=== PATIENT | female | born 1930 | race Caucasian/White ===

== ENCOUNTER 2017-01-22 18:45 | Inpatient (IN) | payer OTHER, MEDICARE ==
[~2017-01-22] VITALS: Ht 160 cm; Wt 54.2 kg
[~2017-01-22 18:45] MED LIST: ACET325T96 PO; ADVIN10/60 INH; ALBU18002 INH; ASPI81TA28 PO; ATOR-22 PO; CLOP1TAB15 PO; COEN50CA2 PO; LISI2.5T5 PO; METO25TA3 PO; NTRGSL/4 UT
--- NOTE | 2017-01-22 19:21 | EMERGENCY ROOM VISIT NOTE ---
History Report prepared by Jasper: Taty Interiano Under the Supervision of: Dr. Loki Roberson M.D. First contact with patient: 19:02 Chief Complaint: CARDIAC ASSESSMENT Stated Complaint: RETAINING FLUID,NOT EATING,SOB,ABNORMAL LABS Nursing Triage Summary: pt was seen at pcp on monday had testing completed . dr stated he was going out of town if pt got worse come to ed . was called and told lab work was abnormal at 1999 last night and cxr had fluid. had not been read by radiologist but that is what he seen . pt c/o sob has bilat lower ext swelling History of Present Illness The patient is an 86 year old female who presents to the Emergency Room with complaints of abnormal labs that were drawn on Monday. Per the patient's son, the patient had an appointment with her PCP on Monday morning. He states that two weeks ago the patient was started on Prednis[place] The patient's son states that since then the patient has gone down hill. He states that the patient has had a decrease in appetite, decrease in fluid intake, increased fatigue, and increased confusion. The patient's son states that the patient had outpatient labs drawn, urinalysis, and a chest x- ray. He states that they received a call last night from the patient's PCP stating that there were abnormalities in her lab work and fluid build up on her chest x-ray. The patient's son states that the patient worsened today, noting that she has had increased swelling to her lower extremities, increased labored breathing, and weakness. He denies the patient having a fever. The patient notes that she feels short of breath today. He states that the patient was going to outpatient therapy at [facility], but states that she has been going downhill. 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 Source of History: patient, family (son) Onset: Monday Position: other (global) Quality: other (abnormal labs) Associated Symptoms: + SOB, + weakness, No fevers Note: Associated Symptoms: increased confusion, increased fatigue, decrease in appetite, decrease in fluid intake, increased labored breathing, increased swelling to lower extremities Review of Systems See HPI for pertinent positives & negatives. A total of 10 systems reviewed and were otherwise negative. Past Medical & Surgical Medical Problems: (1) Ankle fracture, left (2) CAD (coronary artery disease) (3) Carotid stenosis, non-symptomatic (4) Chronic systolic CHF (congestive heart failure) (5) CKD (chronic kidney disease), stage III (6) COPD (chronic obstructive pulmonary disease) (7) CVA (cerebral vascular accident) (8) Dyslipidemia (9) Ischemic cardiomyopathy (10) Left Hip Fracture (11) Osteoporosis Surgical Problems: (1) H/O dilation and curettage (2) History of hip replacement (3) S/P tonsillectomy and adenoidectomy Family History Cancer Diabetes mellitus Heart disease Hypertension Social History Smoking Status: Never Smoker Marital Status: Occupation Status: retired Current/Historical Medications Scheduled Acetaminophen (Tylenol), 500 MG PO QPM Aspirin (Aspirin Ec), 81 MG PO DAILY Atorvastatin (Lipitor), 20 MG PO QPM Clopidogrel (Plavix), 75 MG PO QAM Coenzyme Q10 (Ubidecarenone) (Co Q-10), 50 MG PO DAILY Fluticasone Prop/Salmeterol (Advair Diskus 100/50 60 Dose), 1 PUFF INH QAM Furosemide (Furosemide), 20 MG PO WK Lisinopril (Lisinopril), 2.5 MG PO DAILY Metoprolol Succ (Toprol Xl) (Toprol-Xl), 75 MG PO BID Nitroglycerin (Nitrostat), 0.4 MG UT PRN Sennosides-Docusate Sodium (Senna S), 2 TAB PO DAILY Spironolactone (Spironolactone), 12.5 MG PO WK Scheduled PRN Albuterol Sulfate (Proair Respiclick), 2 PUFF INH QID PRN for SOB/Wheezing Allergies Coded Allergies: No Known Allergies (Unverified , 11/12/16) Physical Exam Vital Signs Date Time Temp Pulse Resp B/P Pulse Ox O2 Delivery O2 Flow Rate FiO2 01/22/17 20:59 91 20 157/67 95 Nasal Cannula 2.0 01/22/17 19:52 94 20 155/72 94 Nasal Cannula 1.0 01/22/17 19:50 93 Nasal Cannula 1.0 01/22/17 19:44 95 01/22/17 18:50 36.9 83 20 150/68 94 Room Air Physical Exam GENERAL: Patient is in no acute distress. HEENT: No acute trauma, normocephalic atraumatic, mucous membranes moist, no nasal congestion, no scleral icterus. NECK: No stridor, no adenopathy, no meningismus, trachea is midline. LUNGS: Decreased breath sounds on right, left lung appears clear. HEART: Without murmurs gallops or rubs, regular rate and rhythm. ABDOMEN: Soft, nontender, bowel sounds positive, no hernias, no peritonitis. EXTREMITIES: Moderate bilateral pedal edema, no cellulitis. No cyanosis, full range of motion of all the joints without pain or difficulty, no signs for acute trauma. NEUROLOGIC: No acute motor or sensory deficits, no focal weakness. Somnolent. SKIN: Pale. No rash, no jaundice, no diaphoresis. Medical Decision & Procedures ER Provider Diagnostic Interpretation: X ray results and stated below per my interpretation and radiologist interpretation. Other radiology results and stated below per my review and radiologist interpretation: HEAD CT NONCONTRAST CT DOSE: 1257.71 mGy.cm HISTORY: Mental status change EVALUATE ALTERED MENTAL STATUS/WEAKNESS TECHNIQUE: Multiaxial CT images of the head were performed without the use of intravenous contrast. Comparison: 09/16/2016 Findings: The paranasal sinuses and mastoid air cells are clear. Old right frontal infarct. Several old periventricular infarct. No evidence for acute intracranial hemorrhage. Slightly progressive atrophy compared to the prior exam. Impression: 1. No acute intracranial abnormality. 2. Mildly progressive atrophy compared to the prior study. 3. Multiple old infarcts primarily in the right cerebral hemisphere Electronically signed by: William Lua M.D. 01/22/2017 8:24 PM Dictated Date/Time: 01/22/2017 8:21 PM CHEST ONE VIEW PORTABLE CLINICAL HISTORY: EVALUATE ALTERED MENTAL STATUS/WEAKNESS dyspnea COMPARISON STUDY: 11/16/2016 FINDINGS: Congestive heart failure. Increase in cardiac size compared to the prior study. Bibasilar pleural effusions. Prominent pulmonary vasculature. IMPRESSION: Congestive heart failure Electronically signed by: William Lua M.D. 01/22/2017 7:42 PM Dictated Date/Time: 01/22/2017 7:41 PM Laboratory Results 01/22/17 19:32 Red Blood Count 3.68, Mean Corpuscular Volume 85.3, Mean Corpuscular Hemoglobin 26.6, Mean Corpuscular Hemoglobin Concent 31.2, Mean Platelet Volume 9.1, Neutrophils (%) (Auto) 81.1, Lymphocytes (%) (Auto) 8.7, Monocytes (%) (Auto) 9.5, Eosinophils (%) (Auto) 0.1, Basophils (%) (Auto) 0.3, Neutrophils # (Auto) 10.37, Lymphocytes # (Auto) 1.11, Monocytes # (Auto) 1.21, Eosinophils # (Auto) 0.01, Basophils # (Auto) 0.04 01/22/17 19:32 Test 01/22/17 19:32 01/22/17 20:44 White Blood Count 12.78 K/uL (4.8-10.8) Red Blood Count 3.68 M/uL (4.2-5.4) Hemoglobin 9.8 g/dL (12.0-16.0) Hematocrit 31.4 % (37-47) Mean Corpuscular Volume 85.3 fL (80-100) Mean Corpuscular Hemoglobin 26.6 pg (25-34) Mean Corpuscular Hemoglobin Concent 31.2 g/dl (32-36) Platelet Count 484 K/uL (130-400) Mean Platelet Volume 9.1 fL (7.4-10.4) Neutrophils (%) (Auto) 81.1 % Lymphocytes (%) (Auto) 8.7 % Monocytes (%) (Auto) 9.5 % Eosinophils (%) (Auto) 0.1 % Basophils (%) (Auto) 0.3 % Neutrophils # (Auto) 10.37 K/uL (1.4-6.5) Lymphocytes # (Auto) 1.11 K/uL (1.2-3.4) Monocytes # (Auto) 1.21 K/uL (0.11-0.59) Eosinophils # (Auto) 0.01 K/uL (0-0.5) Basophils # (Auto) 0.04 K/uL (0-0.2) RDW Standard Deviation 47.8 fL (36.4-46.3) RDW Coefficient of Variation 15.4 % (11.5-14.5) Immature Granulocyte % (Auto) 0.3 % Immature Granulocyte # (Auto) 0.04 K/uL (0.00-0.02) Nucleated RBC Absolute Count (auto) 0.04 K/uL (0-0) Nucleated Red Blood Cells % 0.3 % Prothrombin Time 12.6 SECONDS (9.0-12.0) Prothromb Time International Ratio 1.2 (0.9-1.1) Activated Partial Thromboplast Time 26.0 SECONDS (21.0-31.0) Partial Thromboplastin Ratio 1.0 Anion Gap 13.0 mmol/L (3-11) Est Creatinine Clear Calc Drug Dose 39.0 ml/min Estimated GFR () 72.4 Estimated GFR (Non- 62.5 BUN/Creatinine Ratio 21.8 (10-20) Calcium Level 8.3 mg/dl (8.5-10.1) Magnesium Level 2.2 mg/dl (1.8-2.4) Total Bilirubin 0.9 mg/dl (0.2-1) Aspartate Amino Transf (AST/SGOT) 35 U/L (15-37) Alanine Aminotransferase (ALT/SGPT) 67 U/L (12-78) Alkaline Phosphatase 99 U/L (45-117) Troponin I 0.030 ng/ml (0-0.045) Pro-B-Type Natriuretic Peptide 07959 pg/ml (0-1800) Total Protein 6.2 gm/dl (6.4-8.2) Albumin 3.0 gm/dl (3.4-5.0) Globulin 3.2 gm/dl (2.5-4.0) Albumin/Globulin Ratio 0.9 (0.9-2) Thyroid Stimulating Hormone (TSH) 2.720 uIu/ml (0.300-4.500) Lab results from 01/20/17: White blood count: 12.05 Hemoglobin: 9.6 Platelet Count: 516 TSH: 4.83 Free T4 Reflexive: 1.43 Troponin T: < 0.010 Urine culture: 10,000 to 100,000 colonies/ML possible aerococcus species 10,000 to 100,000 colonies/ML Diphtheroids Less than 10,000 colonies/ML mixed gaudencio Laboratory results reviewed by me. Medications Administered Medications (Trade) Dose Ordered Sig/Gino Route Start Time Stop Time Status Last Admin Dose Admin Nitroglycerin (Nitroglycerin 2% Oint) 1 inch NOW STAT EXT 01/22/17 20:35 01/22/17 20:36 DC 01/22/17 20:57 1 INCH Ceftriaxone Sodium (Rocephin Inj) 1 gm NOW STAT IV 01/22/17 20:36 01/22/17 20:37 DC 01/22/17 20:57 1 GM ECG Indication: SOB/dyspnea Rate (beats per minute): 94 Rhythm: normal sinus Findings: ST depression (Lateral), no ectopy Comparison ECG Date: 11/13/16 Change: no significant change ED Course 1903: The patient was evaluated in room C3. A complete history and physical exam was performed. 2034: Ordered Lasix Inj 40 mg IV, Nitroglycerin 1 inch ext, Rocephin Inj 1 gm IV. 2037: I reevaluated the patient and she is resting comfortably. I discussed the exam findings with her family and I discussed the treatment plan. They verbalized complete understanding and agreement. The patient will be evaluated for further treatment. 2052: I discussed the patients case with Emile Worthy. He is going to evaluate the patient for further treatment. Medical Decision The patient is an 86 year old female who presents to the ED with complaints of abnormal labs. Differential diagnoses considered include infection, UTI, stroke , intracranial bleeding, anemia, renal failure, electrolyte imbalance, CHF, cardiac ischemia. There is a mild leukocytosis which could be consistent with infection. She is somewhat anemic but the number is not critical. No significant electrolyte abnormality, kidney failure or hepatitis. The patient appears to be in a euthyroid state. Chest x-ray does show CHF with bilateral pleural effusions, the effusion is worse on the right. No pneumothorax. BNP is elevated consistent with fluid overload. Brain CT shows old infarcts, no acute bleed or mass effect. No concerning coagulopathy. ABG results are pending. Urinalysis results are pending. EKG shows a sinus rhythm with some ST depression laterally , no change when compared to previous EKGs. Cardiac enzyme testing 1 is not consistent with acute cardiac injury. I reviewed the blood work from a few days ago, the patient's urine culture did grow bacteria consistent with infection. The patient received IV ceftriaxone for the UTI, she was given nitro paste, IV Lasix. Given her change in mental status, given the somnolence, the CHF and the UTI, admission/observation is warranted. I spoke with case management, I talked to the family and the patient. The on-call hospitalist was consulted. Consults Time Called: 2036 Consulting Physician: Emile Worthy Returned Call: 2052 I discussed the patients case with Emile Worthy. He is going to evaluate the patient for further treatment. Impression Primary Impression: Change in mental status Additional Impressions: CHF (congestive heart failure) UTI (urinary tract infection) Scribe Attestation The scribe's documentation has been prepared under my direction and personally reviewed by me in its entirety. I confirm that the note above accurately reflects all work, treatment, procedures, and medical decision making performed by me. Departure Information Dispostion Being Evaluated By Hospitalist Adrian Siddiqi M.D. (PCP) Problem Qualifiers
--- NOTE | 2017-01-22 19:43 | DIAGNOSTIC IMAGING REPORT ---
CHEST ONE VIEW PORTABLE CLINICAL HISTORY: EVALUATE ALTERED MENTAL STATUS/WEAKNESS dyspnea COMPARISON STUDY: 11/16/2016 FINDINGS: Congestive heart failure. Increase in cardiac size compared to the prior study. Bibasilar pleural effusions. Prominent pulmonary vasculature. IMPRESSION: Congestive heart failure Electronically signed by: William Lua M.D. 01/22/2017 7:42 PM Dictated Date/Time: 01/22/2017 7:41 PM
[2017-01-22 19:54] LABS: BASO % 0.3 %; BASO ABS # 0.04 K/uL (0-0.2); COMPLETE YES; EOS % 0.1 %; HEMATOCRIT 31.4 % (37-47); IG% 0.3 %; LYMPH % 8.7 %; LYMPH ABS # 1.11 K/uL (1.2-3.4); MEAN CELL VOLUME 85.3 fL (80-100); MEAN CORPUSCULAR HEMOGLOBIN 26.6 pg (25-34); MEAN CORPUSCULAR HGB CONC 31.2 g/dl (32-36); MEAN PLATELET VOLUME 9.1 fL (7.4-10.4); MONO % 9.5 %; NEUT % 81.1 %; PLATELET COUNT 484 K/uL (130-400); RED BLOOD COUNT 3.68 M/uL (4.2-5.4); WHITE BLOOD COUNT 12.78 K/uL (4.8-10.8)
[2017-01-22 19:58] LABS: INR 1.2 (0.9-1.1); PROTHROMBIN TIME (PATIENT) 12.6 SECONDS (9.0-12.0)
[2017-01-22] MEDS ORDERED: LSX20 PO (20:04)
[2017-01-22] MEDS ORDERED: SENN-91 PO (20:04)
[2017-01-22] MEDS ORDERED: SPR25 PO (20:04)
[2017-01-22] MEDS ORDERED: ACET-1256 PO (20:05)
[2017-01-22 20:14] LABS: BUN/CREATININE RATIO 21.8 (10-20); CALCIUM 8.3 mg/dl (8.5-10.1); CREATININE 0.84 mg/dl (0.60-1.20); MAGNESIUM 2.2 mg/dl (1.8-2.4); POTASSIUM 3.9 mmol/L (3.5-5.1)
[2017-01-22 20:25] LABS: ALB/GLOB RATIO 0.9 (0.9-2); THYROID STIMULATING HORMONE 2.72 uIu/ml (0.300-4.500)
--- NOTE | 2017-01-22 20:26 | DIAGNOSTIC IMAGING REPORT ---
HEAD CT NONCONTRAST CT DOSE: 1257.71 mGy.cm HISTORY: Mental status change EVALUATE ALTERED MENTAL STATUS/WEAKNESS TECHNIQUE: Multiaxial CT images of the head were performed without the use of intravenous contrast. Comparison: 09/16/2016 Findings: The paranasal sinuses and mastoid air cells are clear. Old right frontal infarct. Several old periventricular infarct. No evidence for acute intracranial hemorrhage. Slightly progressive atrophy compared to the prior exam. Impression: 1. No acute intracranial abnormality. 2. Mildly progressive atrophy compared to the prior study. 3. Multiple old infarcts primarily in the right cerebral hemisphere Electronically signed by: William Lua M.D. 01/22/2017 8:24 PM Dictated Date/Time: 01/22/2017 8:21 PM
[2017-01-22] MEDS ORDERED: FUROSEMIDE 40 MG/4 ML VIAL IV STA (20:35)
[2017-01-22] MEDS ORDERED: NITROGLYCERIN OINT 2% 1GM PACKET EXT STA (20:35)
[2017-01-22] MEDS ORDERED: CEFTRIAXONE SOD INJ 1 GM ADDVIAL IV STA (20:36)
[2017-01-22 21:59] LABS: URINE APPEARANCE CLEAR (CLEAR); URINE COLOR DK YELLOW; URINE EPITHELIAL CELL AUTO >30 /lpf (0-5); URINE NITRITE NEG (NEG); URINE PH 5.5 (4.5-7.5); URINE SPECIFIC GRAVITY 1.024 (1.000-1.030); UROBILINOGEN NEG (NEG); ZZURINE CULT IF INDIC CATH YES
[2017-01-22 22:14] LABS: MANUAL MICROSCOPIC REQUIRED? NO; REVIEW REQ? YES; URINE BILIRUBIN NEG (NEG)
[2017-01-22 22:22] LABS: ARTERIAL BLOOD GAS BASE EXCESS -1.2 mEq/L (-9-1.8); ARTERIAL BLOOD GAS HCO3 21 mmol/L (19-24); ARTERIAL BLOOD GAS PO2 109 mm/Hg (80-95)
[2017-01-22 22:28] LABS: ALLEN TEST POS (POS); ARTERIAL BLOOD GAS pH 7.51 (7.35-7.45); O2 ADMINISTRATION 2 L
[2017-01-22] MEDS ORDERED: PIPERACILL/TAZOBAC CONSULT ACTIVE PRN (23:15)
[2017-01-22] MEDS ORDERED: ALBUT/IPRATROP 3MG/0.5MG NEB 3 ML VIAL INH PRN (23:15)
[2017-01-22] MEDS ORDERED: NITROGLYCERIN 0.4 MG SL PER TAB CHARGE SL PRN (23:15)
[2017-01-22] MEDS ORDERED: POTASSIUM CHLORIDE 10 MEQ TABCR PO STA (23:30)
[2017-01-22] MEDS ORDERED: PIPERACILLIN/TAZOBACTAM 4.5 GM/100ML D5W IV STA (23:31)
[2017-01-22 23:40] VITALS: BP 152/63; PULSE 96; TEMP 36.4; O2SAT 98; Ht 160 cm; Wt 54.2 kg
[2017-01-23] VITALS (9 sets, daily range): BP systolic 127–162; BP diastolic 57–75; PULSE 90–101; TEMP 36.4–36.9; O2SAT 90–97
[2017-01-23] MEDS ORDERED: LEVALBUTEROL/IPRATROPIUM NEB INH STA (04:06)
[2017-01-23] MEDS ORDERED: LEVALBUTEROL/IPRATROPIUM NEB INH PRN (04:15)
[2017-01-23] MEDS ORDERED: IPRATROPIUM BROMIDE NEB SOLN 0.02% 2.5 ML VIAL INH STA (05:14)
[2017-01-23] MEDS ORDERED: LEVALBUTEROL 1.25MG/0.5ML NEB INH STA (05:14)
[2017-01-23] MEDS ORDERED: DOXYCYCLINE IV 100 MG in DEXTROSE 5% 100ML 100 ML IV ONE (05:30)
[2017-01-23 05:45] LABS: BASO % 0.2 %; BASO ABS # 0.03 K/uL (0-0.2); COMPLETE YES; EOS % 0.1 %; HEMATOCRIT 29.8 % (37-47); IG% 0.3 %; LYMPH % 11.6 %; LYMPH ABS # 1.67 K/uL (1.2-3.4); MEAN CELL VOLUME 84.7 fL (80-100); MEAN CORPUSCULAR HEMOGLOBIN 26.4 pg (25-34); MEAN CORPUSCULAR HGB CONC 31.2 g/dl (32-36); MEAN PLATELET VOLUME 8.9 fL (7.4-10.4); MONO % 11.2 %; NEUT % 76.6 %; PLATELET COUNT 425 K/uL (130-400); RED BLOOD COUNT 3.52 M/uL (4.2-5.4); WHITE BLOOD COUNT 14.45 K/uL (4.8-10.8)
[2017-01-23] MEDS: ENOXAPARIN 30 MG/0.3 ML SYR SC SCH (05:51)
[2017-01-23] MEDS ORDERED: PIPERACILL/TAZOBAC IV 3.375 GM in DEXTROSE 5% 100ML IV SCH (06:00)
[2017-01-23 06:15] LABS: BUN/CREATININE RATIO 18.8 (10-20); CALCIUM 7.7 mg/dl (8.5-10.1); CREATININE 0.88 mg/dl (0.60-1.20); POTASSIUM 3.6 mmol/L (3.5-5.1)
[2017-01-23] MEDS: IPRATROPIUM BROMIDE NEB SOLN 0.02% 2.5 ML VIAL INH PRN (07:35)
[2017-01-23] MEDS: LEVALBUTEROL 1.25MG/0.5ML NEB INH PRN (07:35)
[2017-01-23] MEDS: FLUTICASONE/SALMETEROL 100/50 (ADVAIR) 14 PUFF/1 INHALER INH SCH (07:59)
[2017-01-23] MEDS: METOPROLOL SUCC 25MG EXT REL TAB PO SCH ×2 (08:03→19:36)
[2017-01-23] MEDS: LISINOPRIL 2.5 MG TAB PO SCH (08:03)
[2017-01-23] MEDS: ASPIRIN 81 MG ECTAB PO SCH (08:04)
[2017-01-23] MEDS: CLOPIDOGREL BISULFATE 75 MG TAB PO SCH (08:04)
[2017-01-23] MEDS: DOCUSATE SODIUM/SENNA 50/8.6MG TAB PO SCH (08:04)
--- NOTE | 2017-01-23 08:14 | HISTORY & PHYSICAL EXAMINATION ---
DATE OF ADMISSION: 01/22/2017 PRIMARY CARE PHYSICIAN: Dr. Feliciano. History obtained from the patient's family and records. Patient is not a reliable historian secondary to weakness and disorientation. CHIEF COMPLAINT: "Filling up with fluid" as per the patient. HISTORY OF PRESENT ILLNESS: Medical history significant for chronic systolic heart failure secondary to ischemic cardiomyopathy (35-40%) from a 2D echo from 08/2016, CAD status post stenting, valvular heart disease (moderate MR), HTN, chronic anemia (baseline hemoglobin of 9-10), aspiration risk, history of recurrent CVA, COPD as per records. Recent confinement 08/2016 for left hip fracture sp surgery. Px subsequently discharged to [facility] then home. Patient residing with son and [id number]. As per son, in the last few weeks, the patient slowly declining, appetite fair. She was seen at PCP's office last about 2 weeks ago for urticaria, possibly from Bactrim started for possible UTI. Patient started on prednisone. Hives improved; however, the patient had some agitation at night following steroids. Patient will be tired and sleeping all the time in the morning. Patient was seen at PCP's office about 2 days ago for delirium. Lab work drawn. Family given option of going to ER or going home. Family opted to go home. Patient later on noted to be coughing, cough productive of yellow sputum. Px also noted to be coughing w/ meals if not careful, especially cold food. Some chewing issues as per son. Increased leg swelling noted by family, increased respiratory distress. Px felt she was filling up w/ fluid. Family received a call from PCP. Cloudy UA, initial cultures showing more of mixed gaudencio, less than 100,000 colonies. Chest x-ray, possible congestion as per PCP. Patient's family decided to bring the patient to the Emergency Room. Received Lasix for CHF, ceftriaxone for possible UTI. Compliant with home meds. MEDICAL HISTORY: As above. SURGERIES: Gynecologic procedures, hip replacement, tonsillectomy, adenoidectomy. HOME MEDICATIONS: Include aspirin, Tylenol, ProAir, Lipitor, coenzyme Q, Plavix, Advair Diskus, furosemide, lisinopril, Toprol-XL, Nitrostat, Senokot-S, spironolactone. ALLERGIES: No known drug allergies. FAMILY HISTORY: Heart disease. PERSONAL AND SOCIAL HISTORY: Nonsmoker, no chronic intake of alcoholic beverages. Lives with son and [id number]. REVIEW OF SYSTEMS: Could not be reliably obtained. PHYSICAL EXAMINATION: VITAL SIGNS: Blood pressure noted to be 150/68, pulse rate 95, RR 20, temp 36.9, sats 93 on nasal cannula. GENERAL: Noted to be somewhat disoriented, lethargic, but coherent No respiratory distress. SKIN: Pallor. HEENT: Pale palpebral conjunctivae. Dry mucosa. NECK: JVD. supple CHEST: Decreased effort. HEART: Systolic murmur. ABDOMEN: Some distention. EXTREMITIES: Bilateral lower extremity edema. no tenderness NEUROLOGIC: Lethargic. LABORATORIES: Hemoglobin was noted to be 9.8, hematocrit 31.4, white cell count 12.7, platelets are 144. Sodium 140, potassium 3.9, chloride 108, CO2 21, BUN 18, creatinine 0.8, glucose 112. trop 0.03 UA, trace ketones, trace WBCs, epith cells positive. Chest x-ray showed congestive heart failure, cardiomegaly, bibasilar pleural effusions, prominent pulmonary vasculature. EKG NSR, ST dep lat leads ASSESSMENT: 1. Shortness of breath multifactorial : Decompensated heart failure, possibly from fluid retention from recent prednisone course for recent urticarial illness complicated bronchitis, possible sepsis. 2. hx ischemic cardiomyopathy, EF 35%. 3. Coronary artery disease, status post stenting. 4. Chronic obstructive pulmonary disease as per records. 5. Encephalopathy 2 to illness, delirium, deconditioning possible beginning dementia as per family 6. Chronic anemia, hemoglobin baseline. 7. abn outpx UA (multiple gaudencio on initial outpatient urine CS) PLAN: PCU. Diuretic therapy. CHF education. Strict IOS, daily weights. Cardiology consult for decompensated CHF. Doxycycline for complicated bronchitis. PT, OT eval. DVT prophylaxis, Lovenox subcu. Full code as per son, Mr. Nahun Shen. He is requesting updates from providers at [phone]. [facility]
[2017-01-23] MEDS ORDERED: FUROSEMIDE INJ 40 MG in SYRINGE 0 ML IV SCH (09:00)
--- NOTE | 2017-01-23 10:23 | Cardiology Consultation ---
Cardiology Consultation Date of Consultation: Jan 23, 2017 Requesting Physician: Blayne Attending Spiritual Advisor: Damian (William Maradiaga PA-C) History of Present Illness Ms. Pappas is a very pleasant 86 year old female who is being seen at the request of Dr. Cisneros. Reason for consultation is acute heart failure. The present hospitalization represents Ms. Pappas's fifth hospitalization over the past year, last in October 2016 secondary to a left hip fracture requiring open reduction and internal fixation. Over the past month the patient has become progressively fatigued, generalized weak. She was seen at her PCP's office ~3 weeks ago with confusion (previously associated with a UTI), sore throat, congestion, cough, difficulty sleeping. She was felt to have a UTI, treated with Bactrim DS BID x 7 days however the culture was negative and the antibiotic was discontinued after a couple of pills that resulted in nausea. Shortly thereafter she was seen with a pruritic rash, possible lip swelling; it was unclear, per documentation, if the rash was secondary to Bactrim or a contact dermatitis. She was given a Prednisone taper. The patient notes difficulty tolerating the Prednisone, feeling funny inside, increased difficulty at night, decreased appetite. She notes a cough, chest congestion, increased dyspnea, abdominal bloating, orthopnea without PND, and lower extremity peripheral edema. She states "my family can't understand why I am so tired." The patient was seen in the ER by Dr. Roberson. EKG showed sinus at [address] depression laterally. CXR revealed congestive heart failure as per Dr. Lua. Laboratory work revealed mild leukocytosis. H&H were 9.8 and 31.4%. Platelet count was 484,000. Pro-B-VE TEACHER was 29,558 pg/ml. CT of the head, as per Dr. Lua , showed no acute intracranial abnormality, mildly progressive atrophy, and multiple old infarcts primarily in the right cerebral hemisphere. The patient was given 40 mg IV furosemide, nitroglycerin paste, and a gram of IV Rocephin for a possible UTI in the ER with improvement. (William Maradiaga PA-C) History Past Medical and Surgical History: ASCVD Acute anteroapical myocardial infarction in setting of right hip replacement ( June 2015) February 2016 [id number] elevation myocardial infarction requiring complex coronary interventions including stenting the left main, left anterior descending, left circumflex, with Impella LV augmentation device in place. Class II angina pectoris CVA in March 2015 Hypertension Hyperlipidemia Anemia Stage III chronic kidney disease COPD Status post mechanical fall and subsequent hip fracture 11/04 Mild carotid artery disease History of melanoma and basal cell carcinoma Osteoporosis D&Cx3. Family History: Mother with an NJ at 54. Father at 78. Son with an NJ in his 30's. Another Son and daughter with CAD. Social History: Nonsmoker. No alcohol. No illegal drug use. . 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 Lives with her son Nahun and daughter in law. (William Maradiaga PA-C) Review Of Systems General: Generalized weakness. Fatigue. Insomnia. Taking Benadryl via Tylenol PM and more recently melatonin. No fever. Head: No headache. Cardiovascular: + [place]BETT. + Cough. + Orthopnea. No chest pain. PND. No palpitations. Pulmonary: No hemoptysis. Gastrointestinal: + Nausea. + Vomiting. + Bloating. No melena or hematochezia. Skin: + Rash. Musculoskeletal: + Hip pain. + Back pain. Neurological: + TIA. + CVA. No history of seizures. Complete review of systems is as stated above, negative, or noncontributory. (William Maradiaga PA-C) Allergies Coded Allergies: No Known Allergies (Unverified , 11/12/16) Medications Reported Home Medications Medications Dose Route/Sig Max Daily Dose Days Date Category Tylenol (Acetaminophen) 500 Mg Tab 500 Mg PO QPM 01/22/17 Reported Senna S (Sennosides-Docusate Sodium) 1 Tab Tab 2 Tab PO DAILY 01/22/17 Reported Spironolactone 25 Mg Tab 12.5 Mg PO WK 01/22/17 Reported Furosemide 20 Mg Tab 20 Mg PO WK 01/22/17 Reported Proair Respiclick (Albuterol Sulfate) 108 Mcg/Act Aer 2 Puff INH QID PRN 11/12/16 Reported Toprol-Xl (Metoprolol Succinate) 25 Mg Tabcr 75 Mg PO BID 09/15/16 Reported Co Q-10 (Coenzyme Q10 (Ubidecarenone)) 50 Mg Cap 50 Mg PO DAILY 09/10/16 Reported Nitrostat (Nitroglycerin) 0.4 Mg Tab 0.4 Mg UT PRN 04/14/16 Reported Lisinopril 2.5 Mg Tab 2.5 Mg PO DAILY 02/20/16 Reported Aspirin Ec (Aspirin) 81 Mg Tab 81 Mg PO DAILY 02/20/16 Reported Plavix (Clopidogrel Bisulfate) 75 Mg Tab 75 Mg PO QAM 06/09/15 Reported Lipitor (Atorvastatin Calcium) 20 Mg Tab 20 Mg PO QPM 06/09/15 Reported Advair Diskus 100/50 60 Dose (Fluticasone Prop/Salmeterol) 1 Ea Aerp 1 Puff INH QAM 03/30/13 Reported (William Maradiaga PA-C) Physical Exam Vital Signs (Last 8hrs): Last 8 Hrs Date Time Temp Pulse Resp B/P Pulse Ox O2 Delivery O2 Flow Rate FiO2 01/23/17 08:02 36.4 92 20 162/68 93 Nasal Cannula 2.0 01/23/17 07:35 93 20 93 Nasal Cannula 2.0 01/23/17 05:41 91 24 94 Nasal Cannula 2.0 01/23/17 04:00 97 Nasal Cannula 2.0 01/23/17 03:33 36.9 92 22 160/75 97 Nasal Cannula 2.0 General Appearance: Alert and Oriented to person and place, not to time. Acutely ill. Chronically ill. Fatigued. Head: Normocephalic Atraumatic. Eyes: PER, EOMI, Conjunctiva and sclera pale. Neck: + Elevated JVP. + HJR. No carotid bruits. Respiratory: Absent breath sounds, right greater than left. Bibasilar rales. No wheeze. Cardiovascular: Regular ~100 bpm. Soft systolic ejection murmur. No diastolic murmur. No rub. Abdomen: +BS. Soft. Nontender. Extremities: 1+ right greater than left lower extremity edema. No clubbing. No cyanosis. Neuro: No focal deficits. Psychiatric: Fat affect. (William Maradiaga PA-C) Data Last 24 Hours Test 01/22/17 19:32 01/22/17 21:25 01/22/17 21:40 01/22/17 22:05 White Blood Count 12.78 K/uL Red Blood Count 3.68 M/uL Hemoglobin 9.8 g/dL Hematocrit 31.4 % Mean Corpuscular Volume 85.3 fL Mean Corpuscular Hemoglobin 26.6 pg Mean Corpuscular Hemoglobin Concent 31.2 g/dl Platelet Count 484 K/uL Mean Platelet Volume 9.1 fL Neutrophils (%) (Auto) 81.1 % Lymphocytes (%) (Auto) 8.7 % Monocytes (%) (Auto) 9.5 % Eosinophils (%) (Auto) 0.1 % Basophils (%) (Auto) 0.3 % Neutrophils # (Auto) 10.37 K/uL Lymphocytes # (Auto) 1.11 K/uL Monocytes # (Auto) 1.21 K/uL Eosinophils # (Auto) 0.01 K/uL Basophils # (Auto) 0.04 K/uL RDW Standard Deviation 47.8 fL RDW Coefficient of Variation 15.4 % Immature Granulocyte % (Auto) 0.3 % Immature Granulocyte # (Auto) 0.04 K/uL Nucleated RBC Absolute Count (auto) 0.04 K/uL Nucleated Red Blood Cells % 0.3 % Prothrombin Time 12.6 SECONDS Prothromb Time International Ratio 1.2 Activated Partial Thromboplast Time 26.0 SECONDS Partial Thromboplastin Ratio 1.0 Sodium Level 142 mmol/L Potassium Level 3.9 mmol/L Chloride Level 108 mmol/L Carbon Dioxide Level 21 mmol/L Anion Gap 13.0 mmol/L Blood Urea Nitrogen 18 mg/dl Creatinine 0.84 mg/dl Est Creatinine Clear Calc Drug Dose 39.0 ml/min Estimated GFR () 72.4 Estimated GFR (Non- 62.5 BUN/Creatinine Ratio 21.8 Random Glucose 112 mg/dl Calcium Level 8.3 mg/dl Magnesium Level 2.2 mg/dl Total Bilirubin 0.9 mg/dl Aspartate Amino Transf (AST/SGOT) 35 U/L Alanine Aminotransferase (ALT/SGPT) 67 U/L Alkaline Phosphatase 99 U/L Troponin I 0.030 ng/ml Pro-B-Type Natriuretic Peptide 64306 pg/ml Total Protein 6.2 gm/dl Albumin 3.0 gm/dl Globulin 3.2 gm/dl Albumin/Globulin Ratio 0.9 Thyroid Stimulating Hormone (TSH) 2.720 uIu/ml Ammonia 43.0 umol/L Urine Color DK YELLOW Urine Appearance CLEAR Urine pH 5.5 Urine Specific [place] 1.024 Urine Protein 1+ Urine Glucose (UA) NEG Urine Ketones TRACE Urine Occult Blood 1+ Urine Nitrite NEG Urine Bilirubin NEG Urine Urobilinogen NEG Urine Leukocyte Esterase TRACE Urine WBC (Auto) 1-5 /hpf Urine RBC (Auto) 0-4 /hpf Urine Hyaline Casts (Auto) 5-10 /lpf Urine Epithelial Cells (Auto) >30 /lpf Urine Bacteria (Auto) 4+ Urine Renal Epithelial Cells 0-5 /lpf Arterial Blood pH 7.51 Arterial Blood Partial Pressure CO2 28 mmHg Arterial Blood Partial Pressure O2 109 mm/Hg Arterial Blood HCO3 21 mmol/L Arterial Blood Oxygen Saturation 98.0 % Arterial Blood Base Excess -1.2 mEq/L Arterial Blood Gas Delivery 2 L Kevin Test POS Test 01/23/17 05:05 01/23/17 05:25 Ammonia 27.0 umol/L White Blood Count 14.45 K/uL Red Blood Count 3.52 M/uL Hemoglobin 9.3 g/dL Hematocrit 29.8 % Mean Corpuscular Volume 84.7 fL Mean Corpuscular Hemoglobin 26.4 pg Mean Corpuscular Hemoglobin Concent 31.2 g/dl Platelet Count 425 K/uL Mean Platelet Volume 8.9 fL Neutrophils (%) (Auto) 76.6 % Lymphocytes (%) (Auto) 11.6 % Monocytes (%) (Auto) 11.2 % Eosinophils (%) (Auto) 0.1 % Basophils (%) (Auto) 0.2 % Neutrophils # (Auto) 11.08 K/uL Lymphocytes # (Auto) 1.67 K/uL Monocytes # (Auto) 1.62 K/uL Eosinophils # (Auto) 0.01 K/uL Basophils # (Auto) 0.03 K/uL RDW Standard Deviation 48.3 fL RDW Coefficient of Variation 15.5 % Immature Granulocyte % (Auto) 0.3 % Immature Granulocyte # (Auto) 0.04 K/uL Nucleated RBC Absolute Count (auto) 0.02 K/uL Nucleated Red Blood Cells % 0.1 % Sodium Level 141 mmol/L Potassium Level 3.6 mmol/L Chloride Level 105 mmol/L Carbon Dioxide Level 28 mmol/L Anion Gap 8.0 mmol/L Blood Urea Nitrogen 17 mg/dl Creatinine 0.88 mg/dl Est Creatinine Clear Calc Drug Dose 37.2 ml/min Estimated GFR () 68.5 Estimated GFR (Non- 59.1 BUN/Creatinine Ratio 18.8 Random Glucose 102 mg/dl Calcium Level 7.7 mg/dl Troponin I 0.040 ng/ml September 16, 2016 TTE Interpretation Summary ([facility], as per Dr. Wilde): Normal LV chamber size with mild concentric LVH in wall segments with normal wall motion. Moderately reduced LV systolic function, EF 35-40%. There is a large sized apical, septal, anteroseptal, anterior, and lateral wall motion abnormality with hypokinesis to akinesis of the segments. Grade II diastolic dysfunction. Aortic valve sclerosis moderate, without significant aortic valvular stenosis. Moderate mitral annular calcification with moderate mitral regurgitation. Mild tricuspid regurgitation. Severe left atrial enlargement. The interatrial septum bows toward right atrium consistent with elevated left atrial pressure. January 22, 2017 EKG: Normal sinus rhythm at 94 bpm. Possible LAE. Cannot rule out anterior infarct, age undetermined. ST & T wave abnormality, consider lateral ischemia. January 23, 2017 EKG: Normal sinus rhythm at 93 bpm. Possible LAE. Cannot rule out anterior infarct, age undetermined. ST & T wave abnormality, consider lateral ischemia. Telemetry: Currently sinus at 90 bpm. Rare PVC. No bradyarrhythmias or pauses. (William Maradiaga PA-C) Assessment & Plan 86-year-old female with complex history including significant ischemic heart disease, ischemic cardiomyopathy with EF 35-40%, presenting this admission with signs and symptoms of moderate acute decompensated systolic congestive heart failure possible exacerbated by a recent course of oral steroids. Mild hypertension observed. Recommend utilization of IV furosemide, 40 mg/day for now. She will be given one dose of oral potassium supplementation this morning as well as begin on low dose spironolactone, 12.5 mg/day. Nitro paste will be continued along with Metoprolol as presently prescribed though suspect she will require titration of Toprol XL to 100 mg twice per day when compensated. Continue low dose JENNY inhibition. She requires uninterrupted continuation of dual antiplatelet therapy with aspirin and clopidogrel given left main stenting in February 2016. Recommend further evaluation and treatment of the symptomatic anemia. Further recommendations pending the above, evaluation by Dr. Salgado, and her ongoing hospitalization. (William Maradiaga PA-C) Patient seen and examined, chart reviewed. Acute on chronic decompensated congestive heart failure with multifactorial precipitants. Assessment and plan as above. Patient is initally responding briskly to diuresis. You Salgado MD (You Salgado M.D.)
[2017-01-23] MEDS ORDERED: POTASSIUM CHLORIDE 10 MEQ TABCR PO ONE (10:30)
[2017-01-23] MEDS: SPIRONOLACTONE 25 MG TAB PO SCH (12:38)
[2017-01-23] MEDS: NITROGLYCERIN OINT 2% 1GM PACKET EXT SCH ×3 (12:40→22:14)
[2017-01-23 13:16] LABS: FERRITIN 64.7 ng/ml (8.0-388.0)
[2017-01-23] MEDS: DOXYCYCLINE IV 100 MG in DEXTROSE 5% 100ML 100 ML IV SCH (17:38)
[2017-01-23] MEDS: ATORVASTATIN 20 MG TAB PO SCH (19:36)
--- NOTE | 2017-01-23 19:54 | Progress Note ---
Medicine Progress Note Date & Time of Visit: Jan 23, 2017 at 19:23. Subjective Pt was seen and examined Lying in bed with no distress Pt said that her breathing feels better She said that she is falling apart she denies any chest pain, palpitation. Objective Last 8 Hrs Date Time Temp Pulse Resp B/P Pulse Ox O2 Delivery O2 Flow Rate FiO2 01/23/17 19:09 36.8 93 18 129/57 94 Nasal Cannula 2.0 01/23/17 16:00 Nasal Cannula 1.0 01/23/17 15:18 36.7 90 18 127/69 96 Nasal Cannula 2.0 01/23/17 12:00 Nasal Cannula 1.0 Physical Exam: General- No acute distress Head- atraumatic Eyes- PERRL, EOMI ENT- oropharynx clear Neck- supple, no JVD Lungs- no wheezing, no rales Heart- regular rhythm;systolic murmur Abdomen- normal bowel sounds, soft Extremities- no calf tenderness Neuro- alert, oriented, PERRL, EOMI; no facial palsy Skin- warm & dry Laboratory Results: Last 24 Hours Test 01/22/17 19:32 01/22/17 21:25 01/22/17 21:40 01/22/17 22:05 White Blood Count 12.78 K/uL Red Blood Count 3.68 M/uL Hemoglobin 9.8 g/dL Hematocrit 31.4 % Mean Corpuscular Volume 85.3 fL Mean Corpuscular Hemoglobin 26.6 pg Mean Corpuscular Hemoglobin Concent 31.2 g/dl Platelet Count 484 K/uL Mean Platelet Volume 9.1 fL Neutrophils (%) (Auto) 81.1 % Lymphocytes (%) (Auto) 8.7 % Monocytes (%) (Auto) 9.5 % Eosinophils (%) (Auto) 0.1 % Basophils (%) (Auto) 0.3 % Neutrophils # (Auto) 10.37 K/uL Lymphocytes # (Auto) 1.11 K/uL Monocytes # (Auto) 1.21 K/uL Eosinophils # (Auto) 0.01 K/uL Basophils # (Auto) 0.04 K/uL RDW Standard Deviation 47.8 fL RDW Coefficient of Variation 15.4 % Immature Granulocyte % (Auto) 0.3 % Immature Granulocyte # (Auto) 0.04 K/uL Nucleated RBC Absolute Count (auto) 0.04 K/uL Nucleated Red Blood Cells % 0.3 % Prothrombin Time 12.6 SECONDS Prothromb Time International Ratio 1.2 Activated Partial Thromboplast Time 26.0 SECONDS Partial Thromboplastin Ratio 1.0 Sodium Level 142 mmol/L Potassium Level 3.9 mmol/L Chloride Level 108 mmol/L Carbon Dioxide Level 21 mmol/L Anion Gap 13.0 mmol/L Blood Urea Nitrogen 18 mg/dl Creatinine 0.84 mg/dl Est Creatinine Clear Calc Drug Dose 39.0 ml/min Estimated GFR () 72.4 Estimated GFR (Non- 62.5 BUN/Creatinine Ratio 21.8 Random Glucose 112 mg/dl Calcium Level 8.3 mg/dl Magnesium Level 2.2 mg/dl Total Bilirubin 0.9 mg/dl Aspartate Amino Transf (AST/SGOT) 35 U/L Alanine Aminotransferase (ALT/SGPT) 67 U/L Alkaline Phosphatase 99 U/L Troponin I 0.030 ng/ml Pro-B-Type Natriuretic Peptide 54284 pg/ml Total Protein 6.2 gm/dl Albumin 3.0 gm/dl Globulin 3.2 gm/dl Albumin/Globulin Ratio 0.9 Thyroid Stimulating Hormone (TSH) 2.720 uIu/ml Ammonia 43.0 umol/L Urine Color DK YELLOW Urine Appearance CLEAR Urine pH 5.5 Urine Specific [place] 1.024 Urine Protein 1+ Urine Glucose (UA) NEG Urine Ketones TRACE Urine Occult Blood 1+ Urine Nitrite NEG Urine Bilirubin NEG Urine Urobilinogen NEG Urine Leukocyte Esterase TRACE Urine WBC (Auto) 1-5 /hpf Urine RBC (Auto) 0-4 /hpf Urine Hyaline Casts (Auto) 5-10 /lpf Urine Epithelial Cells (Auto) >30 /lpf Urine Bacteria (Auto) 4+ Urine Renal Epithelial Cells 0-5 /lpf Arterial Blood pH 7.51 Arterial Blood Partial Pressure CO2 28 mmHg Arterial Blood Partial Pressure O2 109 mm/Hg Arterial Blood HCO3 21 mmol/L Arterial Blood Oxygen Saturation 98.0 % Arterial Blood Base Excess -1.2 mEq/L Arterial Blood Gas Delivery 2 L Kevin Test POS Test 01/23/17 05:05 01/23/17 05:25 01/23/17 12:30 Ammonia 27.0 umol/L White Blood Count 14.45 K/uL Red Blood Count 3.52 M/uL Hemoglobin 9.3 g/dL Hematocrit 29.8 % Mean Corpuscular Volume 84.7 fL Mean Corpuscular Hemoglobin 26.4 pg Mean Corpuscular Hemoglobin Concent 31.2 g/dl Platelet Count 425 K/uL Mean Platelet Volume 8.9 fL Neutrophils (%) (Auto) 76.6 % Lymphocytes (%) (Auto) 11.6 % Monocytes (%) (Auto) 11.2 % Eosinophils (%) (Auto) 0.1 % Basophils (%) (Auto) 0.2 % Neutrophils # (Auto) 11.08 K/uL Lymphocytes # (Auto) 1.67 K/uL Monocytes # (Auto) 1.62 K/uL Eosinophils # (Auto) 0.01 K/uL Basophils # (Auto) 0.03 K/uL RDW Standard Deviation 48.3 fL RDW Coefficient of Variation 15.5 % Immature Granulocyte % (Auto) 0.3 % Immature Granulocyte # (Auto) 0.04 K/uL Nucleated RBC Absolute Count (auto) 0.02 K/uL Nucleated Red Blood Cells % 0.1 % Sodium Level 141 mmol/L Potassium Level 3.6 mmol/L Chloride Level 105 mmol/L Carbon Dioxide Level 28 mmol/L Anion Gap 8.0 mmol/L Blood Urea Nitrogen 17 mg/dl Creatinine 0.88 mg/dl Est Creatinine Clear Calc Drug Dose 37.2 ml/min Estimated GFR () 68.5 Estimated GFR (Non- 59.1 BUN/Creatinine Ratio 18.8 Random Glucose 102 mg/dl Calcium Level 7.7 mg/dl Troponin I 0.040 ng/ml Iron Level 10 mcg/dl Total Iron Binding Capacity 285 mcg/dl Transferrin 213 mg/dl Transferrin % Saturation 3 % Ferritin 64.7 ng/ml Vitamin B12 Level 1162 pg/mL Folate 11.52 ng/mL Date/Time Source Procedure Growth Status 01/22/17 19:39 Blood Blood Culture Pending Received 01/22/17 19:32 Blood Blood Culture Pending Received 01/22/17 21:40 Urine,Catheterized Urine Culture - Preliminary NO GROWTH - LESS THAN 1,000 COLONIES/... Resulted Assessment & Plan Dyspnea Possible related to decompensated heart failure due to short course of steroid vs bronchitis Elevated proBNP on admission Received IV lasix and abx in the ER EF 35-40% on last echo 09/04 started on doxycycline for possible bronchitis Cardiology consulted recommended to continue lasix IV, spironolactone added once stable consider to titrate metoprolol up to 100mg, consider low dose ACEI continue monitor in tele Ischemic cardiomyopathy, EF 35-40% Continue BB, lasix IV, ACEI and spironolactone Coronary artery disease, status post stenting. Asymptomatic Continue plavix and aspirin Elevated WBC possible related to reactive Urine cx negative CXR showed no infiltrate afebrile will check procalcitonin Encephalopathy possible due to illness vs delirium or deconditioning will avoid med that worsening her symptoms continue monitor Anemia Low iron level Hb 9.3 stable Abnormal UA Afebrile, Mild elevated leukocytosis received rocephin in the ER urine cx showed no growth continue monitor cbc DVT px on lovenox Full CODE Consultants: Cardio Current Inpatient Medications: Current Inpatient Medications Medications (Trade) Dose Ordered Sig/Gino Route Start Time Stop Time Status Last Admin Dose Admin Enoxaparin Sodium (Lovenox Inj) 30 mg Q24H SC 01/23/17 06:00 02/22/17 05:59 01/23/17 05:51 30 MG Acetaminophen (Tylenol Tab) 650 mg Q4H PRN PO 01/22/17 23:15 02/21/17 23:14 Nitroglycerin (Nitrostat Tab) 0.4 mg UD PRN SL 01/22/17 23:15 02/21/17 23:14 Aspirin (Ecotrin Tab) 81 mg DAILY PO 01/23/17 09:00 02/22/17 08:59 01/23/17 08:04 81 MG Atorvastatin Calcium (Lipitor Tab) 20 mg QPM PO 01/23/17 21:00 02/22/17 20:59 Clopidogrel Bisulfate (plAVix TAB) 75 mg QAM PO 01/23/17 09:00 02/22/17 08:59 01/23/17 08:04 75 MG Salmeterol Xinafoate/ Fluticasone (Advair Diskus 100/50 Inh) 1 puff QAM INH 01/23/17 09:00 02/22/17 08:59 01/23/17 07:59 1 PUFF Lisinopril (Zestril Tab) 2.5 mg DAILY PO 01/23/17 09:00 02/22/17 08:59 01/23/17 08:03 2.5 MG Metoprolol Succinate (Toprol Xl Tab) 75 mg BID PO 01/23/17 09:00 02/22/17 08:59 01/23/17 08:03 75 MG Senna/Docusate Sodium 2 tab 2 tab DAILY PO 01/23/17 09:00 02/22/17 08:59 01/23/17 08:04 2 TAB Furosemide 40 mg/ Syringe 4 ml @ 4 mls/min DAILY IV 01/23/17 09:00 01/24/17 08:59 01/23/17 08:02 4 MLS/MIN Doxycycline Hyclate/Dextrose (Vibramycin IV/ D5 100ml) 110 ml @ 50 mls/hr Q12H IV 01/23/17 18:00 01/30/17 05:59 01/23/17 17:38 50 MLS/HR Ipratropium [place] (Atrovent 0.02% 0.5MG/2.5ML Neb) 0.5 mg Q4H PRN INH 01/23/17 05:15 02/22/17 05:14 01/23/17 07:35 0.5 MG Levalbuterol (Xopenex 1.25MG/ 0.5ML Neb) 1.25 mg Q4H PRN INH 01/23/17 05:15 02/22/17 05:14 01/23/17 07:35 1.25 MG Nitroglycerin (Nitroglycerin 2% Oint) 0.5 inch Q6H EXT 01/23/17 11:00 02/22/17 10:29 01/23/17 17:39 0.5 INCH Spironolactone (Aldactone Tab) 12.5 mg QAM PO 01/23/17 10:30 02/22/17 10:29 01/23/17 12:38 12.5 MG
[2017-01-24] VITALS (8 sets, daily range): BP systolic 121–158; BP diastolic 63–79; PULSE 87–113; TEMP 36.8–37.4; O2SAT 90–96
[2017-01-24] MEDS: DOXYCYCLINE IV 100 MG in DEXTROSE 5% 100ML 100 ML IV SCH (05:25)
[2017-01-24] MEDS: ENOXAPARIN 30 MG/0.3 ML SYR SC SCH (05:26)
[2017-01-24] MEDS: NITROGLYCERIN OINT 2% 1GM PACKET EXT SCH ×4 (05:26→22:15)
[2017-01-24 05:47] LABS: HEMATOCRIT 31.1 % (37-47); MEAN CELL VOLUME 84.1 fL (80-100); MEAN CORPUSCULAR HEMOGLOBIN 26.2 pg (25-34); MEAN CORPUSCULAR HGB CONC 31.2 g/dl (32-36); MEAN PLATELET VOLUME 8.8 fL (7.4-10.4); PLATELET COUNT 437 K/uL (130-400); WHITE BLOOD COUNT 15.22 K/uL (4.8-10.8)
[2017-01-24 06:31] LABS: BUN/CREATININE RATIO 19.5 (10-20); CALCIUM 7.9 mg/dl (8.5-10.1); CREATININE 0.78 mg/dl (0.60-1.20); POTASSIUM 3.3 mmol/L (3.5-5.1)
[2017-01-24] MEDS: FLUTICASONE/SALMETEROL 100/50 (ADVAIR) 14 PUFF/1 INHALER INH SCH (08:54)
[2017-01-24] MEDS: METOPROLOL SUCC 25MG EXT REL TAB PO SCH (08:55)
[2017-01-24] MEDS: DOCUSATE SODIUM/SENNA 50/8.6MG TAB PO SCH (08:55)
[2017-01-24] MEDS: ASPIRIN 81 MG ECTAB PO SCH (08:55)
[2017-01-24] MEDS: CLOPIDOGREL BISULFATE 75 MG TAB PO SCH (08:55)
[2017-01-24] MEDS: SPIRONOLACTONE 25 MG TAB PO SCH (08:56)
[2017-01-24] MEDS: LISINOPRIL 2.5 MG TAB PO SCH (08:56)
--- NOTE | 2017-01-24 09:50 | Cardiology Follow-Up ---
Subjective General Date of Service: Jan 24, 2017. Chief Complaint: Follow-up heart failure Pt evaluation today including: conversation w/ patient, physical exam, chart review, lab review, review of studies, review of inpatient medication list History of Present Illness Patient seen and examined. Moved to bed 229. No family at bedside. Feels better this morning. Cough improved. Less dyspnea and congestion. Improved peripheral edema. Ongoing orthopnea without PND, fatigue, generalized weakness, poor appetite No headache. No chest pain. No tachypalpitations. No PND. No fevers. No chills. I/O's are negative -3,543 mL's overall. EKG this morning reveals sinus tachycardia at 106 bpm with left atrial enlargement, rightward axis, old anterior infarct. Telemetry: Currently sinus tachycardia at 106 bpm. Atrial and ventricular ectopy in singles. No bradyarrhythmias or pauses. Allergies Coded Allergies: No Known Allergies (Unverified , 11/12/16) Social History Smoking Status: Never Smoker Hx Tobacco Use In Past Year?: No Hx Alcohol Use - Type And Amou: No Hx Substance Use - Type And Am: No Problem List Medical Problems: (1) Acute focal neurological deficit Status: Acute (2) Change in mental status Status: Acute (3) CHF (congestive heart failure) Status: Acute (4) Elevated troponin Status: Acute (5) Left sided chest pain Status: Acute (6) Neurologic gait dysfunction Status: Acute (7) Subcapital fracture of left hip Status: Acute (8) UTI (urinary tract infection) Status: Acute Physical Exam Vital Signs Last Vital Signs Documentation Date Time Temp Pulse Resp B/P Pulse Ox O2 Delivery O2 Flow Rate FiO2 01/24/17 08:24 36.8 113 20 158/79 93 Nasal Cannula 2.0 Physical Exam Constitutional: Level of Distress: acutely ill, chronically ill Psychiatric: Orientation: to place, to person, not oriented to time Head: normocephalic Eyes: Pupils: PERRLA Neck: pertinent finding (Elevated JVP. + HJR. ) Lungs: Respiratory effort: dyspneic Auscultation: no wheezing, deminished air movement, decreased breath sounds , rales/crackles on the left, rales/crackles on the right, pertinent finding ( absent breath sounds, right greater than left base) Cardiovascular: Heart Auscultation: no rubs, tachycardia, II/ MÓNICA, gallop Peripheral Pulses: Dorsalis Pedis Pulse: decreased on the left, decreased on the right Abdomen: Bowel Sounds: normal Inspection & Palpation: soft, no tenderness, guarding & rebound, distended Extremities: no cyanosis, no clubbing, edema (presacral edema) Neurologic: Cranial Nerves: grossly intact Assessment and Plan Assessment and Plan 86-year-old female with complex history including significant ischemic heart disease, ischemic cardiomyopathy (EF 35-40%), presenting this admission with evidence of moderate acute decompensated systolic congestive heart failure with multiple precipitants. RECOMMENDATIONS/PLAN: Continue IV furosemide and oral spironolactone as presently prescribed. Supplement potassium orally today given observed hypokalemia Continue nitro paste, eventually transitioning to Imdur Increase Toprol XL starting in AM of 01/25/2017, to 100 mg twice a day Continue low dose JENNY inhibition. Continue dual antiplatelet therapy with aspirin and clopidogrel, RE: left main stenting in February 2016. Recommend further evaluation and treatment of the symptomatic anemia which has been present since the hip intervention. She will require increased oral diuretics on discharge as well as close outpatient cardiology follow-up. ? need for placement post discharge. Patient was seen and examined. Agree with assessment and plan as above. Peripheral edema is significantly improved. Chest xray slightly improved. Will hold am lasix until reassessed. You Salgado MD Laboratory Results Last 24 Hours Test 01/23/17 12:30 01/24/17 05:27 Iron Level 10 mcg/dl Total Iron Binding Capacity 285 mcg/dl Transferrin 213 mg/dl Transferrin % Saturation 3 % Ferritin 64.7 ng/ml Vitamin B12 Level 1162 pg/mL Folate 11.52 ng/mL White Blood Count 15.22 K/uL Red Blood Count 3.70 M/uL Hemoglobin 9.7 g/dL Hematocrit 31.1 % Mean Corpuscular Volume 84.1 fL Mean Corpuscular Hemoglobin 26.2 pg Mean Corpuscular Hemoglobin Concent 31.2 g/dl RDW Standard Deviation 48.0 fL RDW Coefficient of Variation 15.4 % Platelet Count 437 K/uL Mean Platelet Volume 8.8 fL Sodium Level 138 mmol/L Potassium Level 3.3 mmol/L Chloride Level 102 mmol/L Carbon Dioxide Level 27 mmol/L Anion Gap 9.0 mmol/L Blood Urea Nitrogen 15 mg/dl Creatinine 0.78 mg/dl Est Creatinine Clear Calc Drug Dose 42.0 ml/min Estimated GFR () 79.2 Estimated GFR (Non- 68.4 BUN/Creatinine Ratio 19.5 Random Glucose 89 mg/dl Calcium Level 7.9 mg/dl Procalcitonin 0.08 ng/mL
[2017-01-24] MEDS ORDERED: POTASSIUM CHLORIDE 10 MEQ TABCR PO ONE (10:00)
[2017-01-24] MEDS ORDERED: IRON SUCROSE INJ 100 MG in SODIUM CHLORIDE 0.9% 100ML 100 ML IV SCH (10:00)
--- NOTE | 2017-01-24 13:36 | DIAGNOSTIC IMAGING REPORT ---
CHEST ONE VIEW PORTABLE HISTORY: Short of breath. COMPARISON: Chest 01/22/2017. FINDINGS: The heart remains enlarged. Small to moderate bilateral pleural effusions and bibasilar densities persist. Perihilar interstitial and vascular thickening consistent with mild pulmonary edema. This is stable to slightly improved. Calcified thoracic aorta. No pneumothorax. IMPRESSION: 1. Stable to slight improvement in the pulmonary edema pattern. 2. Small to moderate bilateral pleural effusions and bibasilar densities persist. This could represent atelectasis or pneumonia. Electronically signed by: Henrry Sarah M.D. 01/24/2017 1:34 PM Dictated Date/Time: 01/24/2017 1:33 PM
--- NOTE | 2017-01-24 14:12 | Progress Note ---
Internal Med Progress Note Date of Service: Jan 24, 2017. Provider Documentation: SUBJECTIVE: Patient is sitting in her bed and is in no apparent distress. Breathing comfortably. Tries to answer simple questions. Denies any chest pain/pressure. No other new change or complaint. OBJECTIVE: Vital Signs-as noted below Examination: General- Alert/Awake and is in no acute distress Head- atraumatic Eyes- PERRL, EOMI ENT- Ears, Nose, Throat are normal looking. Neck- supple, midline trachea, no JVD Lungs- B/L Moderate air entry, Decreased BS at lung bases B/L. Heart- regular rhythm;systolic murmur Abdomen- normal bowel sounds, soft Extremities- no calf tenderness Neuro- alert, oriented, PERRL, EOMI; no facial palsy Skin- warm & dry Lab data as noted below. ASSESSMENT & PLAN: Dyspnea: Likely due to Decompensates Systolic CHF due to short course of steroid vs bronchitis Elevated proBNP on admission. Received IV Lasix and antibiotic in the ER. EF 35- 40% on last echo 09/04 -Continue Doxycycline 100 mg BID for possible bronchitis (Day # 2). -Cardiology consult noted. Thanks for input. -Metoprolol has been increased to 100 mg BID -Monitor daily weight and I's & O's. History Ischemic Cardiomyopathy, EF 35-40% -Continue BB, lasix IV, ACEI and spironolactone History CAD S/P Stent: No acute cardiac issue. -Continue Plavix and aspirin Leukocytosis: Likely reactive as there is no clear source for infection.Remains afebrile. -Normal calcitonin -Continue Doxycycline as above. -Urine cx negative -CXR showed no infiltrate Encephalopathy: Likely due to above illness vs delirium or deconditioning -Avoid meds that worsening her symptoms -Continue monitor Anemia: Likely due low iron level. -Venofer ordered. DVT Prophylaxis: Sq Lovenox Code Status: FULL CODE Disposition: Discharge once is clinically stable. Vital Signs: Date Time Temp Pulse Resp B/P Pulse Ox O2 Delivery O2 Flow Rate FiO2 01/24/17 12:15 Nasal Cannula 3.0 01/24/17 11:27 37.4 97 20 136/69 92 Nasal Cannula 3.0 01/24/17 08:24 36.8 113 20 158/79 93 Nasal Cannula 2.0 01/24/17 08:15 Nasal Cannula 3.0 01/24/17 04:38 94 Nasal Cannula 3.0 01/24/17 04:00 Nasal Cannula 3.0 01/24/17 03:08 36.8 101 28 155/70 90 Nasal Cannula 3.0 01/24/17 00:01 Nasal Cannula 2.0 01/23/17 23:32 36.4 101 20 151/60 90 Room Air 01/23/17 20:00 Nasal Cannula 1.0 01/23/17 19:09 36.8 93 18 129/57 94 Nasal Cannula 2.0 01/23/17 16:00 Nasal Cannula 1.0 01/23/17 15:18 36.7 90 18 127/69 96 Nasal Cannula 2.0 Lab Results: Results Past 24 Hours Test 01/24/17 05:27 Range/Units White Blood Count 15.22 4.8-10.8 K/uL Red Blood Count 3.70 4.2-5.4 M/uL Hemoglobin 9.7 12.0-16.0 g/dL Hematocrit 31.1 37-47 % Mean Corpuscular Volume 84.1 80-100 fL Mean Corpuscular Hemoglobin 26.2 25-34 pg Mean Corpuscular Hemoglobin Concent 31.2 32-36 g/dl RDW Standard Deviation 48.0 36.4-46.3 fL RDW Coefficient of Variation 15.4 11.5-14.5 % Platelet Count 437 130-400 K/uL Mean Platelet Volume 8.8 7.4-10.4 fL Sodium Level 138 136-145 mmol/L Potassium Level 3.3 3.5-5.1 mmol/L Chloride Level 102 98-107 mmol/L Carbon Dioxide Level 27 21-32 mmol/L Anion Gap 9.0 3-11 mmol/L Blood Urea Nitrogen 15 7-18 mg/dl Creatinine 0.78 0.60-1.20 mg/dl Est Creatinine Clear Calc Drug Dose 42.0 ml/min Estimated GFR () 79.2 Estimated GFR (Non- 68.4 BUN/Creatinine Ratio 19.5 10-20 Random Glucose 89 70-99 mg/dl Calcium Level 7.9 8.5-10.1 mg/dl Procalcitonin 0.08 0-0.5 ng/mL
[2017-01-24] MEDS: DOXYCYCLINE HYCLATE 100 MG CAP PO SCH (20:41)
[2017-01-24] MEDS: ATORVASTATIN 20 MG TAB PO SCH (20:42)
[2017-01-24] MEDS: LEVALBUTEROL 1.25MG/0.5ML NEB INH PRN (20:56)
[2017-01-24] MEDS: IPRATROPIUM BROMIDE NEB SOLN 0.02% 2.5 ML VIAL INH PRN (20:56)
[2017-01-25] VITALS (8 sets, daily range): BP systolic 115–148; BP diastolic 51–71; PULSE 101–105; TEMP 36.6–37.6; O2SAT 92–96
[2017-01-25] MEDS: NITROGLYCERIN OINT 2% 1GM PACKET EXT SCH ×2 (05:12→11:07)
[2017-01-25] MEDS: ENOXAPARIN 30 MG/0.3 ML SYR SC SCH (05:44)
[2017-01-25 06:00] LABS: BASO % 0.1 %; BASO ABS # 0.02 K/uL (0-0.2); COMPLETE YES; EOS % 0.1 %; HEMATOCRIT 31.3 % (37-47); IG% 0.3 %; LYMPH % 8.9 %; LYMPH ABS # 1.44 K/uL (1.2-3.4); MEAN CELL VOLUME 84.1 fL (80-100); MEAN CORPUSCULAR HEMOGLOBIN 26.1 pg (25-34); MEAN PLATELET VOLUME 8.9 fL (7.4-10.4); MONO % 7.9 %; NEUT % 82.7 %; PLATELET COUNT 417 K/uL (130-400); RED BLOOD COUNT 3.72 M/uL (4.2-5.4); WHITE BLOOD COUNT 16.26 K/uL (4.8-10.8)
[2017-01-25 06:35] LABS: BUN/CREATININE RATIO 21.4 (10-20); CALCIUM 8.2 mg/dl (8.5-10.1); CREATININE 0.7 mg/dl (0.60-1.20); POTASSIUM 3.8 mmol/L (3.5-5.1)
[2017-01-25] MEDS: ASPIRIN 81 MG ECTAB PO SCH (07:26)
[2017-01-25] MEDS: SPIRONOLACTONE 25 MG TAB PO SCH (07:27)
[2017-01-25] MEDS: CLOPIDOGREL BISULFATE 75 MG TAB PO SCH (07:29)
[2017-01-25] MEDS: DOXYCYCLINE HYCLATE 100 MG CAP PO SCH ×2 (07:29→20:20)
[2017-01-25] MEDS: DOCUSATE SODIUM/SENNA 50/8.6MG TAB PO SCH (07:30)
[2017-01-25] MEDS: METOPROLOL SUCC 50MG EXT REL TAB PO SCH ×2 (07:31→20:20)
[2017-01-25] MEDS: FLUTICASONE/SALMETEROL 100/50 (ADVAIR) 14 PUFF/1 INHALER INH SCH (07:41)
[2017-01-25] MEDS ORDERED: IRON SUCROSE INJ 100 MG in SODIUM CHLORIDE 0.9% 100ML 100 ML IV SCH (08:00)
[2017-01-25] MEDS: LISINOPRIL 2.5 MG TAB PO SCH (09:09)
--- NOTE | 2017-01-25 10:30 | Cardiology Follow-Up ---
Subjective General Date of Service: Jan 25, 2017. Chief Complaint: Follow-up heart failure Pt evaluation today including: conversation w/ patient, conversation w/ family , physical exam, chart review, lab review, review of studies, review of inpatient medication list History of Present Illness Patient seen and examined. + Persistent cough. + Chest congestion. + Orthopnea without PND. + Fatigue, generalized weakness. Aware of confusion, not oriented to time. No headache. No chest pain. No tachypalpitations. I/O's are negative -3,497 mL's overall. Telemetry: Currently sinus ~90 bpm. Rare ventricular ectopy in singles. No bradyarrhythmias or pauses. Allergies Coded Allergies: No Known Allergies (Unverified , 11/12/16) Social History Smoking Status: Never Smoker Hx Tobacco Use In Past Year?: No Hx Alcohol Use - Type And Amou: No Hx Substance Use - Type And Am: No Problem List Medical Problems: (1) Acute focal neurological deficit Status: Acute (2) Change in mental status Status: Acute (3) CHF (congestive heart failure) Status: Acute (4) Elevated troponin Status: Acute (5) Left sided chest pain Status: Acute (6) Neurologic gait dysfunction Status: Acute (7) Subcapital fracture of left hip Status: Acute (8) UTI (urinary tract infection) Status: Acute Physical Exam Vital Signs Last Vital Signs Documentation Date Time Temp Pulse Resp B/P Pulse Ox O2 Delivery O2 Flow Rate FiO2 01/25/17 08:00 Nasal Cannula 3.0 01/25/17 07:56 37.6 103 18 133/65 95 Physical Exam Constitutional: Level of Distress: acutely ill, chronically ill Psychiatric: Orientation: to place, to person, not oriented to time Head: normocephalic Eyes: Pupils: PERRLA Neck: pertinent finding (Elevated JVP. + HJR. ) Lungs: Respiratory effort: dyspneic Auscultation: no wheezing, deminished air movement, decreased breath sounds , rales/crackles on the left, rales/crackles on the right, pertinent finding ( absent breath sounds, right greater than left base) Cardiovascular: Heart Auscultation: RRR, no rubs, II/ MÓNICA Peripheral Pulses: Dorsalis Pedis Pulse: decreased on the left, decreased on the right Abdomen: Bowel Sounds: normal Inspection & Palpation: soft, no tenderness, guarding & rebound, distended Extremities: no cyanosis, no edema, no clubbing Neurologic: Cranial Nerves: grossly intact Assessment and Plan Assessment and Plan 86-year-old female with complex history including significant ischemic heart disease, ischemic cardiomyopathy (EF 35-40%), presenting this admission with acute decompensated systolic congestive heart failure with multiple precipitants , symptomatic anemia, ? pneumonia RECOMMENDATIONS/PLAN: Continue diuresis with IV furosemide, oral spironolactone One time dose of oral potassium chloride today. Transition nitro paste to Imdur in AM Increase Lisinopril to 5 mg/day for additional BP control Continue dual antiplatelet therapy with aspirin and clopidogrel, RE: left main stenting in February 2016. Add Vitron C twice per day for the iron deficiency anemia Note: Toprol XL increased to 100 mg twice a day this admission She will require increased oral diuretics on discharge as well as close outpatient cardiology follow-up. Recommend consideration for rehabilitation/placement post discharge. Patient seen and examined. Definitely appears more frail today, slowly diuresing. Will continue as above, repeat echo in am You Salgado MD Laboratory Results Last 24 Hours Test 01/25/17 05:30 White Blood Count 16.26 K/uL Red Blood Count 3.72 M/uL Hemoglobin 9.7 g/dL Hematocrit 31.3 % Mean Corpuscular Volume 84.1 fL Mean Corpuscular Hemoglobin 26.1 pg Mean Corpuscular Hemoglobin Concent 31.0 g/dl Platelet Count 417 K/uL Mean Platelet Volume 8.9 fL Neutrophils (%) (Auto) 82.7 % Lymphocytes (%) (Auto) 8.9 % Monocytes (%) (Auto) 7.9 % Eosinophils (%) (Auto) 0.1 % Basophils (%) (Auto) 0.1 % Neutrophils # (Auto) 13.46 K/uL Lymphocytes # (Auto) 1.44 K/uL Monocytes # (Auto) 1.28 K/uL Eosinophils # (Auto) 0.01 K/uL Basophils # (Auto) 0.02 K/uL RDW Standard Deviation 47.6 fL RDW Coefficient of Variation 15.4 % Immature Granulocyte % (Auto) 0.3 % Immature Granulocyte # (Auto) 0.05 K/uL Sodium Level 138 mmol/L Potassium Level 3.8 mmol/L Chloride Level 104 mmol/L Carbon Dioxide Level 23 mmol/L Anion Gap 11.0 mmol/L Blood Urea Nitrogen 15 mg/dl Creatinine 0.70 mg/dl Est Creatinine Clear Calc Drug Dose 46.8 ml/min Estimated GFR () 90.3 Estimated GFR (Non- 77.9 BUN/Creatinine Ratio 21.4 Random Glucose 101 mg/dl Calcium Level 8.2 mg/dl Magnesium Level 2.0 mg/dl Pro-B-Type Natriuretic Peptide 25009 pg/ml
[2017-01-25] MEDS ORDERED: FUROSEMIDE INJ 40 MG in SYRINGE 0 ML IV STA (10:46)
[2017-01-25] MEDS ORDERED: POTASSIUM CHLORIDE 20 MEQ TABCR PO STA (10:47)
--- NOTE | 2017-01-25 15:48 | Progress Note ---
Internal Med Progress Note Date of Service: Jan 25, 2017. Provider Documentation: SUBJECTIVE: Patient is sitting in her bed and is in no apparent distress. Breathing comfortably. Tries to answer simple questions. Denies any chest pain/pressure. No other new change or complaint. OBJECTIVE: Vital Signs-as noted below Examination: General- Alert/Awake and is in no acute distress Head- atraumatic Eyes- PERRL, EOMI ENT- Ears, Nose, Throat are normal looking. Neck- supple, midline trachea, no JVD Lungs- B/L Moderate air entry, Decreased BS at lung bases B/L. Heart- regular rhythm;systolic murmur Abdomen- normal bowel sounds, soft Extremities- no calf tenderness Neuro- alert, oriented, PERRL, EOMI; no facial palsy Skin- warm & dry Lab data as noted below. ASSESSMENT & PLAN: Dyspnea: Likely due to Decompensates Systolic CHF due to short course of steroid vs bronchitis Elevated proBNP on admission. Received IV Lasix and antibiotic in the ER. EF 35- 40% on last echo 09/04 -Continue Doxycycline 100 mg BID for possible bronchitis (Day # 3).Added Rocephin )Day # 1) as WBC are going up. -Cardiology consult noted. Thanks for input. -Metoprolol has been increased to 100 mg BID -Monitor daily weight and I's & O's. History Ischemic Cardiomyopathy, EF 35-40% -Continue BB, lasix IV, ACEI and spironolactone History CAD S/P Stent: No acute cardiac issue. -Continue Plavix and aspirin Leukocytosis: Likely reactive as there is no clear source for infection.Remains afebrile. -Normal calcitonin -Continue Doxycycline as above. -Urine cx negative -CXR showed no infiltrate Encephalopathy: Likely due to above illness vs delirium or deconditioning -Avoid meds that worsening her symptoms -Continue monitor Anemia: Likely due low iron level. -Venofer ordered. DVT Prophylaxis: Sq Lovenox Code Status: FULL CODE Disposition: Discharge once is clinically stable. Vital Signs: Date Time Temp Pulse Resp B/P Pulse Ox O2 Delivery O2 Flow Rate FiO2 01/25/17 15:17 36.8 101 18 123/70 94 Nasal Cannula 2.0 01/25/17 11:21 Nasal Cannula 3.0 01/25/17 10:56 37.5 101 20 137/71 96 Nasal Cannula 3.0 01/25/17 08:00 Nasal Cannula 3.0 01/25/17 07:56 37.6 103 18 133/65 95 Nasal Cannula 3.0 01/25/17 05:15 37.2 01/25/17 04:00 Nasal Cannula 3.0 01/25/17 03:49 36.6 105 24 148/63 92 Nasal Cannula 3.0 01/24/17 23:59 Nasal Cannula 3.0 01/24/17 23:35 37.3 100 18 146/63 94 Nasal Cannula 3.0 01/24/17 20:56 87 20 94 Nasal Cannula 3.0 01/24/17 20:00 Nasal Cannula 01/24/17 19:57 37.0 97 18 123/69 96 Nasal Cannula 3.0 01/24/17 16:00 Nasal Cannula 3.0 Lab Results: Results Past 24 Hours Test 01/25/17 05:30 Range/Units White Blood Count 16.26 4.8-10.8 K/uL Red Blood Count 3.72 4.2-5.4 M/uL Hemoglobin 9.7 12.0-16.0 g/dL Hematocrit 31.3 37-47 % Mean Corpuscular Volume 84.1 80-100 fL Mean Corpuscular Hemoglobin 26.1 25-34 pg Mean Corpuscular Hemoglobin Concent 31.0 32-36 g/dl Platelet Count 417 130-400 K/uL Mean Platelet Volume 8.9 7.4-10.4 fL Neutrophils (%) (Auto) 82.7 % Lymphocytes (%) (Auto) 8.9 % Monocytes (%) (Auto) 7.9 % Eosinophils (%) (Auto) 0.1 % Basophils (%) (Auto) 0.1 % Neutrophils # (Auto) 13.46 1.4-6.5 K/uL Lymphocytes # (Auto) 1.44 1.2-3.4 K/uL Monocytes # (Auto) 1.28 0.11-0.59 K/uL Eosinophils # (Auto) 0.01 0-0.5 K/uL Basophils # (Auto) 0.02 0-0.2 K/uL RDW Standard Deviation 47.6 36.4-46.3 fL RDW Coefficient of Variation 15.4 11.5-14.5 % Immature Granulocyte % (Auto) 0.3 % Immature Granulocyte # (Auto) 0.05 0.00-0.02 K/uL Sodium Level 138 136-145 mmol/L Potassium Level 3.8 3.5-5.1 mmol/L Chloride Level 104 98-107 mmol/L Carbon Dioxide Level 23 21-32 mmol/L Anion Gap 11.0 3-11 mmol/L Blood Urea Nitrogen 15 7-18 mg/dl Creatinine 0.70 0.60-1.20 mg/dl Est Creatinine Clear Calc Drug Dose 46.8 ml/min Estimated GFR () 90.3 Estimated GFR (Non- 77.9 BUN/Creatinine Ratio 21.4 10-20 Random Glucose 101 70-99 mg/dl Calcium Level 8.2 8.5-10.1 mg/dl Magnesium Level 2.0 1.8-2.4 mg/dl Pro-B-Type Natriuretic Peptide 04913 0-1800 pg/ml
[2017-01-25] MEDS ORDERED: ALBUT/IPRATROP 3MG/0.5MG NEB 3 ML VIAL INH PRN (16:00)
[2017-01-25] MEDS: CEFTRIAXONE SOD INJ 1 GM in DEXTROSE 5% ADD-VANTAGE 50ML 50 ML IV SCH (16:25)
[2017-01-25] MEDS: ATORVASTATIN 20 MG TAB PO SCH (20:20)
[2017-01-25] MEDS: ACETAMINOPHEN 325 MG TAB PO PRN (20:31)
[2017-01-26] VITALS (13 sets, daily range): BP systolic 106–165; BP diastolic 58–78; PULSE 84–116; TEMP 36.6–37.5; O2SAT 90–99
[2017-01-26] MEDS: ENOXAPARIN 30 MG/0.3 ML SYR SC SCH (06:32)
[2017-01-26 06:42] LABS: BASO % 0.1 %; BASO ABS # 0.02 K/uL (0-0.2); COMPLETE YES; EOS % 0.1 %; HEMATOCRIT 30.2 % (37-47); IG% 0.3 %; LYMPH % 8.6 %; LYMPH ABS # 1.57 K/uL (1.2-3.4); MEAN CORPUSCULAR HEMOGLOBIN 26.4 pg (25-34); MEAN CORPUSCULAR HGB CONC 31.8 g/dl (32-36); MEAN PLATELET VOLUME 8.9 fL (7.4-10.4); MONO % 6.5 %; NEUT % 84.4 %; PLATELET COUNT 399 K/uL (130-400); RED BLOOD COUNT 3.64 M/uL (4.2-5.4); WHITE BLOOD COUNT 18.26 K/uL (4.8-10.8)
[2017-01-26 07:10] LABS: BUN/CREATININE RATIO 23.1 (10-20); CALCIUM 8.3 mg/dl (8.5-10.1); CREATININE 0.79 mg/dl (0.60-1.20); MAGNESIUM 2.2 mg/dl (1.8-2.4); POTASSIUM 3.7 mmol/L (3.5-5.1)
[2017-01-26] MEDS: ALBUT/IPRATROP 3MG/0.5MG NEB 3 ML VIAL INH SCH ×4 (07:14→18:59)
[2017-01-26] MEDS: DOXYCYCLINE HYCLATE 100 MG CAP PO SCH ×2 (07:41→19:53)
[2017-01-26] MEDS: METOPROLOL SUCC 50MG EXT REL TAB PO SCH ×2 (07:42→19:53)
[2017-01-26] MEDS: DOCUSATE SODIUM/SENNA 50/8.6MG TAB PO SCH (07:42)
[2017-01-26] MEDS: SPIRONOLACTONE 25 MG TAB PO SCH (07:42)
[2017-01-26] MEDS: CLOPIDOGREL BISULFATE 75 MG TAB PO SCH (07:43)
[2017-01-26] MEDS: ISOSORBIDE MONONITRATE 60 MG TABCR PO SCH (07:43)
[2017-01-26] MEDS: LISINOPRIL 2.5 MG TAB PO SCH (07:43)
[2017-01-26] MEDS: ASPIRIN 81 MG ECTAB PO SCH (07:43)
--- NOTE | 2017-01-26 10:11 | Cardiology Follow-Up ---
Subjective General Date of Service: Jan 26, 2017. Chief Complaint: Follow-up heart failure Pt evaluation today including: conversation w/ patient, physical exam, chart review, lab review, review of studies, review of inpatient medication list History of Present Illness Patient seen and examined. No family at bedside. Appears to be progressing declining despite interventions. Increased confusion, increased dyspnea, tachypneic. + Cough, chest congestion, orthopnea. + Dry mouth Denies chest pain. No tachypalpitations. I/O's are negative -4,361 mL's overall. Weight is down 4 kg throughout admission Telemetry: Currently sinus tachycardia at 100 bpm. Rare ectopy in singles. No bradyarrhythmias or pauses. No overt atrial fibrillation. Allergies Coded Allergies: No Known Allergies (Unverified , 11/12/16) Social History Smoking Status: Never Smoker Hx Tobacco Use In Past Year?: No Hx Alcohol Use - Type And Amou: No Hx Substance Use - Type And Am: No Problem List Medical Problems: (1) Acute focal neurological deficit Status: Acute (2) Change in mental status Status: Acute (3) CHF (congestive heart failure) Status: Acute (4) Elevated troponin Status: Acute (5) Left sided chest pain Status: Acute (6) Neurologic gait dysfunction Status: Acute (7) Subcapital fracture of left hip Status: Acute (8) UTI (urinary tract infection) Status: Acute Physical Exam Vital Signs Last Vital Signs Documentation Date Time Temp Pulse Resp B/P Pulse Ox O2 Delivery O2 Flow Rate FiO2 01/26/17 08:00 37.1 94 Nasal Cannula 2.0 01/26/17 07:48 105 22 106/69 Physical Exam Constitutional: Level of Distress: mild distress, acutely ill, chronically ill Psychiatric: Orientation: to person, not oriented to time, not oriented to place Memory: recent memory abnormal, remote memory abnormal Head: normocephalic Eyes: Pupils: PERRLA ENMT: pertinent finding (Mucous membranes are quite dry. No overt thrush. ) Neck: pertinent finding (Elevated JVP. + HJR. ) Lungs: Respiratory effort: dyspneic, tachypneic Auscultation: no wheezing, deminished air movement, decreased breath sounds , rales/crackles on the left, rales/crackles on the right, pertinent finding ( absent breath sounds at the bases ) Cardiovascular: Heart Auscultation: no rubs, tachycardia, I/ MÓNICA Peripheral Pulses: Dorsalis Pedis Pulse: decreased on the left, decreased on the right Abdomen: Bowel Sounds: normal Inspection & Palpation: soft, no tenderness, guarding & rebound, distended Extremities: no cyanosis, no edema, no clubbing Neurologic: Cranial Nerves: grossly intact Assessment and Plan Assessment and Plan 86-year-old female with complex history including significant ischemic heart disease, ischemic cardiomyopathy (EF 35-40%), presenting this admission with general decline, multiple acute issues including acute decompensated systolic congestive heart failure with multiple precipitants, smoldering infection with unknown source, symptomatic anemia. Preliminary review of her TTE this morning reveals worsening systolic function, EF ~20-25%. RECOMMENDATIONS/PLAN: Reculture, assess for Influenza Ultrasound legs to evaluate for DVT. ? CT Chest. Continue diuresis with IV furosemide, oral spironolactone. Supplement potassium orally. Continue dual antiplatelet therapy with aspirin and clopidogrel, RE: left main stenting in February 2016. Need to address resuscitation status. Patient seen and examined, has diuresed but exam clinical progress lagging. Will continue as above, increase toprol to 75mg tid You Salgado MD Laboratory Results Last 24 Hours Test 01/26/17 06:10 White Blood Count 18.26 K/uL Red Blood Count 3.64 M/uL Hemoglobin 9.6 g/dL Hematocrit 30.2 % Mean Corpuscular Volume 83.0 fL Mean Corpuscular Hemoglobin 26.4 pg Mean Corpuscular Hemoglobin Concent 31.8 g/dl Platelet Count 399 K/uL Mean Platelet Volume 8.9 fL Neutrophils (%) (Auto) 84.4 % Lymphocytes (%) (Auto) 8.6 % Monocytes (%) (Auto) 6.5 % Eosinophils (%) (Auto) 0.1 % Basophils (%) (Auto) 0.1 % Neutrophils # (Auto) 15.41 K/uL Lymphocytes # (Auto) 1.57 K/uL Monocytes # (Auto) 1.19 K/uL Eosinophils # (Auto) 0.02 K/uL Basophils # (Auto) 0.02 K/uL RDW Standard Deviation 47.4 fL RDW Coefficient of Variation 15.4 % Immature Granulocyte % (Auto) 0.3 % Immature Granulocyte # (Auto) 0.05 K/uL Sodium Level 141 mmol/L Potassium Level 3.7 mmol/L Chloride Level 105 mmol/L Carbon Dioxide Level 27 mmol/L Anion Gap 9.0 mmol/L Blood Urea Nitrogen 18 mg/dl Creatinine 0.79 mg/dl Est Creatinine Clear Calc Drug Dose 41.5 ml/min Estimated GFR () 78.0 Estimated GFR (Non- 67.3 BUN/Creatinine Ratio 23.1 Random Glucose 102 mg/dl Calcium Level 8.3 mg/dl Magnesium Level 2.2 mg/dl
[2017-01-26 10:58] LABS: URINE APPEARANCE TURBID (CLEAR); URINE COLOR DK YELLOW; URINE EPITHELIAL CELL AUTO >30 /lpf (0-5); URINE NITRITE NEG (NEG); URINE PH 5.5 (4.5-7.5); URINE SPECIFIC GRAVITY 1.034 (1.000-1.030); UROBILINOGEN NEG (NEG); ZZURINE CULT IF INDIC CATH NO
[2017-01-26] MEDS ORDERED: POTASSIUM CHLORIDE 10 MEQ TABCR PO ONE (11:00)
[2017-01-26] MEDS ORDERED: FUROSEMIDE INJ 40 MG in SYRINGE 0 ML IV ONE ×2 (11:00→18:00)
[2017-01-26 11:15] LABS: MANUAL MICROSCOPIC REQUIRED? NO; REVIEW REQ? YES; URINE BILIRUBIN NEG (NEG)
--- NOTE | 2017-01-26 11:18 | DIAGNOSTIC IMAGING REPORT ---
CHEST ONE VIEW PORTABLE CLINICAL HISTORY: ? R infiltrate pneumonia COMPARISON STUDY: 01/24/2017 FINDINGS: Findings of congestive failure similar radiographically compared to the prior study bilateral pleural effusions and/or basilar inflammatory change similar. Pulmonary procedure clear. IMPRESSION: Congestive failure with components of the basilar] infiltrates/effusions unchanged from the prior study. Electronically signed by: William Lua M.D. 01/26/2017 11:17 AM Dictated Date/Time: 01/26/2017 11:16 AM
--- NOTE | 2017-01-26 13:06 | Progress Note ---
Internal Med Progress Note Date of Service: Jan 26, 2017. Provider Documentation: SUBJECTIVE: Patient is sitting in her bed and is in no apparent distress. Breathing comfortably. Is awake and tries to answer simple questions. Denies any chest pain/pressure. No other new change or complaint. OBJECTIVE: Vital Signs-as noted below Examination: General- Alert/Awake and is in no acute distress Head- atraumatic Eyes- PERRL, EOMI ENT- Ears, Nose, Throat are normal looking. Neck- supple, midline trachea, no JVD Lungs- B/L Moderate air entry, Decreased BS at lung bases B/L. Heart- regular rhythm;systolic murmur Abdomen- normal bowel sounds, soft Extremities- no calf tenderness Neuro- alert, oriented, PERRL, EOMI; no facial palsy Skin- warm & dry Lab data as noted below. ASSESSMENT & PLAN: Echocardiogram (01/26/2017) The left ventricle is normal in size. There is mild concentric left ventricular hypertrophy. There is mild to moderate global hypokinesis of the left ventricle. There is severe apical wall hypokinesis. There is moderate to severe septal hypokinesis. Ejection Fraction = 25-30%. There is moderate mitral regurgitation. There is moderate tricuspid regurgitation. Chest X-Ray (01/26/2017) COMPARISON STUDY: 01/24/2017 FINDINGS: Findings of congestive failure similar radiographically compared to the prior study bilateral pleural effusions and/or basilar inflammatory change similar. Pulmonary procedure clear. IMPRESSION: Congestive failure with components of the basilar] infiltrates/ effusions unchanged from the prior study. Dyspnea: Likely due to Decompensates Systolic CHF due to short course of steroid vs bronchitis Elevated proBNP on admission. Received IV Lasix and antibiotic in the ER. EF 35- 40% on last echo 09/04 -Continue Doxycycline 100 mg BID for possible bronchitis (Day # 4).Added Rocephin (Day # 2) as WBC are going up gradually. -Cardiology consult noted. Thanks for input. -Metoprolol has been increased to 100 mg BID -Monitor daily weight and I's & O's. -Reviewed the Echo findings done on 01/26/2017. EF is declining. History Ischemic Cardiomyopathy, EF 35-40% -Continue BB, lasix IV, ACEI and spironolactone History CAD S/P Stent: No acute cardiac issue. -Continue Plavix and aspirin Leukocytosis: Likely reactive as there is no clear source for infection.Remains afebrile. -Normal calcitonin -Continue Doxycycline & Rocephin as above. -Urine cx negative -CXR showed no infiltrate Encephalopathy: Likely due to above illness vs delirium or deconditioning -Avoid medications that worsening her symptoms -Continue monitor Anemia: Likely due low iron level. -Venofer ordered. DVT Prophylaxis: Sq Lovenox Code Status: FULL CODE Disposition: Discharge once is clinically stable. Discussed with the son about her condition that she is gradually declining. Family is understandable about it. They want to continue with all the current management & avoid any heroic measures if condition is irreversible. Vital Signs: Date Time Temp Pulse Resp B/P Pulse Ox O2 Delivery O2 Flow Rate FiO2 01/26/17 16:00 Mask 6.0 01/26/17 15:40 37.5 116 21 163/62 90 Nasal Cannula 5.0 01/26/17 15:14 91 18 93 Nasal Cannula 2.0 01/26/17 12:07 37.3 112 28 165/78 91 Room Air 2.0 01/26/17 12:00 Nasal Cannula 2.0 01/26/17 11:21 84 12 94 Nasal Cannula 3.0 01/26/17 11:10 28 90 2.0 01/26/17 08:00 37.1 94 Nasal Cannula 2.0 01/26/17 08:00 Nasal Cannula 2.0 01/26/17 07:48 105 22 106/69 93 Nasal Cannula 2.0 01/26/17 07:14 97 12 94 Nasal Cannula 3.0 01/26/17 04:00 99 01/26/17 03:18 36.6 86 16 108/65 99 Nasal Cannula 2.0 01/26/17 00:00 36.7 86 30 111/59 92 Nasal Cannula 2.0 01/26/17 00:00 92 Nasal Cannula 2.0 01/25/17 20:00 Nasal Cannula 2.0 01/25/17 19:25 104 18 94 Nasal Cannula 3.0 01/25/17 19:03 37.2 103 18 115/51 93 Nasal Cannula 2.0 Lab Results: Results Past 24 Hours Test 01/26/17 06:10 01/26/17 10:05 01/26/17 10:45 01/26/17 10:50 Range/Units White Blood Count 18.26 4.8-10.8 K/uL Red Blood Count 3.64 4.2-5.4 M/uL Hemoglobin 9.6 12.0-16.0 g/dL Hematocrit 30.2 37-47 % Mean Corpuscular Volume 83.0 80-100 fL Mean Corpuscular Hemoglobin 26.4 25-34 pg Mean Corpuscular Hemoglobin Concent 31.8 32-36 g/dl Platelet Count 399 130-400 K/uL Mean Platelet Volume 8.9 7.4-10.4 fL Neutrophils (%) (Auto) 84.4 % Lymphocytes (%) (Auto) 8.6 % Monocytes (%) (Auto) 6.5 % Eosinophils (%) (Auto) 0.1 % Basophils (%) (Auto) 0.1 % Neutrophils # (Auto) 15.41 1.4-6.5 K/uL Lymphocytes # (Auto) 1.57 1.2-3.4 K/uL Monocytes # (Auto) 1.19 0.11-0.59 K/uL Eosinophils # (Auto) 0.02 0-0.5 K/uL Basophils # (Auto) 0.02 0-0.2 K/uL RDW Standard Deviation 47.4 36.4-46.3 fL RDW Coefficient of Variation 15.4 11.5-14.5 % Immature Granulocyte % (Auto) 0.3 % Immature Granulocyte # (Auto) 0.05 0.00-0.02 K/uL Sodium Level 141 136-145 mmol/L Potassium Level 3.7 3.5-5.1 mmol/L Chloride Level 105 98-107 mmol/L Carbon Dioxide Level 27 21-32 mmol/L Anion Gap 9.0 3-11 mmol/L Blood Urea Nitrogen 18 7-18 mg/dl Creatinine 0.79 0.60-1.20 mg/dl Est Creatinine Clear Calc Drug Dose 41.5 ml/min Estimated GFR () 78.0 Estimated GFR (Non- 67.3 BUN/Creatinine Ratio 23.1 10-20 Random Glucose 102 70-99 mg/dl Calcium Level 8.3 8.5-10.1 mg/dl Magnesium Level 2.2 1.8-2.4 mg/dl Urine Color DK YELLOW Urine Appearance TURBID CLEAR Urine pH 5.5 4.5-7.5 Urine Specific [place] 1.034 1.000-1.030 Urine Protein 1+ NEG Urine Glucose (UA) NEG NEG Urine Ketones NEG NEG Urine Occult Blood 2+ NEG Urine Nitrite NEG NEG Urine Bilirubin NEG NEG Urine Urobilinogen NEG NEG Urine Leukocyte Esterase TRACE NEG Urine WBC (Auto) 1-5 0-5 /hpf Urine RBC (Auto) 10-30 0-4 /hpf Urine Hyaline Casts (Auto) 10-30 0-5 /lpf Urine Epithelial Cells (Auto) >30 0-5 /lpf Urine Bacteria (Auto) NEG NEG Urine Renal Epithelial Cells 0-5 /lpf Urine Crystals AMORPHOUS SEDIMENT NONE PRSENT Urine Pathogenic Casts 0 /lpf Influenza Type A Antigen Neg for Influ A NEG Influenza Type B Antigen Neg for Influ B NEG Ammonia 21.0 11-32 umol/L Total Creatine Kinase 54 26-192 U/L Microbiology Results 01/26/17 Blood Culture, Received Pending 01/26/17 Blood Culture, Received Pending
--- NOTE | 2017-01-26 13:20 | ECHOCARDIOGRAM REPORT ---
*NOTICE TO RECEIVING LIBERTARIAN AGENCY This information is strictly Confidential and protected under [place] law. [place] law prohibits you from making any further disclosure of this information unless further disclosure is expressly permitted by the written consent of the person to whom it pertains or is authorized by law. A general authorization for the release of medical or other information is not sufficient for this purpose. Hospital accepts no responsibility if the information is made available to any other person, INCLUDING THE PATIENT. Interpretation Summary * Name: SU MONTEMAYOR Study Date: 01/26/2017 07:17 AM BP: 108/65 mmHg * HR: 99 * : 1930 (M/d/yyyy) Gender: Female Height: 63 in * Age: 86 yrs Ethnicity: [place] Weight: 128 lb * Ordering Physician: You Salgado * Referring Physician: Self, Referred * Performed By: Tea Kelley RCS * * Reason For Study: CHF * BSA: 1.6 m2 * -- Conclusions -- * The left ventricle is normal in size. * There is mild concentric left ventricular hypertrophy. * There is mild to moderate global hypokinesis of the left ventricle. * There is severe apical wall hypokinesis. * There is moderate to severe septal hypokinesis. * Ejection Fraction = 25-30%. * There is moderate mitral regurgitation. * There is moderate tricuspid regurgitation. Procedure Details * A complete two-dimensional transthoracic echocardiogram was performed (2D, M-mode, Doppler and color flow Doppler). Left Ventricle * The left ventricle is normal in size. * There is mild concentric left ventricular hypertrophy. * Ejection Fraction = 25-30%. * There is severe apical wall hypokinesis. There is moderate to severe septal hypokinesis. * There is mild to moderate global hypokinesis of the left ventricle. Right Ventricle * The right ventricle is normal in size and function. Atria * Borderline left atrial enlargement. * Right atrial size is normal. * No ASD detected; PFO is not assessed. Mitral Valve * There is mild mitral annular calcification. * There is no mitral valve stenosis. * There is moderate mitral regurgitation. Tricuspid Valve * The tricuspid valve anatomy is normal. * There is no tricuspid stenosis. * There is moderate tricuspid regurgitation. * Right ventricular systolic pressure is elevated at 40-50mmHg. Aortic Valve * The aortic valve is trileaflet. * No hemodynamically significant valvular aortic stenosis. * No aortic regurgitation is present. Pulmonic Valve * The pulmonic valve is not well visualized. Great Vessels * The aortic root is normal size. Pericardium/Pleural * There is no pericardial effusion. Great Vessels * Normal inferior vena cava diameter and respiratory variation suggests normal central venous pressure. MMode 2D Measurements and Calculations IVSd 1.2 cm IVSs 1.4 cm LVIDd 5.1 cm LVIDs 4.3 cm LVPWd 1.2 cm LVPWs 2.5 cm IVS/LVPW 10 FS 15.6 % EDV(Teich) 124.3 ml ESV(Teich) 83.5 ml EF(Teich) 32.8 % EDV(cubed) 133.3 ml ESV(cubed) 80.1 ml EF(cubed) 39.9 % % IVS thick 21.3 % % LVPW thick 114.1 % LV mass(C)d 232.3 grams LV mass(C)dI 145.2 grams/m\S\2 LV mass(C)s 396.7 grams LV mass(C)sI 248.0 grams/m\S\2 CO(Teich) 4.2 l/min CI(Teich) 2.6 l/min/m\S\2 SV(Teich) 40.7 ml SI(Teich) 25.4 ml/m\S\2 CO(cubed) 5.4 l/min CI(cubed) 3.4 l/min/m\S\2 SV(cubed) 53.2 ml SI(cubed) 33.2 ml/m\S\2 Ao root diam 3.4 cm Ao root area 9.1 cm\S\2 ACS 1.9 cm LVAd ap4 34.7 cm\S\2 LVLd ap4 8.6 cm EDV(MOD-sp4) 114.0 ml LVAs ap4 27.5 cm\S\2 LVLs ap4 8.0 cm ESV(MOD-sp4) 76.0 ml EF(MOD-sp4) 33.3 % LVAd ap2 33.7 cm\S\2 LVLd ap2 8.7 cm EDV(MOD-sp2) 108.0 ml LVAs ap2 29.5 cm\S\2 LVLs ap2 7.8 cm ESV(MOD-sp2) 91.0 ml EF(MOD-sp2) 15.7 % CO(MOD-sp4) 3.9 l/min CI(MOD-sp4) 2.4 l/min/m\S\2 SV(MOD-sp4) 38.0 ml SI(MOD-sp4) 23.8 ml/m\S\2 CO(MOD-sp2) 1.7 l/min CI(MOD-sp2) 1.1 l/min/m\S\2 SV(MOD-sp2) 17.0 ml SI(MOD-sp2) 10.6 ml/m\S\2 Doppler Measurements and Calculations MV E max eric 135.7 cm/sec MV A max eric 68.6 cm/sec MV E/A 2.0 MV P1/2t max eric 183.3 cm/sec MV P1/2t 46.0 msec MVA(P1/2t) 4.8 cm\S\2 MV dec slope 1166.3 cm/sec\S\2 MV dec time 0.16 sec Ao V2 max 108.6 cm/sec Ao max PG 4.7 mmHg Ao max PG (full) 2.9 mmHg LV V1 max PG 1.8 mmHg LV V1 max 68.0 cm/sec PA V2 max 83.8 cm/sec PA max PG 2.8 mmHg PI max eric 254.1 cm/sec PI max PG 25.8 mmHg PI dec slope 329.0 cm/sec\S\2 PI P1/2t 226.2 msec TR max eric 298.4 cm/sec
[2017-01-26] MEDS ORDERED: METOPROLOL SUCC 25MG EXT REL TAB PO ONE (15:06)
[2017-01-26] MEDS: ACETAMINOPHEN 325 MG TAB PO PRN (16:34)
--- NOTE | 2017-01-26 17:29 | DIAGNOSTIC IMAGING REPORT ---
ULTRASOUND VENOUS DOPPLER LWR EXT BILA CLINICAL HISTORY: Bilateral leg swelling COMPARISON STUDY: No previous studies for comparison. FINDINGS: Real-time and color flow Doppler imaging were performed. Flow was seen within the femoral, popliteal and calf veins with no intraluminal thrombus demonstrated. The saphenous vein is patent. IMPRESSION: No evidence of lower extremity DVT. Electronically signed by: Jacob Doshi M.D. 01/26/2017 5:27 PM Dictated Date/Time: 01/26/2017 5:27 PM
[2017-01-26] MEDS: CEFTRIAXONE SOD INJ 1 GM in DEXTROSE 5% ADD-VANTAGE 50ML 50 ML IV SCH (17:30)
[2017-01-26] MEDS ORDERED: POTASSIUM CHLORIDE 20 MEQ TABCR PO ONE (18:00)
[2017-01-26] MEDS: ATORVASTATIN 20 MG TAB PO SCH (19:53)
[2017-01-26 23:36] LABS: INFLUENZA A PCR Neg for Influ A (NEG); INFLUENZA B PCR Neg for Influ B (NEG)
[2017-01-27] VITALS (12 sets, daily range): BP systolic 95–125; BP diastolic 56–70; PULSE 84–98; TEMP 36.5–38.1; O2SAT 91–98
[2017-01-27] MEDS ORDERED: CHLORASEPTIC 1.4% SOLN 180 ML BTL MT PRN (03:00)
[2017-01-27] MEDS: ENOXAPARIN 30 MG/0.3 ML SYR SC SCH (06:16)
[2017-01-27 06:47] LABS: HEMATOCRIT 29.8 % (37-47); MEAN CELL VOLUME 83.9 fL (80-100); MEAN CORPUSCULAR HEMOGLOBIN 26.5 pg (25-34); MEAN CORPUSCULAR HGB CONC 31.5 g/dl (32-36); PLATELET COUNT 364 K/uL (130-400); RED BLOOD COUNT 3.55 M/uL (4.2-5.4); WHITE BLOOD COUNT 22.46 K/uL (4.8-10.8)
[2017-01-27] MEDS: ALBUT/IPRATROP 3MG/0.5MG NEB 3 ML VIAL INH SCH ×4 (07:03→19:12)
[2017-01-27 07:12] LABS: BUN/CREATININE RATIO 24.9 (10-20); CALCIUM 8.8 mg/dl (8.5-10.1); CREATININE 0.82 mg/dl (0.60-1.20); POTASSIUM 3.8 mmol/L (3.5-5.1)
[2017-01-27 07:41] LABS: BASO % 0.1 %; BASO ABS # 0.02 K/uL (0-0.2); COMPLETE YES; IG% 0.3 %; LYMPH % 4.5 %; MONO % 5.9 %; NEUT % 89.2 %
[2017-01-27] MEDS ORDERED: PIPERACILL/TAZOBAC IV 3.375 GM in DEXTROSE 5% 100ML 100 ML IV ONE (07:45)
[2017-01-27] MEDS ORDERED: PIPERACILL/TAZOBAC CONSULT ACTIVE PRN (07:48)
--- NOTE | 2017-01-27 07:51 | DIAGNOSTIC IMAGING REPORT ---
CHEST 2 VIEWS ROUTINE CLINICAL HISTORY: SOB dyspnea COMPARISON STUDY: 01/26/2017 FINDINGS: Bibasilar parenchymal infiltrative change similar. Components of congestive failure slightly improved. Heart remains enlarged. IMPRESSION: Stable bibasilar parenchymal infiltrates. Slight improvement in underlying components of congestive failure Electronically signed by: William Lua M.D. 01/27/2017 7:50 AM Dictated Date/Time: 01/27/2017 7:43 AM
[2017-01-27] MEDS: DOCUSATE SODIUM/SENNA 50/8.6MG TAB PO SCH (08:29)
[2017-01-27] MEDS: CLOPIDOGREL BISULFATE 75 MG TAB PO SCH (08:29)
[2017-01-27] MEDS: ISOSORBIDE MONONITRATE 60 MG TABCR PO SCH (08:29)
[2017-01-27] MEDS: DOXYCYCLINE HYCLATE 100 MG CAP PO SCH ×2 (08:29→19:40)
[2017-01-27] MEDS: SPIRONOLACTONE 25 MG TAB PO SCH (08:30)
[2017-01-27] MEDS: METOPROLOL SUCC 50MG EXT REL TAB PO SCH ×3 (08:30→19:40)
[2017-01-27] MEDS: ASPIRIN 81 MG ECTAB PO SCH (08:30)
[2017-01-27] MEDS: LISINOPRIL 2.5 MG TAB PO SCH (08:30)
--- NOTE | 2017-01-27 10:46 | Progress Note ---
Internal Med Progress Note Date of Service: Jan 27, 2017. Provider Documentation: SUBJECTIVE: Patient is sitting in her bed and is in no apparent distress. Breathing comfortably. Is more awake and tries to answer my questions. Denies any chest pain/pressure. Has been coughing intermittently. No other new change or complaint. OBJECTIVE: Vital Signs-as noted below Examination: General- Alert/Awake and is in no acute distress Head- atraumatic Eyes- PERRL, EOMI ENT- Ears, Nose, Throat are normal looking. Neck- supple, midline trachea, no JVD Lungs- B/L Moderate air entry, Decreased BS at lung bases B/L. Heart- regular rhythm;systolic murmur Abdomen- normal bowel sounds, soft Extremities- no calf tenderness Neuro- alert, oriented, PERRL, EOMI; no facial palsy Skin- warm & dry Lab data as noted below. ASSESSMENT & PLAN: Echocardiogram (01/26/2017) The left ventricle is normal in size. There is mild concentric left ventricular hypertrophy. There is mild to moderate global hypokinesis of the left ventricle. There is severe apical wall hypokinesis. There is moderate to severe septal hypokinesis. Ejection Fraction = 25-30%. There is moderate mitral regurgitation. There is moderate tricuspid regurgitation. Chest X-Ray (01/26/2017) COMPARISON STUDY: 01/24/2017 FINDINGS: Findings of congestive failure similar radiographically compared to the prior study bilateral pleural effusions and/or basilar inflammatory change similar. Pulmonary procedure clear. IMPRESSION: Congestive failure with components of the basilar] infiltrates/ effusions unchanged from the prior study. Chest X-Ray (01/27/2017) COMPARISON STUDY: 01/26/2017 FINDINGS: Bibasilar parenchymal infiltrative change similar. Components of congestive failure slightly improved. Heart remains enlarged. IMPRESSION: Stable bibasilar parenchymal infiltrates. Slight improvement in underlying components of congestive failure Dyspnea: Likely due to Decompensates Systolic CHF due to short course of steroid vs bronchitis Elevated proBNP on admission. Received IV Lasix and antibiotic in the ER. EF 35- 40% on last echo 09/04 -Continue Doxycycline 100 mg BID for possible bronchitis /Pneumonia (Day # 5) . Changed Rocephin (Day # 2) to Zosyn (Day # 1). -Cardiology consult noted. Thanks for input. -Metoprolol has been increased to 100 mg BID -Monitor daily weight and I's & O's. -Reviewed the Echo findings done on 01/26/2017. EF is declining. History Ischemic Cardiomyopathy, EF 35-40% -Continue BB, lasix IV, ACEI and spironolactone History CAD S/P Stent: No acute cardiac issue. -Continue Plavix and aspirin Leukocytosis: Likely reactive as there is no clear source for infection or some lung source including aspiration .Remains afebrile. -Normal calcitonin -Continue Doxycycline & Zosyn as above. -Urine cx negative -CXR showed no clear infiltrate Encephalopathy: Likely due to above illness vs delirium or deconditioning -Avoid medications that worsening her symptoms -Continue monitor Anemia: Likely due low iron level. -Venofer ordered. DVT Prophylaxis: Sq Lovenox Code Status: FULL CODE Disposition: Discharge once is clinically stable. Discussed with the son about her condition that she is gradually declining. Family is understandable about it. They want to continue with all the current management & avoid any heroic measures if condition is irreversible. Vital Signs: Date Time Temp Pulse Resp B/P Pulse Ox O2 Delivery O2 Flow Rate FiO2 01/27/17 08:00 Nasal Cannula 4.0 01/27/17 07:56 37.3 97 22 125/70 95 Nasal Cannula 4.0 01/27/17 07:03 98 20 91 Nasal Cannula 4.0 01/27/17 04:01 36.5 95 22 112/68 93 Nasal Cannula 4.0 01/27/17 04:00 93 Nasal Cannula 4.0 01/27/17 00:00 98 Nasal Cannula 4.0 01/27/17 00:00 36.5 84 20 108/61 98 Nasal Cannula 4.0 01/26/17 20:00 Mask 6.0 01/26/17 19:19 37.1 98 22 119/58 96 Mask 6.0 01/26/17 18:59 94 20 95 Diffusion Mask 5.0 01/26/17 16:00 Mask 6.0 01/26/17 15:40 37.5 116 21 163/62 90 Nasal Cannula 5.0 01/26/17 15:14 91 18 93 Nasal Cannula 2.0 01/26/17 12:07 37.3 112 28 165/78 91 Room Air 2.0 01/26/17 12:00 Nasal Cannula 2.0 01/26/17 11:21 84 12 94 Nasal Cannula 3.0 01/26/17 11:10 28 90 2.0 Lab Results: Results Past 24 Hours Test 01/26/17 10:45 01/26/17 10:50 01/27/17 06:36 Range/Units Influenza Type A (RT-PCR) Neg for Influ A NEG Influenza Type A Antigen Neg for Influ A NEG Influenza Type B Antigen Neg for Influ B NEG Influenza Type B (RT-PCR) Neg for Influ B NEG Ammonia 21.0 11-32 umol/L Total Creatine Kinase 54 26-192 U/L White Blood Count 22.46 4.8-10.8 K/uL Red Blood Count 3.55 4.2-5.4 M/uL Hemoglobin 9.4 12.0-16.0 g/dL Hematocrit 29.8 37-47 % Mean Corpuscular Volume 83.9 80-100 fL Mean Corpuscular Hemoglobin 26.5 25-34 pg Mean Corpuscular Hemoglobin Concent 31.5 32-36 g/dl Platelet Count 364 130-400 K/uL Mean Platelet Volume 9.0 7.4-10.4 fL Neutrophils (%) (Auto) 89.2 % Lymphocytes (%) (Auto) 4.5 % Monocytes (%) (Auto) 5.9 % Eosinophils (%) (Auto) 0.0 % Basophils (%) (Auto) 0.1 % Neutrophils # (Auto) 20.05 1.4-6.5 K/uL Lymphocytes # (Auto) 1.00 1.2-3.4 K/uL Monocytes # (Auto) 1.32 0.11-0.59 K/uL Eosinophils # (Auto) 0.00 0-0.5 K/uL Basophils # (Auto) 0.02 0-0.2 K/uL RDW Standard Deviation 48.2 36.4-46.3 fL RDW Coefficient of Variation 15.6 11.5-14.5 % Immature Granulocyte % (Auto) 0.3 % Immature Granulocyte # (Auto) 0.07 0.00-0.02 K/uL Sodium Level 140 136-145 mmol/L Potassium Level 3.8 3.5-5.1 mmol/L Chloride Level 105 98-107 mmol/L Carbon Dioxide Level 25 21-32 mmol/L Anion Gap 10.0 3-11 mmol/L Blood Urea Nitrogen 20 7-18 mg/dl Creatinine 0.82 0.60-1.20 mg/dl Est Creatinine Clear Calc Drug Dose 40.0 ml/min Estimated GFR () 74.6 Estimated GFR (Non- 64.3 BUN/Creatinine Ratio 24.9 10-20 Random Glucose 99 70-99 mg/dl Lactic Acid Level 1.7 0.4-2.0 mmol/L Calcium Level 8.8 8.5-10.1 mg/dl Pro-B-Type Natriuretic Peptide 45878 0-1800 pg/ml Microbiology Results 01/26/17 Blood Culture, Received Pending
[2017-01-27] MEDS: LACTOBACILLUS ACIDOPHILUS (FLORANEX) TAB PO SCH ×2 (11:45→15:51)
--- NOTE | 2017-01-27 11:46 | Cardiology Follow-Up ---
Subjective General Date of Service: Jan 27, 2017. Chief Complaint: Follow-up heart failure Pt evaluation today including: conversation w/ patient, physical exam, chart review, lab review, review of studies, review of inpatient medication list History of Present Illness Patient seen and examined. Mentally improved. Improved dyspnea and cough. Probable aspiration observed last night. Telemetry: Sinus/sinus tachycardia, improved with further titration of Toprol XL. Atrial and ventricular ectopy. Two short runs of SVT. No significant bradycardia or pauses. Allergies Coded Allergies: No Known Allergies (Unverified , 11/12/16) Social History Smoking Status: Never Smoker Hx Tobacco Use In Past Year?: No Hx Alcohol Use - Type And Amou: No Hx Substance Use - Type And Am: No Problem List Medical Problems: (1) Acute focal neurological deficit Status: Acute (2) Change in mental status Status: Acute (3) CHF (congestive heart failure) Status: Acute (4) Elevated troponin Status: Acute (5) Left sided chest pain Status: Acute (6) Neurologic gait dysfunction Status: Acute (7) Subcapital fracture of left hip Status: Acute (8) UTI (urinary tract infection) Status: Acute Physical Exam Vital Signs Last Vital Signs Documentation Date Time Temp Pulse Resp B/P Pulse Ox O2 Delivery O2 Flow Rate FiO2 01/27/17 11:37 36.5 97 20 120/65 95 Nasal Cannula 4.0 Physical Exam Constitutional: Level of Distress: NAD, acutely ill, chronically ill Psychiatric: Orientation: to place, to person, not oriented to time Memory: recent memory abnormal, remote memory abnormal Head: normocephalic Eyes: Pupils: PERRLA ENMT: pertinent finding (Mucous membranes are quite dry. No overt thrush. ) Neck: pertinent finding (Elevated JVP. + HJR. ) Lungs: Respiratory effort: dyspneic, tachypneic Auscultation: no wheezing, deminished air movement, decreased breath sounds , rales/crackles on the left, rales/crackles on the right, pertinent finding ( absent breath sounds at the bases ) Cardiovascular: Heart Auscultation: no rubs, tachycardia, I/ MÓNICA Peripheral Pulses: Dorsalis Pedis Pulse: decreased on the left, decreased on the right Abdomen: Bowel Sounds: normal Inspection & Palpation: soft, non-distended, no tenderness, guarding & rebound Extremities: no cyanosis, no edema, no clubbing Neurologic: Cranial Nerves: grossly intact Assessment and Plan Assessment and Plan 86-year-old female with complex history including significant ischemic heart disease, ischemic cardiomyopathy (EF 35-40%), presenting this admission with general decline, multiple acute issues including acute decompensated systolic congestive heart failure with multiple precipitants, smoldering infection with unknown source, symptomatic anemia. RECOMMENDATIONS/PLAN: Continue diuresis with IV furosemide, oral spironolactone. Supplement potassium orally. Continue Toprol, Lisinopril, Imdur, atorvastatin, and dual antiplatelet therapy (ASA, clopidogrel) given LM stenting in February 2016. Patient seen and examined personally. Plan as above, brighter more aware today with slight improvement clinically. You Salgado MD Laboratory Results Last 24 Hours Test 01/27/17 06:36 White Blood Count 22.46 K/uL Red Blood Count 3.55 M/uL Hemoglobin 9.4 g/dL Hematocrit 29.8 % Mean Corpuscular Volume 83.9 fL Mean Corpuscular Hemoglobin 26.5 pg Mean Corpuscular Hemoglobin Concent 31.5 g/dl Platelet Count 364 K/uL Mean Platelet Volume 9.0 fL Neutrophils (%) (Auto) 89.2 % Lymphocytes (%) (Auto) 4.5 % Monocytes (%) (Auto) 5.9 % Eosinophils (%) (Auto) 0.0 % Basophils (%) (Auto) 0.1 % Neutrophils # (Auto) 20.05 K/uL Lymphocytes # (Auto) 1.00 K/uL Monocytes # (Auto) 1.32 K/uL Eosinophils # (Auto) 0.00 K/uL Basophils # (Auto) 0.02 K/uL RDW Standard Deviation 48.2 fL RDW Coefficient of Variation 15.6 % Immature Granulocyte % (Auto) 0.3 % Immature Granulocyte # (Auto) 0.07 K/uL Sodium Level 140 mmol/L Potassium Level 3.8 mmol/L Chloride Level 105 mmol/L Carbon Dioxide Level 25 mmol/L Anion Gap 10.0 mmol/L Blood Urea Nitrogen 20 mg/dl Creatinine 0.82 mg/dl Est Creatinine Clear Calc Drug Dose 40.0 ml/min Estimated GFR () 74.6 Estimated GFR (Non- 64.3 BUN/Creatinine Ratio 24.9 Random Glucose 99 mg/dl Lactic Acid Level 1.7 mmol/L Calcium Level 8.8 mg/dl Pro-B-Type Natriuretic Peptide 33272 pg/ml
[2017-01-27] MEDS ORDERED: NURSING VERBAL MED ORDER ONE (12:00)
[2017-01-27] MEDS ORDERED: BUTT PASTE 171 APPLN/57 GM JAR EXT PRN (12:00)
[2017-01-27] MEDS ORDERED: POTASSIUM CHLORIDE 10 MEQ TABCR PO ONE (12:15)
[2017-01-27] MEDS ORDERED: FUROSEMIDE INJ 40 MG in SYRINGE 0 ML IV ONE (12:30)
[2017-01-27] MEDS: PIPERACILL/TAZOBAC IV 3.375 GM in DEXTROSE 5% 100ML IV SCH ×2 (13:32→22:40)
[2017-01-27] MEDS: ACETAMINOPHEN 325 MG TAB PO PRN (19:47)
[2017-01-28] VITALS (13 sets, daily range): BP systolic 102–182; BP diastolic 57–82; PULSE 58–97; TEMP 36.5–37.1; O2SAT 90–97
[2017-01-28] MEDS: ENOXAPARIN 30 MG/0.3 ML SYR SC SCH (05:45)
[2017-01-28] MEDS: PIPERACILL/TAZOBAC IV 3.375 GM in DEXTROSE 5% 100ML IV SCH ×3 (05:46→21:13)
[2017-01-28] MEDS: ALBUT/IPRATROP 3MG/0.5MG NEB 3 ML VIAL INH SCH ×4 (07:07→19:20)
[2017-01-28 07:38] LABS: BASO % 0.1 %; BASO ABS # 0.01 K/uL (0-0.2); COMPLETE YES; EOS % 0.1 %; IG% 0.4 %; LYMPH % 7.1 %; LYMPH ABS # 1.37 K/uL (1.2-3.4); MEAN CELL VOLUME 84.1 fL (80-100); MEAN CORPUSCULAR HEMOGLOBIN 26.1 pg (25-34); MEAN PLATELET VOLUME 9.6 fL (7.4-10.4); MONO % 5.3 %; PLATELET COUNT 374 K/uL (130-400); RED BLOOD COUNT 3.45 M/uL (4.2-5.4); WHITE BLOOD COUNT 19.29 K/uL (4.8-10.8)
[2017-01-28] MEDS: ASPIRIN 81 MG ECTAB PO SCH (08:02)
[2017-01-28] MEDS: CLOPIDOGREL BISULFATE 75 MG TAB PO SCH (08:02)
[2017-01-28] MEDS: DOCUSATE SODIUM/SENNA 50/8.6MG TAB PO SCH ×2 (08:03→19:41)
[2017-01-28] MEDS: METOPROLOL SUCC 50MG EXT REL TAB PO SCH ×2 (08:03→19:42)
[2017-01-28] MEDS: ISOSORBIDE MONONITRATE 60 MG TABCR PO SCH (08:03)
[2017-01-28] MEDS: SPIRONOLACTONE 25 MG TAB PO SCH (08:04)
[2017-01-28] MEDS: LACTOBACILLUS ACIDOPHILUS (FLORANEX) TAB PO SCH ×3 (08:04→17:03)
[2017-01-28] MEDS: LISINOPRIL 2.5 MG TAB PO SCH (08:04)
[2017-01-28] MEDS: DOXYCYCLINE HYCLATE 100 MG CAP PO SCH ×2 (08:04→19:41)
[2017-01-28 08:07] LABS: BUN/CREATININE RATIO 26.2 (10-20); CALCIUM 8.9 mg/dl (8.5-10.1); POTASSIUM 3.8 mmol/L (3.5-5.1)
[2017-01-28] MEDS ORDERED: POTASSIUM CHLORIDE 10 MEQ TABCR PO ONE (09:54)
[2017-01-28] MEDS ORDERED: FUROSEMIDE 40 MG TAB PO ONE (09:54)
--- NOTE | 2017-01-28 10:02 | Cardiology Follow-Up ---
Subjective Subjective Date of Service: Jan 28, 2017. Pt evaluation today including: conversation w/ patient, conversation w/ family , physical exam, chart review, lab review, review of studies, review of inpatient medication list Additional Details: Pt seen and examined, oob in chair daughter at bedside. A little confused today , talking about the war. States that she feels well, wants something more to eat. Denies cp, palpitations, lightheadedness or dizziness. Tele reviewed: sinus rhythm without arrhythmia or significant ectopy. Problem List Medical Problems: (1) Acute focal neurological deficit Status: Acute (2) Change in mental status Status: Acute (3) CHF (congestive heart failure) Status: Acute (4) Elevated troponin Status: Acute (5) Left sided chest pain Status: Acute (6) Neurologic gait dysfunction Status: Acute (7) Subcapital fracture of left hip Status: Acute (8) UTI (urinary tract infection) Status: Acute Review of Systems Respiratory: No cough, No dyspnea at rest, No dyspnea on exertion, No hemoptysis, No problem reported, No see HPI, No shortness of breath, No sputum, No wheezing Cardiac: No PND, No chest pain, No claudication, No edema, No orthopnea, No palpitations, No problem reported, No see HPI Objective Vital Signs Last Vital Signs Documentation Date Time Temp Pulse Resp B/P Pulse Ox O2 Delivery O2 Flow Rate FiO2 01/28/17 08:05 37.1 93 18 133/67 94 Nasal Cannula 3.0 Physical Exam: General Appearance: WD/WN, no apparent distress Eyes: bilateral eyes EOMI, bilateral eyes PERRL, bilateral eyes normal inspection ENT: normal ENT inspection, TMs normal, pharynx normal, + pertinent finding ( hard of hearing) Neck: supple, no adenopathy, thyroid normal, no JVD, no carotid bruits, trachea midline Respiratory/Chest: chest non-tender, lungs clear, normal breath sounds, no respiratory distress, no accessory muscle use Cardiovascular: regular rate, rhythm, no edema, no JVD, + systolic murmur (3/6 mid to late mateo, 2nd ics, rsb), + gallop/S4 Abdomen: normal bowel sounds, non tender, soft, no organomegaly, no pulsatile mass Extremities: non-tender, normal inspection, no pedal edema, no calf tenderness Neurologic/Psychiatric: 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 ischemic cardiomyopathy does not examine as volume overloaded today bun/creat ratio rising will not give further iv diuresis at this time will start po lasix with KCl supplementation cont metoprolol, spironolactone, imdur, lisinopril, asa and plavix ok to d/c tele from cardiac standpoint
[2017-01-28] MEDS ORDERED: DOCUSATE SODIUM 100 MG CAP PO ONE (12:30)
[2017-01-28] MEDS ORDERED: BISACODYL 5 MG TABEC PO ONE (12:30)
--- NOTE | 2017-01-28 12:36 | Progress Note ---
Internal Med Progress Note Date of Service: Jan 28, 2017. Provider Documentation: SUBJECTIVE: Patient is sitting in the chair and is in no apparent distress. Breathing comfortably. Is more awake and tries to answer my questions. Denies any chest pain/pressure. More awake/alert. Less coughing now. Constipated which is a chronic issue for her. No other new change or complaint. OBJECTIVE: Vital Signs-as noted below Examination: General- Alert/Awake and is in no acute distress Head- atraumatic Eyes- PERRL, EOMI ENT- Ears, Nose, Throat are normal looking. Neck- supple, midline trachea, no JVD Lungs- B/L Moderate air entry, Decreased BS at lung bases B/L, Has fine rales at bases. Heart- regular rhythm;systolic murmur Abdomen- normal bowel sounds, soft Extremities- no calf tenderness Neuro- alert, oriented, PERRL, EOMI; no facial palsy Skin- warm & dry Lab data as noted below. ASSESSMENT & PLAN: Echocardiogram (01/26/2017) The left ventricle is normal in size. There is mild concentric left ventricular hypertrophy. There is mild to moderate global hypokinesis of the left ventricle. There is severe apical wall hypokinesis. There is moderate to severe septal hypokinesis. Ejection Fraction = 25-30%. There is moderate mitral regurgitation. There is moderate tricuspid regurgitation. Chest X-Ray (01/26/2017) COMPARISON STUDY: 01/24/2017 FINDINGS: Findings of congestive failure similar radiographically compared to the prior study bilateral pleural effusions and/or basilar inflammatory change similar. Pulmonary procedure clear. IMPRESSION: Congestive failure with components of the basilar] infiltrates/ effusions unchanged from the prior study. Chest X-Ray (01/27/2017) COMPARISON STUDY: 01/26/2017 FINDINGS: Bibasilar parenchymal infiltrative change similar. Components of congestive failure slightly improved. Heart remains enlarged. IMPRESSION: Stable bibasilar parenchymal infiltrates. Slight improvement in underlying components of congestive failure Dyspnea: Likely due to Decompensates Systolic CHF due to short course of steroid vs bronchitis Elevated proBNP on admission. Received IV Lasix and antibiotic in the ER. EF 35- 40% on last echo 09/04 -Continue Doxycycline 100 mg BID for possible bronchitis /Pneumonia (Day # 6) . Changed Rocephin (Day # 2) to Zosyn (Day # 2). -Cardiology consult noted. Thanks for input. -Continue Metoprolol 100 mg BID -Monitor daily weight and I's & O's. -Reviewed the Echo findings done on 01/26/2017. EF is declining. History Ischemic Cardiomyopathy, EF 35-40% -Continue BB, lasix IV, ACEI and spironolactone History CAD S/P Stent: No acute cardiac issue. -Continue Plavix and aspirin Leukocytosis: Likely reactive as there is no clear source for infection or some lung source including aspiration .Remains afebrile. -Normal calcitonin -Continue Doxycycline & Zosyn as above. -Urine cx negative -CXR showed no clear infiltrate Encephalopathy: Likely due to above illness vs delirium or deconditioning -Avoid medications that worsening her symptoms -Continue monitor Anemia: Likely due low iron level. -Venofer ordered. DVT Prophylaxis: Sq Lovenox Code Status: Level III after discussion with the family. Disposition: Discharge once is clinically stable. Discussed with the son about her condition that she is gradually declining. Family is understandable about it. They want to continue with all the current management & avoid any heroic measures if condition is irreversible. Vital Signs: Date Time Temp Pulse Resp B/P Pulse Ox O2 Delivery O2 Flow Rate FiO2 01/28/17 12:00 Nasal Cannula 2.0 01/28/17 11:53 37.1 93 18 182/82 94 Room Air 01/28/17 08:05 37.1 93 18 133/67 94 Nasal Cannula 3.0 01/28/17 08:00 Nasal Cannula 2.5 01/28/17 07:07 87 16 90 Nasal Cannula 2.0 01/28/17 04:00 96 Nasal Cannula 2.5 01/28/17 03:45 36.5 90 22 102/58 96 Nasal Cannula 3.0 01/28/17 00:00 96 Nasal Cannula 2.5 01/27/17 23:57 36.6 88 22 95/56 96 Nasal Cannula 3.0 01/27/17 20:00 96 Nasal Cannula 2.5 01/27/17 19:16 38.1 96 20 111/61 96 Nasal Cannula 2.5 01/27/17 19:12 96 16 94 Nasal Cannula 2.0 01/27/17 16:00 Nasal Cannula 4.0 01/27/17 15:30 36.9 92 20 117/62 97 Nasal Cannula 4.0 01/27/17 15:30 92 16 97 Nasal Cannula 4.0 Lab Results: Results Past 24 Hours Test 01/28/17 06:30 Range/Units White Blood Count 19.29 4.8-10.8 K/uL Red Blood Count 3.45 4.2-5.4 M/uL Hemoglobin 9.0 12.0-16.0 g/dL Hematocrit 29.0 37-47 % Mean Corpuscular Volume 84.1 80-100 fL Mean Corpuscular Hemoglobin 26.1 25-34 pg Mean Corpuscular Hemoglobin Concent 31.0 32-36 g/dl Platelet Count 374 130-400 K/uL Mean Platelet Volume 9.6 7.4-10.4 fL Neutrophils (%) (Auto) 87.0 % Lymphocytes (%) (Auto) 7.1 % Monocytes (%) (Auto) 5.3 % Eosinophils (%) (Auto) 0.1 % Basophils (%) (Auto) 0.1 % Neutrophils # (Auto) 16.78 1.4-6.5 K/uL Lymphocytes # (Auto) 1.37 1.2-3.4 K/uL Monocytes # (Auto) 1.03 0.11-0.59 K/uL Eosinophils # (Auto) 0.02 0-0.5 K/uL Basophils # (Auto) 0.01 0-0.2 K/uL RDW Standard Deviation 48.9 36.4-46.3 fL RDW Coefficient of Variation 15.8 11.5-14.5 % Immature Granulocyte % (Auto) 0.4 % Immature Granulocyte # (Auto) 0.08 0.00-0.02 K/uL Sodium Level 137 136-145 mmol/L Potassium Level 3.8 3.5-5.1 mmol/L Chloride Level 102 98-107 mmol/L Carbon Dioxide Level 25 21-32 mmol/L Anion Gap 10.0 3-11 mmol/L Blood Urea Nitrogen 26 7-18 mg/dl Creatinine 1.00 0.60-1.20 mg/dl Est Creatinine Clear Calc Drug Dose 32.8 ml/min Estimated GFR () 58.7 Estimated GFR (Non- 50.6 BUN/Creatinine Ratio 26.2 10-20 Random Glucose 93 70-99 mg/dl Calcium Level 8.9 8.5-10.1 mg/dl
[2017-01-28] MEDS ORDERED: FUROSEMIDE INJ 20 MG in SYRINGE 0 ML IV ONE (13:00)
[2017-01-29] VITALS (11 sets, daily range): BP systolic 114–134; BP diastolic 58–63; PULSE 90–94; TEMP 36.4–36.7; O2SAT 90–100
[2017-01-29] MEDS: ENOXAPARIN 30 MG/0.3 ML SYR SC SCH (06:04)
[2017-01-29] MEDS: PIPERACILL/TAZOBAC IV 3.375 GM in DEXTROSE 5% 100ML IV SCH ×3 (06:04→21:07)
[2017-01-29 06:27] LABS: BASO % 0.1 %; BASO ABS # 0.02 K/uL (0-0.2); EOS % 0.1 %; HEMATOCRIT 27.3 % (37-47); IG% 0.5 %; LYMPH % 9.5 %; LYMPH ABS # 1.34 K/uL (1.2-3.4); MEAN CORPUSCULAR HEMOGLOBIN 25.8 pg (25-34); MEAN CORPUSCULAR HGB CONC 31.9 g/dl (32-36); MEAN PLATELET VOLUME 9.1 fL (7.4-10.4); MONO % 5.9 %; NEUT % 83.9 %; PLATELET COUNT 411 K/uL (130-400); RED BLOOD COUNT 3.37 M/uL (4.2-5.4)
[2017-01-29 06:54] LABS: COMPLETE YES; OVALOCYTES 1+
[2017-01-29 06:56] LABS: BUN/CREATININE RATIO 23.9 (10-20); CALCIUM 8.6 mg/dl (8.5-10.1); MAGNESIUM 2.2 mg/dl (1.8-2.4); POTASSIUM 3.8 mmol/L (3.5-5.1)
[2017-01-29] MEDS: ALBUT/IPRATROP 3MG/0.5MG NEB 3 ML VIAL INH SCH ×4 (07:01→19:21)
--- NOTE | 2017-01-29 07:36 | DIAGNOSTIC IMAGING REPORT ---
SINGLE VIEW CHEST CLINICAL HISTORY: Follow-up CHF. FINDINGS: An AP, portable, upright chest radiograph is compared to study dated 01/27/2017. The examination is degraded by portable technique and patient rotation. The heart is enlarged and there is advanced atherosclerotic calcification of the thoracic aorta. Minimal pulmonary vascular congestion persists. There are layering pleural effusions with bibasilar consolidation. Apical scarring is observed. Biapical scarring is observed. No pneumothorax is seen. The skeletal structures are osteopenic. The bony thorax is grossly intact. IMPRESSION: 1. Cardiomegaly with mild persistent pulmonary vascular congestion. 2. Layering pleural effusions with bibasilar consolidation. This is similar to yesterday. Differential considerations remain atelectasis and/or pneumonia. Electronically signed by: Loki Villareal M.D. 01/29/2017 7:35 AM Dictated Date/Time: 01/29/2017 7:34 AM
[2017-01-29] MEDS: FLUTICASONE/SALMETEROL 100/50 (ADVAIR) 14 PUFF/1 INHALER INH SCH (07:59)
[2017-01-29] MEDS ORDERED: LISINOPRIL 10 MG TAB PO SCH (08:00)
[2017-01-29] MEDS: METOPROLOL SUCC 50MG EXT REL TAB PO SCH ×2 (08:00→19:41)
[2017-01-29] MEDS: SPIRONOLACTONE 25 MG TAB PO SCH (08:00)
[2017-01-29] MEDS: DOCUSATE SODIUM/SENNA 50/8.6MG TAB PO SCH ×2 (08:00→19:41)
[2017-01-29] MEDS: POTASSIUM CHLORIDE 10 MEQ TABCR PO SCH (08:01)
[2017-01-29] MEDS: CLOPIDOGREL BISULFATE 75 MG TAB PO SCH (08:02)
[2017-01-29] MEDS: DOXYCYCLINE HYCLATE 100 MG CAP PO SCH ×2 (08:02→19:41)
[2017-01-29] MEDS: ASPIRIN 81 MG ECTAB PO SCH (08:02)
[2017-01-29] MEDS: LACTOBACILLUS ACIDOPHILUS (FLORANEX) TAB PO SCH ×3 (08:02→16:31)
[2017-01-29] MEDS: ISOSORBIDE MONONITRATE 60 MG TABCR PO SCH (08:03)
[2017-01-29] MEDS: BISACODYL 5 MG TABEC PO SCH (08:06)
[2017-01-29] MEDS: FUROSEMIDE INJ 20 MG in SYRINGE 0 ML IV SCH (08:43)
[2017-01-29] MEDS ORDERED: FUROSEMIDE 40 MG TAB PO SCH (09:00)
[2017-01-29] MEDS ORDERED: IRON SUCROSE INJ 100 MG in SODIUM CHLORIDE 0.9% 100ML 100 ML IV SCH (09:00)
--- NOTE | 2017-01-29 11:12 | Progress Note ---
Internal Med Progress Note Date of Service: Jan 29, 2017. Provider Documentation: SUBJECTIVE: Patient is sitting in the bed and is in no apparent distress. Breathing comfortably. Is more awake and tries to answer my questions. Denies any chest pain/pressure. More awake/alert. Less coughing now. Had a BM last evening. No other new change or complaint. OBJECTIVE: Vital Signs-as noted below Examination: General- Alert/Awake and is in no acute distress Head- atraumatic Eyes- PERRL, EOMI ENT- Ears, Nose, Throat are normal looking. Neck- supple, midline trachea, no JVD Lungs- B/L Moderate air entry, Decreased BS at lung bases B/L, Has fine rales at bases. Heart- regular rhythm;systolic murmur Abdomen- normal bowel sounds, soft Extremities- no calf tenderness Neuro- alert, oriented, PERRL, EOMI; no facial palsy Skin- warm & dry Lab data as noted below. ASSESSMENT & PLAN: Echocardiogram (01/26/2017) The left ventricle is normal in size. There is mild concentric left ventricular hypertrophy. There is mild to moderate global hypokinesis of the left ventricle. There is severe apical wall hypokinesis. There is moderate to severe septal hypokinesis. Ejection Fraction = 25-30%. There is moderate mitral regurgitation. There is moderate tricuspid regurgitation. Chest X-Ray (01/26/2017) COMPARISON STUDY: 01/24/2017 FINDINGS: Findings of congestive failure similar radiographically compared to the prior study bilateral pleural effusions and/or basilar inflammatory change similar. Pulmonary procedure clear. IMPRESSION: Congestive failure with components of the basilar] infiltrates/ effusions unchanged from the prior study. Chest X-Ray (01/27/2017) COMPARISON STUDY: 01/26/2017 FINDINGS: Bibasilar parenchymal infiltrative change similar. Components of congestive failure slightly improved. Heart remains enlarged. IMPRESSION: Stable bibasilar parenchymal infiltrates. Slight improvement in underlying components of congestive failure Dyspnea: Likely due to Decompensates Systolic CHF due to short course of steroid vs bronchitis Elevated proBNP on admission. Received IV Lasix and antibiotic in the ER. EF 35- 40% on last echo 09/04 -Continue Doxycycline 100 mg BID for possible bronchitis /Pneumonia (Day # 7) . Changed Rocephin (Day # 2) to Zosyn (Day # 3). -Cardiology consult noted. Thanks for input. -Continue Metoprolol 100 mg BID -Monitor daily weight and I's & O's. -Reviewed the Echo findings done on 01/26/2017. EF is declining. -She has lost around 4 Ibs in the past 4-5 days & is fluid negative. History Ischemic Cardiomyopathy, EF 35-40% -Continue BB, lasix IV, ACEI and spironolactone History CAD S/P Stent: No acute cardiac issue. -Continue Plavix and aspirin Leukocytosis: Likely reactive as there is no clear source for infection or some lung source including aspiration .Remains afebrile. -Normal calcitonin -Continue Doxycycline & Zosyn as above. -Urine cx negative -CXR showed no clear infiltrate Encephalopathy: Likely due to above illness vs delirium or deconditioning -Avoid medications that worsening her symptoms -Continue monitor Anemia: Likely due low iron level. -Venofer ordered. DVT Prophylaxis: Sq Lovenox Code Status: Level III after discussion with the family. Disposition: Discharge once is clinically stable. Discussed with the son about her condition that she is gradually declining. Family is understandable about it. They want to continue with all the current management & avoid any heroic measures if condition is irreversible. Vital Signs: Date Time Temp Pulse Resp B/P Pulse Ox O2 Delivery O2 Flow Rate FiO2 01/29/17 08:30 Nasal Cannula 2.0 01/29/17 07:01 92 16 94 Nasal Cannula 2.0 01/29/17 06:51 36.4 93 20 127/63 95 Nasal Cannula 2.0 01/29/17 03:19 94 Nasal Cannula 2.0 01/29/17 00:00 Nasal Cannula 2.0 01/28/17 22:30 36.9 97 20 128/63 94 Nasal Cannula 2.0 01/28/17 19:46 96 139/70 97 2.0 01/28/17 19:21 75 16 95 Nasal Cannula 2.5 01/28/17 19:00 96 Nasal Cannula 2.0 01/28/17 16:00 Nasal Cannula 2.0 01/28/17 15:14 87 16 92 Nasal Cannula 2.0 01/28/17 14:55 36.7 58 16 126/57 93 Nasal Cannula 2.0 01/28/17 14:03 37.1 93 18 94 2.0 01/28/17 12:00 Nasal Cannula 2.0 01/28/17 11:53 37.1 93 18 120/59 94 Room Air Lab Results: Results Past 24 Hours Test 01/29/17 05:29 Range/Units White Blood Count 14.10 4.8-10.8 K/uL Red Blood Count 3.37 4.2-5.4 M/uL Hemoglobin 8.7 12.0-16.0 g/dL Hematocrit 27.3 37-47 % Mean Corpuscular Volume 81.0 80-100 fL Mean Corpuscular Hemoglobin 25.8 25-34 pg Mean Corpuscular Hemoglobin Concent 31.9 32-36 g/dl Platelet Count 411 130-400 K/uL Mean Platelet Volume 9.1 7.4-10.4 fL Neutrophils (%) (Auto) 83.9 % Lymphocytes (%) (Auto) 9.5 % Monocytes (%) (Auto) 5.9 % Eosinophils (%) (Auto) 0.1 % Basophils (%) (Auto) 0.1 % Neutrophils # (Auto) 11.82 1.4-6.5 K/uL Lymphocytes # (Auto) 1.34 1.2-3.4 K/uL Monocytes # (Auto) 0.83 0.11-0.59 K/uL Eosinophils # (Auto) 0.02 0-0.5 K/uL Basophils # (Auto) 0.02 0-0.2 K/uL RDW Standard Deviation 47.3 36.4-46.3 fL RDW Coefficient of Variation 15.8 11.5-14.5 % Immature Granulocyte % (Auto) 0.5 % Immature Granulocyte # (Auto) 0.07 0.00-0.02 K/uL Ovalocytes 1+ Sodium Level 140 136-145 mmol/L Potassium Level 3.8 3.5-5.1 mmol/L Chloride Level 103 98-107 mmol/L Carbon Dioxide Level 27 21-32 mmol/L Anion Gap 10.0 3-11 mmol/L Blood Urea Nitrogen 24 7-18 mg/dl Creatinine 1.00 0.60-1.20 mg/dl Est Creatinine Clear Calc Drug Dose 32.8 ml/min Estimated GFR () 58.7 Estimated GFR (Non- 50.6 BUN/Creatinine Ratio 23.9 10-20 Random Glucose 100 70-99 mg/dl Calcium Level 8.6 8.5-10.1 mg/dl Magnesium Level 2.2 1.8-2.4 mg/dl Pro-B-Type Natriuretic Peptide 36958 0-1800 pg/ml
[2017-01-29] MEDS: OLANZAPINE ZYDIS 5 MG ORALLY DIS. TAB PO SCH (19:41)
[2017-01-30] VITALS (7 sets, daily range): BP systolic 114–126; BP diastolic 62–68; PULSE 85–92; TEMP 36.6–37; O2SAT 91–97
[2017-01-30 05:53] LABS: BASO % 0.2 %; BASO ABS # 0.02 K/uL (0-0.2); COMPLETE YES; EOS % 1.4 %; HEMATOCRIT 28.6 % (37-47); IG% 0.4 %; LYMPH % 13.9 %; LYMPH ABS # 1.37 K/uL (1.2-3.4); MEAN CELL VOLUME 83.4 fL (80-100); MEAN CORPUSCULAR HEMOGLOBIN 26.2 pg (25-34); MEAN CORPUSCULAR HGB CONC 31.5 g/dl (32-36); MEAN PLATELET VOLUME 9.2 fL (7.4-10.4); MONO % 7.6 %; NEUT % 76.5 %; PLATELET COUNT 428 K/uL (130-400); RED BLOOD COUNT 3.43 M/uL (4.2-5.4); WHITE BLOOD COUNT 9.84 K/uL (4.8-10.8)
[2017-01-30] MEDS: ENOXAPARIN 30 MG/0.3 ML SYR SC SCH (05:56)
[2017-01-30] MEDS: PIPERACILL/TAZOBAC IV 3.375 GM in DEXTROSE 5% 100ML IV SCH ×3 (05:56→22:12)
[2017-01-30 06:24] LABS: BUN/CREATININE RATIO 22.2 (10-20); CALCIUM 8.7 mg/dl (8.5-10.1); CREATININE 0.86 mg/dl (0.60-1.20); MAGNESIUM 2.1 mg/dl (1.8-2.4); POTASSIUM 3.7 mmol/L (3.5-5.1)
[2017-01-30] MEDS: ALBUT/IPRATROP 3MG/0.5MG NEB 3 ML VIAL INH SCH ×4 (07:07→19:02)
[2017-01-30] MEDS: LACTOBACILLUS ACIDOPHILUS (FLORANEX) TAB PO SCH ×3 (08:23→17:25)
[2017-01-30] MEDS: METOPROLOL SUCC 50MG EXT REL TAB PO SCH ×2 (08:23→19:53)
[2017-01-30] MEDS: CLOPIDOGREL BISULFATE 75 MG TAB PO SCH (08:24)
[2017-01-30] MEDS: DOXYCYCLINE HYCLATE 100 MG CAP PO SCH ×2 (08:24→19:52)
[2017-01-30] MEDS: ASPIRIN 81 MG ECTAB PO SCH (08:24)
[2017-01-30] MEDS: ISOSORBIDE MONONITRATE 60 MG TABCR PO SCH (08:24)
[2017-01-30] MEDS: FLUTICASONE/SALMETEROL 100/50 (ADVAIR) 14 PUFF/1 INHALER INH SCH (08:24)
[2017-01-30] MEDS: LISINOPRIL 5 MG TAB PO SCH (08:24)
[2017-01-30] MEDS: DOCUSATE SODIUM/SENNA 50/8.6MG TAB PO SCH ×2 (08:25→19:52)
[2017-01-30] MEDS: POTASSIUM CHLORIDE 10 MEQ TABCR PO SCH (08:25)
[2017-01-30] MEDS: FUROSEMIDE INJ 20 MG in SYRINGE 0 ML IV SCH (08:25)
[2017-01-30] MEDS: BISACODYL 5 MG TABEC PO SCH (08:28)
[2017-01-30] MEDS: SPIRONOLACTONE 25 MG TAB PO SCH (09:09)
--- NOTE | 2017-01-30 10:41 | Progress Note ---
Internal Med Progress Note Date of Service: Jan 30, 2017. Provider Documentation: SUBJECTIVE: Patient is sitting in the bed and is in no apparent distress. Breathing comfortably. Is more awake and tries to answer my questions. Denies any chest pain/pressure. More awake/alert. Less coughing now. Tolerating oral intake. No other new change or complaint. OBJECTIVE: Vital Signs-as noted below Examination: General- Alert/Awake and is in no acute distress Head- atraumatic Eyes- PERRL, EOMI ENT- Ears, Nose, Throat are normal looking. Neck- supple, midline trachea, no JVD Lungs- B/L Moderate air entry, Decreased BS at lung bases B/L, Has fine rales at bases which are improving. Heart- regular rhythm;systolic murmur Abdomen- normal bowel sounds, soft Extremities- no calf tenderness Neuro- alert, oriented, PERRL, EOMI; no facial palsy Skin- warm & dry Lab data as noted below. ASSESSMENT & PLAN: Echocardiogram (01/26/2017) The left ventricle is normal in size. There is mild concentric left ventricular hypertrophy. There is mild to moderate global hypokinesis of the left ventricle. There is severe apical wall hypokinesis. There is moderate to severe septal hypokinesis. Ejection Fraction = 25-30%. There is moderate mitral regurgitation. There is moderate tricuspid regurgitation. Chest X-Ray (01/26/2017) COMPARISON STUDY: 01/24/2017 FINDINGS: Findings of congestive failure similar radiographically compared to the prior study bilateral pleural effusions and/or basilar inflammatory change similar. Pulmonary procedure clear. IMPRESSION: Congestive failure with components of the basilar] infiltrates/ effusions unchanged from the prior study. Chest X-Ray (01/27/2017) COMPARISON STUDY: 01/26/2017 FINDINGS: Bibasilar parenchymal infiltrative change similar. Components of congestive failure slightly improved. Heart remains enlarged. IMPRESSION: Stable bibasilar parenchymal infiltrates. Slight improvement in underlying components of congestive failure Dyspnea: Likely due to Decompensates Systolic CHF due to short course of steroid vs bronchitis Elevated proBNP on admission. Received IV Lasix and antibiotic in the ER. EF 35- 40% on last echo 09/04 -Stopped Doxycycline 100 mg BID for possible bronchitis /Pneumonia (7 days). Continue Zosyn (Day # 4).May stop after 5 days -Cardiology consult noted. Thanks for input. -Continue Metoprolol 100 mg BID -Monitor daily weight and I's & O's. -Reviewed the Echo findings done on 01/26/2017. EF is declining. -She has lost around 4 Ibs in the past 4-5 days & is fluid negative. History Ischemic Cardiomyopathy, EF 35-40% -Continue BB, lasix IV, ACEI and spironolactone History CAD S/P Stent: No acute cardiac issue. -Continue Plavix and aspirin Leukocytosis: Likely reactive as there is no clear source for infection or some lung source including aspiration .Remains afebrile. -Normal calcitonin -Continue Zosyn as above. -Urine cx negative -CXR showed no clear infiltrate Encephalopathy: Likely due to above illness vs delirium or deconditioning -Avoid medications that worsening her symptoms -Continue monitor Anemia: Likely due low iron level. -Venofer ordered. DVT Prophylaxis: Sq Lovenox Code Status: Level III after discussion with the family. Disposition: Discharge once is clinically stable.Family would prefer to take her home. Discussed with the son about her condition that she is gradually declining. Family is understandable about it. They want to continue with all the current management & avoid any heroic measures if condition is irreversible. Vital Signs: Date Time Temp Pulse Resp B/P Pulse Ox O2 Delivery O2 Flow Rate FiO2 01/30/17 07:07 88 18 96 Nasal Cannula 2.0 01/30/17 06:41 36.6 91 18 126/66 97 Nasal Cannula 2.0 01/29/17 23:34 36.7 94 20 134/58 100 Nasal Cannula 2.0 01/29/17 23:20 Nasal Cannula 2.0 01/29/17 21:53 90 Room Air 01/29/17 21:12 94 Room Air 01/29/17 19:40 93 127/62 96 Room Air 01/29/17 19:22 90 18 99 Nasal Cannula 2.0 01/29/17 16:00 Nasal Cannula 2.0 01/29/17 15:26 92 16 92 Nasal Cannula 2.0 01/29/17 15:10 36.7 90 18 114/58 98 Nasal Cannula 2.0 01/29/17 11:40 92 16 94 Nasal Cannula 2.0 Lab Results: Results Past 24 Hours Test 01/30/17 05:11 Range/Units White Blood Count 9.84 4.8-10.8 K/uL Red Blood Count 3.43 4.2-5.4 M/uL Hemoglobin 9.0 12.0-16.0 g/dL Hematocrit 28.6 37-47 % Mean Corpuscular Volume 83.4 80-100 fL Mean Corpuscular Hemoglobin 26.2 25-34 pg Mean Corpuscular Hemoglobin Concent 31.5 32-36 g/dl Platelet Count 428 130-400 K/uL Mean Platelet Volume 9.2 7.4-10.4 fL Neutrophils (%) (Auto) 76.5 % Lymphocytes (%) (Auto) 13.9 % Monocytes (%) (Auto) 7.6 % Eosinophils (%) (Auto) 1.4 % Basophils (%) (Auto) 0.2 % Neutrophils # (Auto) 7.52 1.4-6.5 K/uL Lymphocytes # (Auto) 1.37 1.2-3.4 K/uL Monocytes # (Auto) 0.75 0.11-0.59 K/uL Eosinophils # (Auto) 0.14 0-0.5 K/uL Basophils # (Auto) 0.02 0-0.2 K/uL RDW Standard Deviation 48.1 36.4-46.3 fL RDW Coefficient of Variation 15.7 11.5-14.5 % Immature Granulocyte % (Auto) 0.4 % Immature Granulocyte # (Auto) 0.04 0.00-0.02 K/uL Sodium Level 140 136-145 mmol/L Potassium Level 3.7 3.5-5.1 mmol/L Chloride Level 104 98-107 mmol/L Carbon Dioxide Level 30 21-32 mmol/L Anion Gap 6.0 3-11 mmol/L Blood Urea Nitrogen 19 7-18 mg/dl Creatinine 0.86 0.60-1.20 mg/dl Est Creatinine Clear Calc Drug Dose 38.1 ml/min Estimated GFR () 70.4 Estimated GFR (Non- 60.7 BUN/Creatinine Ratio 22.2 10-20 Random Glucose 90 70-99 mg/dl Calcium Level 8.7 8.5-10.1 mg/dl Magnesium Level 2.1 1.8-2.4 mg/dl Pro-B-Type Natriuretic Peptide [id number] 0-1800 pg/ml
[2017-01-30] MEDS ORDERED: IRON SUCROSE INJ 100 MG in SODIUM CHLORIDE 0.9% 100ML 100 ML IV SCH (12:00)
[2017-01-30] MEDS: OLANZAPINE ZYDIS 5 MG ORALLY DIS. TAB PO SCH (19:52)
[2017-01-30] MEDS: ACETAMINOPHEN 325 MG TAB PO PRN (20:01)
[2017-01-31] MEDS: ENOXAPARIN 30 MG/0.3 ML SYR SC SCH (05:13)
[2017-01-31] MEDS: PIPERACILL/TAZOBAC IV 3.375 GM in DEXTROSE 5% 100ML IV SCH ×3 (05:13→21:28)
[2017-01-31 05:21] LABS: BASO % 0.5 %; BASO ABS # 0.04 K/uL (0-0.2); COMPLETE YES; EOS % 4.2 %; IG% 0.3 %; LYMPH % 16.3 %; LYMPH ABS # 1.41 K/uL (1.2-3.4); MEAN CELL VOLUME 82.2 fL (80-100); MEAN CORPUSCULAR HEMOGLOBIN 25.5 pg (25-34); MEAN PLATELET VOLUME 8.9 fL (7.4-10.4); MONO % 9.2 %; NEUT % 69.5 %; PLATELET COUNT 467 K/uL (130-400); RED BLOOD COUNT 3.65 M/uL (4.2-5.4); WHITE BLOOD COUNT 8.65 K/uL (4.8-10.8)
[2017-01-31 06:00] LABS: BUN/CREATININE RATIO 19.6 (10-20); CALCIUM 8.6 mg/dl (8.5-10.1); CREATININE 0.83 mg/dl (0.60-1.20); POTASSIUM 3.4 mmol/L (3.5-5.1)
[2017-01-31 06:05] LABS: ALB/GLOB RATIO 0.5 (0.9-2)
[2017-01-31 07:03] VITALS: PULSE 90; O2SAT 93
[2017-01-31] MEDS: ALBUT/IPRATROP 3MG/0.5MG NEB 3 ML VIAL INH SCH ×4 (07:03→19:15)
[2017-01-31 07:22] VITALS: BP 146/69; PULSE 90; TEMP 36.9; O2SAT 93
[2017-01-31] MEDS: FLUTICASONE/SALMETEROL 100/50 (ADVAIR) 14 PUFF/1 INHALER INH SCH (07:55)
[2017-01-31] MEDS: CLOPIDOGREL BISULFATE 75 MG TAB PO SCH (07:56)
[2017-01-31] MEDS: METOPROLOL SUCC 50MG EXT REL TAB PO SCH ×2 (07:56→20:11)
[2017-01-31] MEDS: ISOSORBIDE MONONITRATE 60 MG TABCR PO SCH (07:56)
[2017-01-31] MEDS: ASPIRIN 81 MG ECTAB PO SCH (07:56)
[2017-01-31] MEDS: POTASSIUM CHLORIDE 10 MEQ TABCR PO SCH (07:57)
[2017-01-31] MEDS: DOCUSATE SODIUM/SENNA 50/8.6MG TAB PO SCH ×2 (07:57→20:10)
[2017-01-31] MEDS: LACTOBACILLUS ACIDOPHILUS (FLORANEX) TAB PO SCH ×3 (07:57→17:20)
[2017-01-31] MEDS: LISINOPRIL 5 MG TAB PO SCH (07:58)
[2017-01-31] MEDS: SPIRONOLACTONE 25 MG TAB PO SCH (07:58)
[2017-01-31] MEDS ORDERED: FUROSEMIDE INJ 30 MG in SYRINGE 0 ML IV SCH (08:00)
[2017-01-31] MEDS: BISACODYL 5 MG TABEC PO SCH (08:04)
[2017-01-31] MEDS: DOXYCYCLINE HYCLATE 100 MG CAP PO SCH (08:28)
[2017-01-31 11:10] VITALS: PULSE 92; O2SAT 90
--- NOTE | 2017-01-31 14:17 | Progress Note ---
Internal Med Progress Note Date of Service: Jan 31, 2017. Provider Documentation: SUBJECTIVE: Patient is seen and examined at bedside. Patient denies SOB, chest pain. Sleepy most of the time per patient's daughter (On Xyprexa) Denies any chest pain, SOB. Poor oral intake. Reports some discomfort on the back. OBJECTIVE: Vital Signs-as noted below Physical Exam: Vitals signs as noted above General Appearance:Chronically ill appearing Head: normocephalic, Atraumatic Eyes: normal inspection, EOMI, PERRLA Neck: supple, Trachea midline Respiratory/Chest: Normal breath sounds, CTA, No accessory muscle use Cardiovascular: S1, S2, + murmur Abdomen/GI:Soft, Non tender, Bowel sounds present Extremities/Musculoskelatal:normal inspection, no edema Neurologic/Psych:AAOX3, grossly no focal neurological deficits Skin: normal color, warm Lab data as noted below. ASSESSMENT & PLAN: Decompensated Systolic CHF due to short course of steroid vs bronchitis S/P IV Lasix. Current EF: 25-30%; Last echo 09/04: EF35-40%: Slowly declining, No heroic measures per family S/P Doxycycline 100 mg BID for possible bronchitis /Pneumonia (7 days). Continue Zosyn (Day # 5). Plan to DC tomorrow Appreciate Cardiology help Monitor daily weight and I's & O's. Lost about 2 kgs since admission. continue metoprolol, spironolactone, imdur, lisinopril, asa, plavix , PO lasix History Ischemic Cardiomyopathy, EF 25-30% Continue BB, lasix, ACEI and spironolactone Hypokalemia: Secondary to diuretics Will replace and monitor Check mag levels History CAD S/P Stent: No acute cardiac issue. Continue Plavix and aspirin Leukocytosis: Likely reactive Resolved No clear source for infection Afebrile. Urine cx negative Encephalopathy: Likely due to above illness vs delirium/deconditioning or from meds DC Zyprexa Continue to monitor Anemia:Likely due low iron level. S/P Venofer Monitor Hb DVT Px: Lovenox SQ Code Status: Level III after discussion with the family. Disposition: Discussed with patient's daughter today: Family agreeable to short period of SNF vs Rehab commissioner of relocation services consulted PROCEDURES: Echocardiogram The left ventricle is normal in size. There is mild concentric left ventricular hypertrophy. There is mild to moderate global hypokinesis of the left ventricle. There is severe apical wall hypokinesis. There is moderate to severe septal hypokinesis. Ejection Fraction = 25-30%. There is moderate mitral regurgitation. There is moderate tricuspid regurgitation. Chest X-Ray (01/26/2017) COMPARISON STUDY: 01/24/2017 FINDINGS: Findings of congestive failure similar radiographically compared to the prior study bilateral pleural effusions and/or basilar inflammatory change similar. Pulmonary procedure clear. IMPRESSION: Congestive failure with components of the basilar] infiltrates/ effusions unchanged from the prior study. Vital Signs: Date Time Temp Pulse Resp B/P Pulse Ox O2 Delivery O2 Flow Rate FiO2 01/31/17 11:10 92 20 90 Room Air 01/31/17 08:00 Room Air 01/31/17 07:22 36.9 90 16 146/69 93 Room Air 01/31/17 07:03 90 20 93 Room Air 01/31/17 00:00 Room Air 01/30/17 23:22 36.6 87 18 114/68 94 Room Air 01/30/17 19:02 92 20 91 Room Air 01/30/17 15:15 Nasal Cannula 2.0 01/30/17 15:14 89 18 92 Room Air 01/30/17 14:57 37.0 88 16 117/62 91 Room Air Lab Results: Results Past 24 Hours Test 01/31/17 04:55 Range/Units White Blood Count 8.65 4.8-10.8 K/uL Red Blood Count 3.65 4.2-5.4 M/uL Hemoglobin 9.3 12.0-16.0 g/dL Hematocrit 30.0 37-47 % Mean Corpuscular Volume 82.2 80-100 fL Mean Corpuscular Hemoglobin 25.5 25-34 pg Mean Corpuscular Hemoglobin Concent 31.0 32-36 g/dl Platelet Count 467 130-400 K/uL Mean Platelet Volume 8.9 7.4-10.4 fL Neutrophils (%) (Auto) 69.5 % Lymphocytes (%) (Auto) 16.3 % Monocytes (%) (Auto) 9.2 % Eosinophils (%) (Auto) 4.2 % Basophils (%) (Auto) 0.5 % Neutrophils # (Auto) 6.01 1.4-6.5 K/uL Lymphocytes # (Auto) 1.41 1.2-3.4 K/uL Monocytes # (Auto) 0.80 0.11-0.59 K/uL Eosinophils # (Auto) 0.36 0-0.5 K/uL Basophils # (Auto) 0.04 0-0.2 K/uL RDW Standard Deviation 46.9 36.4-46.3 fL RDW Coefficient of Variation 15.6 11.5-14.5 % Immature Granulocyte % (Auto) 0.3 % Immature Granulocyte # (Auto) 0.03 0.00-0.02 K/uL Sodium Level 141 136-145 mmol/L Potassium Level 3.4 3.5-5.1 mmol/L Chloride Level 105 98-107 mmol/L Carbon Dioxide Level 31 21-32 mmol/L Anion Gap 5.0 3-11 mmol/L Blood Urea Nitrogen 16 7-18 mg/dl Creatinine 0.83 0.60-1.20 mg/dl Est Creatinine Clear Calc Drug Dose 39.5 ml/min Estimated GFR () 73.5 Estimated GFR (Non- 63.4 BUN/Creatinine Ratio 19.6 10-20 Random Glucose 83 70-99 mg/dl Calcium Level 8.6 8.5-10.1 mg/dl Total Bilirubin 0.5 0.2-1 mg/dl Aspartate Amino Transf (AST/SGOT) 26 15-37 U/L Alanine Aminotransferase (ALT/SGPT) 43 12-78 U/L Alkaline Phosphatase 90 45-117 U/L Pro-B-Type Natriuretic Peptide 52521 0-1800 pg/ml Total Protein 5.7 6.4-8.2 gm/dl Albumin 1.9 3.4-5.0 gm/dl Globulin 3.8 2.5-4.0 gm/dl Albumin/Globulin Ratio 0.5 0.9-2
[2017-01-31] MEDS ORDERED: POTASSIUM CHLORIDE 10 MEQ TABCR PO ONE (14:30)
[2017-01-31] MEDS: ACETAMINOPHEN 325 MG TAB PO PRN (14:43)
[2017-01-31 15:17] VITALS: BP 107/52; PULSE 94; TEMP 37.2; O2SAT 91
[2017-01-31 15:31] VITALS: PULSE 95; O2SAT 93
[2017-01-31 19:16] VITALS: PULSE 98; O2SAT 93
[2017-02-01] VITALS (7 sets, daily range): BP systolic 121–152; BP diastolic 57–67; PULSE 94–106; TEMP 36.6–36.8; O2SAT 91–95
[2017-02-01] MEDS: ENOXAPARIN 30 MG/0.3 ML SYR SC SCH (05:25)
[2017-02-01] MEDS: PIPERACILL/TAZOBAC IV 3.375 GM in DEXTROSE 5% 100ML IV SCH ×3 (05:25→21:07)
[2017-02-01 05:42] LABS: BASO % 0.2 %; BASO ABS # 0.02 K/uL (0-0.2); COMPLETE YES; EOS % 2.5 %; HEMATOCRIT 31.6 % (37-47); IG% 0.3 %; LYMPH % 15.4 %; LYMPH ABS # 1.49 K/uL (1.2-3.4); MEAN CELL VOLUME 81.7 fL (80-100); MEAN CORPUSCULAR HEMOGLOBIN 25.3 pg (25-34); MEAN PLATELET VOLUME 8.8 fL (7.4-10.4); MONO % 7.4 %; NEUT % 74.2 %; PLATELET COUNT 569 K/uL (130-400); RED BLOOD COUNT 3.87 M/uL (4.2-5.4); WHITE BLOOD COUNT 9.65 K/uL (4.8-10.8)
[2017-02-01 06:11] LABS: BUN/CREATININE RATIO 18.7 (10-20); CALCIUM 8.9 mg/dl (8.5-10.1); CREATININE 0.85 mg/dl (0.60-1.20); MAGNESIUM 2.1 mg/dl (1.8-2.4)
[2017-02-01] MEDS: ALBUT/IPRATROP 3MG/0.5MG NEB 3 ML VIAL INH SCH ×4 (07:11→19:16)
[2017-02-01] MEDS: LACTOBACILLUS ACIDOPHILUS (FLORANEX) TAB PO SCH ×3 (07:52→17:28)
[2017-02-01] MEDS: METOPROLOL SUCC 50MG EXT REL TAB PO SCH ×2 (07:52→20:29)
[2017-02-01] MEDS: FLUTICASONE/SALMETEROL 100/50 (ADVAIR) 14 PUFF/1 INHALER INH SCH (07:52)
[2017-02-01] MEDS: SPIRONOLACTONE 25 MG TAB PO SCH (07:52)
[2017-02-01] MEDS: CLOPIDOGREL BISULFATE 75 MG TAB PO SCH (07:53)
[2017-02-01] MEDS: ISOSORBIDE MONONITRATE 60 MG TABCR PO SCH (07:53)
[2017-02-01] MEDS: ASPIRIN 81 MG ECTAB PO SCH (07:53)
[2017-02-01] MEDS: LISINOPRIL 5 MG TAB PO SCH (07:53)
[2017-02-01] MEDS: POTASSIUM CHLORIDE 10 MEQ TABCR PO SCH (07:54)
[2017-02-01] MEDS: BISACODYL 5 MG TABEC PO SCH (07:54)
[2017-02-01] MEDS: DOCUSATE SODIUM/SENNA 50/8.6MG TAB PO SCH ×2 (07:54→20:28)
[2017-02-01] MEDS ORDERED: FUROSEMIDE 20 MG TAB PO SCH (08:00)
[2017-02-01] MEDS: ACETAMINOPHEN 325 MG TAB PO PRN ×2 (08:12→18:55)
--- NOTE | 2017-02-01 12:45 | Clinical Documentation Query ---
CLINICAL DOCUMENTATION QUERY Dr. OWEN, In your clinical opinion is this patient being managed for: (X ) Pressure ulcer of sacral region, stage 2, not POA ( ) Other explanation of clinical findings (Please Explain) ( ) Unable to determine (Please Define) ( ) Need to Discuss ( ) Not Agree The medical record reflects the following clinical findings, treatment, and risk factors. Clinical Indicators: Noted documentation of WOCN re: stage II pressure ulcer on coccyx. Order for WOCN consult noted as of 01/30 with pt being admitted on 01/22/17. Admission nurses note indicates pt had a reddend, blanching area on sacrum which was dressed with optifoam. Treatment: WOCN consult, accumax mattress, optifoam dressing and change q 3 days and prn Risk Factors: age, extended illness, hx CVA, CHF, CKD, COPD Please clarify and document your clinical opinion in the progress notes and discharge summary. Terms such as "probable", "suspected", "likely", "questionable", "possible", or "still to be ruled out" are acceptable. IF IN AGREEMENT, YOU MUST DOCUMENT ABOVE DIAGNOSTIC STATEMENT IN DAILY PROGRESS NOTES AND DISCHARGE SUMMARY. This document is not part of the patient's record. Thank You, Ayaka Herrera RN [phone]
--- NOTE | 2017-02-01 17:56 | Progress Note ---
Internal Med Progress Note Date of Service: Feb 01, 2017. Provider Documentation: SUBJECTIVE: Patient is seen and examined at bedside. Sleeping most of the day per staff, currently off Zyprexa and and not on any sedative meds. Denies SOB, chest pain. Reports some discomfort on the back. Poor oral intake. OBJECTIVE: Vital Signs-as noted below Physical Exam: Vitals signs as noted above General Appearance:Chronically ill appearing Head: normocephalic, Atraumatic Eyes: normal inspection, EOMI, PERRLA Neck: supple, Trachea midline Respiratory/Chest: Normal breath sounds, CTA, No accessory muscle use Cardiovascular: S1, S2, + murmur Abdomen/GI:Soft, Non tender, Bowel sounds present Extremities/Musculoskelatal:normal inspection, no edema Neurologic/Psych:AAOX3, grossly no focal neurological deficits Skin: normal color, warm Lab data as noted below. ASSESSMENT & PLAN: Decompensated Systolic CHF due to short course of steroid vs bronchitis S/P IV Lasix. Current EF: 25-30%; Last echo 09/04: EF35-40%: Slowly declining, No heroic measures per family S/P Doxycycline 100 mg BID for possible bronchitis /Pneumonia (7 days). Continue Zosyn (Day # 6). Plan to DC tomorrow Appreciate Cardiology help Monitor daily weight and I's & O's. Lost about 2 kgs since admission. continue metoprolol, spironolactone, imdur, lisinopril, asa, plavix Hold lasix till PO intake better History Ischemic Cardiomyopathy, EF 25-30% Continue BB, lasix, ACEI and spironolactone Hypokalemia: Secondary to diuretics Resolved Continue to monitor Mag levels:wnl History CAD S/P Stent: No acute cardiac issue. Continue Plavix and aspirin Pressure ulcer of sacral region, stage II: Continue wound care Leukocytosis: Likely reactive Resolved No clear source for infection Afebrile. Urine cx negative Encephalopathy: Likely due to above illness vs delirium/deconditioning or from meds DC Zyprexa Continue to monitor Anemia:Likely due low iron level. S/P Venofer Monitor Hb DVT Px: Lovenox SQ Code Status: Level III after discussion with the family. Disposition: Discussed with patient's daughter today: Family agreeable to short period of SNF director of perioperative services consulted PROCEDURES: Echocardiogram The left ventricle is normal in size. There is mild concentric left ventricular hypertrophy. There is mild to moderate global hypokinesis of the left ventricle. There is severe apical wall hypokinesis. There is moderate to severe septal hypokinesis. Ejection Fraction = 25-30%. There is moderate mitral regurgitation. There is moderate tricuspid regurgitation. Chest X-Ray (01/26/2017) COMPARISON STUDY: 01/24/2017 FINDINGS: Findings of congestive failure similar radiographically compared to the prior study bilateral pleural effusions and/or basilar inflammatory change similar. Pulmonary procedure clear. IMPRESSION: Congestive failure with components of the basilar] infiltrates/ effusions unchanged from the prior study. Vital Signs: Date Time Temp Pulse Resp B/P Pulse Ox O2 Delivery O2 Flow Rate FiO2 02/01/17 16:00 93 Room Air 2.0 02/01/17 15:38 96 28 93 Room Air 02/01/17 15:04 36.6 96 20 121/57 95 Room Air 02/01/17 11:11 96 18 92 Room Air 02/01/17 08:10 Room Air 02/01/17 07:16 36.8 106 24 152/67 93 Room Air 02/01/17 07:11 106 18 91 Room Air 02/01/17 00:00 Room Air 01/31/17 20:00 Room Air 01/31/17 19:16 98 20 93 Room Air Lab Results: Results Past 24 Hours Test 02/01/17 05:16 Range/Units White Blood Count 9.65 4.8-10.8 K/uL Red Blood Count 3.87 4.2-5.4 M/uL Hemoglobin 9.8 12.0-16.0 g/dL Hematocrit 31.6 37-47 % Mean Corpuscular Volume 81.7 80-100 fL Mean Corpuscular Hemoglobin 25.3 25-34 pg Mean Corpuscular Hemoglobin Concent 31.0 32-36 g/dl Platelet Count 569 130-400 K/uL Mean Platelet Volume 8.8 7.4-10.4 fL Neutrophils (%) (Auto) 74.2 % Lymphocytes (%) (Auto) 15.4 % Monocytes (%) (Auto) 7.4 % Eosinophils (%) (Auto) 2.5 % Basophils (%) (Auto) 0.2 % Neutrophils # (Auto) 7.16 1.4-6.5 K/uL Lymphocytes # (Auto) 1.49 1.2-3.4 K/uL Monocytes # (Auto) 0.71 0.11-0.59 K/uL Eosinophils # (Auto) 0.24 0-0.5 K/uL Basophils # (Auto) 0.02 0-0.2 K/uL RDW Standard Deviation 46.3 36.4-46.3 fL RDW Coefficient of Variation 15.7 11.5-14.5 % Immature Granulocyte % (Auto) 0.3 % Immature Granulocyte # (Auto) 0.03 0.00-0.02 K/uL Sodium Level 142 136-145 mmol/L Potassium Level 4.0 3.5-5.1 mmol/L Chloride Level 106 98-107 mmol/L Carbon Dioxide Level 27 21-32 mmol/L Anion Gap 9.0 3-11 mmol/L Blood Urea Nitrogen 16 7-18 mg/dl Creatinine 0.85 0.60-1.20 mg/dl Est Creatinine Clear Calc Drug Dose 38.6 ml/min Estimated GFR () 71.4 Estimated GFR (Non- 61.6 BUN/Creatinine Ratio 18.7 10-20 Random Glucose 93 70-99 mg/dl Calcium Level 8.9 8.5-10.1 mg/dl Magnesium Level 2.1 1.8-2.4 mg/dl
[2017-02-02] VITALS (10 sets, daily range): BP systolic 99–137; BP diastolic 48–71; PULSE 92–110; TEMP 36.3–36.8; O2SAT 91–96
[2017-02-02] MEDS: ENOXAPARIN 30 MG/0.3 ML SYR SC SCH (05:44)
[2017-02-02] MEDS: PIPERACILL/TAZOBAC IV 3.375 GM in DEXTROSE 5% 100ML IV SCH (05:44)
[2017-02-02 06:14] LABS: BUN/CREATININE RATIO 16.5 (10-20); CALCIUM 9.2 mg/dl (8.5-10.1); CREATININE 0.85 mg/dl (0.60-1.20); MAGNESIUM 2.2 mg/dl (1.8-2.4)
[2017-02-02] MEDS: ALBUT/IPRATROP 3MG/0.5MG NEB 3 ML VIAL INH SCH ×4 (07:23→19:20)
[2017-02-02] MEDS: BISACODYL 5 MG TABEC PO SCH (08:00)
[2017-02-02] MEDS: LACTOBACILLUS ACIDOPHILUS (FLORANEX) TAB PO SCH ×3 (08:11→17:10)
[2017-02-02] MEDS: FLUTICASONE/SALMETEROL 100/50 (ADVAIR) 14 PUFF/1 INHALER INH SCH (08:11)
[2017-02-02] MEDS: METOPROLOL SUCC 50MG EXT REL TAB PO SCH ×2 (08:12→20:00)
[2017-02-02] MEDS: SPIRONOLACTONE 25 MG TAB PO SCH (08:12)
[2017-02-02] MEDS: ISOSORBIDE MONONITRATE 60 MG TABCR PO SCH (08:12)
[2017-02-02] MEDS: ASPIRIN 81 MG ECTAB PO SCH (08:12)
[2017-02-02] MEDS: CLOPIDOGREL BISULFATE 75 MG TAB PO SCH (08:12)
[2017-02-02] MEDS: LISINOPRIL 5 MG TAB PO SCH (08:13)
[2017-02-02] MEDS: POTASSIUM CHLORIDE 10 MEQ TABCR PO SCH (08:13)
[2017-02-02] MEDS: DOCUSATE SODIUM/SENNA 50/8.6MG TAB PO SCH ×2 (08:13→20:48)
--- NOTE | 2017-02-02 12:53 | Progress Note ---
Internal Med Progress Note Date of Service: Feb 02, 2017. Provider Documentation: SUBJECTIVE: Patient is seen and examined at bedside. More alert, awake today. Family at bedside. Son states patient having intermittent confusion even prior to admission. Denies SOB, chest pain. Persistent discomfort on the back. Poor oral intake. OBJECTIVE: Vital Signs-as noted below Physical Exam: Vitals signs as noted above General Appearance:Chronically ill appearing Head: normocephalic, Atraumatic Eyes: normal inspection, EOMI, PERRLA Neck: supple, Trachea midline Respiratory/Chest: Normal breath sounds, CTA, No accessory muscle use Cardiovascular: S1, S2, + murmur Abdomen/GI:Soft, Non tender, Bowel sounds present Extremities/Musculoskelatal:normal inspection, no edema Neurologic/Psych:AAOX3, grossly no focal neurological deficits Skin: normal color, warm Lab data as noted below. ASSESSMENT & PLAN: Decompensated Systolic CHF due to short course of steroid vs bronchitis S/P IV Lasix. Current EF: 25-30%; Last echo 09/04: EF35-40%: Slowly declining, No heroic measures per family S/P Doxycycline 100 mg BID for possible bronchitis /Pneumonia (7 days). Continue Zosyn (Day # 7/. Plan to DC today Appreciate Cardiology help Monitor daily weight and I's & O's. Lost about 2 kgs since admission. continue metoprolol, spironolactone, imdur, lisinopril, asa, plavix Plan to resume lasix when oral intake better History Ischemic Cardiomyopathy, EF 25-30% Continue BB, lasix, ACEI and spironolactone Hypokalemia: Secondary to diuretics Resolved Continue to monitor Mag levels:wnl History CAD S/P Stent: No acute cardiac issue. Continue Plavix and aspirin Pressure ulcer of sacral region, stage II: Continue wound care Leukocytosis: Likely reactive Resolved No clear source for infection Afebrile. Urine cx negative Encephalopathy: Likely due to above illness vs delirium/deconditioning or from meds DC Zyprexa Continue to monitor CT head: No acute abnormality ? Underlying dementia Anemia:Likely due low iron level. S/P Venofer Monitor Hb Hb stable DVT Px: Lovenox SQ Code Status: Level III after discussion with the family. Disposition: Plan to discharge to SNF when mental status better resident services coordinator consulted PROCEDURES: Echocardiogram The left ventricle is normal in size. There is mild concentric left ventricular hypertrophy. There is mild to moderate global hypokinesis of the left ventricle. There is severe apical wall hypokinesis. There is moderate to severe septal hypokinesis. Ejection Fraction = 25-30%. There is moderate mitral regurgitation. There is moderate tricuspid regurgitation. Chest X-Ray (01/26/2017) COMPARISON STUDY: 01/24/2017 FINDINGS: Findings of congestive failure similar radiographically compared to the prior study bilateral pleural effusions and/or basilar inflammatory change similar. Pulmonary procedure clear. IMPRESSION: Congestive failure with components of the basilar] infiltrates/ effusions unchanged from the prior study. Vital Signs: Date Time Temp Pulse Resp B/P Pulse Ox O2 Delivery O2 Flow Rate FiO2 02/02/17 11:53 36.8 105 18 128/66 93 Room Air 02/02/17 11:13 104 28 91 Room Air 02/02/17 10:14 Room Air 02/02/17 08:10 Room Air 02/02/17 07:56 36.3 105 22 137/71 94 Room Air 02/02/17 07:23 103 28 96 Room Air 02/02/17 00:50 Room Air 02/02/17 00:17 36.5 99 18 127/60 94 Room Air 02/01/17 19:16 94 26 93 Room Air 02/01/17 16:00 93 Room Air 2.0 02/01/17 15:38 96 28 93 Room Air 02/01/17 15:04 36.6 96 20 121/57 95 Room Air Lab Results: Results Past 24 Hours Test 02/02/17 05:30 Range/Units Sodium Level 142 136-145 mmol/L Potassium Level 4.0 3.5-5.1 mmol/L Chloride Level 108 98-107 mmol/L Carbon Dioxide Level 29 21-32 mmol/L Anion Gap 5.0 3-11 mmol/L Blood Urea Nitrogen 14 7-18 mg/dl Creatinine 0.85 0.60-1.20 mg/dl Est Creatinine Clear Calc Drug Dose 38.6 ml/min Estimated GFR () 71.4 Estimated GFR (Non- 61.6 BUN/Creatinine Ratio 16.5 10-20 Random Glucose 90 70-99 mg/dl Calcium Level 9.2 8.5-10.1 mg/dl Magnesium Level 2.2 1.8-2.4 mg/dl
[2017-02-02] MEDS: ACETAMINOPHEN 325 MG TAB PO PRN ×2 (14:09→20:58)
[2017-02-03] VITALS (9 sets, daily range): BP systolic 130–149; BP diastolic 64–92; PULSE 98–116; TEMP 36.4–37; O2SAT 92–96
[2017-02-03] MEDS: ENOXAPARIN 30 MG/0.3 ML SYR SC SCH (05:56)
[2017-02-03] MEDS: ALBUT/IPRATROP 3MG/0.5MG NEB 3 ML VIAL INH SCH ×4 (07:42→19:50)
[2017-02-03] MEDS: BISACODYL 5 MG TABEC PO SCH (08:00)
[2017-02-03] MEDS: DOCUSATE SODIUM/SENNA 50/8.6MG TAB PO SCH ×2 (08:11→20:59)
[2017-02-03] MEDS: ASPIRIN 81 MG ECTAB PO SCH (08:12)
[2017-02-03] MEDS: LACTOBACILLUS ACIDOPHILUS (FLORANEX) TAB PO SCH ×3 (08:12→20:58)
[2017-02-03] MEDS: METOPROLOL SUCC 50MG EXT REL TAB PO SCH ×2 (08:12→20:59)
[2017-02-03] MEDS: CLOPIDOGREL BISULFATE 75 MG TAB PO SCH (08:12)
[2017-02-03] MEDS: ISOSORBIDE MONONITRATE 60 MG TABCR PO SCH (08:12)
[2017-02-03] MEDS: FLUTICASONE/SALMETEROL 100/50 (ADVAIR) 14 PUFF/1 INHALER INH SCH (08:13)
[2017-02-03] MEDS: SPIRONOLACTONE 25 MG TAB PO SCH (08:13)
[2017-02-03] MEDS: POTASSIUM CHLORIDE 10 MEQ TABCR PO SCH (08:13)
[2017-02-03] MEDS: LISINOPRIL 5 MG TAB PO SCH (08:14)
[2017-02-03 09:02] LABS: BUN/CREATININE RATIO 23.3 (10-20); CALCIUM 9.5 mg/dl (8.5-10.1); CREATININE 0.69 mg/dl (0.60-1.20); POTASSIUM 4.3 mmol/L (3.5-5.1)
--- NOTE | 2017-02-03 12:45 | Progress Note ---
Internal Med Progress Note Date of Service: Feb 03, 2017. Provider Documentation: SUBJECTIVE: Patient is seen and examined at bedside. Oral intake better. confusion seems to be resolved. Denies SOB, chest pain. Family bedside. OBJECTIVE: Vital Signs-as noted below Physical Exam: Vitals signs as noted above General Appearance:Chronically ill appearing Head: normocephalic, Atraumatic Eyes: normal inspection, EOMI, PERRLA Neck: supple, Trachea midline Respiratory/Chest: Normal breath sounds, CTA, No accessory muscle use Cardiovascular: S1, S2, tachycardia, + murmur Abdomen/GI:Soft, Non tender, Bowel sounds present Extremities/Musculoskelatal:normal inspection, no edema Neurologic/Psych:AAOX3, grossly no focal neurological deficits Skin: normal color, warm Lab data as noted below. ASSESSMENT & PLAN: Decompensated Systolic CHF due to short course of steroid vs bronchitis S/P IV Lasix. Current EF: 25-30%; Last echo 09/04: EF35-40%: Slowly declining, No heroic measures per family S/P Doxycycline 100 mg BID for possible bronchitis /Pneumonia (7 days). Continue Zosyn (Day # 7. Appreciate Cardiology help Monitor daily weight and I's & O's. Lost about 2 kgs since admission. continue metoprolol, spironolactone, imdur, lisinopril, asa, plavix Resume lasix to home dose. 20mg weekly History Ischemic Cardiomyopathy, EF 25-30% Continue BB, lasix, ACEI and spironolactone Hypokalemia: Secondary to diuretics Resolved Continue to monitor Mag levels:wnl History CAD S/P Stent: No acute cardiac issue. Continue Plavix and aspirin Pressure ulcer of sacral region, stage II: Continue wound care Leukocytosis: Likely reactive Resolved No clear source for infection Afebrile. Urine cx negative Encephalopathy: Likely due to above illness vs delirium/deconditioning or from meds Zyprexa discontinued Continue to monitor CT head: No acute abnormality ? Underlying dementia Seemed to be at baseline Anemia:Likely due low iron level. S/P Venofer Monitor Hb Hb stable DVT Px: Lovenox SQ Code Status: Level III after discussion with the family. Disposition: Plan to discharge to SNF when bed available maintenance services dispatcher consulted PROCEDURES: Echocardiogram The left ventricle is normal in size. There is mild concentric left ventricular hypertrophy. There is mild to moderate global hypokinesis of the left ventricle. There is severe apical wall hypokinesis. There is moderate to severe septal hypokinesis. Ejection Fraction = 25-30%. There is moderate mitral regurgitation. There is moderate tricuspid regurgitation. Chest X-Ray (01/26/2017) COMPARISON STUDY: 01/24/2017 FINDINGS: Findings of congestive failure similar radiographically compared to the prior study bilateral pleural effusions and/or basilar inflammatory change similar. Pulmonary procedure clear. IMPRESSION: Congestive failure with components of the basilar] infiltrates/ effusions unchanged from the prior study. Vital Signs: Date Time Temp Pulse Resp B/P Pulse Ox O2 Delivery O2 Flow Rate FiO2 02/03/17 11:44 116 20 93 Room Air 02/03/17 08:00 Room Air 02/03/17 07:43 99 20 92 Room Air 02/03/17 07:16 36.4 101 18 130/64 93 Room Air 02/03/17 00:38 Room Air 02/02/17 20:49 101 108/61 02/02/17 19:20 92 20 93 Room Air 02/02/17 16:23 92 Room Air 02/02/17 15:44 97 20 92 Room Air 02/02/17 15:44 36.7 102 20 116/63 95 Room Air 02/02/17 14:04 110 94 Lab Results: Results Past 24 Hours Test 02/03/17 08:17 Range/Units Sodium Level 145 136-145 mmol/L Potassium Level 4.3 3.5-5.1 mmol/L Chloride Level 111 98-107 mmol/L Carbon Dioxide Level 24 21-32 mmol/L Anion Gap 10.0 3-11 mmol/L Blood Urea Nitrogen 16 7-18 mg/dl Creatinine 0.69 0.60-1.20 mg/dl Est Creatinine Clear Calc Drug Dose 47.5 ml/min Estimated GFR () 90.7 Estimated GFR (Non- 78.3 BUN/Creatinine Ratio 23.3 10-20 Random Glucose 90 70-99 mg/dl Calcium Level 9.5 8.5-10.1 mg/dl
[2017-02-03] MEDS: ACETAMINOPHEN 325 MG TAB PO PRN (21:00)
[2017-02-04] MEDS: ENOXAPARIN 30 MG/0.3 ML SYR SC SCH (06:06)
[2017-02-04 07:02] VITALS: PULSE 106; O2SAT 93
[2017-02-04] MEDS: ALBUT/IPRATROP 3MG/0.5MG NEB 3 ML VIAL INH SCH ×2 (07:02→11:05)
[2017-02-04 07:26] VITALS: BP 133/71; PULSE 108; TEMP 36.4
[2017-02-04] MEDS: ASPIRIN 81 MG ECTAB PO SCH (07:38)
[2017-02-04] MEDS: CLOPIDOGREL BISULFATE 75 MG TAB PO SCH (07:38)
[2017-02-04] MEDS: METOPROLOL SUCC 50MG EXT REL TAB PO SCH ×2 (07:39→19:39)
[2017-02-04] MEDS: SPIRONOLACTONE 25 MG TAB PO SCH (07:39)
[2017-02-04] MEDS: POTASSIUM CHLORIDE 10 MEQ TABCR PO SCH (07:39)
[2017-02-04] MEDS: ISOSORBIDE MONONITRATE 60 MG TABCR PO SCH (07:39)
[2017-02-04] MEDS: LACTOBACILLUS ACIDOPHILUS (FLORANEX) TAB PO SCH ×3 (07:39→16:43)
[2017-02-04] MEDS: LISINOPRIL 5 MG TAB PO SCH (07:40)
[2017-02-04] MEDS: FLUTICASONE/SALMETEROL 100/50 (ADVAIR) 14 PUFF/1 INHALER INH SCH (07:40)
[2017-02-04] MEDS: BISACODYL 5 MG TABEC PO SCH (07:43)
[2017-02-04] MEDS: DOCUSATE SODIUM/SENNA 50/8.6MG TAB PO SCH ×2 (07:49→19:38)
[2017-02-04] MEDS ORDERED: FUROSEMIDE 20 MG TAB PO SCH (08:00)
[2017-02-04 08:10] LABS: BASO % 0.3 %; BASO ABS # 0.03 K/uL (0-0.2); COMPLETE YES; EOS % 4.1 %; HEMATOCRIT 35.7 % (37-47); IG% 0.6 %; LYMPH % 19.6 %; LYMPH ABS # 1.69 K/uL (1.2-3.4); MEAN CELL VOLUME 83.6 fL (80-100); MEAN CORPUSCULAR HEMOGLOBIN 25.8 pg (25-34); MEAN CORPUSCULAR HGB CONC 30.8 g/dl (32-36); MEAN PLATELET VOLUME 8.8 fL (7.4-10.4); MONO % 7.8 %; NEUT % 67.6 %; PLATELET COUNT 722 K/uL (130-400); RED BLOOD COUNT 4.27 M/uL (4.2-5.4); WHITE BLOOD COUNT 8.63 K/uL (4.8-10.8)
[2017-02-04 11:05] VITALS: PULSE 116; O2SAT 93
[2017-02-04 15:24] VITALS: BP 129/76; PULSE 111; TEMP 36.9; O2SAT 96
--- NOTE | 2017-02-04 15:42 | Progress Note ---
Internal Med Progress Note Date of Service: Feb 04, 2017. Provider Documentation: SUBJECTIVE: Patient is seen and examined at bedside. Doing much better today. Oral intake improved. confusion resolved. Denies SOB, chest pain. Offers no complaints. OBJECTIVE: Vital Signs-as noted below Physical Exam: Vitals signs as noted above General Appearance:Thin, Fragile Head: normocephalic, Atraumatic Eyes: normal inspection, EOMI, PERRLA Neck: supple, Trachea midline Respiratory/Chest: Normal breath sounds, CTA, No accessory muscle use Cardiovascular: S1, S2, tachycardia, + murmur Abdomen/GI:Soft, Non tender, Bowel sounds present Extremities/Musculoskelatal:normal inspection, no edema Neurologic/Psych:AAOX3, grossly no focal neurological deficits Skin: normal color, warm Lab data as noted below. ASSESSMENT & PLAN: Decompensated Systolic CHF due to short course of steroid vs bronchitis S/P IV Lasix. Current EF: 25-30%; Last echo 09/04: EF35-40%: Slowly declining, No heroic measures per family S/P Doxycycline 100 mg BID for possible bronchitis /Pneumonia (7 days). Continue Zosyn (Day # 7/7. Appreciate Cardiology help Monitor daily weight and I's & O's. Lost about 2 kgs since admission. continue metoprolol, spironolactone, imdur, lisinopril, asa, plavix Continue lasix at home dose. 20mg weekly Currently euvolemic History Ischemic Cardiomyopathy, EF 25-30% Continue BB, lasix, ACEI and spironolactone Hypokalemia: Secondary to diuretics Resolved Continue to monitor Mag levels:wnl History CAD S/P Stent: No acute cardiac issue. Continue Plavix and aspirin Pressure ulcer of sacral region, stage II: Continue wound care Leukocytosis: Likely reactive Resolved No clear source for infection Afebrile. Urine cx negative Encephalopathy: Likely due to above illness vs delirium/deconditioning or from meds Zyprexa discontinued Resolved Continue to monitor CT head: No acute abnormality Anemia:Likely due low iron level. S/P Venofer Monitor Hb Hb stable DVT Px: Lovenox SQ Code Status: Level III after discussion with the family. Disposition: Plan to discharge to SNF when bed available donor services specialist consulted PROCEDURES: Echocardiogram The left ventricle is normal in size. There is mild concentric left ventricular hypertrophy. There is mild to moderate global hypokinesis of the left ventricle. There is severe apical wall hypokinesis. There is moderate to severe septal hypokinesis. Ejection Fraction = 25-30%. There is moderate mitral regurgitation. There is moderate tricuspid regurgitation. Chest X-Ray (01/26/2017) COMPARISON STUDY: 01/24/2017 FINDINGS: Findings of congestive failure similar radiographically compared to the prior study bilateral pleural effusions and/or basilar inflammatory change similar. Pulmonary procedure clear. IMPRESSION: Congestive failure with components of the basilar] infiltrates/ effusions unchanged from the prior study. Vital Signs: Date Time Temp Pulse Resp B/P Pulse Ox O2 Delivery O2 Flow Rate FiO2 02/04/17 15:24 36.9 111 18 129/76 96 Room Air 02/04/17 11:05 116 18 93 Room Air 02/04/17 08:00 Room Air 02/04/17 07:26 36.4 108 18 133/71 Room Air 02/04/17 07:02 106 18 93 Room Air 02/04/17 00:30 Room Air 02/03/17 23:36 36.7 99 20 138/74 95 Room Air 02/03/17 21:00 104 135/72 02/03/17 19:50 98 18 95 Room Air 02/03/17 16:10 92 Room Air Lab Results: Results Past 24 Hours Test 02/04/17 06:36 Range/Units White Blood Count 8.63 4.8-10.8 K/uL Red Blood Count 4.27 4.2-5.4 M/uL Hemoglobin 11.0 12.0-16.0 g/dL Hematocrit 35.7 37-47 % Mean Corpuscular Volume 83.6 80-100 fL Mean Corpuscular Hemoglobin 25.8 25-34 pg Mean Corpuscular Hemoglobin Concent 30.8 32-36 g/dl Platelet Count 722 130-400 K/uL Mean Platelet Volume 8.8 7.4-10.4 fL Neutrophils (%) (Auto) 67.6 % Lymphocytes (%) (Auto) 19.6 % Monocytes (%) (Auto) 7.8 % Eosinophils (%) (Auto) 4.1 % Basophils (%) (Auto) 0.3 % Neutrophils # (Auto) 5.84 1.4-6.5 K/uL Lymphocytes # (Auto) 1.69 1.2-3.4 K/uL Monocytes # (Auto) 0.67 0.11-0.59 K/uL Eosinophils # (Auto) 0.35 0-0.5 K/uL Basophils # (Auto) 0.03 0-0.2 K/uL RDW Standard Deviation 50.2 36.4-46.3 fL RDW Coefficient of Variation 16.9 11.5-14.5 % Immature Granulocyte % (Auto) 0.6 % Immature Granulocyte # (Auto) 0.05 0.00-0.02 K/uL
[2017-02-04 19:38] VITALS: BP 150/67; PULSE 102
[2017-02-04 23:45] VITALS: BP 147/67; PULSE 101; TEMP 36.6; O2SAT 95
[2017-02-05] VITALS (8 sets, daily range): BP systolic 114–155; BP diastolic 56–75; PULSE 93–100; TEMP 35.9–36.9; O2SAT 92–98
[2017-02-05] MEDS: ENOXAPARIN 30 MG/0.3 ML SYR SC SCH (05:30)
[2017-02-05] MEDS: ALBUT/IPRATROP 3MG/0.5MG NEB 3 ML VIAL INH SCH ×4 (06:54→19:49)
[2017-02-05] MEDS: POTASSIUM CHLORIDE 10 MEQ TABCR PO SCH (07:52)
[2017-02-05] MEDS: ISOSORBIDE MONONITRATE 60 MG TABCR PO SCH (07:52)
[2017-02-05] MEDS: CLOPIDOGREL BISULFATE 75 MG TAB PO SCH (07:52)
[2017-02-05] MEDS: ASPIRIN 81 MG ECTAB PO SCH (07:52)
[2017-02-05] MEDS: FLUTICASONE/SALMETEROL 100/50 (ADVAIR) 14 PUFF/1 INHALER INH SCH (07:53)
[2017-02-05] MEDS: SPIRONOLACTONE 25 MG TAB PO SCH (07:53)
[2017-02-05] MEDS: LACTOBACILLUS ACIDOPHILUS (FLORANEX) TAB PO SCH ×3 (07:53→17:16)
[2017-02-05] MEDS: DOCUSATE SODIUM/SENNA 50/8.6MG TAB PO SCH ×2 (07:53→19:53)
[2017-02-05] MEDS: METOPROLOL SUCC 50MG EXT REL TAB PO SCH ×2 (07:53→19:53)
[2017-02-05] MEDS: LISINOPRIL 5 MG TAB PO SCH (07:54)
[2017-02-05] MEDS: BISACODYL 5 MG TABEC PO SCH (07:56)
--- NOTE | 2017-02-05 17:02 | Progress Note ---
Internal Med Progress Note Date of Service: Feb 05, 2017. Provider Documentation: SUBJECTIVE: Patient is seen and examined at bedside. Feels well. Mental status at baseline. Improved Oral intake. Denies SOB, chest pain. Offers no complaints. Family at bedside. OBJECTIVE: Vital Signs-as noted below Physical Exam: Vitals signs as noted above General Appearance:Thin, Fragile Head: normocephalic, Atraumatic Eyes: normal inspection, EOMI, PERRLA Neck: supple, Trachea midline Respiratory/Chest: Normal breath sounds, CTA, No accessory muscle use Cardiovascular: S1, S2, + murmur Abdomen/GI:Soft, Non tender, Bowel sounds present Extremities/Musculoskelatal:normal inspection, no edema Neurologic/Psych:AAOX3, grossly no focal neurological deficits Skin: normal color, warm Lab data as noted below. ASSESSMENT & PLAN: Decompensated Systolic CHF due to short course of steroid vs bronchitis S/P IV Lasix. Current EF: 25-30%; Last echo 09/04: EF35-40%: Slowly declining, No heroic measures per family S/P Doxycycline 100 mg BID for possible bronchitis /Pneumonia (7 days). Continue Zosyn (Day # 05/26. Appreciate Cardiology help Monitor daily weight and I's & O's. Lost about 6 kgs since admission. continue metoprolol, spironolactone, imdur, lisinopril, asa, plavix Continue lasix at home dose, 20mg weekly Currently euvolemic Awaiting for placement History Ischemic Cardiomyopathy, EF 25-30% Continue BB, lasix, ACEI and spironolactone Hypokalemia: Secondary to diuretics Resolved Continue to monitor Mag levels:wnl History CAD S/P Stent: No acute cardiac issue. Continue Plavix and aspirin Pressure ulcer of sacral region, stage II: Continue wound care Leukocytosis: Likely reactive Resolved No clear source for infection Afebrile. Urine cx negative Encephalopathy:Likely delirium Resolved Zyprexa discontinued Continue to monitor CT head: No acute abnormality Anemia:Likely due low iron level. S/P Venofer Monitor Hb Hb stable DVT Px: Lovenox SQ Code Status: Level III after discussion with the family. Disposition: Plan to discharge to SNF when bed available financial services rep consulted Likely to be discharged tomorrow PROCEDURES: Echocardiogram The left ventricle is normal in size. There is mild concentric left ventricular hypertrophy. There is mild to moderate global hypokinesis of the left ventricle. There is severe apical wall hypokinesis. There is moderate to severe septal hypokinesis. Ejection Fraction = 25-30%. There is moderate mitral regurgitation. There is moderate tricuspid regurgitation. Chest X-Ray (01/26/2017) COMPARISON STUDY: 01/24/2017 FINDINGS: Findings of congestive failure similar radiographically compared to the prior study bilateral pleural effusions and/or basilar inflammatory change similar. Pulmonary procedure clear. IMPRESSION: Congestive failure with components of the basilar] infiltrates/ effusions unchanged from the prior study. Vital Signs: Date Time Temp Pulse Resp B/P Pulse Ox O2 Delivery O2 Flow Rate FiO2 02/05/17 16:00 Room Air 02/05/17 15:37 93 18 92 Room Air 02/05/17 15:19 36.9 97 20 114/56 95 Room Air 02/05/17 11:32 94 18 95 Room Air 02/05/17 08:00 Room Air 02/05/17 07:22 35.9 100 20 155/75 95 Room Air 02/05/17 06:54 100 18 95 Room Air 02/05/17 00:01 Room Air 02/04/17 23:45 36.6 101 16 147/67 95 Room Air 02/04/17 19:38 102 150/67
[2017-02-06 00:10] VITALS: BP 135/75; PULSE 99; TEMP 36.3; O2SAT 98
[2017-02-06] MEDS: ENOXAPARIN 30 MG/0.3 ML SYR SC SCH (05:34)
[2017-02-06 06:04] LABS: BUN/CREATININE RATIO 29.5 (10-20); CALCIUM 8.5 mg/dl (8.5-10.1); CREATININE 0.7 mg/dl (0.60-1.20); POTASSIUM 3.8 mmol/L (3.5-5.1)
[2017-02-06 07:05] VITALS: BP 151/82; PULSE 100; TEMP 36.6; O2SAT 97
[2017-02-06 07:16] VITALS: PULSE 101; O2SAT 98
[2017-02-06] MEDS: ALBUT/IPRATROP 3MG/0.5MG NEB 3 ML VIAL INH SCH ×2 (07:16→11:09)
[2017-02-06] MEDS: METOPROLOL SUCC 50MG EXT REL TAB PO SCH (08:43)
[2017-02-06] MEDS: FLUTICASONE/SALMETEROL 100/50 (ADVAIR) 14 PUFF/1 INHALER INH SCH (08:43)
[2017-02-06] MEDS: ISOSORBIDE MONONITRATE 60 MG TABCR PO SCH (08:44)
[2017-02-06] MEDS: LISINOPRIL 5 MG TAB PO SCH (08:44)
[2017-02-06] MEDS: CLOPIDOGREL BISULFATE 75 MG TAB PO SCH (08:44)
[2017-02-06] MEDS: LACTOBACILLUS ACIDOPHILUS (FLORANEX) TAB PO SCH ×2 (08:44→13:12)
[2017-02-06] MEDS: ASPIRIN 81 MG ECTAB PO SCH (08:44)
[2017-02-06] MEDS: SPIRONOLACTONE 25 MG TAB PO SCH (08:45)
[2017-02-06] MEDS: BISACODYL 5 MG TABEC PO SCH (08:45)
[2017-02-06] MEDS: POTASSIUM CHLORIDE 10 MEQ TABCR PO SCH (08:45)
[2017-02-06] MEDS: DOCUSATE SODIUM/SENNA 50/8.6MG TAB PO SCH (08:46)
[2017-02-06 11:09] VITALS: PULSE 50; O2SAT 95
[2017-02-06] MEDS: ACETAMINOPHEN 325 MG TAB PO PRN (13:44)
--- NOTE | 2017-02-06 13:46 | Progress Note ---
Internal Med Progress Note Date of Service: Feb 06, 2017. Provider Documentation: SUBJECTIVE: Patient is seen and examined at bedside. Doing well. Transient confusion overnight. Currently oriented, follows commands. Family at bedside. OBJECTIVE: Vital Signs-as noted below Physical Exam: Vitals signs as noted above General Appearance:Thin, Fragile Head: normocephalic, Atraumatic Eyes: normal inspection, EOMI, PERRLA Neck: supple, Trachea midline Respiratory/Chest: Normal breath sounds, CTA, No accessory muscle use Cardiovascular: S1, S2, + murmur Abdomen/GI:Soft, Non tender, Bowel sounds present Extremities/Musculoskelatal:normal inspection, no edema Neurologic/Psych:AAOX3, grossly no focal neurological deficits Skin: normal color, warm Lab data as noted below. ASSESSMENT & PLAN: Decompensated Systolic CHF due to short course of steroid vs bronchitis S/P IV Lasix. Current EF: 25-30%; Last echo 09/04: EF35-40%: Slowly declining, No heroic measures per family S/P Doxycycline 100 mg BID for possible bronchitis /Pneumonia (7 days), completed Zosyn Day # 05/26. Appreciate Cardiology help Monitor daily weight and I's & O's. Lost about 6 kgs since admission. continue metoprolol, spironolactone, imdur, lisinopril, asa, plavix Continue lasix at home dose, 20mg weekly Currently euvolemic History Ischemic Cardiomyopathy, EF 25-30% Continue BB, lasix, ACEI and spironolactone Hypokalemia: Secondary to diuretics Resolved Continue to monitor Mag levels:wnl History CAD S/P Stent: No acute cardiac issue. Continue Plavix and aspirin Pressure ulcer of sacral region, stage II: Continue wound care Leukocytosis: Likely reactive Resolved No clear source for infection Afebrile. Urine cx negative Encephalopathy:Likely delirium Resolved Zyprexa discontinued Continue to monitor CT head: No acute abnormality Recurrence of symptoms intermittently: Family requested no further evaluation/Neurology consult: Discussed with son on 02/06/17 Anemia:Likely due low iron level. S/P Venofer Monitor Hb Hb stable DVT Px: Lovenox SQ Code Status: Level III after discussion with the family. Disposition: Plan to discharge to SNF today travel services professional consulted Follow up with Prasanth on 02/10/17 at 12:50pm Follow up with on 03/20/17 at 10:25AM PROCEDURES: Echocardiogram The left ventricle is normal in size. There is mild concentric left ventricular hypertrophy. There is mild to moderate global hypokinesis of the left ventricle. There is severe apical wall hypokinesis. There is moderate to severe septal hypokinesis. Ejection Fraction = 25-30%. There is moderate mitral regurgitation. There is moderate tricuspid regurgitation. Chest X-Ray (01/26/2017) COMPARISON STUDY: 01/24/2017 FINDINGS: Findings of congestive failure similar radiographically compared to the prior study bilateral pleural effusions and/or basilar inflammatory change similar. Pulmonary procedure clear. IMPRESSION: Congestive failure with components of the basilar] infiltrates/ effusions unchanged from the prior study. Vital Signs: Date Time Temp Pulse Resp B/P Pulse Ox O2 Delivery O2 Flow Rate FiO2 02/06/17 11:09 50 18 95 Room Air 02/06/17 08:40 Room Air 02/06/17 07:16 101 18 98 Room Air 02/06/17 07:05 36.6 100 19 151/82 97 Room Air 02/06/17 00:10 Room Air 02/06/17 00:10 36.3 99 18 135/75 98 Room Air 02/05/17 23:42 36.7 98 20 120/64 98 Room Air 02/05/17 19:52 96 118/56 02/05/17 18:50 93 20 94 Room Air 02/05/17 16:00 Room Air 02/05/17 15:37 93 18 92 Room Air 02/05/17 15:19 36.9 97 20 114/56 95 Room Air Lab Results: Results Past 24 Hours Test 02/06/17 05:15 Range/Units Sodium Level 142 136-145 mmol/L Potassium Level 3.8 3.5-5.1 mmol/L Chloride Level 110 98-107 mmol/L Carbon Dioxide Level 22 21-32 mmol/L Anion Gap 10.0 3-11 mmol/L Blood Urea Nitrogen 21 7-18 mg/dl Creatinine 0.70 0.60-1.20 mg/dl Est Creatinine Clear Calc Drug Dose 46.8 ml/min Estimated GFR () 90.3 Estimated GFR (Non- 77.9 BUN/Creatinine Ratio 29.5 10-20 Random Glucose 87 70-99 mg/dl Calcium Level 8.5 8.5-10.1 mg/dl
[2017-02-06] MEDS ORDERED: BUTTP EXT (13:52)
[2017-02-06] MEDS ORDERED: IMDSR60 PO (13:52)
[2017-02-06] MEDS ORDERED: METO25TA3 PO (13:52)
[2017-02-06] MEDS ORDERED: SPR25 PO (13:52)
[2017-02-06] MEDS ORDERED: LISI2.5T5 PO (13:52)
--- NOTE | 2017-02-06 13:56 | Discharge Summary ---
Discharge Summary Date of Service Feb 06, 2017. Discharge Summary Admission Date: Jan 22, 2017 at 22:08 Discharge Date: Feb 06, 2017 Discharge Disposition: assisted facility Principal Diagnosis: CHF Exacerbation Procedures: Echocardiogram The left ventricle is normal in size. There is mild concentric left ventricular hypertrophy. There is mild to moderate global hypokinesis of the left ventricle. There is severe apical wall hypokinesis. There is moderate to severe septal hypokinesis. Ejection Fraction = 25-30%. There is moderate mitral regurgitation. There is moderate tricuspid regurgitation. Chest X-Ray (01/26/2017) COMPARISON STUDY: 01/24/2017 FINDINGS: Findings of congestive failure similar radiographically compared to the prior study bilateral pleural effusions and/or basilar inflammatory change similar. Pulmonary procedure clear. IMPRESSION: Congestive failure with components of the basilar] infiltrates/ effusions unchanged from the prior study. CT head: 1. No acute intracranial abnormality. 2. Mildly progressive atrophy compared to the prior study. 3. Multiple old infarcts primarily in the right cerebral hemisphere Consultations: Cardiology Pending Studies/Follow-Up: Follow up with Prasanth on 02/10/17 at 12:50pm Follow up with on 03/20/17 at 10:25AM Medication Reconciliation New Medications: Isosorbide Mononitrate (Isosorbide Mononitrate ER) 60 Mg Tab 60 MG PO QAM for 30 Days, #30 TAB Spironolactone (Spironolactone) 25 Mg Tab 50 MG PO QAM for 30 Days, #30 TAB Zinc Oxide (Topical) (Boudreauxs Butt Paste) 171 Appln/57 Gm Pste 1 APPLN EXT PRN PRN for TO BUTTOCKS for 10 Days, #1 Changed Medications: Lisinopril (Lisinopril) 2.5 Mg Tab 5 MG PO DAILY for 30 Days, #60 TAB (Changed from: 2.5 MG) Metoprolol Succ (Toprol Xl) (Toprol-Xl) 25 Mg Tabcr 100 MG PO BID for 30 Days, #60 TAB (Changed from: 75 MG; 30) Continued Medications: Acetaminophen (Tylenol) 500 Mg Tab 500 MG PO QPM, TAB Albuterol Sulfate (Proair Respiclick) 108 Mcg/Act Aer 2 PUFF INH QID PRN for SOB/Wheezing Aspirin (Aspirin Ec) 81 Mg Tab 81 MG PO DAILY Atorvastatin (Lipitor) 20 Mg Tab 20 MG PO QPM, TAB Clopidogrel (Plavix) 75 Mg Tab 75 MG PO QAM, TAB Coenzyme Q10 (Ubidecarenone) (Co Q-10) 50 Mg Cap 50 MG PO DAILY Fluticasone Prop/Salmeterol (Advair Diskus 100/50 60 Dose) 1 Ea Aerp 1 PUFF INH QAM, INHALER Furosemide (Furosemide) 20 Mg Tab 20 MG PO WK, #60 Nitroglycerin (Nitrostat) 0.4 Mg Tab 0.4 MG UT PRN, BTL Sennosides-Docusate Sodium (Senna S) 1 Tab Tab 2 TAB PO DAILY Discontinued Medications: Spironolactone (Spironolactone) 25 Mg Tab 12.5 MG PO WK, #30 Admission Information HPI (per Admitting provider): PRIMARY CARE PHYSICIAN: Dr. Feliciano. History obtained from the patient's family and records. Patient is not a reliable historian secondary to weakness and disorientation. CHIEF COMPLAINT: "Filling up with fluid" as per the patient. HISTORY OF PRESENT ILLNESS: Medical history significant for chronic systolic heart failure secondary to ischemic cardiomyopathy (35-40%) from a 2D echo from 08/2016, CAD status post stenting, valvular heart disease (moderate MR), HTN, chronic anemia (baseline hemoglobin of 9-10), aspiration risk, history of recurrent CVA, COPD as per records. Recent confinement 08/2016 for left hip fracture sp surgery. Px subsequently discharged to [facility] then home. Patient residing with son and [id number]. As per son, in the last few weeks, the patient slowly declining, appetite fair. She was seen at PCP's office last about 2 weeks ago for urticaria, possibly from Bactrim started for possible UTI. Patient started on prednisone. Hives improved; however, the patient had some agitation at night following steroids. Patient will be tired and sleeping all the time in the morning. Patient was seen at PCP's office about 2 days ago for delirium. Lab work drawn. Family given option of going to ER or going home. Family opted to go home. Patient later on noted to be coughing, cough productive of yellow sputum. Px also noted to be coughing w/ meals if not careful, especially cold food. Some chewing issues as per son. Increased leg swelling noted by family, increased respiratory distress. Px felt she was filling up w/ fluid. Family received a call from PCP. Cloudy UA, initial cultures showing more of mixed gaudencio, less than 100,000 colonies. Chest x-ray, possible congestion as per PCP. Patient's family decided to bring the patient to the Emergency Room. Received Lasix for CHF, ceftriaxone for possible UTI. Compliant with home meds. Physical Exam (per Admitting): PHYSICAL EXAMINATION: VITAL SIGNS: Blood pressure noted to be 150/68, pulse rate 95, RR 20, temp 36.9, sats 93 on nasal cannula. GENERAL: Noted to be somewhat disoriented, lethargic, but coherent No respiratory distress. SKIN: Pallor. HEENT: Pale palpebral conjunctivae. Dry mucosa. NECK: JVD. supple CHEST: Decreased effort. HEART: Systolic murmur. ABDOMEN: Some distention. EXTREMITIES: Bilateral lower extremity edema. no tenderness NEUROLOGIC: Lethargic. Hospital Course Decompensated Systolic CHF due to short course of steroid vs bronchitis S/P IV Lasix. Current EF: 25-30%; Last echo 09/04: EF35-40%: Slowly declining, No heroic measures per family S/P Doxycycline 100 mg BID for possible bronchitis /Pneumonia (7 days), completed Zosyn Day # 05/26. Appreciate Cardiology help Monitor daily weight and I's & O's. Lost about 6 kgs since admission. continue metoprolol, spironolactone, imdur, lisinopril, asa, plavix Continue lasix at home dose, 20mg weekly Currently euvolemic History Ischemic Cardiomyopathy, EF 25-30% Continue BB, lasix, ACEI and spironolactone Hypokalemia: Secondary to diuretics Resolved Continue to monitor Mag levels:wnl History CAD S/P Stent: No acute cardiac issue. Continue Plavix and aspirin Pressure ulcer of sacral region, stage II: Continue wound care Leukocytosis: Likely reactive Resolved No clear source for infection Afebrile. Urine cx negative Encephalopathy:Likely delirium Resolved Zyprexa discontinued Continue to monitor CT head: No acute abnormality Recurrence of symptoms intermittently: Family requested no further evaluation/Neurology consult: Discussed with son on 02/06/17 Anemia:Likely due low iron level. S/P Venofer Monitor Hb Hb stable DVT Px: Lovenox SQ Code Status: Level III after discussion with the family. Disposition: Plan to discharge to SNF today on site services specialist consulted Follow up with Prasanth on 02/10/17 at 12:50pm Follow up with on 03/20/17 at 10:25AM PROCEDURES: Echocardiogram The left ventricle is normal in size. There is mild concentric left ventricular hypertrophy. There is mild to moderate global hypokinesis of the left ventricle. There is severe apical wall hypokinesis. There is moderate to severe septal hypokinesis. Ejection Fraction = 25-30%. There is moderate mitral regurgitation. There is moderate tricuspid regurgitation. Chest X-Ray (01/26/2017) COMPARISON STUDY: 01/24/2017 FINDINGS: Findings of congestive failure similar radiographically compared to the prior study bilateral pleural effusions and/or basilar inflammatory change similar. Pulmonary procedure clear. IMPRESSION: Congestive failure with components of the basilar] infiltrates/ effusions unchanged from the prior study. Total time spent on discharge = 40 Minutes This includes examination of the patient, discharge planning, medication reconciliation, and communication with other providers. Discharge Instructions Discharge Instructions Date of Service Feb 06, 2017. Admission Reason for Admission: CHF Discharge Discharge Diagnosis / Problem: CHF Exacerbation Discharge Goals Goal(s): Decrease discomfort, Improve function Activity Recommendations Activity Limitations: resume your previous activity Exercise/Sports Limitations: as tolerated . Instructions / Follow-Up Instructions / Follow-Up Follow up with Prasanth on 02/10/17 at 12:50pm Follow up with on 03/20/17 at 10:25AM Current Hospital Diet Patient's current hospital diet: AHA Diet (Heart Healthy) Discharge Diet Recommended Diet: AHA Diet (Heart Healthy) Pending Studies Studies pending at discharge: no Medical Emergencies . Who to Call and When: Medical Emergencies: If at any time you feel your situation is an emergency, please call 911 immediately. . Non-Emergent Contact Non-Emergency issues call your: Primary Care Provider, [facility] Call Non-Emergent contact if: you have a fever, your pain is not controlled, your pain is worsening, your pain is unusual for you, you have any medication questions . . "Provider Documentation" section prepared by Edu Benz. VTE Core Measure Inpt VTE Proph given/why not?: Enoxaparin (Lovenox)SQ
[2017-02-06 14:00] VITALS: PULSE 103
[2017-02-06 14:09] VITALS: BP 151/82; PULSE 103; TEMP 36.6; O2SAT 95
== END 2017-02-06 16:04 | DRG 291 ==
LOC: ENRESERVDT → ENRESERVTM → CANRESERV → C.EDB 18:46 → C.2T 22:08 → C.4E 01-28 14:02
PROVIDERS: ADMIT Internal Medicine; ATTEND Internal Medicine
DX: I13.0 Hypertensive heart and chronic kidney disease with heart failure and stage 1 through stage 4 chronic kidney disease, or unspecified chronic kidney disease (principal); I50.23 Acute on chronic systolic (congestive) heart failure; G93.40 Encephalopathy, unspecified; I25.10 Atherosclerotic heart disease of native coronary artery without angina pectoris; N18.3 Chronic kidney disease, stage 3 (moderate); Z86.73 Personal history of transient ischemic attack (TIA), and cerebral infarction without residual deficits; E78.5 Hyperlipidemia, unspecified; L89.152 Pressure ulcer of sacral region, stage 2; J40 Bronchitis, not specified as acute or chronic; I25.5 Ischemic cardiomyopathy; M81.0 Age-related osteoporosis without current pathological fracture; Z83.3 Family history of diabetes mellitus; I08.1 Rheumatic disorders of both mitral and tricuspid valves; E87.6 Hypokalemia; T50.2X5A Adverse effect of carbonic-anhydrase inhibitors, benzothiadiazides and other diuretics, initial encounter; Y92.009 Unspecified place in unspecified non-institutional (private) residence as the place of occurrence of the external cause

== ENCOUNTER 2019-06-29 09:30 | Inpatient (IN) ==
--- OUTSIDE RECORDS SUMMARY | 2019-06-29 09:33 | External Medical Summary | Continuity of Care Document ---
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) (J34.2) Esophageal reflux (530.81) (K21.9) Chronic obstructive pulmonary disease (496) (J44.9) Urinary tract infection (599.0) (N39.0) Asthma (493.90) (J45.909) Hypertrophy of nasal turbinates (478.0) (J34.3) Acute laryngitis (464.00) (J04.0) Dyslipidemia (272.4) (E78.5) Hearing loss (389.9) (H91.90) Ischemic cardiomyopathy (414.8) (I25.5) Impacted cerumen of both ears (380.4) (H61.23) Sensorineural hearing loss (SNHL) of both ears (389.18) (H90 .3) Functional Status Hearing loss Allergies and Adverse Reactions No Known Drug Allergies (Allergy) Medications amLODIPine Besylate 10 MG Oral Tablet Refills: 0 Metoprolol Tartrate 100 MG Oral Tablet Refills: 0 ProAir HFA 108 (90 Base) MCG/ACT Inhalat ion Aerosol Solution; INHALE 2 PUFFS Every 6 hours PRN Quantity: 1 Refills: 5 Advair Diskus 100-50 MCG/DOSE Inhalation Aerosol Powder Breath Activated; INHALE 1 PUFF TWICE DAILY. JOSEFINA Harding Quantity: 3 Refills: 0 Aspirin 81 MG TABS; TAKE 1 TABLET DAILY. Refills: 0 Bristow 3 CAPS; TAKE DIRECTED. Refills: 0 raNITIdine HCl - 150 MG Oral Tablet; TAKE 1 TABLET EVERY 12 HOURS NEEDED. Refills: 0 Omeprazole 20 MG Oral Capsule Delayed Release; TAKE 1 CAPSULE DAILY. JOSEFINA Harding Start: 18-Jul-2012 Quantity: 90 Refills: 3 Spironolactone 25 MG Oral Tablet Refills: 0 Lisinopril TABS Refills: 0 Levoxyl TABS Refills: 0 One Daily TABS; TAKE 1 TABLET DAILY. Refills: 0 Caltrate 600+D 600-400 MG-UNIT CHEW Refills: 0 Lasix TABS Refills: 0 Procedures Procedures not documented Immunizations Immunizations not documented Social History - Smoking Status Never smoker Plan of Treatment Planned Observations Planned Goals not documented Results No Known Results Results not documented Encounters Appointment; Linda Crespo PA-C 01-Nov-2018 9:20 Encounter Diagnosis: Problem not documented Appointment; Ruperto Suggs Au.D.|[facility] 04-Sep-2017 10:40 Encounter Diagnosis: Problem not documented Appointment; Ruperto Suggs Au.D.|[facility] 04-Aug-2017 10:20 Encounter Diagnosis: Problem not documented Appointment; Ruperto Suggs Au.D.|[facility] 19-Jul-2017 11:00 Encounter Diagnosis: Problem not documented Appointment; Ruperto Suggs Au.D.|[facility] 01-Nov-2018 9:40 Encounter Diagnosis: Problem not documented"
[2019-06-29 10:03] LABS: Appearance Urine Clear (Clear); Bilirubin Urine Negative (Negative); Blood Urine Negative (Negative); Color Urine Yellow; Glucose Urine UA Negative (Negative); Ketones Urine Negative (Negative); Leukocyte Esterase Urine Negative (Negative); Nitrite Urine Negative (Negative); Protein Urine Negative (Negative); Specific Gravity Urine 1.011 (1.000-1.030); Urobilinogen Urine Negative (Negative); pH Urine 7.5 (4.5-7.5)
--- NOTE | 2019-06-29 10:10 | CT Scan Report ---
CT SCAN OF THE BRAIN WITHOUT IV CONTRAST CLINICAL HISTORY: Change in mental status. Fall. COMPARISON STUDY: CT of the brain dated 01/22/2017. TECHNIQUE: Unenhanced axial CT scan of the brain is performed from the vertex to the skull base. A do se lowering technique was utilized adhering to the principles of ALARA. The patient was scanned twice due to motion artifact. The examination is motion compromised. CT DOSE: 1766.01 mGy.cm FINDINGS: Brain parenchyma: Foci of right frontal, right occipital, and right parietal encephalomalacia are unc hanged and consistent with remote insults. There are age-related involutional changes noting moderat e patchy subcortical and periventricular microangiopathic change. There is no hemorrhage, mass effect , or evidence of acute territorial ischemia by CT criteria. Ashley-white matter differentiation is pres erved. No extra-axial fluid collection is seen. There is mineralization of the basal ganglia. Ventricles, sulci, cisterns: Prominent secondary to involutional change. Intracranial vasculature: There is atherosclerotic calcification of the cavernous carotid and vertebr al arteries. Calvarium: Unremarkable. Sinuses and mastoids: The visualized paranasal sinuses are clear. The mastoid air cells are well pneu matized. Orbits: The bony orbits are grossly intact. There are bilateral ocular lens implants. IMPRESSION: 1. Motion compromised examination. 2. Chronic and senescent changes as above with no hemorrhage, mass effect, or evidence of acute nickie torial ischemia by CT criteria. Electronically signed by: Loki Villareal M.D. 06/29/2019 10:08 AM
[2019-06-29 10:22] LABS: Basophils # (auto) 0.06 K/uL (0-0.2); Basophils % (auto) 0.5 %; Eosinophils # (auto) 0.37 K/uL (0-0.5); Eosinophils % (auto) 3.3 %; Hematocrit (blood only) 34.2 % (37-47); Immature Granulocytes # (auto) 0.02 K/uL (0.00-0.02); Immature Granulocytes % (auto) 0.2 %; Lymphocytes # (auto) 2.78 K/uL (1.2-3.4); Lymphocytes % (auto) 25.1 %; Mean Corpuscular Hemoglobin 27.4 pg (25-34); Mean Corpuscular Hgb Conc 32.2 g/dL (32-36); Mean Corpuscular Volume 85.3 fL (80-100); Mean Platelet Volume 9.8 fL (7.4-10.4); Monocytes # (auto) 0.97 K/uL (0.11-0.59); Monocytes % (auto) 8.8 %; Neutrophils # (auto) 6.87 K/uL (1.4-6.5); Neutrophils % (auto) 62.1 %; Platelet Count 364 K/uL (130-400); RDW Coefficient of Variation 14.4 % (11.5-14.5); RDW Standard Deviation 44.5 fL (36.4-46.3); Red Blood Count 4.01 M/uL (4.2-5.4); White Blood Count 11.07 K/uL (4.8-10.8)
[2019-06-29 10:37] LABS: Albumin Level 3.8 gm/dl (3.4-5.0); Calcium 9.1 mg/dl (8.5-10.1); Creatinine Clr Calc Pharmacy 26.5 ml/min; Est GFR (African American) 49.4; Est GFR (Non-African American) 42.6; Magnesium 2.1 mg/dl (1.8-2.4); Partial Thromboplastin Ratio 0.9; Partial Thromboplastin Time 25.2 Seconds (21.0-31.0); Potassium 3.9 mmol/L (3.5-5.1); Prothrombin Time 10.6 Seconds (9.0-12.0)
--- NOTE | 2019-06-29 10:41 | CT Scan Report ---
CT SCAN OF THE CERVICAL SPINE CLINICAL HISTORY: Fall. COMPARISON STUDY: No priors. TECHNIQUE: CT scan of the cervical spine is performed from the skull base to the upper thoracic spine . Images are reviewed in the axial, sagittal, and coronal planes. IV contrast was not administered fo r this examination. A dose lowering technique was utilized adhering to the principles of ALARA. CT DOSE: 243.98 mGy.cm FINDINGS: Skeletal structures: The skeletal structures are osteopenic. There is no evidence of fracture or subl uxation involving the cervical spine. Vertebral body height is maintained. There is minimal anterolis thesis at C3-C4 and C4-C5. Alignment is otherwise preserved. There is straightening of the cervical l ordosis with reversal centered at C4-C5. Anterior osteophytes are seen throughout. The odontoid proce ss and lateral masses are intact. The atlantoaxial articulation is preserved noting advanced producti ve degenerative change. The spinous processes appear intact. The bone island is noted in the right tr ansverse process of C7. There is moderate to advanced multilevel cervical spondylosis. Uncovertebral and facet arthropathy contribute to neural foraminal stenosis at most levels. Intervertebral discs: There is advanced disc space narrowing at C4-C5 and C5-C6. Moderate disc space narrowing is seen at C3-C4 and C6-C7. Central canal: Posterior disc osteophyte complexes at C4-C5, C5-C6, and C6-C7 likely contribute to mu ltilevel acquired compromise of the central canal. Soft tissues: The prevertebral and paraspinous soft tissues are within normal limits. An 8 mm low-att enuation nodule is noted in the left lobe of the thyroid gland. There is advanced atherosclerotic chris cification of the carotid arteries/bulbs. Cystic foci and sialoliths are present within the submandib ular glands. Calvarium: The visualized calvarium at the skull base appears intact. Brain parenchyma: Partially visualized brain parenchyma the skull base is within normal limits. Sinuses and mastoids: Trace mucosal thickening is seen within the sphenoid sinuses. The mastoid air c ells are well pneumatized. Lung apices: Clear as visualized. IMPRESSION: 1. There is no evidence of fracture or subluxation involving the cervical spine. 2. Osteopenia and spondylotic change as above. Electronically signed by: Loki Villareal M.D. 06/29/2019 10:40 AM
[2019-06-29] MEDS ORDERED: LORazepam 0.25 MG/0.5 ML VIAL IV STA ×3 (10:42→11:33)
[2019-06-29 11:04] LABS: Albumin Globulin Ratio 1.2 (0.9-2); Bilirubin,Total 0.5 mg/dl (0.2-1); Globulin 3.1 gm/dl (2.5-4.0); Total Protein 6.9 gm/dl (6.4-8.2); Troponin I 0.083 ng/ml (0-0.045)
--- NOTE | 2019-06-29 11:57 | CT Scan Report ---
CT SCAN OF THE BRAIN WITHOUT IV CONTRAST CLINICAL HISTORY: Change in mental status. Fall. COMPARISON STUDY: CT of the brain performed earlier the same day 06/29/2019. TECHNIQUE: Unenhanced axial CT scan of the brain is performed from the vertex to the skull base. A do se lowering technique was utilized adhering to the principles of ALARA. The patient was scanned twice due to motion artifact. The examination is motion compromised. CT DOSE: 3189.57 mGy.cm FINDINGS: Brain parenchyma: Foci of right frontal, right occipital, and right parietal encephalomalacia are unc hanged and consistent with remote insults. There are age-related involutional changes noting moderat e patchy subcortical and periventricular microangiopathic change. There is no hemorrhage, mass effect , or evidence of acute territorial ischemia by CT criteria. Ashley-white matter differentiation is pres erved. No extra-axial fluid collection is seen. There is mineralization of the basal ganglia. Ventricles, sulci, cisterns: Prominent secondary to involutional change. Intracranial vasculature: There is atherosclerotic calcification of the cavernous carotid and vertebr al arteries. Calvarium: Unremarkable. Sinuses and mastoids: The visualized paranasal sinuses are clear. The mastoid air cells are well pneu matized. Orbits: The bony orbits are grossly intact. There are bilateral ocular lens implants. IMPRESSION: 1. There is no hemorrhage, mass effect, or evidence of acute territorial ischemia by CT criteria noti ng a motion degraded examination. 2. Senescent and chronic findings as above. No significant change from today's earlier examination. Electronically signed by: Loki Villareal M.D. 06/29/2019 11:56 AM
--- NOTE | 2019-06-29 12:08 | XRay Report ---
RIGHT FOREARM 2 VIEWS CLINICAL HISTORY: Fall. Right arm injury. FINDINGS: AP and lateral views of the right forearm are obtained. No prior studies are available for comparison at the time of dictation. The skeletal structures are osteopenic. There is no radiographic evidence of right forearm fracture. The elbow and wrist joints are grossly maintained. Mild soft tis kp swelling is suggested in the distal forearm. IMPRESSION: There is no radiographic evidence of right forearm fracture. Electronically signed by: Loki Villareal M.D. 06/29/2019 12:06 PM
--- NOTE | 2019-06-29 12:10 | XRay Report ---
SINGLE VIEW CHEST CLINICAL HISTORY: Fall. FINDINGS: An AP, portable, supine chest radiograph is compared to study dated 01/29/2017. Correlation is made with chest CT dated 02/20/2016 The examination is degraded by portable technique and patient ro tation. The heart is enlarged and there is atherosclerotic calcification of the thoracic aorta. The pulmonary vasculature is noncongested. Scarring/atelectasis is present at both lung bases. No large p leural effusion or pneumothorax is seen. The skeletal structures are osteopenic. The bony thorax is g rossly intact. IMPRESSION: Cardiomegaly with no acute cardiopulmonary abnormality. Electronically signed by: Loki Villareal M.D. 06/29/2019 12:08 PM
--- NOTE | 2019-06-29 12:12 | XRay Report ---
SINGLE VIEW PELVIS CLINICAL HISTORY: Fall. FINDINGS: An AP supine pelvic radiograph is compared to study dated 11/12/2016. The skeletal structur es are osteopenic. No acute fracture is seen involving the hips or bony pelvis. A right hip arthropla sty is in near-anatomic alignment. There is chronic posttraumatic deformity of the left femur with in tertrochanteric 3 cortical lag screws. Advanced degenerative joint space narrowing seen in the left h ip. Degenerative sclerosis is noted in the sacroiliac joints. Lumbosacral spondylosis is partially vi sualized. The overlying soft tissues are normal as imaged. There is advanced atherosclerotic calcific ation of the femoral arteries. Pelvic phleboliths are observed. No bowel obstruction is identified. IMPRESSION: 1. Osteopenia with no radiographic evidence of acute fracture involving the hips or pelvis. 2. Chronic and postoperative changes as above. Electronically signed by: Loki Villareal M.D. 06/29/2019 12:11 PM
--- NOTE | 2019-06-29 12:14 | XRay Report ---
RIGHT WRIST 4 VIEWS CLINICAL HISTORY: Fall. Right wrist pain. FINDINGS: 4 views of the right wrist are correlated with radiographs of the right hand dated 09/10/20 16. The skeletal structures are osteopenic. There is no radiographic evidence of fracture. Degenerati ve narrowing is seen at the radiocarpal articulation. 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 Milder oste oarthritic change is seen throughout the remainder of the wrist and at the carpometacarpal joints. Sm all foci of cystic degenerative change are present within the hamate, capitate, and scaphoid. There i s atherosclerotic calcification of the regional arteries. Soft tissue swelling is present around the wrist. IMPRESSION: 1. Soft tissue swelling with no radiographic evidence of fracture. 2. Osteopenia and arthritic change as above. This is similar to the 2016 examination. Electronically signed by: Loki Villareal M.D. 06/29/2019 12:13 PM
[2019-06-29] MEDS ORDERED: ASPIRIN 300 MG SUPP PR ONE (13:37)
--- NOTE | 2019-06-29 14:24 | Emergency Department Note ---
Entered by Tereza Simons acting as a scribe for History of Present Illness General Chief complaint: Fall Stated complaint: fall Source: family and EMS Mode of arrival: EMS Limitations: altered mental status History of Present Illness Provider complaint: AMS Onset (ago): hour(s) (last night ) Location: head Pain Consistency: + other (episode ) Associated symptoms: + headaches; no fever/chills and no nausea/vomiting (- vomiting ) Treatments prior to arrival: none The patient is an 88 year old female who presents to the ED with complaint of an episode of fall injuries that occurred last night. EMS states that the patient claimed she had a headache. EMS report that the patient fell last night and that the family found fallen objects from her night stand. EMS state that the lynette davidson family found her in bed this morning with blood on her night gown. They state that the family noticed that the patient was more confused than her baseline confusion this morning. EMS report that the there was no obvious trauma to the patient upon arrival and the patients stroke scale was inconclusive. They report that the patient was able to move all extremities and transfer herself into the ambulance. The patients family reports that the patient has a history of mini-strokes and myocardial infarctions. The patients family states that they found the patient this morning in bed. They report that she had went back to sleep after she fell at an unknown time during the night. The patients daughter reports that she last spoke to her mother around 2100 yesterday. She states that her mother was at her baseline and was asking about her aspirin dosage on the phone. The patients family reports that they dressed the patient this morning and assisted her in ambulating downstairs to come to the ED today. They report that the patient always needs the assistance of a walker to ambulate. The patients family reports that the patient had a TIA not too long ago, in which the patient lost her peripheral vision. They deny that the patient has any fevers or vomiting. HPI and ROS are limited due to AMS. Home Medications Home Medications Medication Instructions Recorded Confirmed Type aspirin [Aspir-81] 81 mg PO DAILY 06/29/19 06/29/19 History cholecalciferol (vitamin D3) 2,000 unit PO DAILY 06/29/19 06/29/19 History [Vitamin D3] clopidogrel 75 mg PO DAILY 06/29/19 06/29/19 History coenzyme Q10 [CoQ-10] 100 mg PO DAILY 06/29/19 06/29/19 History fluticasone propion-salmeterol 2 puff INHALATION DAILY 06/29/19 06/29/19 History [Advair HFA] furosemide 20 mg PO SUTUWEFRSA 06/29/19 06/29/19 History furosemide 40 mg PO MOTH 06/29/19 06/29/19 History isosorbide mononitrate 30 mg PO DAILY 06/29/19 06/29/19 History levothyroxine 50 mcg PO DAILY 06/29/19 06/29/19 History lisinopril 2.5 mg PO DAILY 06/29/19 06/29/19 History metoprolol succinate 100 mg PO BID 06/29/19 06/29/19 History nitroglycerin [Nitrostat] 0.4 mg BUCCAL UD PRN 06/29/19 06/29/19 History pantoprazole 40 mg PO DAILY 06/29/19 06/29/19 History spironolactone 25 mg PO DAILY 06/29/19 06/29/19 History Allergies Allergy/AdvReac Type Severity Reaction Status Date / Time No Known Allergies Allergy Unverified 06/29/19 12:32 Past Med/Surg History Medical History Confusion Myocardial infarction Stroke Family History Other Family history non-contributory Social History Preferred Language: Belarusian Feels Safe at Home: Yes Smoking Status: Never smoker Review of Systems See HPI for pertinent positives & negatives. Unobtainable due to cognitive status Physical Exam Vital Signs Vital Signs - 24 hr 06/29/19 09:28 06/29/19 09:30 06/29/19 10:19 Temperature 36.4 C L Temperature Source Oral Sepsis Recent Fever Within 48 Hours No Sepsis New/Unexplained Change in Mental Status No Sepsis Action Taken by Nursing No Action Required Pulse Rate 84 Pulse Rate [Apical] 84 Pulse Rate from SpO2 Sensor 86 Respiratory Rate 18 Respiratory Effort / Characteristics Non-Labored Spontaneous Respiratory Depth Normal Respiratory Pattern Regular Blood Pressure 175/79 H 175/79 H Blood Pressure [Left Arm] 175/79 H Blood Pressure Mean 111 111 Blood Pressure Mean [Left Arm] 111 Blood Pressure Position Lying Blood Pressure Position [Left Arm] Lying Pulse Oximetry 99 Oxygen Delivery Method Room Air 06/29/19 10:23 06/29/19 10:30 06/29/19 10:45 Temperature Temperature Source Sepsis Recent Fever Within 48 Hours Sepsis New/Unexplained Change in Mental Status Sepsis Action Taken by Nursing Pulse Rate 87 85 Pulse Rate [Apical] 84 Pulse Rate from SpO2 Sensor 97 H 72 Respiratory Rate 26 H 23 Respiratory Effort / Characteristics Non-Labored Spontaneous Respiratory Depth Normal Respiratory Pattern Regular Blood Pressure 116/80 126/80 Blood Pressure [Left Arm] 126/80 Blood Pressure Mean 92 95 Blood Pressure Mean [Left Arm] 95 Blood Pressure Position Blood Pressure Position [Left Arm] Lying Pulse Oximetry 95 98 98 Oxygen Delivery Method Room Air 06/29/19 12:02 06/29/19 13:56 Temperature Temperature Source Sepsis Recent Fever Within 48 Hours Sepsis New/Unexplained Change in Mental Status Sepsis Action Taken by Nursing Pulse Rate Pulse Rate [Apical] 84 88 Pulse Rate from SpO2 Sensor Respiratory Rate 22 20 Respiratory Effort / Characteristics Respiratory Depth Respiratory Pattern Blood Pressure Blood Pressure [Left Arm] 135/96 119/76 Blood Pressure Mean Blood Pressure Mean [Left Arm] 109 90 Blood Pressure Position Blood Pressure Position [Left Arm] Pulse Oximetry 96 96 Oxygen Delivery Method Room Air Room Air Limited exam due to altered mental status. Constitutional: Vital signs reviewed. Eyes: Pupils are equal round reactive to light. Conjunctiva are noninjected. ENT: Pharynx is clear without erythema or exudate. Mucous membranes are moist. Neck supple without meningeal signs. Respiratory: Clear to auscultation bilaterally. Breath sounds are equal bilaterally. Cardiovascular: Regular rate and rhythm. No rubs or gallops. GI: Soft, nondistended and nontender. Bowel sounds are present. Musculoskeletal: No peripheral edema. No lower extremity tenderness. Skin tear to her right wrist. No bony tenderness. No tenderness to the hips or extremities. Slight bruise to the left knee. No midline tenderness to the cervical spine. Integumentary: No cyanosis. Neurological: The patient is awake and alert. No focal deficits. Repetitive questioning. Moves all extremities. Does not follow commands or answer questions appropriately. No facial droop. Psychiatric: Cannot assess. Course 0948: Past medical records reviewed. The patient was evaluated in room B2. A complete history and physical exam was performed. 1046: I reevaluated the patient at this time and she is still confused. I spoke with the patient's daughter and told her that we will have to redo the CT scan because of some motion artifact under sedation. 1115: The patient is still moving in CT scan, therefore additional Ativan will be given. 1133: The patient is still moving in CT scan, therefore additional Ativan will be given again. 1208:I discussed the patient's case with Lovely Dc PA-C, [facility]. She informed me that Dr. Pepe, [facility], agreed to evaluate the patient for further management. 1220: I reevaluated that patient and she is sleeping soundly, maintaining O2 saturations on room air. The patients repeat EKG showed sinus rhythm, 97 bpm, persistent ST depression laterally, no ST elevations, PVCs noted. I discussed the test results with the patients family. Consultations Consultation #1: I discussed the patient's case with Lovely Dc PA-C, [facility]. She informed me that Dr. Pepe, [facility], agreed to evaluate the patient for further management. Time: 12:08 Administered Medications Discontinued Medications Lorazepam (Ativan) 0.25 mg in 0.5 mls @ 0.5 mls/min IV NOW STA Stop: 06/29/19 10:43 Last Admin: 06/29/19 10:56 Dose: 0.5 mls/min Documented by: [id number] Lorazepam (Ativan) 0.25 mg in 0.5 mls @ 0.5 mls/min IV NOW STA Stop: 06/29/19 11:12 Last Admin: 06/29/19 11:33 Dose: 0.5 mls/min Documented by: [id number] Lorazepam (Ativan) 0.25 mg in 0.5 mls @ 0.5 mls/min IV NOW STA Stop: 06/29/19 11:34 Last Admin: 06/29/19 11:38 Dose: 0.5 mls/min Documented by: [id number] Medical Decision Making Differential Diagnosis Differential diagnoses include but are not limited to ICH, CVA, Concussion, Infection, Metabolic derangement. Medical Records Attestation: I reviewed the patient's medical records. I did perform a limited focused review of portions of the patient's old chart on the electronic medical record. The patient has had no recent pertinent visits to this hospital. Home Medications Current Medication List: was personally reviewed by me Laboratory Data Attestation: I reviewed the patient's lab results. Result diagrams: 06/29/19 10:10 06/29/19 10:10 Lab Results 06/29/19 06/29/19 06/29/19 Range/Units 09:45 10:05 10:10 WBC 11.07 H (4.8-10.8) K/uL RBC 4.01 L (4.2-5.4) M/uL Hgb 11.0 L (12.0-16.0) g/dL Hct 34.2 L (37-47) % MCV 85.3 (80-100) fL MCH 27.4 (25-34) pg MCHC 32.2 (32-36) g/dL RDW Std Deviation 44.5 (36.4-46.3) fL RDW Coeff of Zunilda 14.4 (11.5-14.5) % Plt Count 364 (130-400) K/uL MPV 9.8 (7.4-10.4) fL Immature Gran % (Auto) 0.2 % Neut % (Auto) 62.1 % Lymph % (Auto) 25.1 % Sac % (Auto) 8.8 % Eos % (Auto) 3.3 % Baso % (Auto) 0.5 % Immature Gran # (Auto) 0.02 (0.00-0.02) K/uL Neut # (Auto) 6.87 H (1.4-6.5) K/uL Lymph # (Auto) 2.78 (1.2-3.4) K/uL Sac # (Auto) 0.97 H (0.11-0.59) K/uL Eos # (Auto) 0.37 (0-0.5) K/uL Baso # (Auto) 0.06 (0-0.2) K/uL PT (9.0-12.0) Seconds INR (0.9-1.1) APTT (21.0-31.0) Seconds PTT Ratio Sodium (136-145) mmol/L Potassium (3.5-5.1) mmol/L Chloride (98-107) mmol/L Carbon Dioxide (21-32) mmol/L Anion Gap (3-11) BUN (7-18) mg/dl Creatinine (0.6-1.2) mg/dl Est Cr Clr Drug Dosing ml/min Est GFR ( Amer) Est GFR (Non-Af Amer) BUN/Creatinine Ratio (10-20) Glucose (70-99) mg/dl POC Glucose 105 H (70-99) Calcium (8.5-10.1) mg/dl Magnesium (1.8-2.4) mg/dl Total Bilirubin (0.2-1) mg/dl AST (15-37) U/L ALT (12-78) U/L Alkaline Phosphatase (45-117) U/L Troponin I (0-0.045) ng/ml Total Protein (6.4-8.2) gm/dl Albumin (3.4-5.0) gm/dl Globulin (2.5-4.0) gm/dl Albumin/Globulin Ratio (0.9-2) Urine Color Yellow Urine Appearance Clear (Clear) Urine pH 7.5 (4.5-7.5) Ur Specific [place] 1.011 (1.000-1.030) Urine Protein Negative (Negative) Urine Glucose (UA) Negative (Negative) Urine Ketones Negative (Negative) Urine Blood Negative (Negative) Urine Nitrite Negative (Negative) Urine Bilirubin Negative (Negative) Urine Urobilinogen Negative (Negative) Ur Leukocyte Esterase Negative (Negative) 06/29/19 06/29/19 Range/Units 10:10 10:10 WBC (4.8-10.8) K/uL RBC (4.2-5.4) M/uL Hgb (12.0-16.0) g/dL Hct (37-47) % MCV (80-100) fL MCH (25-34) pg MCHC (32-36) g/dL RDW Std Deviation (36.4-46.3) fL RDW Coeff of Zunilda (11.5-14.5) % Plt Count (130-400) K/uL MPV (7.4-10.4) fL Immature Gran % (Auto) % Neut % (Auto) % Lymph % (Auto) % Sac % (Auto) % Eos % (Auto) % Baso % (Auto) % Immature Gran # (Auto) (0.00-0.02) K/uL Neut # (Auto) (1.4-6.5) K/uL Lymph # (Auto) (1.2-3.4) K/uL Sac # (Auto) (0.11-0.59) K/uL Eos # (Auto) (0-0.5) K/uL Baso # (Auto) (0-0.2) K/uL PT 10.6 (9.0-12.0) Seconds INR 1.0 (0.9-1.1) APTT 25.2 (21.0-31.0) Seconds PTT Ratio 0.9 Sodium 140 (136-145) mmol/L Potassium 3.9 (3.5-5.1) mmol/L Chloride 107 (98-107) mmol/L Carbon Dioxide 27 (21-32) mmol/L Anion Gap 6.0 (3-11) BUN 17 (7-18) mg/dl Creatinine 1.14 (0.6-1.2) mg/dl Est Cr Clr Drug Dosing 26.5 ml/min Est GFR ( Amer) 49.4 Est GFR (Non-Af Amer) 42.6 BUN/Creatinine Ratio 15.0 (10-20) Glucose 101 H (70-99) mg/dl POC Glucose (70-99) Calcium 9.1 (8.5-10.1) mg/dl Magnesium 2.1 (1.8-2.4) mg/dl Total Bilirubin 0.5 (0.2-1) mg/dl AST 17 (15-37) U/L ALT 21 (12-78) U/L Alkaline Phosphatase 77 (45-117) U/L Troponin I 0.083 H* (0-0.045) ng/ml Total Protein 6.9 (6.4-8.2) gm/dl Albumin 3.8 (3.4-5.0) gm/dl Globulin 3.1 (2.5-4.0) gm/dl Albumin/Globulin Ratio 1.2 (0.9-2) Urine Color Urine Appearance (Clear) Urine pH (4.5-7.5) Ur Specific [place] (1.000-1.030) Urine Protein (Negative) Urine Glucose (UA) (Negative) Urine Ketones (Negative) Urine Blood (Negative) Urine Nitrite (Negative) Urine Bilirubin (Negative) Urine Urobilinogen (Negative) Ur Leukocyte Esterase (Negative) Imaging Data Radiologist's Impression: Radiology results as stated below per my review and the radiologist's interpretation: SINGLE VIEW CHEST CLINICAL HISTORY: Fall. FINDINGS: An AP, portable, supine chest radiograph is compared to study dated 01/29/2017. Correlation is made with chest CT dated 02/20/2016 The examination is degraded by portable technique and patient rotation. The heart is enlarged and there is atherosclerotic calcification of the thoracic aorta. The pulmonary vasculature is noncongested. Scarring/atelectasis is present at both lung bases. No large pleural effusion or pneumothorax is seen. The skeletal structures are osteopenic. The bony thorax is grossly intact. IMPRESSION: Cardiomegaly with no acute cardiopulmonary abnormality. Electronically signed by: Loki Villareal M.D. 06/29/2019 12:08 PM RIGHT FOREARM 2 VIEWS CLINICAL HISTORY: Fall. Right arm injury. FINDINGS: AP and lateral views of the right forearm are obtained. No prior studies are available for comparison at the time of dictation. The skeletal structures are osteopenic. There is no radiographic evidence of right forearm fracture. The elbow and wrist joints are grossly maintained. Mild soft tissue swelling is suggested in the distal forearm. IMPRESSION: There is no radiographic evidence of right forearm fracture. Electronically signed by: Loki Villareal M.D. 06/29/2019 12:06 PM RIGHT WRIST 4 VIEWS CLINICAL HISTORY: Fall. Right wrist pain. FINDINGS: 4 views of the right wrist are correlated with radiographs of the right hand dated 09/10/2016. The skeletal structures are osteopenic. There is no radiographic evidence of fracture. Degenerative narrowing is seen at the radiocarpal articulation. 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 Milder osteoarthritic change is seen throughout the remainder of the wrist and at the carpometacarpal joints. Small foci of cystic degenerative change are present within the hamate, capitate, and scaphoid. There is atherosclerotic calcification of the regional arteries. Soft tissue swelling is present around the wrist. IMPRESSION: 1. Soft tissue swelling with no radiographic evidence of fracture. 2. Osteopenia and arthritic change as above. This is similar to the 2016 exam ination. Electronically signed by: Loki Villareal M.D. 06/29/2019 12:13 PM SINGLE VIEW PELVIS CLINICAL HISTORY: Fall. FINDINGS: An AP supine pelvic radiograph is compared to study dated 11/12/2016. The skeletal structures are osteopenic. No acute fracture is seen involving the hips or bony pelvis. A right hip arthroplasty is in near-anatomic alignment. There is chronic posttraumatic deformity of the left femur with intertrochanteric 3 cortical lag screws. Advanced degenerative joint space narrowing seen in the left hip. Degenerative sclerosis is noted in the sacroiliac joints. Lumbosacral spondylosis is partially visualized. The overlying soft tissues are normal as imaged. There is advanced atherosclerotic calcification of the femoral arteries. Pelvic phleboliths are observed. No bowel obstruction is identified. IMPRESSION: 1. Osteopenia with no radiographic evidence of acute fracture involving the hips or pelvis. 2. Chronic and postoperative changes as above. Electronically signed by: Loki Villareal M.D. 06/29/2019 12:[address] SCAN OF THE BRAIN WITHOUT IV CONTRAST CLINICAL HISTORY: Change in mental status. Fall. COMPARISON STUDY: CT of the brain performed earlier the same day 06/29/2019. TECHNIQUE: Unenhanced axial CT scan of the brain is performed from the vertex to the skull base. A dose lowering technique was utilized adhering to the principles of ALARA. The patient was scanned twice due to motion artifact. The examination is motion compromised. CT DOSE: 3189.57 mGy.cm FINDINGS: Brain parenchyma: Foci of right frontal, right occipital, and right parietal encephalomalacia are unchanged and consistent with remote insults. There are age-related involutional changes noting moderate patchy subcortical and periventricular microangiopathic change. There is no hemorrhage, mass effect, or evidence of acute territorial ischemia by CT criteria. Ashley-white matter differentiation is preserved. No extra-axial fluid collection is seen. There is mineralization of the basal ganglia. Ventricles, sulci, cisterns: Prominent secondary to involutional change. Intracranial vasculature: There is atherosclerotic calcification of the cavernous carotid and vertebral arteries. Calvarium: Unremarkable. Sinuses and mastoids: The visualized paranasal sinuses are clear. The mastoid air cells are well pneumatized. Orbits: The bony orbits are grossly intact. There are bilateral ocular lens implants. IMPRESSION: 1. There is no hemorrhage, mass effect, or evidence of acute territorial ischemia by CT criteria noting a motion degraded examination. 2. Senescent and chronic findings as above. No significant change from today's earlier examination. Electronically signed by: Loki Villareal M.D. 06/29/2019 11:[address] SCAN OF THE CERVICAL SPINE CLINICAL HISTORY: Fall. COMPARISON STUDY: No priors. TECHNIQUE: CT scan of the cervical spine is performed from the skull base to the upper thoracic spine. Images are reviewed in the axial, sagittal, and coronal planes. IV contrast was not administered for this examination. A dose lowering technique was utilized adhering to the principles of ALARA. CT DOSE: 243.98 mGy.cm FINDINGS: Skeletal structures: The skeletal structures are osteopenic. There is no evidence of fracture or subluxation involving the cervical spine. Vertebral body height is maintained. There is minimal anterolisthesis at C3-C4 and C4-C5. Alignment is otherwise preserved. There is straightening of the cervical lordosis with reversal centered at C4-C5. Anterior osteophytes are seen throughout. The odontoid process and lateral masses are intact. The atlantoaxial articulation is preserved noting advanced productive degenerative change. The spinous processes appear intact. The bone island is noted in the right transverse process of C7. There is moderate to advanced multilevel cervical spondylosis. Uncovertebral and facet arthropathy contribute to neural foraminal stenosis at most levels. Intervertebral discs: There is advanced disc space narrowing at C4-C5 and C5-C6. Moderate disc space narrowing is seen at C3-C4 and C6-C7. Central canal: Posterior disc osteophyte complexes at C4-C5, C5-C6, and C6-C7 likely contribute to multilevel acquired compromise of the central canal. Soft tissues: The prevertebral and paraspinous soft tissues are within normal limits. An 8 mm low-attenuation nodule is noted in the left lobe of the thyroid gland. There is advanced atherosclerotic calcification of the carotid arteries/bulbs. Cystic foci and sialoliths are present within the submandibular glands. Calvarium: The visualized calvarium at the skull base appears intact. Brain parenchyma: Partially visualized brain parenchyma the skull base is within normal limits. Sinuses and mastoids: Trace mucosal thickening is seen within the sphenoid sinuses. The mastoid air cells are well pneumatized. Lung apices: Clear as visualized. IMPRESSION: 1. There is no evidence of fracture or subluxation involving the cervical spine. 2. Osteopenia and spondylotic change as above. Electronically signed by: Loki Villareal M.D. 06/29/2019 10:40 AM ECG Data Attestation: I personally reviewed and interpreted this ECG as follows: Indication: altered mental status Rate (beats per minute): 91 Rhythm: sinus rhythm Findings: + PVC and + ST depression (Laterally); no ST elevation Comparison ECG Date: from (02/03/2017) Change: the following changes noted (slight depression in lead 1 ) Additional Comments: Repeat EKG 06/29/2019: Sinus rhythm, 97 bpm, and persistent ST depression laterally, no ST elevations, PVCs noted. Blood Pressure Blood Pressure Findings: Normal blood pressure Blood Pressure Disposition: did not require urgent referral Head Trauma GCS Score: 12 Additional Comments: [facility] Narrative I did evaluate the patient as noted above. I did obtain history from the patient's family as well as EMS due to her altered mental status. Apparently the patient's family found her in bed this morning with blood on her nightgown. There were scattered items from the nightstand on the floor and so they assumed that the patient fell sometime during the night and went back to bed. The patient is not answering any questions or following commands at this time. She does move all extremities. She does have a skin tear in the right wrist which was cleaned and dressed. IV access was established. The patient was placed on a continuous bus monitor. I did order and personally review the patient's 12- lead EKG as described above. Twelve-lead EKG demonstrates ST depressions and T wave inversions laterally. This was present on her prior EKG in lead I but seems more pronounced today. I did order and personally reviewed the images of the patient's chest/right arm x-ray as described above. There is no evidence of acute fracture dislocation. No pneumonia is noted. I did order a urine analysis. She does not have a UTI. I did order and review the patient's blood work as noted in the electronic medical record. She is mildly anemic and her white count is 11. This is a nonspecific finding. Her troponin is elevated slightly. I did repeat a twelve-lead EKG which showed consistent changes as above. I did order a CT of the head and cervical spine. I did review the images myself as well as the radiology report as described above. There was some motion artifact but there is no evidence of acute intracranial hemorrhage or CVA. Cervical spine did not show any signs of fracture. Due to the motion artifact I did sedate her with Ativan 0.25 mg IV. This did not work for her and so she was given 2 more doses with a total dose of Ativan 0.75 mg IV. She did have a repeat CT scan which showed no acute process, although again this was somewhat degraded by motion artifact. I did discuss the test results with the family. I did recommend hospitalization for further care and evaluation as well as MRI of the brain to rule out CVA and repeat cardiac biomarkers. I did discuss the case with the hospitalist and case folder. Impression & Plan Altered mental status, Skin tear of right upper extremity, Fall, Elevated troponin, Abnormal EKG Discharge Plan Visit Data Chief Complaint: Fall Stated Complaint: fall ED Provider: Nadeem Gonzalez Discharge Problem: Altered mental status, Skin tear of right upper extremity, Fall, Elevated troponin, Abnormal EKG Patient Disposition: Being Evaluated by Hospitalist Discharge Instructions Interventions: ED Discharge Assessment Last Done: 06/29/19 14:09 Forms Stand Alone Forms: My [facility] Prescriptions Prescriptions: No Action isosorbide mononitrate 30 mg tablet extended release 24 hr 30 mg PO DAILY RF: 0 metoprolol succinate 100 mg tablet extended release 24 hr 100 mg PO BID RF: 0 clopidogrel 75 mg tablet 75 mg PO DAILY RF: 0 aspirin [Aspir-81] 81 mg Tablet,Delayed Release (Dr/Ec) 81 mg PO DAILY RF: 0 spironolactone 25 mg tablet 25 mg PO DAILY RF: 0 levothyroxine 50 mcg tablet 50 mcg PO DAILY RF: 0 pantoprazole 40 mg tablet,delayed release (DR/EC) 40 mg PO DAILY RF: 0 nitroglycerin [Nitrostat] 0.4 mg Tablet, Sublingual 0.4 mg buccal UD PRN (Reason: Chest Pain) RF: 0 furosemide 20 mg tablet 40 mg PO MOTH RF: 0 lisinopril 2.5 mg tablet 2.5 mg PO DAILY RF: 0 coenzyme Q10 [CoQ-10] 100 mg Capsule 100 mg PO DAILY RF: 0 Advair HFA 45-21 mcg/actuation HFA aerosol inhaler 2 puff inhalation DAILY RF: 0 cholecalciferol (vitamin D3) [Vitamin D3] 2,000 unit capsule 2,000 unit PO DAILY RF: 0 furosemide 20 mg Tablet 20 mg PO SUTUWEFRSA RF: 0 Referrals Referrals: Adrian Feliciano MD [Primary Care Provider] - Discharge Problem: Altered mental status Qualifiers: Altered mental status type: unspecified Qualified Code(s): R41.82 - Altered mental status, unspecified Fall Qualifiers: Encounter type: initial encounter Qualified Code(s): W19.XXXA - Unspecified fall, initial encounter The scribe's documentation has been prepared under my direction and personally reviewed by me in its entirety. I confirm that the note above accurately reflects all work, treatment, procedures, and medical decision making performed by me.
--- NOTE | 2019-06-29 14:51 | History & Physical Report ---
Date of Service June 29, 2019 Assessment & Plan (1) Altered mental status: (2) Acute CVA (cerebrovascular accident): This is a 88-year-old female who has a significant PMH of prior CVA x2 with left-sided weakness, CAD, chronic systolic CHF, moderate COPD, HLD, hypothyroidism, CKD stage III, ALONSO, dementia who presents to [facility] secondary to altered mental status, abnormal speech, fall since last evening. Stroke protocol initiated pt currently on regimen of ASA 81mg and Plavix 75mg Pt now with aphasia, L sided neglect, hyporeflexia, contracture Received Lorazepam in ED which may have heightened symptoms No infectious source apparent for change in mental status admit to tele neurology consulted continue ASA per rectum for now NPO including meds until cleared of dsyphagia MRI ordered/completed unable to obtain CTA head and neck - pt not cooperating neuro checks lipid panel, a1c in a.m. IVF NS 80cc/hr x 1 L (3) Elevated troponin: as noted below (4) CAD (coronary artery disease): Pt with elevated troponin and lateral ST depression/T wave inversions BP 175/79 on arrival, no cp or sob/hypoxia noted hx of CAD with stent x 5 in past normotensive now, may be in setting of demand ischemia on ASA, plavix, BB, JENNY, imdur as outpt trend trop q6 hr, repeat ECG if troponin continues to elevate will consult with cardiology (5) Fall: fall precautions wound consult for RUE skin tear (6) Chronic systolic CHF (congestive heart failure): Euvolemic, well compensated Last echo 02/2016 revealed EF 30 to 34% Repeat echocardiogram ordered On metoprolol, Aldactone, Lasix, lisinopril as outpatient Currently n.p.o. and holding meds until able to assess swallowing status Monitor volume status closely Strict I's and O's, daily weights (7) CKD (chronic kidney disease), stage III: baseline cr 1.3 Bun/Cr 17/1.14 today follow (8) COPD (chronic obstructive pulmonary disease): No acute exacerbation Continue Advair, as needed nebs (9) Dyslipidemia: Pt not on statin therapy lipid panel in am (10) DVT prophylaxis: Subcu heparin Disposition: To be determined, case management consult Follow up: PCP Dr. Feliciano upon discharge Patient was seen and examined in collaboration with Dr. Pepe, please see addendum History of Present Illness Chief Complaint: altered mental status, mumbling of speech, fall since last evening Primary Care Provider: Adrian Feliciano MD This is a 88-year-old female who has a significant PMH of prior CVA x2 with left-sided weakness, CAD, chronic systolic CHF, moderate COPD, HLD, hypothyroidism, CKD stage III, ALONSO, dementia who presents to [facility] secondary to altered mental status, abnormal speech, fall since last evening. Family is at bedside. Patient was in her normal state of health yesterday when last seen by family. At baseline she does have underlying dementia and some progression of confusion, but is able to ambulate with walker, talk, participate in ADLs. When [id number] went into bedroom this morning she noted blood on bed sheets and was felt patient had fallen overnight, but then returned to bed. Patient was able to save family members names, but when asked questions was unable to articulate and was mumbling. At that time there was no apparent facial droop or obvious weakness. She did have right forearm skin tears and bruises to lower extremities from fall but was able to ambulate downstairs to be brought to ER. She did take all medications this morning, was able to swallow and no apparent cough. Unable to obtain ROS from patient given current cognitive state, history provided by family. She does have history of prior CVA in the past which presented similarly in regards to cognitive status and speech, but was much worse in regards to weakness of L side. Patient made mostly for recovery from prior CVAs. She follows closely with cardiology Dr. Salgado and neurology Dr. Broussard who have her maximized on antiplatelet therapy. Up until this morning she has been doing well. Good appetite without other complaints per family. Did not complain of chest pain, shortness of breath, fevers, nausea, vomiting, diarrhea. She has been having intermittent abdominal pain which has been present for approximately 2 years, but becoming progressively getting worse. Symptoms now occurring daily, mostly epigastric and left upper quadrant with and after meals. No improvement with PPI or ranitidine. Per family, PCP felt secondary to vascular disease. She also has been complaining of headache with abdominal pain and peripheral vision loss. Seen by ophthalmology in March/2019 which felt peripheral vision loss secondary to TIAs. Allergies Allergy/AdvReac Type Severity Reaction Status Date / Time No Known Allergies Allergy Unverified 06/29/19 12:32 Home Medications Home Medications Medication Instructions Recorded Confirmed Type aspirin [Aspir-81] 81 mg PO DAILY 06/29/19 06/29/19 History cholecalciferol (vitamin D3) 2,000 unit PO DAILY 06/29/19 06/29/19 History [Vitamin D3] clopidogrel 75 mg PO DAILY 06/29/19 06/29/19 History coenzyme Q10 [CoQ-10] 100 mg PO DAILY 06/29/19 06/29/19 History fluticasone propion-salmeterol 2 puff INHALATION DAILY 06/29/19 06/29/19 History [Advair HFA] furosemide 20 mg PO SUTUWEFRSA 06/29/19 06/29/19 History furosemide 40 mg PO MOTH 06/29/19 06/29/19 History isosorbide mononitrate 30 mg PO DAILY 06/29/19 06/29/19 History levothyroxine 50 mcg PO DAILY 06/29/19 06/29/19 History lisinopril 2.5 mg PO DAILY 06/29/19 06/29/19 History metoprolol succinate 100 mg PO BID 06/29/19 06/29/19 History nitroglycerin [Nitrostat] 0.4 mg BUCCAL UD PRN 06/29/19 06/29/19 History pantoprazole 40 mg PO DAILY 06/29/19 06/29/19 History spironolactone 25 mg PO DAILY 06/29/19 06/29/19 History Past Med/Surg History Medical History Dyslipidemia (Chronic) COPD (chronic obstructive pulmonary disease) (Chronic) Ankle fracture, left (Resolved) Osteoporosis (Chronic) CKD (chronic kidney disease), stage III (Chronic) Chronic systolic CHF (congestive heart failure) (Chronic) Carotid stenosis, non-symptomatic (Chronic) Ischemic cardiomyopathy (Chronic) "echo 08/2016 - EF 35-40%. There is a large sized apical, septal, anteroseptal, anterior, and lateral wall motion abnormality with hypokinesis to akinesis of the segments. Grade II diastolic dysfunction. Aortic valve sclerosis moderate, without significant aortic valvular stenosis. Moderate mitral annular calcification with moderate mitral regurgitation. Mild tricuspid regurgitation. Severe left atrial enlargement. The interatrial septum bows toward right atrium consistent with elevated left atrial pressure. " CVA (cerebral vascular accident) (Chronic) CAD (coronary artery disease) (Chronic) "06/2015 - anterior apical ME in the setting of right hip replacement 02/2016 - NSTEMI, complex coronary intervention including left main stenting intervention, LAD, and left circumflex with Impella LV augmentation device in place" Confusion Myocardial infarction Stroke Surgical History H/O dilation and curettage (Chronic) S/P tonsillectomy and adenoidectomy (Chronic) History of hip replacement (Chronic) "right" Family History Mother Myocardial infarction, Onset Age: 54 Son Myocardial infarction, Onset Age: 30 Social History Preferred Language: Cypriot 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 Ability: 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 Beliefs That Will Affect Care: Rastafarian Rastafarian Beliefs: Evangelical marital status: Current Living Situation: Family Current Living Situation Comment: grandson lives w/ her, other family close by Other Information That Helps Us Care for You: No Feels Safe at Home: Yes Safety Concerns: Feels Safe At This Time Smoking Status: Never smoker Do You Dip or Chew Tobacco: No ; Second Hand Exposure: No ; Hx Alcohol Use: No Hx Substance Use: No Review of Systems Review of Systems: Unobtainable due to cognitive status Physical Exam Physical Exam: Gen: WD/WN, Elderly F, lying in bed, lethargic with occasional agitation, awake but does not answer questions Head: Normocephalic, Atraumatic Eyes: Sclera normal, no conjunctival injection, PERRLA, unable to do EOMI - pt not following commands ENT: normal pharynx, mucous membranes dry Neck: supple, no adenopathy, No JVD, no bruit, Resp: Clear to auscultation b/l decreased bs due to poor insp effort, no wheeze, rales, rhonchi. 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 Extremities: No edema bilaterally Skin: warm, moist, no rash, +RUE skin tear, b/l pretibial ecchymosis from fall, mod turgor, cap refill < 2sec Neuro: Alert but does not respond verbally, flat mood/affect, cran nerve 2-12 intact grossly : deferred Results & Data Vital Signs (Past 12 Hours) Vital Signs Temp Pulse Pulse Resp BP BP Pulse Ox 06/29/19 13:56 88 20 119/76 96 06/29/19 12:02 84 22 135/96 96 06/29/19 10:45 85 23 98 06/29/19 10:30 87 84 26 H 126/80 126/80 98 06/29/19 10:23 116/80 95 06/29/19 09:30 36.4 C L 84 84 18 175/79 H 175/79 H 99 06/29/19 09:28 175/79 H Laboratory Results Short CBC 06/29/19 06/29/19 Range/Units 10:10 10:10 WBC 11.07 H (4.8-10.8) K/uL Hgb 11.0 L (12.0-16.0) g/dL Hct 34.2 L (37-47) % Plt Count 364 (130-400) K/uL Total Protein 6.9 (6.4-8.2) gm/dl BMP 06/29/19 10:10 Sodium 140 Potassium 3.9 Chloride 107 Carbon Dioxide 27 BUN 17 Creatinine 1.14 Glucose 101 H Calcium 9.1 Cardiac Enzymes 06/29/19 Range/Units 10:10 Troponin I 0.083 H* (0-0.045) ng/ml Liver Function 06/29/19 Range/Units 10:10 Total Bilirubin 0.5 (0.2-1) mg/dl AST 17 (15-37) U/L ALT 21 (12-78) U/L Alkaline Phosphatase 77 (45-117) U/L Albumin 3.8 (3.4-5.0) gm/dl Urine 06/29/19 Range/Units 09:45 Urine Color Yellow Urine Appearance Clear (Clear) Urine pH 7.5 (4.5-7.5) Ur Specific [place] 1.011 (1.000-1.030) Urine Protein Negative (Negative) Urine Glucose (UA) Negative (Negative) Diagnostic Findings HEAD CT: IMPRESSION: 1. There is no hemorrhage, mass effect, or evidence of acute territorial ischemia by CT criteria noting a motion degraded examination. 2. Senescent and chronic findings as above. No significant change from today's earlier examination. Wrist Xray: IMPRESSION: 1. Soft tissue swelling with no radiographic evidence of fracture. 2. Osteopenia and arthritic change as above. This is similar to the 2016 examination. Forearm Xray: IMPRESSION: There is no radiographic evidence of right forearm fracture. Cspine xray: IMPRESSION: 1. There is no evidence of fracture or subluxation involving the cervical spine. 2. Osteopenia and spondylotic change as above. Pelvis Xray: IMPRESSION: 1. Osteopenia with no radiographic evidence of acute fracture involving the hips or pelvis. 2. Chronic and postoperative changes as above. CXR: IMPRESSION: Cardiomegaly with no acute cardiopulmonary abnormality. Medications Administered Discontinued Medications Lorazepam (Ativan) 0.25 mg in 0.5 mls @ 0.5 mls/min IV NOW STA Stop: 06/29/19 10:43 Last Admin: 06/29/19 10:56 Dose: 0.5 mls/min Documented by: [id number] Lorazepam (Ativan) 0.25 mg in 0.5 mls @ 0.5 mls/min IV NOW STA Stop: 06/29/19 11:12 Last Admin: 06/29/19 11:33 Dose: 0.5 mls/min Documented by: [id number] Lorazepam (Ativan) 0.25 mg in 0.5 mls @ 0.5 mls/min IV NOW STA Stop: 06/29/19 11:34 Last Admin: 06/29/19 11:38 Dose: 0.5 mls/min Documented by: [id number] ECG Rate (beats per minute): 97 Rhythm: sinus rhythm Findings: + PVC, + ST depression (Lateral) and + T-wave inversion (Lateral) Code Status & VTE Plan Code Status DNR VTE Prophylaxis Plan VTE Prophylaxis will be ordered: Yes Supervising Physician Co-Signing Physician Notes Attending addendum: Patient seen and examined care coordinated with Lovely Huerta PA-C Images and lab reviewed This is a 88-year-old female history of coronary artery disease, prior history of CVA, CKD on dual antiplatelet aspirin and Plavix Was found to be confused, altered mental status in the morning, Family was worried patient may have fallen last night causing injury/skin tear to her right arm, and managed to get up to bed Patient was unable to articulate, unable to follow commands which is off from her baseline In the ER patient was initially found to be hypertensive with systolic blood pressure elevated 179, Patient was very confused and agitated, was unable to follow command, was given low-dose Ativan in order to do CT head noncontrast Doing all the time of interview patient was found to be completely obtunded patient right upper and lower extremity, with rigid spastic S CT of the left arm and leg CT head noncontrast shows no acute issue, Physical exam General: Elderly female, obtunded, difficult to arouse, with occasional movement of right arm and leg HEENT, no increased sclera, pupil reactive to light Neck, no thyromegaly or carotid bruit noted Pulmonary/ Lungs :no wheeze or rales clear to auscultation Heart: No murmur or gallops, no lower extremity edema Abdomen: Soft, nondistended Extremity: Skin tear noted on right arm, some bruising noted on right leg no other open wounds noted Neuro difficult to assess, per family patient is this morning awake arousable, confused difficult to communicate(off from her baseline), patient was found to be more sedated after getting IV Ativan for CAT scan, priorly had been movement, increased muscle tone noted on the left upper and lower extremity ASSESSMENT PLAN: Altered mental status confusion/strokelike symptoms -Possible metabolic encephalopathy secondary to acute CVA, family noted to have sudden onset of change of mental status, unable to argue late unable to follow command, worsening weakness of left upper and lower extremity MRI of brain ordered CTA of brain could not be done as patient was very restless -Aspirin 300 mg per rectal ordered, unsafe poor p.o. intake, will need dysphagia screen, when awake PT OT speech evaluation request History of prior CVA With residual left-sided weakness Has been on aspirin and Plavix-per family patient has been taking medication as directed, family members supervise medication intake Presented with worsening/dense weakness on the left upper and lower extremity associated with altered mental status Concern for possible acute CVA Unable to order any p.o. meds secondary to severe dysphagiaaltered mental status Aspirin 300 mg per rectum Neurology consulted Continue aspirin and fall precaution PT OT speech eval as per stroke guidelines History of coronary artery disease Status post stent Has been on chronic antiplatelet with aspirin Plavix Present with lateral leads, with mild elevation of troponin Possible type II ME/demand ischemia in the setting of hypertensive urgency? Monitor serial troponin, resting echo ordered Patients over all prognosis remains poor CODE STATUS: Discussed with members, patient does not have a living will patient is DNR/DNI DVT prophylaxis, moderate to high risk, subcu heparin DISPOSITION, to be determined Patient lives at home family, at baseline patient was independent in ADLs using a wheeled walker Presents with dense left-sided hemiparesis altered mental status confusion/obtundation PT OT speech evaluation requested, social service consult for discharge planning Plan of care discussed with patient's family: Son, [id number], and daughter present at baseline agreeable with the plan (1) Altered mental status Altered mental status type: unspecified Qualified Code(s): R41.82 - Altered mental status, unspecified (2) Fall Encounter type: initial encounter Qualified Code(s): W19.XXXA - Unspecified fall, initial encounter
[2019-06-29] MEDS ORDERED: ONDANSETRON INJ 2 MG/ML 2 ML VIAL IV PRN (15:16)
[2019-06-29] MEDS ORDERED: PHARMACIST DISCHARGE MED REC CONSULT PRN (15:16)
[2019-06-29] MEDS ORDERED: SODIUM CHLORIDE 0.9% 1000ML 1,000 ML IV SCH (15:16)
--- NOTE | 2019-06-29 15:17 | Magnetic Resonance Report ---
MRI OF THE BRAIN WITHOUT IV CONTRAST CLINICAL HISTORY: Strokelike symptoms. COMPARISON STUDY: CT scans of the brain dated 06/29/2019. TECHNIQUE: MRI of the brain was performed utilizing various T1 and T2-weighted sequences in the axial , sagittal, and coronal planes. IV contrast was not administered for this examination. The examinatio n is degraded by motion artifact. FINDINGS: Brain parenchyma: There is moderate to advanced subcortical and periventricular microangiopathic dise ase. Foci of right frontal, right parietal, and right occipital and septal malacia are consistent wit h remote infarcts. There is an approximately 2 cm focus of restricted diffusion identified within the left temporal lobe (axial image #12) consistent with acute to subacute ischemia. No additional foci of acute ischemia are identified. There is no hemorrhage or mass effect. No extra-axial fluid collect ion is seen. The cerebellar tonsils are normal in configuration. Ventricles, sulci, and cisterns: Prominent secondary to involutional change. Pituitary and sella: Unremarkable. Intracranial vasculature: Normal flow voids are maintained at the skull base. Orbits: The bony orbits are grossly intact. Orbital contents are normal in appearance noting bilatera l ocular lens implants. Sinuses and mastoids: Clear. Calvarium: Unremarkable. Cervical cord: Partially visualized cervical spinal cord is normal in morphology and signal intensity . IMPRESSION: 1. There is an approximately 2 cm focus of restricted diffusion identified in the left temporal lobe consistent with acute to subacute ischemia. 2. No additional foci of acute ischemia are identified. 3. There is no hemorrhage or mass effect. 4. Senescent change and remote infarcts as above. Electronically signed by: Loki Villareal M.D. 06/29/2019 3:16 PM
[2019-06-29] MEDS: HEPARIN SOD 5,000 UNIT/0.5 ML VIAL SQ SCH ×2 (17:06→21:53)
--- NOTE | 2019-06-29 18:32 | Hospitalist Progress Note ---
Date of Service June 29, 2019 Subjective Patient found to be acutely agitated after the floor, went to get out of bed, Pulling at leads, IVs lines Family members, constantly trying to reassure patient to stay in bed Patient unable to verbalize any pain or discomfort, left hemineglect noted, with prominent left facial droop Discussed with neurology: Option for medication for agitation delirium post acute stroke Patient can be given as needed Haldol or Zyprexa If agitation does not resolved, we can try scheduled dose of Depakote 250 or 500 mg IV twice daily(patient is n.p.o. for severe aspiration risk) Transferred to medical floor, to limit stimulation, interruption Low boy, fall prevention bed Fall mattress on the side of bed One-to-one bedside sitter-to monitor patient closely for safety Family members: Son, [id number] and daughter present at bedside-update given Barb Pepe MD Results & Data Vital Signs (Past 12 Hours) Vital Signs Temp Pulse Pulse Resp BP BP Pulse Ox 06/29/19 16:08 36.6 C 102 H 29 H 105/70 97 06/29/19 13:56 88 20 119/76 96 06/29/19 12:02 84 22 135/96 96 06/29/19 10:45 85 23 98 06/29/19 10:30 87 84 26 H 126/80 126/80 98 06/29/19 10:23 116/80 95 06/29/19 09:30 36.4 C L 84 84 18 175/79 H 175/79 H 99 06/29/19 09:28 175/79 H
[2019-06-30] MEDS: HEPARIN SOD 5,000 UNIT/0.5 ML VIAL SQ SCH ×3 (06:24→21:19)
[2019-06-30 06:47] LABS: Basophils # (auto) 0.08 K/uL (0-0.2); Basophils % (auto) 0.7 %; Eosinophils # (auto) 0.17 K/uL (0-0.5); Eosinophils % (auto) 1.5 %; Hematocrit (blood only) 34.8 % (37-47); Hemoglobin 11.3 g/dL (12.0-16.0); Immature Granulocytes # (auto) 0.02 K/uL (0.00-0.02); Immature Granulocytes % (auto) 0.2 %; Lymphocytes # (auto) 2.68 K/uL (1.2-3.4); Lymphocytes % (auto) 24.4 %; Mean Corpuscular Hemoglobin 27.3 pg (25-34); Mean Corpuscular Hgb Conc 32.5 g/dL (32-36); Mean Corpuscular Volume 84.1 fL (80-100); Mean Platelet Volume 10.1 fL (7.4-10.4); Monocytes # (auto) 1.19 K/uL (0.11-0.59); Monocytes % (auto) 10.8 %; Neutrophils # (auto) 6.86 K/uL (1.4-6.5); Neutrophils % (auto) 62.4 %; Platelet Count 355 K/uL (130-400); RDW Coefficient of Variation 14.3 % (11.5-14.5); Red Blood Count 4.14 M/uL (4.2-5.4)
[2019-06-30 07:04] LABS: BUN Creatinine Ratio 17.7 (10-20); Calcium 9.3 mg/dl (8.5-10.1); Creatinine Clr Calc Pharmacy 26.2 ml/min; Est GFR (African American) 48.9; Est GFR (Non-African American) 42.2; Potassium 3.8 mmol/L (3.5-5.1)
[2019-06-30] MEDS: HALOPERIDOL LACTATE 5 MG/ML 1 ML VIAL IM PRN ×2 (07:54→19:54)
[2019-06-30] MEDS: ASPIRIN 300 MG SUPP PR SCH (08:23)
--- NOTE | 2019-06-30 10:49 | Hospitalist Progress Note ---
Date of Service June 30, 2019 Assessment & Plan (1) Delirium: Developed acute delirium/confusional states after CVA Remains confused, unable to follow command, very impulsive, trying to climb out of bed Metabolic encephalopathy in the setting of acute CVA/cerebral ischemia Patient may develop persistent cognitive deficit, post stroke Discussed with neurology PRN IM Haldol ordered We will continue with scheduled dose of IV Depakote to 250 mg twice daily-for acute confusional state Continue to monitor Fall and aspiration precaution ordered (2) Altered mental status: (3) Acute CVA (cerebrovascular accident): This is a 88-year-old female who has a significant PMH of prior CVA x2 with left-sided weakness, CAD, chronic systolic CHF, moderate COPD, HLD, hypothyroidism, CKD stage III, ALNOSO, dementia who presents to [facility] secondary to altered mental status, abnormal speech, fall MRI of brain: Shows diffusion restriction of 2 cm on left temporal lobe unable to obtain CTA head and neck - pt not cooperating Stroke protocol initiated-patient is not a candidate for TPA: Unknown time for onset of symptoms Patient was on ASA 81mg and Plavix 75mg Ordered for n.p.o. for severe dysphagia Presented with aphasia, L sided neglect, hyporeflexia, contracture Patient is continued with aspirin 300 mg per rectal daily Speech therapy consulted Appreciate input from PT, patient needed moderate assistance for transfer, carlo ins confused, rocking [id number], when sitting on chair trying to stand up, unable to follow any command will Need 2-3 physical therapy session to assess patient's rehab potential(if patient's mental status/confusion persist, not able to follow commands, may not be a rehab candidate) Neurology consulted, (4) Elevated troponin: Mild elevation of troponin 0 0.04 noted on admission, serial trend showed minimum elevation Unable to assess any anginal symptoms, secondary to patient's disorientation Patient is given prior rectal aspirin, strict n.p.o. secondary to severe dysphagia caused by acute CVA Echo ordered Given patient's presentation with acute CVA, significant neurological deficit, delirious and disorientation, conservative approach will be appropriate Plan of care discussed with family members present at bedside (5) CAD (coronary artery disease): Mild elevation of troponin noted lateral ST depression/T wave inversions In presented with hypertensive urgency, blood pressure later stabilized without any treatment Received only aspirin 300 mg per rectal so far hx of CAD with stent x 5 in past Patient was on ASA, plavix, BB, JENNY, imdur as outpt Everything kept on hold secondary to strict n.p.o. status Per rectal aspirin as outlined above Patient is transferred all of telemetry unit as telemetry leads were causing her more agitation Minimum benefit with continued telemetry monitoring and current scenario (6) Fall: fall precautions Patient remains very delirious, impulsive, trying to climb out of bed, with left hemineglect Ordered for fall precaution/low boy bed Required one-to-one supervision overnight, family present at bedside, has been constantly trying to provide support to have patient come down Patient will have bed alarm, chair alarm (7) Chronic systolic CHF (congestive heart failure): No evidence of volume overload Last echo 02/2016 revealed EF 30 to 34% Repeat echocardiogram ordered Was on metoprolol, Aldactone, Lasix, lisinopril as outpatient Currently n.p.o. and holding meds until able to assess swallowing status-by speech therapist (8) CKD (chronic kidney disease), stage III: Creatinine at baseline, (9) COPD (chronic obstructive pulmonary disease): No acute exacerbation Continue Advair, as needed nebs (10) Dyslipidemia: (11) DVT prophylaxis: Subcu heparin Disposition: To be determined, Patient was living at home, with family support, was independent in ADLs Presents with acute CVA leading to left hemineglect, left sided paresis assist with confusion and delirium Per PT note, patient unable to follow command, shows significant ambulatory dysfunction with functional instability on the left side, Will continue physical therapy assessment while in hospital Follow up: PCP Dr. Feliciano upon discharge CODE STATUS: DNR/DNI, after questioning with patient's son and daughter Subjective Patient slept for a few hours last night, remains confused, trying to climb out of bed, Family mention patient occasionally ordered word, "help/"get me out of here "/could tell family members name received Haldol IM around 7 this morning Patient continued to demonstrate left-sided hemineglect, with increased muscle tone on left side, mostly moving her right upper and lower extremity Unable to follow command Physical Exam Constitutional: WD/WN, vitals as above + altered mental status (Confused/disoriented) Disoriented, confused, trying to reach out/grab things with right hand, unable to follow command Eyes: + anicteric sclerae ENMT: Dry oral mucosa, Neck: trachea midline, no thyromegaly Respiratory: normal respiratory effort; no respiratory distress and no cough Auscultation: no wheezes Cardiovascular: RRR, no murmur, no edema Gastrointestinal (Abdomen): Inspection/Auscultation: normal bowel sounds Percussion/Palpation: abdomen soft; abdomen nontender Musculoskeletal: Extremities: + limited ROM of extremities (On left side) and + abnormal strength (On left side, increased muscle tone) Left-sided increased muscle tone/rigidity Spontaneous movement of right upper and lower extremity Skin: no rashes, warm and dry Neurologic: + focal motor deficit (Left sided paresis); + does not move all extremities (Left hemineglect, spasticity) Speech / Cognition: + abnormal speech (Unable to follow direction, or follow command, monitoring words intermittently noted to have normal articulation) Confused disoriented, left hemineglect, left-sided paresis noted Psychiatric: Disoriented/confused Results & Data Vital Signs (Past 12 Hours) Vital Signs Temp Pulse Resp BP Pulse Ox 06/30/19 07:25 36.6 C 61 18 153/82 H 98 (1) CAD (coronary artery disease) Coronary Disease-Associated Artery/Lesion type: [place] artery [place] vs. transplanted heart: [place] heart Associated angina: without angina Qualified Code(s): I25.10 - Atherosclerotic heart disease of [place] coronary artery without angina pectoris (2) Altered mental status Altered mental status type: unspecified Qualified Code(s): R41.82 - Altered mental status, unspecified (3) COPD (chronic obstructive pulmonary disease) COPD type: unspecified COPD Qualified Code(s): J44.9 - Chronic obstructive pulmonary disease, unspecified (4) Fall Encounter type: initial encounter Qualified Code(s): W19.XXXA - Unspecified fall, initial encounter
--- NOTE | 2019-06-30 11:13 | Neurology Consultation ---
Date of Consultation June 30, 2019 Assessment & Plan (1) Left acute arterial ischemic stroke, MCA (middle cerebral artery): Ms. 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 On examine patient has severe right sided neglect and significant receptive and expressive aphasia. She is on ASA and Plavix at home. Did not tolerate CTA due to agitation. Discussed with family at length. Stated she would not want to pursue surgery if carotid US or CTA showed severe carotid stenosis so CTA would not likely manager of change. Discussed telemetry and family stated they would not wish to use anticoagulation if paroxysmal Afib was found. I did review the patient's MRI findings with family and discussed her stroke at length. - Recommend to continue home ASA and Plavix - Recommend high intensity statin - Recommend starting Depakote 250 mg IV Q12 hours for her hyperactive delirium, can increase to 500 or 750 mg Q12 if needed. - TTE completed and shows reduced EF 35-30%. No cardiac thrombus or PFO. - PT/OT for discharge needs. Likely will need SNF - Recommend Normtension, SBP<140, DBP<90. Avoid Hypotension. - Haldol or Zyprex PRN for agitation. Avoid Benzo's due to parodoxial effect. (2) Delirium: History of Present Illness Attending Physician: Barb Pepe MD History of Present Illness An 88 year old woman with past medical history ischemic stroke x2 with resdiual left-sided weakness, CAD with multiple stents, chronic systolic CHF, COPD, HLD, hypothyroidism, CKD stage III, ALONSO, and dementia admitted for encephalopathy and speech difficulty. On admission MRI brain confirmed an acute left MCA ischemic stroke. Patient is on ASA and PLavix at home. NPO now and started on rectal ASA. Patient noted to be very agitated on admission and could not tolerate CTA or telemetry. Haldol was started PRN for agitation. Family at bedside. She has history of Right MCA stroke with intermittent left sided symptoms with history of report TIA per family. Family found her yesterday s/p fall with altered mentation. LKN Unknown. Follows with Dr. Broussard as outpatient. No known history of Afib or severe carotid disease per son. Allergies Allergy/AdvReac Type Severity Reaction Status Date / Time No Known Allergies Allergy Unverified 06/29/19 12:32 Home Medications Home Medications Medication Instructions Recorded Confirmed Type aspirin [Aspir-81] 81 mg PO DAILY 06/29/19 06/29/19 History cholecalciferol (vitamin D3) 2,000 unit PO DAILY 06/29/19 06/29/19 History [Vitamin D3] clopidogrel 75 mg PO DAILY 06/29/19 06/29/19 History coenzyme Q10 [CoQ-10] 100 mg PO DAILY 06/29/19 06/29/19 History fluticasone propion-salmeterol 2 puff INHALATION DAILY 06/29/19 06/29/19 History [Advair HFA] furosemide 20 mg PO SUTUWEFRSA 06/29/19 06/29/19 History furosemide 40 mg PO MOTH 06/29/19 06/29/19 History isosorbide mononitrate 30 mg PO DAILY 06/29/19 06/29/19 History levothyroxine 50 mcg PO DAILY 06/29/19 06/29/19 History lisinopril 2.5 mg PO DAILY 06/29/19 06/29/19 History metoprolol succinate 100 mg PO BID 06/29/19 06/29/19 History nitroglycerin [Nitrostat] 0.4 mg BUCCAL UD PRN 06/29/19 06/29/19 History pantoprazole 40 mg PO DAILY 06/29/19 06/29/19 History spironolactone 25 mg PO DAILY 06/29/19 06/29/19 History Patient History Medical History Dyslipidemia (Chronic) COPD (chronic obstructive pulmonary disease) (Chronic) Ankle fracture, left (Resolved) Osteoporosis (Chronic) CKD (chronic kidney disease), stage III (Chronic) Chronic systolic CHF (congestive heart failure) (Chronic) Carotid stenosis, non-symptomatic (Chronic) Ischemic cardiomyopathy (Chronic) "echo 08/2016 - EF 35-40%. There is a large sized apical, septal, anteroseptal, anterior, and lateral wall motion abnormality with hypokinesis to akinesis of the segments. Grade II diastolic dysfunction. Aortic valve sclerosis moderate, without significant aortic valvular stenosis. Moderate mitral annular calcification with moderate mitral regurgitation. Mild tricuspid regurgitation. Severe left atrial enlargement. The interatrial septum bows toward right atrium consistent with elevated left atrial pressure. " CVA (cerebral vascular accident) (Chronic) CAD (coronary artery disease) (Chronic) "06/2015 - anterior apical WI in the setting of right hip replacement 02/2016 - NSTEMI, complex coronary intervention including left main stenting intervention, LAD, and left circumflex with Impella LV augmentation device in place" Confusion Myocardial infarction Stroke Surgical History H/O dilation and curettage (Chronic) S/P tonsillectomy and adenoidectomy (Chronic) History of hip replacement (Chronic) "right" Family History Mother Myocardial infarction, Onset Age: 54 Son Myocardial infarction, Onset Age: 30 Social History Preferred Language: [place] 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 Ability: 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 Beliefs That Will Affect Care: Anabaptist Anabaptist Beliefs: Rastafari marital status: Current Living Situation: Family Current Living Situation Comment: grandson lives w/ her, other family close by Other Information That Helps Us Care for You: No Feels Safe at Home: Yes Safety Concerns: Feels Safe At This Time Smoking Status: Never smoker Do You Dip or Chew Tobacco: No ; Second Hand Exposure: No ; Hx Alcohol Use: No Hx Substance Use: No Physical Exam Physical Exam: EXAM: Constitutional: acutely ill appearing female, appears stated age Head and Face: normocephalic and atraumatic Eyes: normal lids, normal conjunctiva Neck: supple Respiratory: normal effort Cardiovascular: normal pulse Abdomen: non distended Skin: abrasion on right arm with bandage Psychiatric: aggitated and restless trying to get out of bed NEUROLOGIC EXAMINATION: Appearance: appears acutely ill Orientation: awake, disoriented Mental Status: encephalopathic Memory: STEFFANY Attention: decreased Knowledge: appropriate Language: Not following commands Speech: slurred, intermittent words "Bill" Cranial Nerves: CN 2 - does not blink to threat on the right side CN 3, 4, 6 - extra-ocular movements intact , no gaze preference CN 5 - facial sensation intact CN 7 - left facial droop (chronic) CN 8 - intact hearing CN 9, 10 - palate symmetric CN 11 - STEFFANY no following commands CN 12 - tongue midline Gait: deferred due to delirium Coordination: no tremor or myoclonic jerks Sensory: intact to noxious stimuli Muscle Tone: normal Muscle exam: Moving all 4 extremities against gravity Reflexes: + grasph reflex Results & Data Vital Signs (Past 12 Hours) Vital Signs Temp Pulse Resp BP Pulse Ox 06/30/19 07:25 36.6 C 61 18 153/82 H 98 Laboratory Results UA Negative Diagnostic Findings MRI Brain w/o on 06/29/2019: Moderate to advanced subcortical and periventricular microangiopathic disease. Foci of right frontal, right parietal, and right occipital and septal malacia are consistent with remote infarcts. There is an approximately 2 cm focus of restricted diffusion identified within the left temporal lobe (axial image #12) consistent with acute to subacute ischemia.
[2019-06-30] MEDS: VALPROATE SOD 250 MG in DEXTROSE 5% 50 ML IV SCH (13:06)
[2019-07-01] MEDS: VALPROATE SOD 250 MG in DEXTROSE 5% 50 ML IV SCH ×2 (00:44→13:20)
[2019-07-01] MEDS: HEPARIN SOD 5,000 UNIT/0.5 ML VIAL SQ SCH ×3 (05:26→21:27)
[2019-07-01 06:39] LABS: Estimated Average Glucose 120 mg/dl; Hemoglobin A1C 5.8 % (4.5-5.6)
[2019-07-01] MEDS: ASPIRIN 300 MG SUPP PR SCH (08:13)
[2019-07-01] MEDS: HALOPERIDOL LACTATE 5 MG/ML 1 ML VIAL IM PRN (08:13)
[2019-07-01] MEDS ORDERED: D5W AND LACTATED RINGERS 1,000 ML IV SCH (11:45)
[2019-07-01] MEDS ORDERED: NITROGLYCERIN SL 0.4 MG/TAB TAB SL PRN (14:12)
[2019-07-01] MEDS ORDERED: NON-FORMULARY MEDICATION (Coenzyme Q10 [Coq-10] 100 MG) PO SCH (14:15)
[2019-07-01] MEDS: LEVOTHYROXINE SODIUM 50 MCG TABLET PO SCH (18:30)
[2019-07-01] MEDS: PANTOprazole 40 MG TAB PO SCH (18:32)
[2019-07-01] MEDS: CLOPIDOGREL BISULFATE 75 MG TAB PO SCH (18:32)
[2019-07-01] MEDS: CHOLECALCIFEROL 1,000 UNITS TAB PO SCH (18:32)
[2019-07-01] MEDS: ATORVASTATIN 40 MG TAB PO SCH (18:32)
--- NOTE | 2019-07-01 19:49 | Hospitalist Progress Note ---
Date of Service July 01, 2019 Assessment & Plan (1) Delirium: Developed acute delirium/confusional states after CVA Remains confused, unable to follow command, very impulsive, trying to climb out of bed Metabolic encephalopathy in the setting of acute CVA/cerebral ischemia Patient may develop persistent cognitive deficit, post stroke Discussed with neurology PRN IM Haldol ordered We will continue with scheduled dose of IV Depakote to 250 mg twice daily-for acute confusional state Continue to monitor Fall and aspiration precaution ordered (2) Altered mental status: (3) Acute CVA (cerebrovascular accident): This is a 88-year-old female who has a significant PMH of prior CVA x2 with left-sided weakness, CAD, chronic systolic CHF, moderate COPD, HLD, hypothyroidism, CKD stage III, ALONSO, dementia who presents to [facility] secondary to altered mental status, abnormal speech, fall MRI of brain: Shows diffusion restriction of 2 cm on left temporal lobe unable to obtain CTA head and neck - pt not cooperating Stroke protocol initiated-patient is not a candidate for TPA: Unknown time for onset of symptoms Patient was on ASA 81mg and Plavix 75mg Ordered for n.p.o. for severe dysphagia Presented with aphasia, L sided neglect, hyporeflexia, contracture Patient is continued with aspirin 300 mg per rectal daily Speech therapy consulted Appreciate input from PT, patient needed moderate assistance for transfer, carlo ins confused, rocking [id number], when sitting on chair trying to stand up, unable to follow any command will Need 2-3 physical therapy session to assess patient's rehab potential(if patient's mental status/confusion persist, not able to follow commands, may not be a rehab candidate) Neurology consulted, (4) Elevated troponin: Mild elevation of troponin 0 0.04 noted on admission, serial trend showed minimum elevation Type II OK in the setting of demand ischemia: Acute CVA, hypertensive urgency on presentation Echo done this admission: Ejection fraction 25-30% There is anterior, septal, severe lateral wall hypokinesis Left atrium is severely dilated Echo on 02/24/2016: LV ejection fraction 35/39 moderately reduced There is a large sized apical, septal, anteroseptal, anterior, inferior, posterior and lateral wall motion abnormality with hypokinesis to akinesis of segments Compared to prior echocardiogram 3 years back, not much significant change appreciated Patient is resumed with her outpatient cardiac meds, aspirin Plavix high-dose statin We will hold imdur to allow permissive hypertension in the setting of acute CVA (5) CAD (coronary artery disease): Mild elevation of troponin noted lateral ST depression/T wave inversions In presented with hypertensive urgency, blood pressure later stabilized without any treatment Type II OK/demand ischemia, Echo shows no significant change compared to previous echo Imdur/beta-bhumi, JENNY inhibitor kept on hold in setting of acute CVA aspirin Plavix statin resumed IV (6) Fall: fall precautions Patient remains very delirious, impulsive, trying to climb out of bed, with left hemineglect Ordered for fall precaution/low boy bed Ordered Depakote 250 mg twice daily, PRN Haldol (7) Chronic systolic CHF (congestive heart failure): No evidence of volume overload Last echo 02/2016 revealed EF 30 to 34% Repeat echocardiogram : Shows 25-30% no significant change in last 3 years Was on metoprolol, Aldactone, Lasix, lisinopril as outpatient Will be resumed after few days post stroke (8) CKD (chronic kidney disease), stage III: Creatinine at baseline, (9) COPD (chronic obstructive pulmonary disease): No acute exacerbation Continue Advair, as needed nebs (10) Dyslipidemia: Patient started on high intensity statin for acute CVA (11) DVT prophylaxis: Subcu heparin Disposition: To be determined, Patient was living at home, with family support, was independent in ADLs Presents with acute CVA leading to left hemineglect, left sided paresis assist with confusion and delirium Per PT note, patient unable to follow command, shows significant ambulatory dysfunction with functional instability on the left side, Will continue physical therapy assessment while in hospital Follow up: PCP Dr. Feliciano upon discharge CODE STATUS: DNR/DNI, after discussing with patient's son and daughter Subjective Patient slept for a few hours last night, remains confused, trying to climb out of bed, Family mention patient occasionally ordered word, "help/"get me out of here "/could tell family members name received Haldol IM around 7 this morning Patient continued to demonstrate left-sided hemineglect, with increased muscle tone on left side, mostly moving her right upper and lower extremity Unable to follow command Physical Exam Constitutional: WD/WN, vitals as above + altered mental status (Confused/disoriented) Eyes: + anicteric sclerae Neck: trachea midline, no thyromegaly Respiratory: normal respiratory effort; no respiratory distress and no cough Auscultation: no wheezes Cardiovascular: RRR, no murmur, no edema Gastrointestinal (Abdomen): Inspection/Auscultation: normal bowel sounds Percussion/Palpation: abdomen soft; abdomen nontender Musculoskeletal: Extremities: + limited ROM of extremities (On left side) and + abnormal strength (On left side, increased muscle tone) Skin: no rashes, warm and dry Neurologic: + focal motor deficit (Left sided paresis); + does not move all extremities (Left hemineglect, spasticity) Speech / Cognition: + abnormal speech (Unable to follow direction, or follow command, monitoring words intermittently noted to have normal articulation) Results & Data Vital Signs (Past 12 Hours) Vital Signs Temp Pulse Resp BP Pulse Ox 07/01/19 14:35 36.5 C 61 20 146/59 H 94 07/01/19 10:30 96 H (1) Altered mental status Altered mental status type: unspecified Qualified Code(s): R41.82 - Altered mental status, unspecified (2) CAD (coronary artery disease) Coronary Disease-Associated Artery/Lesion type: [place] artery [place] vs. transplanted heart: [place] heart Associated angina: without angina Qualified Code(s): I25.10 - Atherosclerotic heart disease of [place] coronary artery without angina pectoris (3) Fall Encounter type: initial encounter Qualified Code(s): W19.XXXA - Unspecified fall, initial encounter (4) COPD (chronic obstructive pulmonary disease) COPD type: unspecified COPD Qualified Code(s): J44.9 - Chronic obstructive pulmonary disease, unspecified
[2019-07-01] MEDS: DIVALPROEX DELAY RELEASE 250 MG TABEC PO SCH (21:25)
[2019-07-02] MEDS: HEPARIN SOD 5,000 UNIT/0.5 ML VIAL SQ SCH ×3 (05:59→21:59)
[2019-07-02] MEDS: LEVOTHYROXINE SODIUM 50 MCG TABLET PO SCH (06:00)
[2019-07-02] MEDS: DIVALPROEX DELAY RELEASE 250 MG TABEC PO SCH ×2 (08:30→19:45)
[2019-07-02] MEDS: ASPIRIN 81 MG ECTAB PO SCH (08:31)
[2019-07-02] MEDS: CHOLECALCIFEROL 1,000 UNITS TAB PO SCH (08:31)
[2019-07-02] MEDS: ATORVASTATIN 40 MG TAB PO SCH (08:32)
[2019-07-02] MEDS: CLOPIDOGREL BISULFATE 75 MG TAB PO SCH (08:32)
[2019-07-02] MEDS: PANTOprazole 40 MG TAB PO SCH (08:33)
[2019-07-02] MEDS ORDERED: D5W AND NSS 1,000 ML IV SCH (16:00)
--- NOTE | 2019-07-02 19:44 | Hospitalist Progress Note ---
Date of Service July 02, 2019 Assessment & Plan (1) Delirium: Developed acute delirium/confusional states after CVA Remains confused, unable to follow command, very impulsive, trying to climb out of bed Metabolic encephalopathy in the setting of acute CVA/cerebral ischemia Patient may develop persistent cognitive deficit, post stroke Discussed with neurology PRN IM Haldol ordered We will continue with scheduled dose of IV Depakote to 250 mg twice daily-for acute confusional state Continue to monitor Fall and aspiration precaution ordered (2) Altered mental status: (3) Acute CVA (cerebrovascular accident): This is a 88-year-old female who has a significant PMH of prior CVA x2 with left-sided weakness, CAD, chronic systolic CHF, moderate COPD, HLD, hypothyroidism, CKD stage III, ALONSO, dementia who presents to [facility] secondary to altered mental status, abnormal speech, fall MRI of brain: Shows diffusion restriction of 2 cm on left temporal lobe unable to obtain CTA head and neck - pt not cooperating Stroke protocol initiated-patient is not a candidate for TPA: Unknown time for onset of symptoms Patient was on ASA 81mg and Plavix 75mg Ordered for n.p.o. for severe dysphagia Presented with aphasia, L sided neglect, hyporeflexia, contracture Patient is continued with aspirin 300 mg per rectal daily Speech therapy consulted Appreciate input from PT, patient needed moderate assistance for transfer, carlo ins confused, rocking [id number], when sitting on chair trying to stand up, unable to follow any command will Need 2-3 physical therapy session to assess patient's rehab potential(if patient's mental status/confusion persist, not able to follow commands, may not be a rehab candidate) Neurology consulted, (4) Elevated troponin: Mild elevation of troponin 0 0.04 noted on admission, serial trend showed minimum elevation Type II DC in the setting of demand ischemia: Acute CVA, hypertensive urgency on presentation Echo done this admission: Ejection fraction 25-30% There is anterior, septal, severe lateral wall hypokinesis Left atrium is severely dilated Echo on 02/24/2016: LV ejection fraction 35/39 moderately reduced There is a large sized apical, septal, anteroseptal, anterior, inferior, posterior and lateral wall motion abnormality with hypokinesis to akinesis of segments Compared to prior echocardiogram 3 years back, not much significant change appreciated Patient is resumed with her outpatient cardiac meds, aspirin Plavix high-dose statin We will hold imdur to allow permissive hypertension in the setting of acute CVA (5) CAD (coronary artery disease): Mild elevation of troponin noted lateral ST depression/T wave inversions In presented with hypertensive urgency, blood pressure later stabilized without any treatment Type II DC/demand ischemia, Echo shows no significant change compared to previous echo Imdur/beta-bhumi, JENNY inhibitor kept on hold in setting of acute CVA aspirin Plavix statin resumed IV (6) Fall: fall precautions Patient remains very delirious, impulsive, trying to climb out of bed, with left hemineglect Ordered for fall precaution/low boy bed Ordered Depakote 250 mg twice daily, PRN Haldol (7) Chronic systolic CHF (congestive heart failure): No evidence of volume overload Last echo 02/2016 revealed EF 30 to 34% Repeat echocardiogram : Shows 25-30% no significant change in last 3 years Was on metoprolol, Aldactone, Lasix, lisinopril as outpatient Will be resumed after few days post stroke (8) CKD (chronic kidney disease), stage III: Creatinine at baseline, (9) COPD (chronic obstructive pulmonary disease): No acute exacerbation Continue Advair, as needed nebs (10) Dyslipidemia: Patient started on high intensity statin for acute CVA (11) DVT prophylaxis: Subcu heparin Disposition: spoke with Pt's Son Hamlet Shen phone # [phone] ( son asked call him this no ) other other no included in contact # [phone] is does not work Son updated regarding pt's status ( family been with the pt all day today ) aware that there had not been much neurological improvement since admission with minimum improvement of cognitive status -rehab is not an option -can not follow commands for PT /OT , will get more agitated asking to participate , further decline in congition , worse out come possible pt's at present needs complete care ( was moderately independent in her ADL's after prior 2 strokes / family members helped with bathing , food and laundry) this time pt is complete care discharge planning will be challenging -as home with full family support / / care vs [facility] pt 's Son will talk with his other siblings and family members and continue to talk with case management and Hospitalist for best possible plan for their mother Follow up: PCP Dr. Feliciano upon discharge CODE STATUS: DNR/DNI, after discussing with patient's son and daughter Subjective pt is sleeping calmly did not had much agiation through out the day on PO Depakote BID noted to be hypertensive /tachycardic Pt's all antihypertensive meds were kept on hold since admission in a setting of Acute CVA for permissive HTN will resume all meds low dose IVF ordered as family is concerned for dehydration , pt drinking minimal fluid Physical Exam Constitutional: WD/WN, vitals as above + altered mental status (Confused/disoriented) Eyes: + anicteric sclerae Neck: trachea midline, no thyromegaly Respiratory: normal respiratory effort; no respiratory distress and no cough Auscultation: no wheezes Cardiovascular: RRR, no murmur, no edema Gastrointestinal (Abdomen): Inspection/Auscultation: normal bowel sounds Percussion/Palpation: abdomen soft; abdomen nontender Musculoskeletal: Extremities: + limited ROM of extremities (On left side) and + abnormal strength (On left side, increased muscle tone) Skin: no rashes, warm and dry Neurologic: + focal motor deficit (Left sided paresis); + does not move all extremities (Left hemineglect, spasticity) Speech / Cognition: + abnormal speech (Unable to follow direction, or follow command, monitoring words intermittently noted to have normal articulation) Results & Data Vital Signs (Past 12 Hours) Vital Signs Temp Pulse Resp BP Pulse Ox 07/02/19 15:22 36.7 C 126 H 20 175/64 H 95 (1) CAD (coronary artery disease) Associated angina: without angina Coronary Disease-Associated Artery/Lesion type: [place] artery [place] vs. transplanted heart: [place] heart Qualified Code(s): I25.10 - Atherosclerotic heart disease of [place] coronary artery without angina pectoris (2) Altered mental status Altered mental status type: unspecified Qualified Code(s): R41.82 - Altered mental status, unspecified (3) COPD (chronic obstructive pulmonary disease) COPD type: unspecified COPD Qualified Code(s): J44.9 - Chronic obstructive pulmonary disease, unspecified (4) Fall Encounter type: initial encounter Qualified Code(s): W19.XXXA - Unspecified fall, initial encounter : Altered mental status Qualifiers: Altered mental status type: unspecified Qualified Code(s): R41.82 - Altered mental status, unspecified Fall Qualifiers: Encounter type: initial encounter Qualified Code(s): W19.XXXA - Unspecified fall, initial encounter
[2019-07-02] MEDS: METOPROLOL SUCC 50MG EXT REL TAB PO SCH (19:45)
[2019-07-02] MEDS ORDERED: METOPROLOL TARTRATE 50 MG TAB PO ONE (21:00)
[2019-07-02] MEDS ORDERED: ISOSORBIDE MONO EXTENDED REL 30 MG TABCR PO ONE (21:00)
[2019-07-03] MEDS: HEPARIN SOD 5,000 UNIT/0.5 ML VIAL SQ SCH ×3 (05:29→22:34)
[2019-07-03] MEDS: LEVOTHYROXINE SODIUM 50 MCG TABLET PO SCH (05:31)
[2019-07-03 08:13] LABS: Basophils # (auto) 0.05 K/uL (0-0.2); Basophils % (auto) 0.5 %; Eosinophils # (auto) 0.24 K/uL (0-0.5); Eosinophils % (auto) 2.2 %; Hematocrit (blood only) 32.8 % (37-47); Hemoglobin 10.5 g/dL (12.0-16.0); Immature Granulocytes # (auto) 0.02 K/uL (0.00-0.02); Immature Granulocytes % (auto) 0.2 %; Lymphocytes # (auto) 2.53 K/uL (1.2-3.4); Lymphocytes % (auto) 23.6 %; Mean Corpuscular Hemoglobin 27.4 pg (25-34); Mean Corpuscular Volume 85.6 fL (80-100); Mean Platelet Volume 9.9 fL (7.4-10.4); Monocytes % (auto) 10.3 %; Neutrophils # (auto) 6.78 K/uL (1.4-6.5); Neutrophils % (auto) 63.2 %; Platelet Count 336 K/uL (130-400); RDW Coefficient of Variation 14.7 % (11.5-14.5); RDW Standard Deviation 46.5 fL (36.4-46.3); Red Blood Count 3.83 M/uL (4.2-5.4); White Blood Count 10.72 K/uL (4.8-10.8)
[2019-07-03 08:30] LABS: INR 1.1 (0.9-1.1); Partial Thromboplastin Ratio 1.1; Partial Thromboplastin Time 29.6 Seconds (21.0-31.0); Prothrombin Time 10.9 Seconds (9.0-12.0)
[2019-07-03 08:36] LABS: Albumin Level 3.2 gm/dl (3.4-5.0); BUN Creatinine Ratio 20.4 (10-20); Calcium 9.4 mg/dl (8.5-10.1); Creatinine Clr Calc Pharmacy 26.9 ml/min; Est GFR (African American) 50.4; Est GFR (Non-African American) 43.5; Magnesium 2.4 mg/dl (1.8-2.4)
[2019-07-03 08:47] LABS: Bilirubin,Total 0.6 mg/dl (0.2-1); Globulin 3.1 gm/dl (2.5-4.0); Phosphorus 2.9 mg/dl (2.5-4.9); Thyroid Stimulating Hormone 1.35 uIu/ml (0.300-4.500); Total Protein 6.3 gm/dl (6.4-8.2)
[2019-07-03] MEDS: PANTOprazole 40 MG TAB PO SCH ×2 (11:35→12:00)
[2019-07-03] MEDS: ATORVASTATIN 40 MG TAB PO SCH (11:35)
[2019-07-03] MEDS: CLOPIDOGREL BISULFATE 75 MG TAB PO SCH (11:35)
[2019-07-03] MEDS: CHOLECALCIFEROL 1,000 UNITS TAB PO SCH (11:35)
[2019-07-03] MEDS: ISOSORBIDE MONO EXTENDED REL 30 MG TABCR PO SCH (11:36)
[2019-07-03] MEDS: METOPROLOL SUCC 50MG EXT REL TAB PO SCH ×2 (11:36→12:00)
[2019-07-03] MEDS: ASPIRIN 81 MG ECTAB PO SCH ×2 (11:36→11:59)
[2019-07-03] MEDS: DIVALPROEX DELAY RELEASE 250 MG TABEC PO SCH ×2 (11:36→11:59)
[2019-07-03] MEDS: DEXTROSE 5% 1,000 ML IV SCH (11:37)
[2019-07-03] MEDS: METOPROLOL TARTRATE 25 MG TAB PO SCH ×3 (13:23→23:40)
--- NOTE | 2019-07-03 14:27 | Neurology Progress Note ---
Date of Service July 03, 2019 Assessment & Plan (1) Left acute arterial ischemic stroke, MCA (middle cerebral artery): . 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 Patient now appears to have hypoactive delirium and sleeping throughout the day. - Continue rectal ASA. If NG tube is placed would continue Plavix. - Hold Depakote or sedative medications such as Haldol - TTE completed and shows reduced EF 35-30%. No cardiac thrombus or PFO. - Recommend repeat CT brain non contrast - Recommend Normotension, SBP<140, DBP<90. Avoid Hypotension. Discuss with family at bedside. (2) Delirium: Subjective Patient was seen and examined. Family at bedside. Patient very somnolent and not wanting to waKE up. Physical Exam Physical Exam: Patient sleeping. Minimally arouses to sternal Rub. moving All 4 extremities to noxiouos stimuli. tongue is midline. Forced eye closure. No tremor or myoclonus. Left facial droop. Not following commands. Non verbal. Does not appear in distess. Breathing is non labored. Results & Data Vital Signs (Past 12 Hours) Vital Signs Temp Pulse Resp BP Pulse Ox 07/03/19 07:34 36.6 C 105 H 20 155/72 H 97
--- NOTE | 2019-07-03 16:10 | CT Scan Report ---
CT head/brain wo con CLINICAL HISTORY: 88 years-old Female presenting with hx of stroke, rule out any hemorrhagic changes. TECHNIQUE: Multidetector CT imaging of the head was performed without the use of intravenous contrast . IV contrast: None. One or more dose lowering techniques were used consistent with the principles of ALARA (as low as reasonably achievable), including automatic exposure control, mA or kV adjustment t o individual patient size, and/or use of iterative reconstruction. COMPARISON: CT and MR from 06/29/2019. CT DOSE (mGy.cm): The estimated cumulative dose is 788.63 mGycm. FINDINGS: [employer] topogram: Unremarkable. Proportional ventricular and sulcal prominence, likely age-related parenchymal volume loss. No hemorr andrew. Periventricular and subcortical white matter hypoattenuation, nonspecific but likely indicative of chronic small vessel ischemic change. Old infarct in the paramedian and inferior right frontal lo be. More limited old infarct in the right parietal lobe. Hypodensity in the region of the left tempor al lobe and left insula with associated sulcal effacement new from the prior CT and correlates with k nown acute infarct seen on MRI. No midline shift. No extra-axial fluid collection. Paranasal sinuses and mastoid air cells clear. Calvarium intact. Intracranial atherosclerosis noted. IMPRESSION: 1. Acute to subacute infarct in the left temporal lobe and left insula as seen on MRI. No hemorrhage . 2. Old infarcts in the right frontoparietal lobes. 3. Chronic small vessel ischemic change. Electronically signed by: Geoffrey Patton M.D. 07/03/2019 4:09 PM
[2019-07-03] MEDS ORDERED: FUROSEMIDE 20 MG in SYRINGE 0 ML IV ONE (17:05)
[2019-07-03] MEDS ORDERED: ASPIRIN 300 MG SUPP PR ONE (17:11)
--- NOTE | 2019-07-03 17:44 | Hospitalist Progress Note ---
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 Patient now appears to have hypoactive delirium and sleeping throughout the day. -admission MRI of brain: Shows diffusion restriction of 2 cm on left temporal lobe -Continue rectal ASA. -Hold Depakote or sedative medications such as Haldol -TTE completed and shows reduced EF 35-30%. No cardiac thrombus or PFO. -hospital course complicated by initial delirum and then more recently hypoactivity and poor appetite -repeat CT head on 07/03/19 did not show any hemorrhagic conversion Recommend repeat CT brain non contrast -start amlodipine and IV Lasix on 07/03/19 to try to target SBP<140, DBP<90 (4) Elevated troponin: -elevation of troponin to 0.4 on this admission (5) CAD (coronary artery disease): -as per evaluations by previous hospitalist Echo done this admission (Ejection fraction 25-30% There is anterior, septal, severe lateral wall hypokinesis. Left atrium is severely dilated) and that in comparison to Echo on 02/24/2016 (LV ejection fraction moderately reduced There is a large sized apical, septal, anteroseptal, anterior, inferior, posterior and lateral wall motion abnormality with hypokinesis to akinesis of segments), there did not seem to be appreciable changes and elevated troponins was attribute to demand ischemia in settting of acute stroke and hypertensive urgency on presentation (6) Fall: fall precautions (7) Chronic systolic CHF (congestive heart failure): -Last echo 02/2016 revealed EF 30 to 34% -Repeat echocardiogram : Shows 25-30% no significant change in last 3 years -Was on metoprolol succinate , Aldactone, Lasix, lisinopril as outpatient -metoprolol succinate is changed to short acting metoprolol succinate q6 hours so it can be crushed and given to the patient by mouth, diuretics as Lasix 20 mg IV daily and patient not likely able to take oral diuretics regularly at this time (8) CKD (chronic kidney disease), stage III: -Creatinine at baseline -on IV fluids because of glucose for calories and hydration (9) COPD (chronic obstructive pulmonary disease): -Continue Advair -prn nebulizers (10) Dyslipidemia: Patient started on high intensity statin for acute CVA on this admission however patient may not be active enough at this time to take statin (11) DVT prophylaxis: Subcu heparin CODE STATUS: DNR/DNI, Disposition: Discussed with patient family including son Nahun ([phone]) about high likelihood taht patient's mental baseline will not improve significantly and that without IV fluids, patient has high change of post-hospital complications such as dehydration. Patient's family interested in pallitative care consult Subjective Patient generally has eyes closed. Able to move upper right on her own. G enerally appears sedated and not interactive. Patient keeps her eyes closed which has been the pattern in recent days as per her family at bedside. Patient able to open the mouth and take minimal amounts of food. Patient does not appear to be in pain. Patient on IV fluids. Discussed with patient family including son Nahun ([phone]) about high likelihood taht patient's mental baseline will not improve significantly and that without IV fluids, patient has high change of post-hospital complications such as dehydration. Patient's family interested in pallitative care consult Physical Exam Constitutional: Patient generally has eyes closed. Able to move upper right on her own. Generally appears sedated and not interactive. Patient keeps her eyes closed which has been the pattern in recent days as per her family at bedside. Patient able to open the mouth and take minimal amounts of food. Patient does not appear to be in pain. Respiratory: normal respiratory effort Cardiovascular: Rate/Rhythm: + tachycardic Gastrointestinal (Abdomen): Inspection/Auscultation: normal bowel sounds Percussion/Palpation: abdomen soft Results & Data Vital Signs (Past 12 Hours) Vital Signs Temp Pulse Resp BP Pulse Ox 07/03/19 15:37 36.5 C 101 H 20 162/76 H 97 07/03/19 07:34 36.6 C 105 H 20 155/72 H 97 (1) Altered mental status Altered mental status type: unspecified Qualified Code(s): R41.82 - Altered mental status, unspecified (2) CAD (coronary artery disease) Coronary Disease-Associated Artery/Lesion type: [place] artery [place] vs. transplanted heart: [place] heart Associated angina: without angina Qualified Code(s): I25.10 - Atherosclerotic heart disease of [place] coronary artery wi thout angina pectoris (3) Fall Encounter type: initial encounter Qualified Code(s): W19.XXXA - Unspecified fall, initial encounter (4) COPD (chronic obstructive pulmonary disease) COPD type: unspecified COPD Qualified Code(s): J44.9 - Chronic obstructive pulmonary disease, unspecified
[2019-07-04] MEDS: DEXTROSE 5% 1,000 ML IV SCH (05:34)
[2019-07-04] MEDS: HEPARIN SOD 5,000 UNIT/0.5 ML VIAL SQ SCH ×3 (05:58→22:55)
[2019-07-04] MEDS: METOPROLOL TARTRATE 25 MG TAB PO SCH ×2 (06:18→12:35)
[2019-07-04 07:24] LABS: Basophils # (auto) 0.07 K/uL (0-0.2); Basophils % (auto) 0.7 %; Eosinophils # (auto) 0.73 K/uL (0-0.5); Eosinophils % (auto) 7.1 %; Hematocrit (blood only) 33.4 % (37-47); Hemoglobin 10.7 g/dL (12.0-16.0); Immature Granulocytes # (auto) 0.02 K/uL (0.00-0.02); Immature Granulocytes % (auto) 0.2 %; Lymphocytes # (auto) 2.26 K/uL (1.2-3.4); Lymphocytes % (auto) 21.9 %; Mean Corpuscular Hemoglobin 27.3 pg (25-34); Mean Corpuscular Volume 85.2 fL (80-100); Mean Platelet Volume 10.3 fL (7.4-10.4); Monocytes # (auto) 1.12 K/uL (0.11-0.59); Monocytes % (auto) 10.9 %; Neutrophils # (auto) 6.12 K/uL (1.4-6.5); Neutrophils % (auto) 59.2 %; Platelet Count 345 K/uL (130-400); RDW Coefficient of Variation 14.8 % (11.5-14.5); RDW Standard Deviation 45.9 fL (36.4-46.3); Red Blood Count 3.92 M/uL (4.2-5.4); White Blood Count 10.32 K/uL (4.8-10.8)
[2019-07-04 08:09] LABS: Albumin Level 3.2 gm/dl (3.4-5.0); BUN Creatinine Ratio 18.3 (10-20); Bilirubin,Total 0.6 mg/dl (0.2-1); Calcium 9.1 mg/dl (8.5-10.1); Creatinine Clr Calc Pharmacy 29.9 ml/min; Est GFR (African American) 57.2; Est GFR (Non-African American) 49.3; Globulin 3.2 gm/dl (2.5-4.0); Potassium 3.2 mmol/L (3.5-5.1); Total Protein 6.4 gm/dl (6.4-8.2)
[2019-07-04] MEDS: FUROSEMIDE 20 MG in SYRINGE 0 ML IV SCH (10:42)
[2019-07-04] MEDS: LEVOTHYROXINE SODIUM 25 MCG in SYRINGE 0 ML IV SCH (10:43)
[2019-07-04] MEDS ORDERED: POTASSIUM ACETATE 10 MEQ in 0.9 % SODIUM CHLORIDE 100 ML IV SCH (11:15)
[2019-07-04] MEDS: ATORVASTATIN 40 MG TAB PO SCH (11:27)
[2019-07-04] MEDS: ISOSORBIDE MONO EXTENDED REL 30 MG TABCR PO SCH (11:27)
[2019-07-04] MEDS: CHOLECALCIFEROL 1,000 UNITS TAB PO SCH (11:27)
[2019-07-04] MEDS: POTASSIUM CHLORIDE / WTR 10 MEQ/100 ML PLCT IV SCH ×3 (11:27→23:40)
[2019-07-04] MEDS: PANTOprazole 40 MG TAB PO SCH (11:27)
[2019-07-04] MEDS: CLOPIDOGREL BISULFATE 75 MG TAB PO SCH (12:37)
--- NOTE | 2019-07-04 13:27 | Palliative Care Consultation ---
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 Stroke protocol was initiated. Patient is on ASA and Plavix daily, had five stents placed over three years ago. MRI brain showed acute/subacute left MCA stroke. CTA head/neck unable to be obtained due to delirium/agitation. Unfortunately patient's delirium and agitated have caused her to receive some sedating medications. She has been lethargic and not opening eyes for a few days-- uncertain if this is from the stroke or medications. Family is hopeful that she will recover somewhat, but also understanding of the fact that she has already had multiple strokes and has other comorbidities. Palliative care is consulted to discuss goals of care. -Met with patient, Dr. Sla, primary RN, her son Hamlet Shen, and [id number] Erin. Patient had eyes open and did seem to be tracking. She did not follow commands or verbally respond. Son and DIL stepped out of room to speak with me. -Hamlet states that they do not want patient to have any heroic measures such as CPR, intubation, feeding tube or for her life to be prolonged with IVF if she becomes completed obtunded and/or not eating. She is a DNR/DNI. -Family is hopeful that patient might at least be able to wake up enough to converse and continue to eat and consistently take medications. However, they are realistic and know that she will not likely get back to her original baseline, which was pretty functional. She was able to ambulate, feed self, etc. -For now, continue supportive care. Wait and see if she does improve after medications out of her system. Continue to give medications as able to tolerate. Family is concerned about continuing the Plavix and metoprolol. -Plan for discharge will be SNF, skilled initially and possible transition to hospice care. -POLST form would be helpful prior to discharge. (2) Left acute arterial ischemic stroke, MCA (middle cerebral artery): (3) Delirium: (4) Altered mental status: Altered mental status type: unspecified Qualified Code(s): R41.82 - Altered mental status, unspecified Supervising Physician Co-Signing Physician Notes Chart reviewed, patient seen and examined-patient's son and [id number] at bedside. Family reports patient was awake with eyes open following family members around the room. Patient did not attempt to speak or follow simple commands. Family reports patient has been able to take some fluids via tooth that and did have some pudding and ice cream. Family is hopeful that patient can improved to the point where she can participate in rehab. PE: Patient unresponsive to voice or touch, appears comfortable HEENT: Dry mucous membranes Respirations: Unlabored CV: Slightly tachycardic Abdomen: Not distended Extremities: Thin and cachectic Neuro: Patient unresponsive to voice or touch during exam Agree with above note, assessment and plan as per LAYLA Clark-will continue to follow and assist family with medical decision making. Patient son reports that patient on numerous occasions in the past as stated that she would not want any heroic measures, be kept alive on machines or have a feeding tube. History of Present Illness Reason for Consultation: Goals of care Requesting Physician: Dr. 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 Stroke protocol was initiated. Patient is on ASA and Plavix daily, had five stents placed over three years ago. MRI brain showed acute/subac destiny left MCA stroke. CTA head/neck unable to be obtained due to delirium/agitation. Unfortunately patient's delirium and agitated have caused her to receive some sedating medications. She has been lethargic and not opening eyes for a few days-- uncertain if this is from the stroke or medications. Family is hopeful that she will recover somewhat, but also understanding of the fact that she has already had multiple strokes and has other comorbidities. Palliative care is consulted to discuss goals of care. Thank you kindly for this consult. Palliative care team will follow as needed. Allergies Allergy/AdvReac Type Severity Reaction Status Date / Time No Known Allergies Allergy Unverified 06/29/19 12:32 Home Medications Home Medications Medication Instructions Recorded Confirmed Type aspirin [Aspir-81] 81 mg PO DAILY 06/29/19 06/29/19 History cholecalciferol (vitamin D3) 2,000 unit PO DAILY 06/29/19 06/29/19 History [Vitamin D3] clopidogrel 75 mg PO DAILY 06/29/19 06/29/19 History coenzyme Q10 [CoQ-10] 100 mg PO DAILY 06/29/19 06/29/19 History fluticasone propion-salmeterol 2 puff INHALATION DAILY 06/29/19 06/29/19 History [Advair HFA] furosemide 20 mg PO SUTUWEFRSA 06/29/19 06/29/19 History furosemide 40 mg PO MOTH 06/29/19 06/29/19 History isosorbide mononitrate 30 mg PO DAILY 06/29/19 06/29/19 History levothyroxine 50 mcg PO DAILY 06/29/19 06/29/19 History lisinopril 2.5 mg PO DAILY 06/29/19 06/29/19 History metoprolol succinate 100 mg PO BID 06/29/19 06/29/19 History nitroglycerin [Nitrostat] 0.4 mg BUCCAL UD PRN 06/29/19 06/29/19 History pantoprazole 40 mg PO DAILY 06/29/19 06/29/19 History spironolactone 25 mg PO DAILY 06/29/19 06/29/19 History Patient History Medical History Dyslipidemia (Chronic) COPD (chronic obstructive pulmonary disease) (Chronic) Ankle fracture, left (Resolved) Osteoporosis (Chronic) CKD (chronic kidney disease), stage III (Chronic) Chronic systolic CHF (congestive heart failure) (Chronic) Carotid stenosis, non-symptomatic (Chronic) Ischemic cardiomyopathy (Chronic) "echo 08/2016 - EF 35-40%. There is a large sized apical, septal, anteroseptal, anterior, and lateral wall motion abnormality with hypokinesis to akinesis of the segments. Grade II diastolic dysfunction. Aortic valve sclerosis moderate, without significant aortic valvular stenosis. Moderate mitral annular calcification with moderate mitral regurgitation. Mild tricuspid regurgitation. Severe left atrial enlargement. The interatrial septum bows toward right atrium consistent with elevated left atrial pressure. " CVA (cerebral vascular accident) (Chronic) CAD (coronary artery disease) (Chronic) "06/2015 - anterior apical WA in the setting of right hip replacement 02/2016 - NSTEMI, complex coronary intervention including left main stenting intervention, LAD, and left circumflex with Impella LV augmentation device in place" Confusion Myocardial infarction Stroke Surgical History H/O dilation and curettage (Chronic) S/P tonsillectomy and adenoidectomy (Chronic) History of hip replacement (Chronic) "right" Family History Mother Myocardial infarction, Onset Age: 54 Son Myocardial infarction, Onset Age: 30 Social History Preferred Language: Japanese 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 Ability: Unable Operations Professional Required: No Beliefs That Will Affect Care: Congregational Congregational Beliefs: Baptism marital status: Current Living Situation: Family Current Living Situation Comment: grandson lives w/ her, other family close by Other Information That Helps Us Care for You: No Feels Safe at Home: Yes Safety Concerns: Feels Safe At This Time Smoking Status: Never smoker Do You Dip or Chew Tobacco: No ; Second Hand Exposure: No ; Hx Alcohol Use: No Hx Substance Use: No Review of Systems Review of Systems: Unobtainable due to cognitive status Physical Exam Constitutional: + thin; no acute distress ENMT: external ear and nose normal, oropharynx normal Neck: normal visual inspection Respiratory: normal respiratory effort; no labored breathing Cardiovascular: Rate/Rhythm: regular rate and regular rhythm Extremities: no edema Neurologic: moves all extremities (does not follow commands), awake and + confused Results & Data Vital Signs (Past 12 Hours) Vital Signs Temp Pulse Resp BP Pulse Ox 07/04/19 07:48 36.7 C 95 H 16 131/59 L 97 PG Care Time/CCT Total # of Minutes Spent Total Time Spent with Patient: Total time spent is greater than 50% in coordination of care (as documented) at patient's floor/unit and/or counseling patient: Prolonged Care Time Prolonged Care Time: Yes Total Prolonged Care Time: 30 Time Spent Midlevel 70 minutes with >50% of the time spent at bedside with patient and family discussing condition, GOC, and EOL issues. Attending Spent 30 minutes in addition to this 70 minutes spent by LAYLA Clark for a total of 100 minutes with greater than 50% of the time spent at bedside discussing patient's current condition, goals of care and plan of care. Critical Care Time Prolonged Care Time Prolonged Care Time: Yes Total Prolonged Care Time: 30 100
--- NOTE | 2019-07-04 15:41 | Neurology Progress Note ---
Date of Service July 04, 2019 Assessment & Plan (1) Left acute arterial ischemic stroke, MCA (middle cerebral artery): 1. continue aspirin until able to tolerate oral plavix - currently on heparin 2. continue to hold depakote and haldol for now 3. oral feedings as tolerated 4. PT/OT to assess once able to participate for placement recs 5. TTE- EF 35-40% EF 6. normal tensive SBP <140 DBP <90 avoid hypotension 7. palliative medicine for further recommendations for care. 8. will order EEG further recommendation to follow Supervising Physician Co-Signing Physician Notes Patient was seen and examined. PAtient asleep. No family at bedside. Does not arouse to sternal rubs. Withdrawls to noxious stimuli. Forced eye close. Non verbal. Not following commands. An 88 year old woman with acute left MCA ischemic stroke with history of prior stroke on ASA. Repeat CT head shows evolving left temporal infarct. She remains stuporous. Prognosis guarded. - Recommend getting routine EEG Subjective Kelly Coburn is an 88 year old woman with PMH- ischemic stroke x2 with residual left-sided weakness, CAD with multiple stents, chronic systolic CHF, COPD, HLD, hypothyroidism, CKD stage III, ALONSO, and dementia admitted for encephalopathy and speech difficulty. MRI brain confirmed an acute left MCA ischemic stroke. She is on ASA and PLavix at home. On admission she was started on haldol for agitation which made her more somnolent. Family at bedside and states she had 4 hours of alertness and she had an oral intake of a cup of ice cream. She also had about an hour of alertness last night. They are hopeful she will be able to follow directions and go to SNF rehab. Physical Exam Physical Exam: Gen: sleeping normal respiratory effort CV RRR moving extremities spontaneously left LE Results & Data Vital Signs (Past 12 Hours) Vital Signs Temp Pulse Resp BP BP Pulse Ox 07/04/19 12:00 125 H 134/80 07/04/19 07:48 36.7 C 95 H 16 131/59 L 97 Laboratory Results Abnormal lab results 07/03/19 07/03/19 07/04/19 Range/Units 16:45 20:28 06:30 RBC 3.92 L (4.2-5.4) M/uL Hgb 10.7 L (12.0-16.0) g/dL Hct 33.4 L (37-47) % RDW Coeff of Zunilda 14.8 H (11.5-14.5) % Esmeralda # (Auto) 1.12 H (0.11-0.59) K/uL Eos # (Auto) 0.73 H (0-0.5) K/uL Sodium (136-145) mmol/L Potassium (3.5-5.1) mmol/L Chloride (98-107) mmol/L BUN (7-18) mg/dl Glucose (70-99) mg/dl POC Glucose 125 H 109 H (70-99) Albumin (3.4-5.0) gm/dl 07/04/19 07/04/19 07/04/19 Range/Units 06:30 08:02 12:07 RBC (4.2-5.4) M/uL Hgb (12.0-16.0) g/dL Hct (37-47) % RDW Coeff of Zunilda (11.5-14.5) % Esmeralda # (Auto) (0.11-0.59) K/uL Eos # (Auto) (0-0.5) K/uL Sodium 146 H (136-145) mmol/L Potassium 3.2 L D (3.5-5.1) mmol/L Chloride 111 H (98-107) mmol/L BUN 19 H (7-18) mg/dl Glucose 105 H (70-99) mg/dl POC Glucose 117 H 120 H (70-99) Albumin 3.2 L (3.4-5.0) gm/dl Diagnostic Findings no new imaging
--- NOTE | 2019-07-04 16:56 | Hospitalist Progress Note ---
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 Patient now appears to have hypoactive delirium and sleeping throughout the day. -admission MRI of brain: Shows diffusion restriction of 2 cm on left temporal lobe -Continue rectal ASA. -Hold Depakote or sedative medications such as Haldol -TTE completed and shows reduced EF 35-30%. No cardiac thrombus or PFO. -hospital course complicated by initial delirum and then more recently hypoactivity and poor appetite -repeat CT head on 07/03/19 did not show any hemorrhagic conversion -have ordered give enalprilat IV q12 hours and IV Lasix 20 mg daily for now to try to target SBP<140, DBP<90 given difficulties with oral medications (4) Elevated troponin: -elevation of troponin to 0.4 on this admission (5) CAD (coronary artery disease): -as per patient's family patient's had stents placed 5 years ago and had been consistently on aspirin and plavix -as per evaluations by previous hospitalist Echo done this admission (Ejection fraction 25-30% There is anterior, septal, severe lateral wall hypokinesis. Left atrium is severely dilated) and that in comparison to Echo on 02/24/2016 (LV ejection fraction moderately reduced There is a large sized apical, septal, anteroseptal, anterior, inferior, posterior and lateral wall motion abnormality with hypokinesis to akinesis of segments), there did not seem to be appreciable changes and elevated troponins was attribute to demand ischemia in setting of acute stroke and hypertensive urgency on presentation -currently on rectal aspirin -patient may be resumed on plavix 75 mg but patient's poor oral intake may prevent this medication from being administered (6) Fall: fall precautions (7) Chronic systolic CHF (congestive heart failure): -Last echo 02/2016 revealed EF 30 to 34% -Repeat echocardiogram : Shows 25-30% no significant change in last 3 years -Was on metoprolol succinate , Aldactone, Lasix, lisinopril as outpatient prior to this admission -diuretics as Lasix 20 mg IV daily and patient not likely able to take oral diuretics regularly -metoprolol succinate was changed to short acting metoprolol succinate q6 hours on 07/04/18 so it can be crushed and given to the patient by mouth however patient has not been able to demonstrate that she can take orals regularly and oral metoprolol is being switched to 5 mg IV every 6 hours (8) CKD (chronic kidney disease), stage III: -Creatinine at baseline -on low dose 50 cc/hr D5 water because of glucose for calories and hydration (9) COPD (chronic obstructive pulmonary disease): -Continue Advair -prn nebulizers (10) Dyslipidemia: Patient started on high intensity statin for acute CVA on this admission however patient may not be active enough at this time to take statin (11) DVT prophylaxis: Subcu heparin CODE STATUS: DNR/DNI Palliative care consult was asked to see the patient as overall prognosis seems to be be poor Subjective seen and examined at the bedside with patient's family earlier today and patient able to open her eyes for short period of time. she is not verbal and often goes back to sleep or perhaps is awake but with eyes closed. no apparent distress. breathing on room air. patient continues to have low oral intake Physical Exam Constitutional: + altered mental status Neck: normal visual inspection Respiratory: normal respiratory effort Cardiovascular: Rate/Rhythm: regular rate and regular rhythm Gastrointestinal (Abdomen): Inspection/Auscultation: normal bowel sounds Percussion/Palpation: abdomen soft Neurologic: seen and examined at the bedside with patient's family earlier today and patient able to open her eyes for short period of time. she is not verbal and often goes back to sleep or perhaps is awake but with eyes closed. no apparent distress, moves upper extremity at times Results & Data Vital Signs (Past 12 Hours) Vital Signs Temp Pulse Resp BP BP Pulse Ox 07/04/19 15:15 36.6 C 100 H 19 170/74 H 97 07/04/19 12:00 125 H 134/80 07/04/19 07:48 36.7 C 95 H 16 131/59 L 97 (1) CAD (coronary artery disease) Associated angina: without angina Coronary Disease-Associated Artery/Lesion type: [place] artery [place] vs. transplanted heart: [place] heart Qualified Code(s): I25.10 - Atherosclerotic heart disease of [place] coronary artery without angina pectoris (2) Altered mental status Altered mental status type: unspecified Qualified Code(s): R41.82 - Altered mental status, unspecified (3) COPD (chronic obstructive pulmonary disease) COPD type: unspecified COPD Qualified Code(s): J44.9 - Chronic obstructive pulmonary disease, unspecified (4) Fall Encounter type: initial encounter Qualified Code(s): W19.XXXA - Unspecified fall, initial encounter
[2019-07-04] MEDS ORDERED: METOPROLOL TARTRATE 1 MG/ML VIAL IV STA (17:08)
[2019-07-04] MEDS: ENALAPRILAT 1.25 MG in DEXTROSE 5% 25 ML IV SCH (17:25)
[2019-07-04] MEDS ORDERED: POTASSIUM CHLORIDE 10 MEQ TABCR PO STA (19:50)
[2019-07-04] MEDS ORDERED: POTASSIUM CHLORIDE 10 MEQ TABCR PO SCH (21:30)
[2019-07-04 22:21] LABS: BUN Creatinine Ratio 17.1 (10-20); Creatinine Clr Calc Pharmacy 26.5 ml/min; Est GFR (African American) 49.4; Est GFR (Non-African American) 42.6; Magnesium 2.3 mg/dl (1.8-2.4); Potassium 3.4 mmol/L (3.5-5.1)
--- NOTE | 2019-07-04 22:42 | CT Scan Report ---
CT head/brain wo con CLINICAL HISTORY: Acute change in mental status COMPARISON STUDY: 07/03/2019 TECHNIQUE: Axial CT of the brain is performed from the vertex to the skull base. IV contrast was not administered for this examination. A dose lowering technique was utilized adhering to the principles of ALARA. CT DOSE: 601.98 mGy.cm FINDINGS: No intra or extra-axial mass lesions are visualized. There is no CT evidence of acute cortical infarc tion. There is no evidence of midline shift. There is no acute hemorrhage. No calvarial fractures ar e visualized. There are patchy white matter hypodensities likely on a small vessel basis. There is basal ganglial m ineralization. There are old infarcts involving the right frontal lobe, right parietal vertex, and ri ght superior occipital lobe. There is loss of adames-white differentiation within the left temporal lob e and left parietal lobe. This appears more extensive than on the prior MRI and CT scan. This suggest s extension of the patient's known infarct. There is no evidence of pathologic ventricular dilatation. 1. Interval extension of a subacute left temporal and parietal lobe infarct. No evidence of acute hem orrhage 2. Old right frontal and right parietal and right occipital lobe infarcts IMPRESSION: No acute intracranial findings Electronically signed by: Jacob Doshi M.D. 07/04/2019 10:40 PM
[2019-07-04] MEDS: METOPROLOL TARTRATE 1 MG/ML VIAL IV SCH (23:46)
[2019-07-05] MEDS: POTASSIUM CHLORIDE / WTR 10 MEQ/100 ML PLCT IV SCH ×5 (01:13→06:11)
[2019-07-05] MEDS: DEXTROSE 5% 1,000 ML IV SCH (01:58)
[2019-07-05 02:03] LABS: Appearance Urine Cloudy (Clear); Bacteria Urine Automated 4+ (Negative); Bilirubin Urine Negative (Negative); Blood Urine 2+ (Negative); Color Urine Dark Yellow; Glucose Urine UA Negative (Negative); Ketones Urine Negative (Negative); Leukocyte Esterase Urine 1+ (Negative); Nitrite Urine Negative (Negative); Protein Urine 1+ (Negative); Urobilinogen Urine Negative (Negative); WBC Urine Automated >30 /hpf (0-5)
--- NOTE | 2019-07-05 02:44 | Hospitalist Progress Note ---
Date of Service July 05, 2019 Subjective Made aware by RN of worsening lethargy. CT head : 1. Interval extension of a subacute left temporal and parietal lobe infarct. No evidence of acute hemorrhage 2. Old right frontal and right parietal and right occipital lobe infarcts UA WBC est positive AP Worsening encephalopathy hx recent CVA ? Complicated UTI, patient not septic Follow urine cultures, IV Ceftriaxone for now Will relay to AM provider. Results & Data Vital Signs (Past 12 Hours) Vital Signs Temp Pulse Pulse Resp BP BP Pulse Ox 07/05/19 01:01 108 H 07/04/19 23:46 106 H 136/64 07/04/19 23:20 36.3 C L 68 16 110/64 92 07/04/19 20:16 36.4 C L 110 H 16 118/63 97 07/04/19 19:57 116 H 147/73 H 07/04/19 15:15 36.6 C 100 H 19 170/74 H 97
[2019-07-05] MEDS ORDERED: cefTRIAXone SODIUM 1,000 MG in DEXTROSE 5% 50 ML IV SCH (04:00)
[2019-07-05] MEDS: ENALAPRILAT 1.25 MG in DEXTROSE 5% 25 ML IV SCH (05:06)
[2019-07-05] MEDS: HEPARIN SOD 5,000 UNIT/0.5 ML VIAL SQ SCH (05:09)
[2019-07-05] MEDS: METOPROLOL TARTRATE 1 MG/ML VIAL IV SCH (05:09)
[2019-07-05 07:12] VITALS: TEMP 98.1
--- NOTE | 2019-07-05 07:25 | Electroencephalogram ---
EEG Procedure Note Date of Service July 05, 2019 Start / End Times Start Time: 06:13 End Time: 06:[address] Regis Flowers History An 88 year old woman with altered mentation s/p a left MCA stroke. EEG performed for evaluation of epileptiform activity. Home Medication List Home Medications Medication Instructions Recorded Confirmed Type aspirin [Aspir-81] 81 mg PO DAILY 06/29/19 06/29/19 History cholecalciferol (vitamin D3) 2,000 unit PO DAILY 06/29/19 06/29/19 History [Vitamin D3] clopidogrel 75 mg PO DAILY 06/29/19 06/29/19 History coenzyme Q10 [CoQ-10] 100 mg PO DAILY 06/29/19 06/29/19 History fluticasone propion-salmeterol 2 puff INHALATION DAILY 06/29/19 06/29/19 History [Advair HFA] furosemide 20 mg PO SUTUWEFRSA 06/29/19 06/29/19 History furosemide 40 mg PO MOTH 06/29/19 06/29/19 History isosorbide mononitrate 30 mg PO DAILY 06/29/19 06/29/19 History levothyroxine 50 mcg PO DAILY 06/29/19 06/29/19 History lisinopril 2.5 mg PO DAILY 06/29/19 06/29/19 History metoprolol succinate 100 mg PO BID 06/29/19 06/29/19 History nitroglycerin [Nitrostat] 0.4 mg BUCCAL UD PRN 06/29/19 06/29/19 History pantoprazole 40 mg PO DAILY 06/29/19 06/29/19 History spironolactone 25 mg PO DAILY 06/29/19 06/29/19 History Inpatient Medication List Atorvastatin Calcium (Lipitor) 40 mg PO QAM [facility] Stop: 07/31/19 14:29 Last Admin: 07/04/19 11:27 Dose: Not Given Documented by: [id number] Admin: 07/03/19 11:35 Dose: 40 mg Documented by: [id number] Admin: 07/02/19 08:32 Dose: 40 mg Documented by: [id number] Admin: 07/01/19 18:32 Dose: 40 mg Documented by: [id number] Clopidogrel Bisulfate (Plavix) 75 mg PO DAILY [facility] Stop: 07/31/19 14:29 Last Admin: 07/04/19 12:37 Dose: 75 mg Documented by: [id number] Admin: 07/03/19 11:35 Dose: 75 mg Documented by: [id number] Admin: 07/02/19 08:32 Dose: 75 mg Documented by: [id number] Admin: 07/01/19 18:32 Dose: 75 mg Documented by: [id number] Heparin Sodium (Porcine) (Heparin Sodium (Porcine)) 5,000 units SQ Q8 [facility] Stop: 07/29/19 15:59 Last Admin: 07/05/19 05:09 Dose: 5,000 units Documented by: [id number] Cosigned by: [id number] Admin: 07/04/19 22:55 Dose: 5,000 units Documented by: [id number] Cosigned by: [id number] Admin: 07/04/19 14:33 Dose: 5,000 units Documented by: [id number] Cosigned by: [id number] Admin: 07/04/19 05:58 Dose: 5,000 units Documented by: [id number] Cosigned by: [id number] Admin: 07/03/19 22:34 Dose: 5,000 units Documented by: [id number] Cosigned by: [id number] Admin: 07/03/19 13:23 Dose: 5,000 units Documented by: [id number] Cosigned by: [id number] Admin: 07/03/19 05:29 Dose: 5,000 units Documented by: [id number] Cosigned by: [id number] Admin: 07/02/19 21:59 Dose: 5,000 units Documented by: [id number] Cosigned by: [id number] Admin: 07/02/19 14:44 Dose: 5,000 units Documented by: [id number] Cosigned by: [id number] Admin: 07/02/19 05:59 Dose: 5,000 units Documented by: [id number] Cosigned by: [id number] Admin: 07/01/19 21:27 Dose: 5,000 units Documented by: [id number] Cosigned by: [id number] Admin: 07/01/19 13:24 Dose: 5,000 units Documented by: [id number] Cosigned by: [id number] Admin: 07/01/19 05:26 Dose: 5,000 units Documented by: [id number] Cosigned by: [id number] Admin: 06/30/19 21:19 Dose: 5,000 units Documented by: [id number] Cosigned by: [id number] Admin: 06/30/19 13:07 Dose: 5,000 units Documented by: [id number] Cosigned by: [id number] Admin: 06/30/19 06:24 Dose: 5,000 units Documented by: [id number] Cosigned by: [id number] Admin: 06/29/19 21:53 Dose: 5,000 units Documented by: [id number] Cosigned by: [id number] Admin: 06/29/19 17:06 Dose: 5,000 units Documented by: [id number] Cosigned by: [id number] Dextrose (D5w) 1,000 mls @ 50 mls/hr IV .Q20H [facility] Stop: 08/02/19 09:59 Last Admin: 07/05/19 01:58 Dose: 50 mls/hr Documented by: [id number] Infusion: 07/05/19 01:34 Dose: 50 mls/hr Documented by: [id number] Admin: 07/04/19 05:34 Dose: 50 mls/hr Documented by: [id number] Infusion: 07/04/19 05:34 Dose: 50 mls/hr Documented by: [id number] Admin: 07/03/19 11:37 Dose: 50 mls/hr Documented by: [id number] Furosemide 20 mg/ Syringe 2 mls @ 4 mls/min IV DAILY [facility] Stop: 08/03/19 08:59 Last Admin: 07/04/19 10:42 Dose: 4 mls/min Documented by: [id number] Levothyroxine Sodium 25 mcg/ (Syringe) 1.25 mls @ 2 mls/min IV DAILY@0900 [facility] Stop: 08/03/19 08:59 Last Admin: 07/04/19 10:43 Dose: 2 mls/min Documented by: [id number] Enalaprilat 1.25 mg/ Dextrose 26 mls @ 100 mls/hr IV Q12H [facility] Stop: 08/03/19 16:59 Last Infusion: 07/05/19 05:33 Dose: 0 mls/hr Documented by: [id number] Admin: 07/05/19 05:06 Dose: 100 mls/hr Documented by: [id number] Infusion: 07/04/19 18:05 Dose: 0 mls/hr Documented by: [id number] Admin: 07/04/19 17:25 Dose: 100 mls/hr Documented by: [id number] Ceftriaxone Sodium 1,000 mg/ (Dextrose) 50 mls @ 100 mls/hr IV Q24H [facility]; Protocol Stop: 07/15/19 03:59 Last Infusion: 07/05/19 05:33 Dose: 0 mls/hr Documented by: [id number] Admin: 07/05/19 04:45 Dose: 100 mls/hr Documented by: [id number] Isosorbide Mononitrate (Imdur Extended Rel) 30 mg PO DAILY [facility] Stop: 08/02/19 08:59 Last Admin: 07/04/19 11:27 Dose: Not Given Documented by: [id number] Admin: 07/03/19 11:36 Dose: 30 mg Documented by: [id number] Metoprolol Tartrate (Lopressor) 5 mg IV Q6 [facility] Stop: 08/04/19 00:00 Last Admin: 07/05/19 05:09 Dose: 5 mg Documented by: [id number] Admin: 07/04/19 23:46 Dose: 5 mg Documented by: [id number] Miscellaneous (Order Awaiting Action) 1 ea N/A QS [facility] Stop: 07/31/19 15:59 Last Admin: 07/05/19 00:53 Dose: Not Given Documented by: [id number] Admin: 07/04/19 16:05 Dose: Not Given Documented by: [id number] Admin: 07/04/19 10:38 Dose: Not Given Documented by: [id number] Admin: 07/03/19 23:40 Dose: Not Given Documented by: [id number] Admin: 07/03/19 15:40 Dose: Not Given Documented by: [id number] Admin: 07/03/19 11:36 Dose: Not Given Documented by: [id number] Admin: 07/02/19 22:55 Dose: Not Given Documented by: [id number] Admin: 07/02/19 16:46 Dose: 1 ea Documented by: [id number] Admin: 07/02/19 08:33 Dose: Not Given Documented by: [id number] Admin: 07/02/19 01:06 Dose: Not Given Documented by: [id number] Admin: 07/01/19 18:37 Dose: Not Given Documented by: [id number] Pantoprazole Sodium (Protonix) 40 mg PO DAILY [facility] Stop: 07/31/19 14:59 Last Admin: 07/04/19 11:27 Dose: Not Given Documented by: [id number] Admin: 07/03/19 12:00 Dose: Not Given Documented by: [id number] Admin: 07/02/19 08:33 Dose: 40 mg Documented by: [id number] Admin: 07/01/19 18:32 Dose: 40 mg Documented by: [id number] Discontinued Medications Aspirin (Aspirin) 300 mg CO ONE ONE Stop: 06/29/19 13:38 Last Admin: 06/29/19 17:06 Dose: 300 mg Documented by: [id number] Aspirin (Aspirin) 300 mg CO DAILY [facility] Stop: 07/30/19 08:59 Last Admin: 07/01/19 08:13 Dose: 300 mg Documented by: [id number] Admin: 06/30/19 08:23 Dose: 300 mg Documented by: [id number] Aspirin (Ecotrin Ectab) 81 mg PO DAILY [facility] Stop: 08/01/19 08:59 Last Admin: 07/03/19 11:59 Dose: Not Given Documented by: [id number] Admin: 07/02/19 08:31 Dose: 81 mg Documented by: [id number] Aspirin (Aspirin) 300 mg CO ONE ONE Stop: 07/03/19 17:12 Last Admin: 07/03/19 18:00 Dose: 300 mg Documented by: [id number] Divalproex Sodium (Depakote Delay Release) 250 mg PO BID [facility] Stop: 07/31/19 20:59 Last Admin: 07/03/19 11:59 Dose: Not Given Documented by: [id number] Admin: 07/02/19 19:45 Dose: 250 mg Documented by: [id number] Admin: 07/02/19 08:30 Dose: 250 mg Documented by: [id number] Admin: 07/01/19 21:25 Dose: Not Given Documented by: [id number] Haloperidol Lactate (Haldol) 2.5 mg IM Q8 PRN PRN Reason: Agitation Stop: 07/29/19 18:26 Last Admin: 07/01/19 08:13 Dose: 2.5 mg Documented by: [id number] Admin: 06/30/19 19:54 Dose: 2.5 mg Documented by: [id number] Admin: 06/30/19 07:54 Dose: 2.5 mg Documented by: [id number] Lorazepam (Ativan) 0.25 mg in 0.5 mls @ 0.5 mls/min IV NOW STA Stop: 06/29/19 10:43 Last Admin: 06/29/19 10:56 Dose: 0.5 mls/min Documented by: [id number] Lorazepam (Ativan) 0.25 mg in 0.5 mls @ 0.5 mls/min IV NOW STA Stop: 06/29/19 11:12 Last Admin: 06/29/19 11:33 Dose: 0.5 mls/min Documented by: [id number] Lorazepam (Ativan) 0.25 mg in 0.5 mls @ 0.5 mls/min IV NOW STA Stop: 06/29/19 11:34 Last Admin: 06/29/19 11:38 Dose: 0.5 mls/min Documented by: [id number] Sodium Chloride (Nss 1000ml) 1,000 mls @ 80 mls/hr IV .[id number] [facility] Stop: 06/30/19 03:45 Last Admin: 06/29/19 16:54 Dose: Not Given Documented by: [id number] Valproic Acid 250 mg/ Dextrose 52.5 mls @ 55 mls/hr IV Q12H [facility] Stop: 07/30/19 12:59 Last Infusion: 07/01/19 14:26 Dose: 0 mls/hr Documented by: [id number] Admin: 07/01/19 13:20 Dose: 55 mls/hr Documented by: [id number] Infusion: 07/01/19 01:42 Dose: 0 mls/hr Documented by: [id number] Admin: 07/01/19 00:44 Dose: 55 mls/hr Documented by: [id number] Infusion: 06/30/19 14:48 Dose: 0 mls/hr Documented by: [id number] Admin: 06/30/19 13:06 Dose: 55 mls/hr Documented by: [id number] Dextrose/Lactated Ringer's (D5w And Lactated Ringers) 1,000 mls @ 50 mls/hr IV .Q20H [facility] Stop: 07/02/19 07:44 Last Infusion: 07/02/19 09:22 Dose: 0 mls/hr Documented by: [id number] Admin: 07/01/19 13:22 Dose: 50 mls/hr Documented by: [id number] Dextrose/Sodium Chloride (D5w And Nss) 1,000 mls @ 50 mls/hr IV .Q20H [facility] Stop: 08/01/19 15:59 Last Infusion: 07/03/19 15:36 Dose: 0 mls/hr Documented by: [id number] Infusion: 07/03/19 09:48 Dose: 0 mls/hr Documented by: [id number] Admin: 07/02/19 16:46 Dose: 50 mls/hr Documented by: [id number] Furosemide 20 mg/ Syringe 2 mls @ 4 mls/min IV ONE ONE Stop: 07/03/19 17:06 Last Admin: 07/03/19 18:00 Dose: 4 mls/min Documented by: [id number] Potassium Chloride (K Jg / Wtr) 10 meq in 100 mls @ 100 mls/hr IV Q1H [facility] Stop: 07/04/19 13:29 Last Infusion: 07/04/19 15:37 Dose: 0 mls/hr Documented by: [id number] Infusion: 07/04/19 13:25 Dose: 50 mls/hr Documented by: [id number] Admin: 07/04/19 13:20 Dose: 100 mls/hr Documented by: [id number] Infusion: 07/04/19 12:27 Dose: 100 mls/hr Documented by: [id number] Admin: 07/04/19 11:27 Dose: 100 mls/hr Documented by: [id number] Potassium Chloride (K Jg / Wtr) 10 meq in 100 mls @ 100 mls/hr IV Q1H [facility] Stop: 07/05/19 01:29 Last Infusion: 07/05/19 05:33 Dose: 0 mls/hr Documented by: [id number] Infusion: 07/05/19 04:07 Dose: 100 mls/hr Documented by: [id number] Admin: 07/05/19 04:07 Dose: 75 mls/hr Documented by: [id number] Infusion: 07/05/19 03:47 Dose: 75 mls/hr Documented by: [id number] Admin: 07/05/19 02:27 Dose: 75 mls/hr Documented by: [id number] Infusion: 07/05/19 02:27 Dose: 75 mls/hr Documented by: [id number] Infusion: 07/05/19 01:20 Dose: 75 mls/hr Documented by: [id number] Admin: 07/05/19 01:13 Dose: 100 mls/hr Documented by: [id number] Infusion: 07/05/19 00:40 Dose: 100 mls/hr Documented by: [id number] Admin: 07/04/19 23:40 Dose: 100 mls/hr Documented by: [id number] Potassium Chloride (K Jg / Wtr) 10 meq in 100 mls @ 100 mls/hr IV Q1H [facility] Stop: 07/05/19 03:29 Last Admin: 07/05/19 06:11 Dose: 100 mls/hr Documented by: [id number] Infusion: 07/05/19 06:06 Dose: 100 mls/hr Documented by: [id number] Admin: 07/05/19 05:06 Dose: 100 mls/hr Documented by: [id number] Isosorbide Mononitrate (Imdur Extended Rel) 30 mg PO 2100 ONE Stop: 07/02/19 21:01 Last Admin: 07/02/19 21:03 Dose: 30 mg Documented by: [id number] Levothyroxine Sodium (Synthroid) 50 mcg PO DAILYBB [facility] Stop: 07/31/19 14:59 Last Admin: 07/03/19 05:31 Dose: 50 mcg Documented by: [id number] Admin: 07/02/19 06:00 Dose: 50 mcg Documented by: [id number] Admin: 07/01/19 18:30 Dose: 50 mcg Documented by: [id number] Lisinopril (Zestril) 2.5 mg PO DAILY [facility] Stop: 08/01/19 08:59 Last Admin: 07/04/19 11:28 Dose: Not Given Documented by: [id number] Admin: 07/03/19 11:36 Dose: 2.5 mg Documented by: [id number] Admin: 07/02/19 08:31 Dose: 2.5 mg Documented by: [id number] Metoprolol Succinate (Toprol Xl) 100 mg PO BID [facility] Stop: 08/01/19 17:59 Last Admin: 07/03/19 12:00 Dose: Not Given Documented by: [id number] Admin: 07/02/19 19:45 Dose: 100 mg Documented by: [id number] Metoprolol Tartrate (Lopressor) 50 mg PO 2100 ONE Stop: 07/02/19 21:01 Last Admin: 07/02/19 21:03 Dose: 50 mg Documented by: [id number] Metoprolol Tartrate (Lopressor) 25 mg PO Q6H [facility] Stop: 08/02/19 11:59 Last Admin: 07/04/19 12:35 Dose: 25 mg Documented by: [id number] Admin: 07/04/19 06:18 Dose: Not Given Documented by: [id number] Admin: 07/03/19 23:40 Dose: Not Given Documented by: [id number] Admin: 07/03/19 18:00 Dose: Not Given Documented by: [id number] Admin: 07/03/19 13:23 Dose: 25 mg Documented by: [id number] Metoprolol Tartrate (Lopressor) 5 mg IV NOW STA Stop: 07/04/19 17:09 Last Admin: 07/04/19 19:57 Dose: 5 mg Documented by: [id number] Non-Formulary Medication (Coenzyme Q10 [Coq-10]) 100 mg PO DAILY [facility] Stop: 07/31/19 14:14 Last Admin: 07/01/19 18:38 Dose: Not Given Documented by: [id number] Potassium Chloride (Klor-Con M10) 50 meq PO NOW [facility] Stop: 07/04/19 19:51 Last Admin: 07/04/19 21:16 Dose: Not Given Documented by: [id number] Potassium Chloride (Klor-Con M10) 50 meq PO TODAY@2130 [facility] Stop: 07/04/19 21:31 Last Admin: 07/04/19 21:16 Dose: Not Given Documented by: [id number] Vitamin D (Vitamin D3) 2,000 units PO DAILY [facility] Stop: 07/31/19 14:59 Last Admin: 07/04/19 11:27 Dose: Not Given Documented by: [id number] Admin: 07/03/19 11:35 Dose: 2,000 units Documented by: [id number] Admin: 07/02/19 08:31 Dose: 2,000 units Documented by: [id number] Admin: 07/01/19 18:32 Dose: 2,000 units Documented by: [id number] Description This is a 21 electrode EEG with a single channel dedicated to limited EKG. The electrodes were placed in accordance with the International 10-20 system. REPORT: At the onset of the EEG the patient is in an altered mental state. The posterior dominant rhythm. Instead the background consist of generalized 2-5 Hz theta/delta activity. There is no anterior to posterior gradient. The stage II sleep transient are seen. Photic stimulation does not elicit any additional abnormalities. IMPRESSION: This is an abnormal EEG in a patient with altered mentation due to moderate to severe background slowing. There is no epileptiform discharges recorded.
[2019-07-05 08:05] LABS: Albumin Level 2.9 gm/dl (3.4-5.0); BUN Creatinine Ratio 18.5 (10-20); Calcium 8.5 mg/dl (8.5-10.1); Creatinine Clr Calc Pharmacy 28.2 ml/min; Est GFR (African American) 53.3; Magnesium 2.1 mg/dl (1.8-2.4); Potassium 4.3 mmol/L (3.5-5.1)
[2019-07-05 08:09] LABS: Albumin Globulin Ratio 0.9 (0.9-2); Bilirubin,Total 0.4 mg/dl (0.2-1); Globulin 3.1 gm/dl (2.5-4.0)
[2019-07-05 09:25] VITALS: BP 133/70; O2SAT 98
[2019-07-05] MEDS: FUROSEMIDE 20 MG in SYRINGE 0 ML IV SCH (09:25)
[2019-07-05] MEDS: LEVOTHYROXINE SODIUM 25 MCG in SYRINGE 0 ML IV SCH (09:26)
[2019-07-05] MEDS: ISOSORBIDE MONO EXTENDED REL 30 MG TABCR PO SCH (09:29)
[2019-07-05] MEDS: ATORVASTATIN 40 MG TAB PO SCH (09:29)
[2019-07-05] MEDS: PANTOprazole 40 MG TAB PO SCH (09:30)
[2019-07-05] MEDS: CLOPIDOGREL BISULFATE 75 MG TAB PO SCH (09:30)
--- NOTE | 2019-07-05 09:55 | Palliative Care Progress Note ---
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 Stroke protocol was initiated. Patient is on ASA and Plavix daily, had five stents placed over three years ago. MRI brain showed acute/subacute left MCA stroke. CTA head/neck unable to be obtained due to delirium/agitation. Unfortunately patient's delirium and agitated have caused her to receive some sedating medications. She has been lethargic and not opening eyes for a few days-- uncertain if this is from the stroke or medications. Family was hopeful that she would recover somewhat, but does not appear that she will return to her baseline. Palliative care is consulted to discuss goals of care. -Dr. Sal met with family, they have decided to make a full transition to [facility] measures only, focusing on symptom management with discontinuing all medications. -Confirmed no escalation of care. I met with patient son Hamlet, daughter Erin and [id number] in the room. Patient was non responsive to verbal stimuli. -POLST form completed indicating comfort measures only, DNR.DNI, no antibiotics, no artificial hydration or nutrition. IV fluids have been discontinued. -Patient does have furrowed brown and appears to be agitated. I ordered IV Morphine 1 mg Q2 hours PRN, Atropine gtts 4 gtts Q2 hours PRN for secretions and Ativan 0.5 mg Q6 PRN agitation. -At this time, we will monitor how she progresses, should the patient stabilize over the weekend, readdress transition to [facility] with Hospice services, which is the facility of the sons choice (2) Left acute arterial ischemic stroke, MCA (middle cerebral artery): (3) Delirium: (4) Altered mental status: Subjective pt less responsive today. some movement in lower extremity limbs. pt not following commands and is not responding to verbal stimuli. pt son, daughter, and daughter in law at the bedside. See A/P Review of Systems Review of Systems: Unobtainable due to reduced consciousness Physical Exam Constitutional: + ill appearing and + in distress Eyes: PERRL, conjunctivae normal, anicteric sclerae ENMT: external ear and nose normal, oropharynx normal Neck: trachea midline, no thyromegaly Respiratory: Auscultation: + diminished lung sounds and + rhonchi Cardiovascular: Rate/Rhythm: + irregularly irregular Extremities: normal capillary refill Gastrointestinal (Abdomen): normal bowel sounds, soft, nontender, no hepatosplenomegaly Skin: skin tear right wrist with optifoam in place Psychiatric: Orientation: + not alert Genitourinary: nance in place Lymphatic: no cervical or axillary lymphadenopathy Results & Data Vital Signs (Past 12 Hours) Vital Signs Temp Pulse Pulse Resp BP BP Pulse Ox 07/05/19 09:24 91 H 16 133/70 98 07/05/19 07:11 36.7 C 93 H 18 160/75 H 93 07/05/19 05:09 107 H 118/66 07/05/19 04:00 36.8 C 83 16 118/66 98 07/05/19 01:01 108 H 07/04/19 23:46 106 H 136/64 07/04/19 23:20 36.3 C L 68 16 110/64 92 PG Care Time/CCT Total # of Minutes Spent Total Time Spent: 45 Total Time Spent with Patient: Total time spent is greater than 50% in coordination of care (as documented) at patient's floor/unit and/or counseling patient: 45 Prolonged Care Time Prolonged Care Time: Yes (45) Time Spent Midlevel Total time spent 45 minutes with > 50% of that time spent assessing the patient, discussing goals of care, completing a POLST form, and discussing end of life (1) Altered mental status Altered mental status type: unspecified Qualified Code(s): R41.82 - Altered mental status, unspecified
[2019-07-05] MEDS ORDERED: ASPIRIN 300 MG SUPP PR ONE (10:10)
[2019-07-05 10:11] VITALS: PULSE 102
[2019-07-05] MEDS ORDERED: MoRPHine SULFATE 2 MG/ML CARP IV PRN ×2 (11:03→13:30)
--- NOTE | 2019-07-05 11:13 | Hospitalist Progress Note ---
Date of Service July 05, 2019 Assessment & Plan (1) Delirium: -Developed acute delirium/confusional states after stroke on this admission and initially treated with Depakote -however during hospital course, patient has been more sedated and lethargic -continue to avoid sedatives such as Depakote and Haldol (2) Altered mental status: -from stroke -EEG report 07/05/19: abnormal EEG in a patient with altered mentation due to moderate to severe background slowing. There is no epileptiform discharges recorded. (3) Acute CVA (cerebrovascular accident): -88 year old woman with prior history of right MCA and NETWORK CABLER stroke on ASA and Plavix, History of CAD s/p stents with systolic CHF, and CKD admitted with with aphasia, L sided neglect, hyporeflexia, contracture and found to have acute left MCA ischemic stroke which appears embolic (artery to artery given known intracranial athero Vs cardiac). initially delirium and hyperactive and then have been hypoactive and somnolent -admission MRI of brain: Shows diffusion restriction of 2 cm on left temporal lobe -was given rectal ASA. -TTE completed and shows reduced EF 35-30%. No cardiac thrombus or PFO. -hospital course complicated by initial delirum and then hypoactivity and poor appetite; mental status has not improved with depakote held and haldol held -repeat CT head on 07/03/19 did not show any hemorrhagic conversion -07/04/19 to 07/05/19: Patient was transferred to telemetry service because of monitoring while on IV cardiac medications for better optimization of heart rate and blood pressures. Nocturnal hospital doctor was made aware by RN of worsening lethargy. CT head on 07/05/[address] head of Interval extension of a subacute left temporal and parietal lobe infarct. No evidence of acute hemorrhage. Old right frontal and right parietal and right occipital lobe infarcts. Patient also started on ceftriaxone in case of urinary tract infection. Patient continued to be somnolent when seen day time hospitalist. patient's son Nahun Maria) in agree with other members of the family that they do not believe that patient would have wished to be in this state of poor quality of life and opting for patient to be on comfort care measures only -stop telemetry monitoring, palliative care following the patient, IV morphine prn if needed for pain, poor overall prognosis (4) Elevated troponin: -elevation of troponin to 0.4 on this admission (5) CAD (coronary artery disease): -as per patient's family patient's had stents placed 5 years ago and had been consistently on aspirin and plavix -as per evaluations by previous hospitalist Echo done this admission (Ejection fraction 25-30% There is anterior, septal, severe lateral wall hypokinesis. Left atrium is severely dilated) and that in comparison to Echo on 02/24/2016 (LV ejection fraction moderately reduced There is a large sized apical, septal, anteroseptal, anterior, inferior, posterior and lateral wall motion abnormality with hypokinesis to akinesis of segments), there did not seem to be appreciable changes and elevated troponins was attribute to demand ischemia in setting of acute stroke and hypertensive urgency on presentation -patient had been on rectal aspirin and unable to take oral plavix -cardiac medications stopped on 07/05/19 as patient is comfort care status only as of 07/05/19 (6) Fall: fall precautions have been instituted on this admission but unlikely that patient now has mobility at this point to climb out of bed (7) Chronic systolic CHF (congestive heart failure): -Last echo 02/2016 revealed EF 30 to 34% -Repeat echocardiogram : Shows 25-30% no significant change in last 3 years -Was on metoprolol succinate , Aldactone, Lasix, lisinopril as outpatient prior to this admission and because of poor oral intake medications had be held or transitioned to IV forms -cardiac medications stopped on 07/05/19 as patient is comfort care status only as of 07/05/19 (8) CKD (chronic kidney disease), stage III: -Creatinine at baseline as of 07/05/19 -IV fluids stopped on 07/05/19 as patient is comfort care status only as of 07/05/19 electrolytes -as of 07/05/19 labs hyponatremia and hypokalemia has resolved however patient is comfort care measures only as of 07/05/19 and will no longer check electrolytes urinary tract infection -has nance -initially given ceftriaxone but antibiotics to be stopped as of 07/05/19 as patient is comfort care measures only -patient's family would like nance to be continued Hypothyroidism -TSH normal on this admission, and home Levothyroxine 50 mcg was given as IV 25 mcg daily, stop as of 07/05/19 as patient is on comfort status only (9) COPD (chronic obstructive pulmonary disease): no respiratory distress at this time (10) Dyslipidemia: patient has not been able to take statin in the hospital by mouth statin stopped as patient is comfort care status only as of 07/05/19 (11) DVT prophylaxis: stopped heparin subcutaneous as patient is comfort care status only as of 07/05/19 CODE STATUS: DNR/DNI Subjective Patient was transferred to telemetry service because of monitoring while on IV cardiac medications for better optimization of heart rate and blood pressures. Nocturnal hospital doctor was made aware by RN of worsening lethargy. CT head on 07/05/[address] head of Interval extension of a subacute left temporal and parietal lobe infarct. No evidence of acute hemorrhage. Old right frontal and right parietal and right occipital lobe infarcts. Patient also started on ceftriaxone in case of urinary tract infection. Patient continued to be somnolent when seen day time hospitalist. patient's son Nahun Maria) in agree with other members of the family that they do not believe that patient would have wished to be in this state of poor quality of life and opting for patient to be on comfort care measures only. Physical Exam Constitutional: somnolent, sleeping, does not really react when physician opens patient's eyelids, occasionally patient will make leg movements Eyes: pupils mildly reactive to light ENMT: external ear and nose normal, oropharynx normal Neck: normal visual inspection Respiratory: normal respiratory effort Cardiovascular: Rate/Rhythm: regular rate and regular rhythm Gastrointestinal (Abdomen): Inspection/Auscultation: abdomen normal to inspection Percussion/Palpation: abdomen soft Genitourinary: nance Results & Data Vital Signs (Past 12 Hours) Vital Signs Temp Pulse Pulse Resp BP BP Pulse Ox 07/05/19 09:24 91 H 16 133/70 98 07/05/19 07:45 102 H 07/05/19 07:11 36.7 C 93 H 18 160/75 H 93 07/05/19 05:09 107 H 118/66 07/05/19 04:00 36.8 C 83 16 118/66 98 07/05/19 01:01 108 H 07/04/19 23:46 106 H 136/64 07/04/19 23:20 36.3 C L 68 16 110/64 92 (1) CAD (coronary artery disease) Associated angina: without angina Coronary Disease-Associated Artery/Lesion type: [place] artery [place] vs. transplanted heart: [place] heart Qualified Code(s): I25.10 - Atherosclerotic heart disease of [place] coronary artery without angina pectoris (2) Altered mental status Altered mental status type: unspecified Qualified Code(s): R41.82 - Altered mental status, unspecified (3) COPD (chronic obstructive pulmonary disease) COPD type: unspecified COPD Qualified Code(s): J44.9 - Chronic obstructive pulmonary disease, unspecified (4) Fall Encounter type: initial encounter Qualified Code(s): W19.XXXA - Unspecified fall, initial encounter
--- NOTE | 2019-07-05 13:09 | Neurology Progress Note ---
Date of Service July 05, 2019 Assessment & Plan (1) Left acute arterial ischemic stroke, MCA (middle cerebral artery): 1. heparin currently stopped 2. continue to hold depakote and haldol for now 3. oral feedings as tolerated 4. PT/OT to assess once able to participate for placement recs 5. TTE- EF 35-40% EF 6. normal tensive SBP <140 DBP <90 avoid hypotension 7. palliative medicine for comfort measures and 8. EEG- slowing no seizure focus 9. UTI - would treat 10. CT head with extension of stroke Supervising Physician Co-Signing Physician Notes I have discussed above patient with Dr Nimco Louie, neurology. Discussed pt with Dr Flowers and Rene, agree with management as above. MD Stan Cindy Coburn is an 88 year old woman with PMH- ischemic stroke x2 with residual left-sided weakness, CAD with multiple stents, chronic systolic CHF, COPD, HLD, hypothyroidism, CKD stage III, ALONSO, and dementia admitted for encephalopathy and speech difficulty. MRI brain confirmed an acute left MCA ischemic stroke. She is on ASA and PLavix at home. On admission she was started on haldol for agitation which made her more somnolent. Family at bedside and states she had 4 hours of alertness several days ago and she had an oral intake of a cup of ice cream. She also had about an hour of alertness the previous night. They have decided to place her on comfort care and they know they are doing what she would wish them to do. The prognosis is poor and she did not want life support or aggressive intervention. Physical Exam Physical Exam: gen: NAD lungs normal respiratory effort CV RRR moves extremities right LE spontaneously and right UE appear to be opening eyes slightly with discussion at bedside Results & Data Vital Signs (Past 12 Hours) Vital Signs Temp Pulse Pulse Resp BP BP Pulse Ox 07/05/19 09:24 91 H 16 133/70 98 07/05/19 07:45 102 H 07/05/19 07:11 36.7 C 93 H 18 160/75 H 93 07/05/19 05:09 107 H 118/66 07/05/19 04:00 36.8 C 83 16 118/66 98 Laboratory Results Abnormal lab results 07/04/19 07/04/19 07/04/19 Range/Units 17:03 21:52 21:52 Potassium 3.4 L (3.5-5.1) mmol/L Chloride 109 H (98-107) mmol/L BUN 20 H (7-18) mg/dl Glucose 119 H (70-99) mg/dl POC Glucose 121 H (70-99) Ammonia < 10.0 L (11-32) umol/L Total Protein (6.4-8.2) gm/dl Albumin (3.4-5.0) gm/dl Urine Appearance (Clear) Urine Protein (Negative) Urine Blood (Negative) Ur Leukocyte Esterase (Negative) Urine WBC (Auto) (0-5) /hpf Urine RBC (Auto) (0-4) /hpf U Hyaline Cast (Auto) (0-5) /lpf U Epithel Cells (Auto) (0-5) /lpf Urine Bacteria (Auto) (Negative) Valproic Acid (50-100) mcg/ml 07/04/19 07/05/19 07/05/19 Range/Units 21:52 01:48 07:11 Potassium (3.5-5.1) mmol/L Chloride 109 H (98-107) mmol/L BUN 20 H (7-18) mg/dl Glucose 115 H (70-99) mg/dl POC Glucose (70-99) Ammonia (11-32) umol/L Total Protein 6.0 L (6.4-8.2) gm/dl Albumin 2.9 L (3.4-5.0) gm/dl Urine Appearance Cloudy A (Clear) Urine Protein 1+ H (Negative) Urine Blood 2+ H (Negative) Ur Leukocyte Esterase 1+ H (Negative) Urine WBC (Auto) >30 H (0-5) /hpf Urine RBC (Auto) 10-30 H (0-4) /hpf U Hyaline Cast (Auto) 10-30 H (0-5) /lpf U Epithel Cells (Auto) 5-10 H (0-5) /lpf Urine Bacteria (Auto) 4+ H (Negative) Valproic Acid 8 L (50-100) mcg/ml Diagnostic Findings CT headInterval extension of a subacute left temporal and parietal lobe infarct. No evidence of acute hemorrhage Old right frontal and right parietal and right occipital lobe infarcts EEG- This is an abnormal EEG in a patient with altered mentation due to moderate to severe background slowing. There is no epileptiform discharges recorded.
[2019-07-05] MEDS ORDERED: ATROPINE SULFATE 1% OP SOLN 5 ML BTL SL PRN (13:28)
--- NOTE | 2019-07-06 08:57 | Hospitalist Progress Note ---
Date of Service July 06, 2019 Assessment & Plan (1) Delirium: -Developed acute delirium/confusional states after stroke on this admission and initially treated with Depakote -however during hospital course, patient has been more sedated and lethargic; continue to avoid sedatives such as Depakote and Haldol (2) Altered mental status: -from stroke -EEG report 07/05/19: abnormal EEG in a patient with altered mentation due to moderate to severe background slowing. There is no epileptiform discharges recorded. 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 initially delirium and hyperactive and then have been hypoactive and somnolent -admission MRI of brain: Shows diffusion restriction of 2 cm on left temporal lobe -was given rectal ASA. -TTE completed and shows reduced EF 35-30%. No cardiac thrombus or PFO. -hospital course complicated by initial delirum and then hypoactivity and poor appetite; mental status has not improved with depakote held and haldol held -repeat CT head on 07/03/19 did not show any hemorrhagic conversion -07/04/19 to 07/05/19: Patient was transferred to telemetry service because of monitoring while on IV cardiac medications for better optimization of heart rate and blood pressures. Nocturnal hospital doctor was made aware by RN of worsening lethargy. CT head on 07/05/[address] head of Interval extension of a subacute left temporal and parietal lobe infarct. No evidence of acute hemorrhage. Old right frontal and right parietal and right occipital lobe infarcts. Patient also started on ceftriaxone in case of urinary tract infection. Patient continued to be somnolent when seen day time hospitalist. patient's son Nahun Maria) in agree with other members of the family that they do not believe that patient would have wished to be in this state of poor quality of life and opting for patient to be on comfort care measures only -stop telemetry monitoring, palliative care following the patient, IV Morphine 1 mg Q2 hours PRN, Atropine gtts 4 gtts Q2 hours PRN for secretions, poor overall prognosis, should the patient stabilize over the weekend, readdress transition to [facility] with [facility]osp[facility] services, which is the facility of the sons choice (4) Elevated troponin: -elevation of troponin to 0.4 on this admission (5) CAD (coronary artery disease): -as per patient's family patient's had stents placed 5 years ago and had been consistently on aspirin and plavix -as per evaluations by previous hospitalist Echo done this admission (Ejection fraction 25-30% There is anterior, septal, severe lateral wall hypokinesis. Left atrium is severely dilated) and that in comparison to Echo on 02/24/2016 (LV ejection fraction moderately reduced There is a large sized apical, septal, anteroseptal, anterior, inferior, posterior and lateral wall motion abnormality with hypokinesis to akinesis of segments), there did not seem to be appreciable changes and elevated troponins was attribute to demand ischemia in setting of acute stroke and hypertensive urgency on presentation -patient had been on rectal aspirin and unable to take oral plavix -cardiac medications stopped on 07/05/19 as patient is comfort care status only as of 07/05/19 (6) Fall: fall precautions have been instituted on this admission but unlikely that patient now has mobility at this point to climb out of bed (7) Chronic systolic CHF (congestive heart failure): -Last echo 02/2016 revealed EF 30 to 34% -Repeat echocardiogram : Shows 25-30% no significant change in last 3 years -Was on metoprolol succinate , Aldactone, Lasix, lisinopril as outpatient prior to this admission and because of poor oral intake medications had be held or transitioned to IV forms -cardiac medications stopped on 07/05/19 as patient is comfort care status only as of 07/05/19 (8) CKD (chronic kidney disease), stage III: -Creatinine at baseline as of 07/05/19 -IV fluids stopped on 07/05/19 as patient is comfort care status only as of 07/05/19 electrolytes -as of 07/05/19 labs hyponatremia and hypokalemia has resolved however patient is comfort care measures only as of 07/05/19 and will no longer check electrolytes urinary tract infection -has nance -initially given ceftriaxone but antibiotics to be stopped as of 07/05/19 as patient is comfort care measures only -patient's family would like nance to be continued Hypothyroidism -TSH normal on this admission, and home Levothyroxine 50 mcg was given as IV 25 mcg daily, stop as of 07/05/19 as patient is on comfort status only (9) COPD (chronic obstructive pulmonary disease): no respiratory distress at this time (10) Dyslipidemia: patient has not been able to take statin in the hospital by mouth statin stopped as patient is comfort care status only as of 07/05/19 (11) DVT prophylaxis: stopped heparin subcutaneous as patient is comfort care status only as of 07/05/19 CODE STATUS: DNR/DNI Subjective patient with open mouth breathing. continues to be somnolent. continues to be non verbal. does not appear to be in pain Physical Exam Constitutional: + altered mental status ENMT: external ear and nose normal, oropharynx normal Neck: normal visual inspection Respiratory: normal respiratory effort Cardiovascular: Rate/Rhythm: regular rate and regular rhythm Gastrointestinal (Abdomen): Inspection/Auscultation: abdomen normal to inspection and normal bowel sounds Percussion/Palpation: abdomen soft Neurologic: somnolent (1) Altered mental status Altered mental status type: unspecified Qualified Code(s): R41.82 - Altered mental status, unspecified (2) CAD (coronary artery disease) Coronary Disease-Associated Artery/Lesion type: [place] artery [place] vs. transplanted heart: [place] heart Associated angina: without angina Qualified Code(s): I25.10 - Atherosclerotic heart disease of [place] coronary artery without angina pectoris (3) Fall Encounter type: initial encounter Qualified Code(s): W19.XXXA - Unspecified fall, initial encounter (4) COPD (chronic obstructive pulmonary disease) COPD type: unspecified COPD Qualified Code(s): J44.9 - Chronic obstructive pulmonary disease, unspecified
[2019-07-06] MEDS ORDERED: ASPIRIN 300 MG SUPP PR SCH (09:00)
[2019-07-06] MEDS: MoRPHine SULFATE 2 MG/ML CARP IV PRN ×2 (16:51→19:11)
[2019-07-06] MEDS: LORazepam 1 MG/2 ML VIAL IV PRN (20:46)
[2019-07-07] MEDS: MoRPHine SULFATE 4 MG/ML 1 ML CARP\\VIAL IV PRN ×2 (07:31→20:12)
[2019-07-07] MEDS: LORazepam 1 MG/2 ML VIAL IV PRN (07:42)
--- NOTE | 2019-07-07 07:53 | Hospitalist Progress Note ---
Date of Service July 07, 2019 Assessment & Plan (1) Delirium: -Developed acute delirium/confusional states after stroke on this admission and initially treated with Depakote -however during hospital course, patient has been more sedated and lethargic; continue to avoid Depakote and Haldol (2) Altered mental status: -from stroke -EEG report 07/05/19: abnormal EEG in a patient with altered mentation due to moderate to severe background slowing. There is no epileptiform discharges recorded. 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 initially delirium and hyperactive and then have been hypoactive and somnolent -admission MRI of brain: Shows diffusion restriction of 2 cm on left temporal lobe -was given rectal ASA. -TTE completed and shows reduced EF 35-30%. No cardiac thrombus or PFO. -hospital course complicated by initial delirum and then hypoactivity and poor appetite; mental status has not improved with depakote held and haldol held -repeat CT head on 07/03/19 did not show any hemorrhagic conversion -07/04/19 to 07/05/19: Patient was transferred to telemetry service because of monitoring while on IV cardiac medications for better optimization of heart rate and blood pressures. Nocturnal hospital doctor was made aware by RN of worsening lethargy. CT head on 07/05/[address] head of Interval extension of a subacute left temporal and parietal lobe infarct. No evidence of acute hemorrhage. Old right frontal and right parietal and right occipital lobe infarcts. Patient also started on ceftriaxone in case of urinary tract infection. Patient continued to be somnolent when seen day time hospitalist. patient's son Nahun ([place]) in agree with other members of the family that they do not believe that patient would have wished to be in this state of poor quality of life and opting for patient to be on comfort care measures only -stop telemetry monitoring, palliative care following the patient, IV Morphine 1 mg Q2 hours PRN, Atropine gtts 4 gtts Q2 hours PRN for secretions, as per palliative care can also add 0.5 mg Ativan every 6 hours as needed if agitation during this end of life care, poor overall prognosis, should the patient stabilize over the weekend then may re-address transition to [facility] with Hospice services which is the facility of the sons choice (4) Elevated troponin: elevated troponins (peak of 0.4 on this admission) was attributed to demand ischemia in setting of acute stroke and hypertensive urgency on presentation (5) CAD (coronary artery disease): -as per patient's family patient's had stents placed 5 years ago and had been consistently on aspirin and plavix -elevated troponins (peak of 0.4 on this admission) was attributed to demand ischemia in setting of acute stroke and hypertensive urgency on presentation and as per evaluations by previous hospitalist: Echo done this admission (Ejection fraction 25-30% There is anterior, septal, severe lateral wall hypokinesis. Left atrium is severely dilated) and that in comparison to Echo on 02/24/2016 (LV ejection fraction moderately reduced There is a large sized apical, septal, anteroseptal, anterior, inferior, posterior and lateral wall motion abnormality with hypokinesis to akinesis of segments), there did not seem to be appreciable changes and elevated troponins was attribute to demand ischemia in setting of acute stroke and hypertensive urgency on presentation -patient had been on rectal aspirin and unable to take oral plavix -cardiac medications stopped on 07/05/19 as patient is comfort care status only as of 07/05/19 (6) Fall: fall precautions have been instituted on this admission but unlikely that patient now has mobility at this point to climb out of bed (7) Chronic systolic CHF (congestive heart failure): -Last echo 02/2016 revealed EF 30 to 34% -Repeat echocardiogram : Shows 25-30% no significant change in last 3 years -Was on metoprolol succinate , Aldactone, Lasix, lisinopril as outpatient prior to this admission and because of poor oral intake medications had be held or transitioned to IV forms -cardiac medications stopped on 07/05/19 as patient is comfort care status only as of 07/05/19 (8) CKD (chronic kidney disease), stage III: -Creatinine at baseline as of 07/05/19 -IV fluids stopped on 07/05/19 as patient is comfort care status only as of 07/05/19 electrolytes -as of 07/05/19 labs hyponatremia and hypokalemia has resolved however patient is comfort care measures only as of 07/05/19 and will no longer check electrolytes urinary tract infection -has nance -initially given ceftriaxone but antibiotics to be stopped as of 07/05/19 as patient is comfort care measures only -patient's family would like nance to be continued Hypothyroidism -TSH normal on this admission, and home Levothyroxine 50 mcg was given as IV 25 mcg daily, stop as of 07/05/19 as patient is on comfort status only (9) COPD (chronic obstructive pulmonary disease): no respiratory distress at this time (10) Dyslipidemia: patient has not been able to take statin in the hospital by mouth statin stopped as patient is comfort care status only as of 07/05/19 (11) DVT prophylaxis: stopped heparin subcutaneous as patient is comfort care status only as of 07/05/19 CODE STATUS: DNR/DNI, comfort care measures only status as this would be the patient's wishes as per her son/power of trademark attorney and family members robby Garnica ([phone]) Main diagnosis: Acute CVA (cerebrovascular accident), elevated troponins was attribute to demand ischemia in setting of acute stroke and hypertensive urgency on presentation, Chronic systolic CHF (congestive heart failure), chronic kidney disease stage 3, Altered mental status, Comfort care measures only status Subjective Overnight, the nocturnalist doctor ordered Ativan as there were some concerns that patient appeared to be uncomfortably agitated. Patient seen and examined this AM by day time hospitalist and patient appears to be comfortable and sleeping and snoring. breathing on room air. patient not seem to be agitated when hospitalist performed physical exam and visual inspection with patient's nurse in the room. Physical Exam Constitutional: + altered mental status ENMT: external ear and nose normal, oropharynx normal Neck: normal visual inspection Respiratory: normal respiratory effort Cardiovascular: Rate/Rhythm: regular rate and regular rhythm Gastrointestinal (Abdomen): Inspection/Auscultation: abdomen normal to inspection and normal bowel sounds Percussion/Palpation: abdomen soft (1) CAD (coronary artery disease) Associated angina: without angina Coronary Disease-Associated Artery/Lesion type: [place] artery [place] vs. transplanted heart: [place] heart Qualified Code(s): I25.10 - Atherosclerotic heart disease of [place] coronary artery without angina pectoris (2) Altered mental status Altered mental status type: unspecified Qualified Code(s): R41.82 - Altered mental status, unspecified (3) COPD (chronic obstructive pulmonary disease) COPD type: unspecified COPD Qualified Code(s): J44.9 - Chronic obstructive pulmonary disease, unspecified (4) Fall Encounter type: initial encounter Qualified Code(s): W19.XXXA - Unspecified fall, initial encounter
[2019-07-08] MEDS: MoRPHine SULFATE 4 MG/ML 1 ML CARP\\VIAL IV PRN ×4 (03:09→21:50)
[2019-07-08] MEDS: LORazepam 0.5 MG/1 ML VIAL IV PRN ×3 (11:55→22:13)
--- NOTE | 2019-07-08 12:23 | Palliative Care Progress Note ---
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 -She is less responsive. Seemed uncomfortable today-- mild SOB, facial grimacing, restlessness in bed. -Continue IV morphine and IV lorazepam as needed for comfort. Son at bedside and states the goal is for patient to be as comfortable as possible. -Patient has not ate or drank in days, IVF were discontinued on . No intake since then. -Patient is not stable for discharge today-- still requiring IV medications and med titration. -Depending on her needs, may be GIP appropriate. Will see how she does today. Updated case management and attending physician. -Will continue to follow. (2) Left acute arterial ischemic stroke, MCA (middle cerebral artery): (3) Delirium: (4) Altered mental status: Subjective Patient is lethargic, nearly obtunded. Was restless in bed, some SOB. Furrowed brow/facial grimacing. Son at bedside. Review of Systems Review of Systems: Unobtainable due to cognitive status Physical Exam Constitutional: + ill appearing and + thin Eyes: furrowed brow ENMT: external ear and nose normal, oropharynx normal Neck: normal visual inspection Respiratory: + labored breathing (mildly SOB) Auscultation: + diminished lung sounds Cardiovascular: Rate/Rhythm: regular rate and regular rhythm Extremities: no edema Gastrointestinal (Abdomen): Inspection/Auscultation: normal bowel sounds Percussion/Palpation: abdomen soft Neurologic: moves all extremities (does not follow commands) Psychiatric: Orientation: + not alert (did not open eyes) PG Care Time/CCT Total # of Minutes Spent Total Time Spent with Patient: Total time spent is greater than 50% in coordination of care (as documented) at patient's floor/unit and/or counseling patient: Time Spent Midlevel 35 minutes with >50% of the time spent at bedside with patient, family and IDT discussing TREE SURGEON and EOL issues. (1) Altered mental status Altered mental status type: unspecified Qualified Code(s): R41.82 - Altered mental status, unspecified
--- NOTE | 2019-07-08 13:07 | Hospitalist Progress Note ---
Date of Service July 08, 2019 Assessment & Plan (1) Delirium: -Developed acute delirium/confusional states after stroke on this admission and initially treated with Depakote -however during hospital course, patient has been more sedated and lethargic; continue to avoid Depakote and Haldol (2) Altered mental status: -from stroke -EEG report 07/05/19: abnormal EEG in a patient with altered mentation due to moderate to severe background slowing. There is no epileptiform discharges recorded. 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 initially delirium and hyperactive and then have been hypoactive and somnolent -admission MRI of brain: Shows diffusion restriction of 2 cm on left temporal lobe -was given rectal ASA. -TTE completed and shows reduced EF 35-30%. No cardiac thrombus or PFO. -hospital course complicated by initial delirum and then hypoactivity and poor appetite; mental status has not improved with depakote held and haldol held -repeat CT head on 07/03/19 did not show any hemorrhagic conversion -07/04/19 to 07/05/19: Patient was transferred to telemetry service because of monitoring while on IV cardiac medications for better optimization of heart rate and blood pressures. Nocturnal hospital doctor was made aware by RN of worsening lethargy. CT head on 07/05/[address] head of Interval extension of a subacute left temporal and parietal lobe infarct. No evidence of acute hemorrhage. Old right frontal and right parietal and right occipital lobe infarcts. Patient also started on ceftriaxone in case of urinary tract infection. Patient continued to be somnolent when seen day time hospitalist. patient's son Nahun ([place]) in agree with other members of the family that they do not believe that patient would have wished to be in this state of poor quality of life and opting for patient to be on comfort care measures only -stop telemetry monitoring, palliative care following the patient, IV Morphine 1 mg Q2 hours PRN, Atropine gtts 4 gtts Q2 hours PRN for secretions, as per palliative care can also add 0.5 mg Ativan every 6 hours as needed if agitation during this end of life care -poor overall prognosis, at this time, patient's son and family members are not looking for discharge from hospital as they are expecting patient continue end of life care here in the hospital until she passes away. (4) Elevated troponin: elevated troponins (peak of 0.4 on this admission) was attributed to demand ischemia in setting of acute stroke and hypertensive urgency on presentation (5) CAD (coronary artery disease): -as per patient's family patient's had stents placed 5 years ago and had been consistently on aspirin and plavix -elevated troponins (peak of 0.4 on this admission) was attributed to demand ischemia in setting of acute stroke and hypertensive urgency on presentation and as per evaluations by previous hospitalist: Echo done this admission (Ejection fraction 25-30% There is anterior, septal, severe lateral wall hypokinesis. Left atrium is severely dilated) and that in comparison to Echo on 02/24/2016 (LV ejection fraction moderately reduced There is a large sized apical, septal, anteroseptal, anterior, inferior, posterior and lateral wall motion abnormality with hypokinesis to akinesis of segments), there did not seem to be appreciable changes and elevated troponins was attribute to demand ischemia in setting of acute stroke and hypertensive urgency on presentation -patient had been on rectal aspirin and unable to take oral plavix -cardiac medications stopped on 07/05/19 as patient is comfort care status only as of 07/05/19 (6) Fall: fall precautions have been instituted on this admission but unlikely that patient at this point can climb out of bed (7) Chronic systolic CHF (congestive heart failure): -Last echo 02/2016 revealed EF 30 to 34% -Repeat echocardiogram : Shows 25-30% no significant change in last 3 years -Was on metoprolol succinate , Aldactone, Lasix, lisinopril as outpatient prior to this admission and because of poor oral intake medications had be held or transitioned to IV forms -cardiac medications stopped on 07/05/19 as patient is comfort care status only as of 07/05/19 (8) CKD (chronic kidney disease), stage III: -Creatinine at baseline as of 07/05/19 -IV fluids stopped on 07/05/19 as patient is comfort care status only as of 07/05/19 electrolytes -as of 07/05/19 labs hyponatremia and hypokalemia has resolved however patient is comfort care measures only as of 07/05/19 and will no longer check electrolytes urinary tract infection -has nance -initially given ceftriaxone but antibiotics to be stopped as of 07/05/19 as patient is comfort care measures only -patient's family would like nance to be continued Hypothyroidism -TSH normal on this admission, and home Levothyroxine 50 mcg was given as IV 25 mcg daily, stop as of 07/05/19 as patient is on comfort status only (9) COPD (chronic obstructive pulmonary disease): no respiratory distress at this time (10) Dyslipidemia: patient has not been able to take statin in the hospital by mouth statin stopped as patient is comfort care status only as of 07/05/19 (11) DVT prophylaxis: stopped heparin subcutaneous as patient is comfort care status only as of 07/05/19 CODE STATUS: DNR/DNI, comfort care measures only status as this would be the patient's wishes as per her son/power of design quality engineer and family members son Nahun ([phone]) Main diagnosis: Acute CVA (cerebrovascular accident), elevated troponins was attribute to demand ischemia in setting of acute stroke and hypertensive urgency on presentation, Chronic systolic CHF (congestive heart failure), chronic kidney disease stage 3, Altered mental status, Comfort care measures only status Subjective Patient reportedly was uncomfortable and and needed ativan this AM. Currently patient very somnolent, open mouth breathing like snoring. appears to be com fortable. Patient's family members at bedside. patient with dry oral mucosa. she has been getting oral swabs. Physical Exam Constitutional: + altered mental status Currently patient very somnolent, open mouth breathing like snoring. appears to be comfortable. Patient's family members at bedside. patient with dry oral mucosa Neck: normal visual inspection Respiratory: normal respiratory effort Cardiovascular: Rate/Rhythm: regular rate and regular rhythm Gastrointestinal (Abdomen): Inspection/Auscultation: abdomen normal to inspection and normal bowel sounds Percussion/Palpation: abdomen soft Skin: no rashes, warm and dry (1) CAD (coronary artery disease) Associated angina: without angina Coronary Disease-Associated Artery/Lesion type: [place] artery [place] vs. transplanted heart: [place] heart Qualified Code(s): I25.10 - Atherosclerotic heart disease of [place] coronary artery without angina pectoris (2) Altered mental status Altered mental status type: unspecified Qualified Code(s): R41.82 - Altered mental status, unspecified (3) COPD (chronic obstructive pulmonary disease) COPD type: unspecified COPD Qualified Code(s): J44.9 - Chronic obstructive pulmonary disease, unspecified (4) Fall Encounter type: initial encounter Qualified Code(s): W19.XXXA - Unspecified fall, initial encounter
[2019-07-09] MEDS: LORazepam 0.5 MG/1 ML VIAL IV PRN ×3 (06:46→19:33)
[2019-07-09] MEDS: MoRPHine SULFATE 4 MG/ML 1 ML CARP\\VIAL IV PRN ×2 (10:17→19:34)
--- NOTE | 2019-07-09 11:21 | Palliative Care Progress Note ---
Date of Service July 09, 2019 Assessment & Plan (1) Goals of care, counseling/discussion: -Comfort measures only. -Patient continues to have restlessness in bed, facial grimacing and furrowed brow. While I was present in room, she required another dose of lorazepam 0.5mg IV while I was in the room not quite four hours after the last dose. -Increased frequency of lorazepam to Q2h PRN agitation. -Morphine is ordered 4mg IV Q15min PRN, will make it Q1h PRN pain or SOB, hold for RR <10. -Will ask hospice agency to come and evaluate for GIP hospice given patient's frequent need for IV medications for comfort and continued penitentiary assessment for nonverbal signs of pain/agitation/discomfort. (2) Left acute arterial ischemic stroke, MCA (middle cerebral artery): (3) Delirium: (4) Altered mental status: Subjective Patient continues to have restlessness in bed requiring IV medications and frequent nursing assessment. Furrowed brow/facial grimacing. Son at bedside. Review of Systems Review of Systems: Unobtainable due to cognitive status Physical Exam Constitutional: + ill appearing and + thin ENMT: external ear and nose normal, oropharynx normal Neck: normal visual inspection Respiratory: normal respiratory effort Auscultation: + diminished lung sounds Cardiovascular: Rate/Rhythm: regular rate and regular rhythm Extremities: no edema Gastrointestinal (Abdomen): Inspection/Auscultation: normal bowel sounds Percussion/Palpation: abdomen soft Psychiatric: Orientation: + not alert (did not open eyes) Supervising Physician Co-Signing Physician Notes Patient seen and examined-patient's son and another [id number] at bedside. Patient appears comfortable on exam-patient did receive 1 PRN morphine and 1 PRN Ativan at approximately 10 AM today for restlessness. PE: Patient calm, NAD-did not respond to voice or touch HEENT: Dry mucous membranes Neck: Slightly hyperextended Respirations: Unlabored CV: Regular rate Abdomen: Soft, nontender Extremities: Warm, no mottling Agree with above note, assessment and plan as per LAYLA Clark Discussed end-of-life issues at length with both son and other [id number] at bedside -family feels patient is comfortable under current care-not interested in admitting to hospice at this time. Will continue to follow and provide support to family. PG Care Time/CCT Prolonged Care Time Prolonged Care Time: Yes Total Prolonged Care Time: 40 85 Time Spent Midlevel 45 minutes with >50% of the time spent at bedside with patient, family, and IDT discussing comfort measures and POC. Critical Care Time Prolonged Care Time Prolonged Care Time: Yes Total Prolonged Care Time: 40 (1) Altered mental status Altered mental status type: unspecified Qualified Code(s): R41.82 - Altered mental status, unspecified
--- NOTE | 2019-07-09 12:29 | Hospitalist Progress Note ---
Date of Service July 09, 2019 Assessment & Plan (1) Delirium: -Developed acute delirium/confusional states after stroke on this admission and initially treated with Depakote -however during hospital course, patient has been more sedated and lethargic; continue to avoid Depakote and Haldol (2) Altered mental status: -from stroke -EEG report 07/05/19: abnormal EEG in a patient with altered mentation due to moderate to severe background slowing. There is no epileptiform discharges recorded. (3) Acute CVA (cerebrovascular accident): -88 year old woman with prior history of right MCA and PLASTERER SPOT stroke on ASA and Plavix, History of CAD s/p stents with systolic CHF, and CKD admitted with with aphasia, L sided neglect, hyporeflexia, contracture and found to have acute left MCA ischemic stroke which appears embolic (artery to artery given known intracranial athero Vs cardiac). initially delirium and hyperactive and then have been hypoactive and somnolent -admission MRI of brain: Shows diffusion restriction of 2 cm on left temporal lobe -was given rectal ASA. -TTE completed and shows reduced EF 35-30%. No cardiac thrombus or PFO. -hospital course complicated by initial delirum and then hypoactivity and poor appetite; mental status has not improved with depakote held and haldol held -repeat CT head on 07/03/19 did not show any hemorrhagic conversion -07/04/19 to 07/05/19: Patient was transferred to telemetry service because of monitoring while on IV cardiac medications for better optimization of heart rate and blood pressures. Nocturnal hospital doctor was made aware by RN of worsening lethargy. CT head on 07/05/[address] head of Interval extension of a subacute left temporal and parietal lobe infarct. No evidence of acute hemorrhage. Old right frontal and right parietal and right occipital lobe infarcts. Patient also started on ceftriaxone in case of urinary tract infection. Patient continued to be somnolent when seen day time hospitalist. patient's son Nahun ([place]) in agree with other members of the family that they do not believe that patient would have wished to be in this state of poor quality of life and opting for patient to be on comfort care measures only -stop telemetry monitoring, palliative care following the patient, IV Morphine 1 mg Q2 hours PRN, Atropine gtts 4 gtts Q2 hours PRN for secretions, as per palliative care can also add 0.5 mg Ativan every 6 hours as needed if agitation during this end of life care -poor overall prognosis, at this time, patient's son and family members are not looking for discharge from hospital as they are expecting patient continue end of life care here in the hospital until she passes away, showcase maker have discussed with patient's son about inpatient hospice evaluation (4) Elevated troponin: elevated troponins (peak of 0.4 on this admission) was attributed to demand ischemia in setting of acute stroke and hypertensive urgency on presentation (5) CAD (coronary artery disease): -as per patient's family patient's had stents placed 5 years ago and had been consistently on aspirin and plavix -elevated troponins (peak of 0.4 on this admission) was attributed to demand ischemia in setting of acute stroke and hypertensive urgency on presentation and as per evaluations by previous hospitalist: Echo done this admission (Ejection fraction 25-30% There is anterior, septal, severe lateral wall hypokinesis. Left atrium is severely dilated) and that in comparison to Echo on 02/24/2016 (LV ejection fraction moderately reduced There is a large sized apical, septal, anteroseptal, anterior, inferior, posterior and lateral wall motion abnormality with hypokinesis to akinesis of segments), there did not seem to be appreciable changes and elevated troponins was attribute to demand ischemia in setting of acute stroke and hypertensive urgency on presentation -patient had been on rectal aspirin and unable to take oral plavix -cardiac medications stopped on 07/05/19 as patient is comfort care status only as of 07/05/19 (6) Fall: fall precautions have been instituted on this admission but unlikely that patient at this point can climb out of bed (7) Chronic systolic CHF (congestive heart failure): -Last echo 02/2016 revealed EF 30 to 34% -Repeat echocardiogram : Shows 25-30% no significant change in last 3 years -Was on metoprolol succinate , Aldactone, Lasix, lisinopril as outpatient prior to this admission and because of poor oral intake medications had be held or transitioned to IV forms -cardiac medications stopped on 07/05/19 as patient is comfort care status only as of 07/05/19 (8) CKD (chronic kidney disease), stage III: -Creatinine at baseline as of 07/05/19 -IV fluids stopped on 07/05/19 as patient is comfort care status only as of 07/05/19 electrolytes -as of 07/05/19 labs hyponatremia and hypokalemia has resolved however patient is comfort care measures only as of 07/05/19 and will no longer check electrolytes urinary tract infection -has nance -initially given ceftriaxone but antibiotics to be stopped as of 07/05/19 as patient is comfort care measures only -patient's family would like nance to be continued Hypothyroidism -TSH normal on this admission, and home Levothyroxine 50 mcg was given as IV 25 mcg daily, stop as of 07/05/19 as patient is on comfort status only (9) COPD (chronic obstructive pulmonary disease): no respiratory distress at this time (10) Dyslipidemia: patient has not been able to take statin in the hospital by mouth statin stopped as patient is comfort care status only as of 07/05/19 (11) DVT prophylaxis: stopped heparin subcutaneous as patient is comfort care status only as of 07/05/19 CODE STATUS: DNR/DNI, comfort care measures only status as this would be the patient's wishes as per her son/power of patent attorney and family members son Nahun ([phone]) Main diagnosis: Acute CVA (cerebrovascular accident), elevated troponins was attribute to demand ischemia in setting of acute stroke and hypertensive urgency on presentation, Chronic systolic CHF (congestive heart failure), chronic kidney disease stage 3, Altered mental status, Comfort care measures only status Subjective Patient with open mouth breathing. dry oral mucosa. sleeping. patient does not interact with environment. non verbal and no purposeful movement. in my exam, patient moved toes on her own. skin of leg is well perfused. manager play at bedside and discussed with patient's son about inpatient hospice evaluation Physical Exam Constitutional: + altered mental status ENMT: dry oral mucosa Neck: normal visual inspection Respiratory: open mouth breathing Cardiovascular: Rate/Rhythm: regular rate and regular rhythm Gastrointestinal (Abdomen): Inspection/Auscultation: abdomen normal to inspection and normal bowel sounds Percussion/Palpation: abdomen soft Skin: no rashes, warm and dry Neurologic: sleeping, somnolent, made some toe movements during physical exam Genitourinary: has nance (1) Altered mental status Altered mental status type: unspecified Qualified Code(s): R41.82 - Altered mental status, unspecified (2) CAD (coronary artery disease) Coronary Disease-Associated Artery/Lesion type: [place] artery [place] vs. transplanted heart: [place] heart Associated angina: without angina Qualified Code(s): I25.10 - Atherosclerotic heart disease of [place] coronary artery without angina pectoris (3) Fall Encounter type: initial encounter Qualified Code(s): W19.XXXA - Unspecified fall, initial encounter (4) COPD (chronic obstructive pulmonary disease) COPD type: unspecified COPD Qualified Code(s): J44.9 - Chronic obstructive pulmonary disease, unspecified
[2019-07-10] MEDS: MoRPHine SULFATE 4 MG/ML 1 ML CARP\\VIAL IV PRN ×2 (07:51→09:23)
[2019-07-10] MEDS: LORazepam 0.5 MG/1 ML VIAL IV PRN (08:20)
--- NOTE | 2019-07-10 08:32 | Hospitalist Progress Note ---
Date of Service July 10, 2019 Assessment & Plan (1) CVA (cerebral vascular accident): Ischemic stroke left MCA territory, probably cardioembolic. Receiving comfort measures. Now tachycardic more tachypneic. Continue morphine and lorazepam as needed for palliation of symptoms. Subjective Recheck for multiple problems. Patient seen in their room around 08:20. Daughter and niece at bedside. Remains unresponsive. Noted to be more tachypneic. No apparent pain. Receiving occasional doses of PRN morphine and lorazepam. Review of Systems: Unable to obtain due to pt's condition. Physical Exam Constitutional: + ill appearing Respiratory: + tachypneic Auscultation: + rhonchi (few) Cardiovascular: Rate/Rhythm: regular rate and + tachycardic Vessels: + JVD Extremities: no edema Gastrointestinal (Abdomen): Percussion/Palpation: abdomen soft; abdomen nontender Skin: no dry skin (diaphoretic) Neurologic: + obtunded
[2019-07-10] MEDS ORDERED: MoRPHine SULF/NSS 100 MG/100 ML BAG IV SCH (09:45)
--- NOTE | 2019-07-10 10:28 | Palliative Care Progress Note ---
Date of Service July 10, 2019 Assessment & Plan (1) Goals of care, counseling/discussion: -Comfort measures only. -Ativan frequency increased PRN yesterday due to restlessness, facial grimacing and furrowed brow. Pt used 1 dose of Ativan since yesterday and is no longer moving her limbs or showing signs of restlnessness. -Patient with irregular tachycardia and tachypnea, RR 32. -Patient starting to have mottling on the bottom of both of her feet. -Morphine is ordered 4mg Q1PRN and has used 3 doses over past 24 hours, 2 doses this morning -Patient family reluctant to Hospice agency evaluation, and based on symptom needs, after discussion with Dr. Portillo, we will start a Morphine gtt, which was discussed with family and they are receptive of this. -Patients daughter used my stethescope to listen to her mothers heart sounds and was appropriately tearful. -Morphine gtt started at 2mg/hour. At this time, I would estimate hours to a day or two for life expectancy. -Family appropriately grieving and support provided. -Will continue to monitor her progression in the active dying phase. -PPS: 10% (2) Left acute arterial ischemic stroke, MCA (middle cerebral artery): (3) Delirium: (4) Altered mental status: Subjective Patient lying in bed, no longer restless or moving limbs. (+) facial grimacing and furrowed brow. (+) tachypnea. Pt continuing to make urine. Pt daughter and son at bedside. Review of Systems Review of Systems: Unobtainable due to reduced consciousness Physical Exam Constitutional: + ill appearing and + in distress Eyes: PERRL, conjunctivae normal, anicteric sclerae ENMT: external ear and nose normal, oropharynx normal Neck: trachea midline, no thyromegaly Respiratory: + respiratory distress (tachypnea) Auscultation: + diminished lung sounds and + rhonchi Cardiovascular: Rate/Rhythm: + tachycardic and + irregularly irregular Heart Sounds: + murmur Gastrointestinal (Abdomen): normal bowel sounds, soft, nontender, no hepatosplenomegaly Skin: + turgor decreased and + mottling (on bottom of bilateral feet) Psychiatric: Orientation: + not alert Genitourinary: (+) nance catheter in situ. Lymphatic: no cervical or axillary lymphadenopathy PG Care Time/CCT Total # of Minutes Spent Total Time Spent with Patient: Total time spent is greater than 50% in coordination of care (as documented) at patient's floor/unit and/or counseling patient: 45 Prolonged Care Time Prolonged Care Time: Yes Total Prolonged Care Time: 45 Time Spent Midlevel Total time spent 45 minutes with > 50% of that time spent assessing the patient, discussing end of life symptom management and providing support to family members (1) Altered mental status Altered mental status type: unspecified Qualified Code(s): R41.82 - Altered mental status, unspecified
--- NOTE | 2019-07-10 13:20 | Death Summary ---
Date of Service July 10, 2019 Pronouncement Note Date and Time of Date of : 07/10/19 Time of : 11:25 PCOD Preliminary cause of : Stroke with cerebral ischemia Contributing Factors (1) Left acute arterial ischemic stroke, MCA (middle cerebral artery): Summary Additional details: Patient ceased to breathe at 11:25. Additional Data Confirmation of : no pulse, no respirations, no heart sounds and pupils fixed and dilated Family: at bedside Attending/PCP notified?: Yes Attending physician: Talib Portillo MD
--- NOTE | 2019-07-12 04:53 | Discharge Summary ---
Date of Service Date of Admission: 06/29/19 Date of : 07/10/19 Admission HPI Per Admitting Provider This is a 88-year-old female who has a significant PMH of prior CVA x2 with left-sided weakness, CAD, chronic systolic CHF, moderate COPD, HLD, hypothyroidism, CKD stage III, ALONSO, dementia who presents to [facility] secondary to altered mental status, abnormal speech, fall since last evening. Family is at bedside. Patient was in her normal state of health yesterday when last seen by family. At baseline she does have underlying dementia and some progression of confusion, but is able to ambulate with walker, talk, participate in ADLs. When [id number] went into bedroom this morning she noted blood on bed sheets and was felt patient had fallen overnight, but then returned to bed. Patient was able to save family members names, but when asked questions was unable to articulate and was mumbling. At that time there was no apparent facial droop or obvious weakness. She did have right forearm skin tears and bruises to lower extremities from fall but was able to ambulate downstairs to be brought to ER. She did take all medications this morning, was able to swallow and no apparent cough. Unable to obtain ROS from patient given current cognitive state, history provided by family. She does have history of prior CVA in the past which presented similarly in regards to cognitive status and speech, but was much worse in regards to weakness of L side. Patient made mostly for recovery from prior CVAs. She follows closely with cardiology Dr. Salgado and neurology Dr. Broussard who have her maximized on antiplatelet therapy. Up until this morning she has been doing well. Good appetite without other complaints per family. Did not complain of chest pain, shortness of breath, fevers, nausea, vomiting, diarrhea. She has been having intermittent abdominal pain which has been present for approximately 2 years, but becoming progressively getting worse. Symptoms now occurring daily, mostly epigastric and left upper quadrant with and after meals. No improvement with PPI or ranitidine. Per family, PCP felt secondary to vascular disease. She also has been complaining of headache with abdominal pain and peripheral vision loss. Seen by ophthalmology in March/2019 which felt peripheral vision loss secondary to TIAs. Principal Diagnosis ischemic stroke left MCA, probably cardioembolic Discharge Data Allergies Allergy/AdvReac Type Severity Reaction Status Date / Time No Known Allergies Allergy Unverified 06/29/19 12:32 Consultations 06/29/19 12:12 ED Decision to Admit Stat 06/29/19 15:16 Consult Case Management - Discharge Planning Routine Consult Case Management - Discharge Planning Routine Consult Neurology Routine 07/03/19 13:10 Consult Palliative Care Routine Ordered Studies 06/29/19 09:45 CT head/brain wo con Stat 06/29/19 09:53 CT cervical spine wo con Stat 06/29/19 10:45 CT head/brain wo con Stat 06/29/19 14:35 MR brain wo con Stat 07/03/19 15:36 CT head/brain wo con Stat 07/04/19 21:40 CT head/brain wo con Urgent Hospital Course (1) Acute CVA (cerebrovascular accident): 88-year-old female with history of ischemic heart disease and multiple other problems. She presented to ED with altered mental status. Initial CT showed age-related changes, no apparent acute findings. However, further imaging by MRI demonstrated an ischemic stroke in the left temporal lobe. Follow-up CT showed extension of stroke. Stroke probably cardioembolic in nature. Underlying ischemic cardiomyopathy with reduced LVEF and wall motion abnormalities in the left ventricle as well as enlarged left atrium. Cardiac rhythm was sinus. Neurology consulted. PT, OT, TIME CHECKER evaluations performed. Hospital course complicated by ongoing poor neurologic status. Palliative Care Medicine consulted. Family opted for comfort measures. Patient ceased to breathe 07/10/2019 at 11:25 AM. Cause of : ischemic stroke, left MCA territory. Please refer to previous documentation for detailed discussion of other multiple medical problems during hospital course. Total Time Total Time Spent Total Time Spent (In Minutes): 0 Discharge Plan Discharge Items Patient Disposition: Admission Data Admit Date/Time: 06/29/19 12:55 Attending Provider: Talib Portillo Admit Provider: Barb Pepe Primary Care Provider: Adrian Feliciano Other Providers: Barb Pepe ; Nimco Palencia ; Talib Broussard ; Nimco Louie ; Regis Flowers ; Becky Abdi ; Roebrt Sal Service: Medical Other DC Date/Time DO NOT enter until pt leaves facility: 07/10/19 11:25
== END 2019-07-10 11:25 | disposition expired | DRG 64 ==
LOC: ED 09:30 → SUATTDRO 12:55 → 2E 12:55 → 4W 16:55 → 2N 07-04 17:25 → 4W 07-05 15:04